=== PATIENT | female | born 1950 | race Caucasian/White ===

== ENCOUNTER → 2020-08-12 | Outpatient (CLI) | payer MEDICARE ==
--- NOTE | 2020-08-12 13:47 | REP ---
INDICATION: HEART FAILURE COMPARISON: None. TECHNIQUE: PA and lateral. FINDINGS: The mediastinum and cardiac silhouette are normal. The lung rader are demonstrate diffuse increased vascular and interstitial markings which are nonspecific. Cardiomegaly is appreciated. Evidence for prior sternotomy and aortic valve repair noted. IMPRESSION: Diffusely increased markings. No prior exam for comparison. Differential diagnosis includes early interstitial edema as well as chronic changes. If the patient remains symptomatic consider chest CT for further investigation. <Electronically signed by Joo Da Silva > 08/12/20 [id number]
== END ==
LOC: M WUC 10:30
PROVIDERS: ATTEND Internal Medicine Cardiovascular Disease
DX: I50.9 Heart failure, unspecified (principal)

== ENCOUNTER 2021-03-10 12:36 | Observation (INO) | payer MEDICARE ==
[~2021-03-10] VITALS: Ht 160 cm; Wt 72.5 kg
[2021-03-10] MEDS ORDERED: WARF-18 PO (12:56)
[2021-03-10] MEDS ORDERED: METO1TAB7 PO (12:56)
[2021-03-10] MEDS ORDERED: SPIR-10 (12:56)
[2021-03-10] MEDS ORDERED: TRAM37.53 (12:56)
[2021-03-10] MEDS ORDERED: ATOR80TA59 PO ×2 (12:56→16:11)
[2021-03-10] MEDS ORDERED: GABA600T4 PO (12:56)
[2021-03-10] MEDS ORDERED: TERB250T91 (12:56)
[2021-03-10] MEDS ORDERED: TOPA100T12 PO ×2 (12:56→16:28)
[2021-03-10] MEDS ORDERED: CEFD1CAP8 (12:56)
[2021-03-10] MEDS ORDERED: RAMI1CAP24 PO (12:56)
[2021-03-10] MEDS ORDERED: SERT-141 PO (12:56)
[2021-03-10] MEDS ORDERED: TORS10TA3 PO (12:56)
--- NOTE | 2021-03-10 13:48 | REPVR ---
PROCEDURE INFORMATION: Exam: CT Head Without Contrast Exam date and time: 03/10/2021 1:33 PM Age: 70 years old Clinical indication: Altered mental status/memory loss TECHNIQUE: Imaging protocol: Computed tomography of the head without contrast. Radiation optimization: All CT scans at this facility use at least one of these dose optimization techniques: automated exposure control; mA and/or kV adjustment per patient size (includes targeted exams where dose is matched to clinical indication); or iterative reconstruction. COMPARISON: No relevant prior studies available. FINDINGS: Brain: There is no acute intracranial hemorrhage or mass effect. Moderate diffuse volume loss is within the range of normal for patient age. There are small vessel ischemic changes within the periventricular and subcortical white matter, but the normal pepper-white matter delineation is maintained. Sella: There is an expanded and empty sella. Cerebral ventricles: No ventriculomegaly. Paranasal sinuses: Visualized sinuses are unremarkable. No fluid levels. Mastoid air cells: Visualized mastoid air cells are well aerated. Bones/joints: Unremarkable. No acute fracture. Soft tissues: Unremarkable. IMPRESSION: No acute hemorrhage or edema. Electronically signed by: Barbara Lamb On 03/10/2021 13:48:26 PM
[2021-03-10 14:20] LABS: BASO # 0.1 10^3/uL (0.0-0.2); BASO % 0.8 % (0.0-1.0); EOS # 0.1 10^3/uL (0.0-0.5); EOS % 2.1 % (0.0-3.0); HEMOGLOBIN 13.3 g/dl (12.0-15.5); LYMPH # 0.9 10^3/uL (1.5-5.0); LYMPH % 15.1 % (24.0-44.0); MEAN CORPUSCULAR HEMOGLOBIN 27.5 pg (27.0-33.0); MEAN CORPUSCULAR HGB CONC 30.9 g/dl (32.0-36.5); MEAN CORPUSCULAR VOLUME 88.8 fl (80.0-96.0); MONO # 0.4 10^3/uL (0.0-0.8); MONO % 6.9 % (2.0-8.0); NEUTROPHILS # 4.7 10^3/uL (1.5-8.5); NEUTROPHILS % 74.8 % (36.0-66.0); PLATELET COUNT, AUTOMATED 138 10^3/uL (150-450); RED BLOOD COUNT 4.84 10^6/uL (4.00-5.40); WHITE BLOOD COUNT 6.2 10^3/uL (4.0-10.0)
[2021-03-10 14:29] LABS: INR 4.66
[2021-03-10 14:30] LABS: PARTIAL THROMBOPLASTIN TIME 51.2 SECONDS (25.9-37.0)
[2021-03-10 14:56] LABS: ALBUMIN 3.5 GM/DL (3.2-5.2); ALT/SGPT 23 U/L (12-78); BILIRUBIN,DIRECT 0.2 MG/DL (0.0-0.2); BILIRUBIN,TOTAL 0.5 MG/DL (0.2-1.0); BLOOD UREA NITROGEN 37 MG/DL (7-18); CALCIUM LEVEL 8.5 MG/DL (8.8-10.2); CARBON DIOXIDE LEVEL 22 MEQ/L (21-32); CHLORIDE LEVEL 110 MEQ/L (98-107); CREATININE FOR GFR 1.16 MG/DL (0.55-1.30); GLOMERULAR FILTRATION RATE 49.5 (>45); GLUCOSE, FASTING 93 MG/DL (70-100); POTASSIUM SERUM 4.2 MEQ/L (3.5-5.1); SODIUM LEVEL 140 MEQ/L (136-145); THYROID STIMULATING HORMONE 0.163 uIU/ML (0.358-3.740); TOTAL PROTEIN 7.3 GM/DL (6.4-8.2)
[2021-03-10 15:01] LABS: RSV AMPLIFICATION NEGATIVE (NEGATIVE)
[2021-03-10] MEDS ORDERED: CEFD1CAP8 PO (16:11)
[2021-03-10] MEDS ORDERED: NEUR600T PO (16:28)
[2021-03-10] MEDS ORDERED: WARF4TAB52 PO (16:28)
[2021-03-10] MEDS ORDERED: ALTA1CAP3 PO (16:28)
[2021-03-10] MEDS ORDERED: TRAM37.53 PO (16:28)
[2021-03-10] MEDS ORDERED: TOPR50TA PO (16:28)
[2021-03-10] MEDS ORDERED: WARF4TAB51 PO (16:28)
[2021-03-10] MEDS ORDERED: ZOLO100T PO (16:28)
[2021-03-10] MEDS ORDERED: SPIR-10 PO (16:28)
[2021-03-10] MEDS ORDERED: VITMTA PO (16:28)
[2021-03-10] MEDS ORDERED: HOME MED LIST COMPLETE! XX SCH (16:30)
[2021-03-10] MEDS ORDERED: LORazepam 2 MG/ML VIAL IV PRN (19:00)
[2021-03-10] MEDS ORDERED: ACETAMINOPHEN TAB 650MG DOSE (2X325MG) PO PRN (19:00)
--- NOTE | 2021-03-10 19:10 | ECGEPIP ---
[facility] - ED Test Date: 2021-03-10 Pat Name: JESSE TOLEDO Department: Room: - Gender: Female Cop Examiner: tierra : 1950 Requested By: CHAR LEUNG Order Number: [id number] Reading MD: Danielle Tejeda Measurements Intervals [place] Rate: 62 P: RI: QRS: 11 QRSD: 104 T: -59 QT: 430 QTc: 436 Interpretive Statements Atrial fibrillation Minimal voltage criteria for LVH, may be normal variant ( Lex product ) ST & T wave abnormality, consider ischemia No prior Electronically Signed on 03-10-2021 19:10:05 EST by Danielle Tejeda
--- NOTE | 2021-03-10 19:42 | HPEPDOC ---
[facility] Medical History & Physical Date of Admission Mar 10, 2021 Date of Service: Mar 10, 2021 Attending Physician: ADDIE VELAZQUEZ MD History and Physical CHIEF COMPLAINT: 2 seizure like activity events lasting 20sec and then short postictal unresponsiveness all witnessed by son HISTORY OF PRESENT ILLNESS: 70 yo W with a history of AVR on warfarin, chronic Afib on toprol and warfarin, migraine headaches for which she sees Dr. Limon on topamax 150mg BID, HLD, HTN, depression, history of sarcoidosis and "thyroid problems" but recently labs were normal and she off meds, who was at her recent baseline until 2d ago when she had a sudden loss of consciousness with unresponsiveness and body jerking that appeared seizure like to her son who took her to [facility] where she had a UA that was positive without any complaints of dysuria or fever and was started on cefdnir. Their CT scanner was unfortunately down and so she never had a CT head and was discharged home with plan to follow up with her neurologist promptly but they did not have a prmpt appointment for her and then last evening she had another episode that lasted about 20 sec and had a brief unresponsive period after and confusion that last 1-2min thus his decision to bring her in today. Both she and her son deny any history of fever, chills, chest pain, palpitations, rhinorrhea, congestion, dysuria, abdominal pain, dizziness or complaints of illness in general except these two distinct episodes. In the ED, she was hemodynamically stable and afebrile and breathing comfortably. She reported a slight headache but otherwise was thirsty and hungry. She is hard of hearing but is otherwise fully oriented. I spoke with her son who lives with her and told me that she uses a cane and walker at baseline and does not have a seizure disorder history. In the ED workup included a CT head that showed an expanded empty sella without ventriculomegaly, no bleeding, masses or mass effect, WBC was 6.2, hgb 13.3, Na 138, Na 140, K 4.2, BUN 37, Cr 1.16, AST 16, ALT 23, TSH 0.63. Respiratory panel was negative. I am now adm itting her for workup of this potential seizure activity. PAST MEDICAL HISTORY: AVR HTN HLD History of sarcoidosis Chronic Afib PAST SURGICAL HISTORY: Aortic valve replacement Cholecystectomy Tubal ligation SOCIAL HISTORY: Marital status: , mother of 3, lives with youngest son in [facility] Tobacco use: Never ETOH: Never Illicit drug use: Never FAMILY HISTORY: Father: Stroke Mother: DM, Stroke, VTE, heart disease ALLERGIES: Please see below. REVIEW OF SYSTEMS: 10 point ROS was completed and grossly negative except for those two seizure like episodes noted in the HPI. HOME MEDICATIONS: Please see below. PHYSICAL EXAMINATION: VITAL SIGNS: see below GENERAL APPEARANCE: NAD, conversational, pleasant HEENT: NCAT, has central alopecia, EOMI, MMM CARDIOVASCULAR: Irregular rhythm, normal rate, has a systolic murmur and mechanical valve click LUNGS: CTAB, no wheezing, rales or rhonchi ABDOMEN: Protuberant, has central obesity, otherwise soft, normoactive sounds, nontender MUSCULOSKELETAL: Thin extremities with central obesity. 5/5 strength throughout EXTREMITIES: WWP, no LE edema NEUROLOGICAL: CN3-12 intact, 5/5 strength in both upper and lower extremities, normal gait with her cane PSYCHIATRIC: AOx3 LABORATORY DATA: Reviewed above. See below. IMAGING: Reviewed above. Please see imaging section MICROBIOLOGY: Please see below. ASSESSMENT: 70 yo W with a history of AVR on warfarin, chronic Afib on toprol and warfarin, migraine headaches for which she sees Dr. Limon on topamax 150mg BID, HLD, HTN, depression, history of sarcoidosis and "thyroid problems" but recently labs were normal and she off meds, who was at her recent baseline until 2d ago when she had 2 episodes of transient seizure like activity with brief postictal AMS who is now being admitted for potential seizure activity. PLAN: Suspected seizure like activity: -spot EEG -CT head was without acute pathology -UA, BCx, CXR -normoglycemic at this time, electrolytes are within normal limits at this time -check free T4 given low TSH -continue home topamax -PRN ativan for seizure like activity -prolactin -check syphillis EIA -will consider neuro consult after initial workup Chronic A fib: -Plan is to continue warfarin but will hold for now given supratherapeutic INR -daily INR check -continue toprol XL AVR: -Plan is to continue warfarin but will hold for now given supratherapeutic INR -daily INR check Depression: -continue sertraline Chronic pain: -continue tramadol/acetaminophen, gabapentin HTN: -continue ramipril and toprol XL HLD: -continue lipitor DVT ppx: on warfarin Code status: FULL Vital Signs Vital Signs Date Time Temp Pulse Resp B/P (MAP) Pulse Ox O2 Delivery O2 Flow Rate FiO2 03/10/21 18:15 73 130/66 (87) 98 Room Air 03/10/21 12:37 97.6 18 Laboratory Data Labs 24H Laboratory Tests 2 03/10/21 13:45: Immature Granulocyte % (Auto) 0.3, Neutrophils (%) (Auto) 74.8H, Lymphocytes (%) (Auto) 15.1L, Monocytes (%) (Auto) 6.9, Eosinophils (%) (Auto) 2.1, Basophils (%) (Auto) 0.8, Neutrophils # (Auto) 4.7, Lymphocytes # (Auto) 0.9L, Monocytes # (Auto) 0.4, Eosinophils # (Auto) 0.1, Basophils # (Auto) 0.1, Nucleated Red Blood Cells % (auto) 0.0, Prothrombin Time 44.0H, Prothromb Time International Ratio 4.66, Activated Partial Thromboplast Time 51.2H, Anion Gap 8, Glomerular Filtration Rate 49.5, Calcium Level 8.5L, Total Bilirubin 0.5, Direct Bilirubin 0.2, Aspartate Amino Transf (AST/SGOT) 16, Alanine Aminotransferase (ALT/SGPT) 23, Alkaline Phosphatase 129H, Total Protein 7.3, Albumin 3.5, Albumin/Globulin Ratio 0.9L, Thyroid Stimulating Hormone (TSH) 0.163L, Coronavirus (COVID- 19)(PCR) NEGATIVE, Influenza Type A (RT-PCR) NEGATIVE, Influenza Type B (RT-PCR) NEGATIVE, Respiratory Syncytial Virus (PCR) NEGATIVE 03/10/21 13:46: CBC/BMP Laboratory Tests 03/10/21 13:45 Home Medications Scheduled Atorvastatin Calcium (Atorvastatin Calcium) 80 Mg Tablet, 80 MG PO DAILY Cefdinir (Cefdinir) 300 Mg Capsule, 300 MG PO BID 7 DAY SUPPLY Gabapentin (Neurontin) 600 Mg Tablet, 600 MG PO TID Metoprolol Succinate (Toprol Xl) 50 Mg Tab.er.24h, 50 MG PO DAILY Multivitamins (Thera M Plus Tablet) 1 Each Tablet, 1 TAB PO DAILY Ramipril (Altace) 5 Mg Capsule, 5 MG PO DAILY Sertraline Hcl (Zoloft) 100 Mg Tablet, 100 MG PO BID Spironolactone (Spironolactone) 25 Mg Tablet, 12.5 MG PO DAILY Topiramate (Topamax) 100 Mg Tablet, 150 MG PO BID Tramadol HCl/Acetaminophen (Tramadol-Acetaminophn 37.5-325) 1 Each Tablet, 1 TAB PO TID Warfarin Sodium (Warfarin Sodium) 1 Mg Tablet, 1 MG PO DAILY TAKE WITH 2MG = TOTAL 5MG Warfarin Sodium (Warfarin Sodium) 2 Mg Tablet, 4 MG PO DAILY TAKE WITH 1MG = TOTAL 5MG Allergies Coded Allergies: No Known Allergies (Unverified , 03/10/21) A-FIB/CHADSVASC A-FIB History Current/History of A-Fib/PAF?: Yes Current PO Anticoag Therapy: Yes Treatment Treatment ordered: Warfarin ADDIE VELAZQUEZ MD Mar 10, 2021 19:42
[2021-03-10] MEDS: ULTRACET TAB PO SCH (21:00)
[2021-03-10] MEDS: TOPIRAMATE (TopAMAX) 25 MG TAB PO SCH (21:00)
[2021-03-10] MEDS: SERTRALINE 100 MG TAB PO SCH (21:00)
[2021-03-10] MEDS: GABAPENTIN 300 MG CAP PO SCH (21:00)
[2021-03-10] MEDS: TOPIRAMATE (TopAMAX) 100 MG TAB PO SCH (21:00)
[2021-03-10 22:45] LABS: RHEUMATOID FACTOR QUANT < 10.0 IU/ML (<15.0)
--- NOTE | 2021-03-11 04:39 | REP ---
INDICATION: seizure like activity, no other focal findings COMPARISON: 08/12/2020 TECHNIQUE: AP and lateral. FINDINGS: The mediastinum and cardiac silhouette are stable. Cardiomegaly with prior sternotomy and aortic valve repair noted.. The lung rader demonstrate chronic interstitial changes without acute consolidation, effusion, or pneumothorax. The skeletal structures are intact and normal. IMPRESSION: No acute cardiopulmonary process. <Electronically signed by Joo Da Silva > 03/11/21 [id number]
[2021-03-11 04:40] LABS: HEMOGLOBIN 11.9 g/dl (12.0-15.5); MEAN CORPUSCULAR HEMOGLOBIN 27.5 pg (27.0-33.0); MEAN CORPUSCULAR HGB CONC 31.3 g/dl (32.0-36.5); PLATELET COUNT, AUTOMATED 126 10^3/uL (150-450); RED BLOOD COUNT 4.32 10^6/uL (4.00-5.40); WHITE BLOOD COUNT 6.3 10^3/uL (4.0-10.0)
--- OUTSIDE RECORDS SUMMARY | 2021-03-11 04:44 | CCD | Continuity of Care Document ---
Author Migdalia Fontana M.D. Organization Unknown Address [address] [place] [id number] Phone [phone] Care Team Providers Care Medical Pathology Teacher Name Role Phone Alina Monroe N.P. AUTM [phone] Problems Description No Information Available Social History Type Date Description Comments Sex Unknown Allergies and adverse reactions Description No Information Available Medications Active Medications SIG Qnty Indications Ordering Provide r Date Topamax 100mg Tablets 1 and 1/2 tabs by mouth twice a day 90tabs Crys Limon M.D. 08/02/2020 Immunizations Description No Information Available Vital Signs Description No Information Available Results Test Acquired Date Facility Test Result H/L Range Note Laboratory test finding 08/06/2020 [facility] Tracie W/Reflex If Positive Negative Negative 1 CBC W/Diff 08/06/2020 [facility] WBC 5.1 K/mm3 4.0-10.0 RBC 4.38 M/mm3 4.00-5.50 HGB 12.2 gm/dL 12.0-16.0 HCT 38.1 % 36.0-48.8 MCV 87.0 fl 80-96 MCH 27.9 pg 27.0-31.0 MCHC 32.0 g/dL 32.0-36.0 RDW 15.9 % High 10.0-14.5 PLT 172 K/mm3 172-450 MPV 9.1 fl 9.0-13.0 GR% 80.5 % High 50-80.0 Ig% 0.2 % 0.0-0.2 Ly% 11.8 % Low 25.0-50.0 Mo% 4.7 % 2.0-10.0 Eo% 1.8 % 0-5.0 Ba% 1.0 % 0.0-2.0 GR# 4.1 K/mm3 2.0-8.00 Ig# 0.0 K/mm3 0.0-0.2 Ly# 0.6 K/mm3 Low 1.0-5.0 Mo# 0.2 K/mm3 0.10-1.20 Eo# 0.1 K/mm3 0.0-0.5 Ba# 0.1 K/mm3 0.0-0.2 Laboratory test finding 08/06/2020 [facility] Rheumatoid Factor Screen NEGATIVE Negative TSH 0.364 uIU/mL 0.360-3.740 Complete Metabolic Profile 08/06/2020 [facility] l Glu 125 mg/dL High 74-106 BUN 39 mg/dL High 7-18 Cre 1.69 mg/dL High 0.6-1.0 Na 142 mmol/L 136-145 K 4.2 mmol/L 3.5-5.1 CL 105 mmol/L 98-107 Co2 24 mmol/L 21-32 CA 8.9 mg/dL 8.5-10.1 Gap 13.0 mmol/L High 5-12 GFR 30 mL/min 2 Ast 22 U/L 15-37 Alt 23 U/L 12-78 Alk 72 U/L 46-116 Tbili 0.5 mg/dL 0.2-1.0 TP 7.8 g/dL 6.4-8.2 Alb 4.0 gm/dL 3.4-5.0 Laboratory test finding 08/06/2020 [facility] Vitamin D, 25-Hydroxy 30.1 ng/mL 30.0-100.0 3 Erythrocyte Sedimentation Rate 40 mm/hr High 0-30 1 Performed at: RN - [facility] [address] [id number] Undergraduate Internship: Tawanna Alston MD, Phone: [phone] 2 GFR IS CALCULATED IN mL/min/ 1.73m2 NORMAL FUNCTION: >90 MILDLY DECREASED: 60-89 MILDY TO MODERATELY DECREASED: 45-59 MODERATELY TO SEVERELY DECREASED: 30-44 SEVERELY DECREASED: 15-29 RENAL FAILURE: <15 3 Vitamin D deficiency has bee n defined by the Center of Medicine and an Endocrine Society practice guideline as a level of serum 25-OH vitamin D less than 20 ng/mL (1,2). The Endocrine Society went on to further define vitamin D insufficiency as a level between 21 and 29 ng/mL (2). 1. IOM (Center of Medicine). 2010. Di etary reference intakes for calcium and D. [place]: The National Academies Press. 2. Margarita THORNTON, Joe GONZALEZ, Peyton jeong WOODRUFF, et al. Evaluation, treatment, and prevention of vitamin D deficiency: an Endocrine Society clinical practice guideline. JCEM. 2010; 96(7):1911-30. Performed at: RN - [facility] [address] [id number] Undergraduate Internship: Tawanna Alston MD, Phone: [phone] Procedures Date Code Description Status 01/28/2021 07968 Office/Outpatient Established Mo d MDM 30-39 Min Completed 10/07/2020 43339 Office/Outpatient Established Mo d MDM 30-39 Min Completed 09/17/2020 20290 MRI Brain W/O Contrast Completed 09/17/2020 52938 MRI Brain W/O Contrast Completed 09/17/2020 51958 Magnetic Resonance Angiography N kee W/O Contrast Materials Completed 09/17/2020 24271 Magnetic Resonance Angiography N kee W/O Contrast Materials Completed 09/17/2020 91264 Magnetic Resonance Angiogtaphy H ead W/O Contrast Material(S) Completed 09/17/2020 68845 Magnetic Resonance Angiogtaphy H ead W/O Contrast Material(S) Completed 08/09/2020 64761 Nerve Conduction 9-10 Studies Co mpleted 08/09/2020 02926 Needle Electromyography Complete , Five Or More Muscles Studied Completed 08/09/2020 17334 Needle Electromyography Complete , Five Or More Muscles Studied Completed 08/06/2020 13015 Sympathetic Skin Responses Compl eted 08/06/2020 01930 Test Autonomic Nervous System, C ardiovagal Innervation Completed 08/06/2020 73725 Artery Study Extremity Mult Leve ls Bilateral Completed Medical Devices Description No Information Available Encounters Type Date Location Provider Dx Diagnosis Office Visit 01/28/2021 10:30a Main office - Louisa Limon M.D. R55 Syncope and collapse G56.03 Carpal tunnel syndrome, bila teral upper limbs R26.2 Difficulty in walking, not e lsewhere classified M54.59 Other low back pain G43.809 Other migraine, not intracta ble, without status migrainosus M54.2 Cervicalgia Office Visit 10/07/2020 10:00a Main office - [place] Crys Limon M.D. G56.01 Carpal tunnel syndrome, right upper limb G56.02 Carpal tunnel syndrome, left upper limb G56.22 Lesion of ulnar nerve, left upper limb G43.809 Other migraine, not intracta ble, without status migrainosus M54.2 Cervicalgia R26.9 Unspecified abnormalities of gait and mobility R55 Syncope and collapse R42 Dizziness and giddiness M54.5 Low back pain R41.3 Other amnesia Assessments Date Code Description Provider 01/28/2021 R55 Syncope and collapse Crys estes M.D. 01/28/2021 G56.03 Carpal tunnel syndrome, bilatera l upper limbs Crys Limon M.D. 01/28/2021 R26.2 Difficulty in walking, not elsew here classified Crys Braxton, M.DEnma 01/28/2021 M54.59 Other low back pain Crys BraxtonDeny azar.DEnma 01/28/2021 G43.809 Other migraine, not intractable, without status migrainosus Crys Braxton, M.DEnma 01/28/2021 M54.2 Cervicalgia Crys Braxton, M. DEnma 10/07/2020 G56.01 Carpal tunnel syndrome, right up per limb Crys Braxton, M.DEnma 10/07/2020 G56.02 Carpal tunnel syndrome, left upp er limb Crys Braxton, M.DEnma 10/07/2020 G56.22 Lesion of ulnar nerve, left uppe r limb Crys Braxton, M.DEnma 10/07/2020 G43.809 Other migraine, not intractable, without status migrainosus Crys Braxton, M.DEnma 10/07/2020 M54.2 Cervicalgia Crys BraxtonTi azar DEnma 10/07/2020 R26.9 Unspecified abnormalities of gai t and mobility Crys Limon M.D. 10/07/2020 R55 Syncope and collapse Crys estes M.D. 10/07/2020 R42 Dizziness and giddiness Crys dean M.D. 10/07/2020 M54.5 Low back pain Ti Davey 10/07/2020 R41.3 Other amnesia Ti Davey 09/17/2020 R42 Dizziness and giddiness Bryan Dahl M.D. 09/17/2020 R42 Dizziness and giddiness MRI 09/17/2020 G43.809 Other migraine, not intractable, without status migrainosus Bryan Limon M.D. 09/17/2020 G43.809 Other migraine, not intractable, without status migrainosus MRI 08/09/2020 M62.838 Other muscle spasm Deny Shukla 08/09/2020 R20.2 Paresthesia of skin Rachel Rahman M.D. 08/09/2020 G56.01 Carpal tunnel syndrome, right up per limb Rachel Rahman M.D. 08/09/2020 G56.02 Carpal tunnel syndrome, left upp er limb Rachel Rahman M.D. 08/06/2020 G60.8 Other hereditary and idiopathic neuropathies Crys Limon M.D. 08/06/2020 G60.8 Other hereditary and idiopathic neuropathies Ans/VS 08/06/2020 I95.1 Orthostatic hypotension Crys dean M.D. 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 at Main office - [place] Functional Status Description No Information Available Mental Status Description No Information Available Referrals Refer to Reason for Referral Status Appt Date Created
--- OUTSIDE RECORDS SUMMARY | 2021-03-11 04:44 | CCD | Continuity of Care Document ---
Author Author [facility] Address [address] [place] [address] Phone Care Team Providers Care Manager Behavioral Name Role Phone MARYANNE BERGMAN PCP Chief Complaint and Reason for Visit Reason for Visit SHAKING Health Concerns Health Concerns may be documented in an alternate section. Allergies, Adverse Reactions, Alerts No allergy information available. Social History Assigned Sex Female Problems No problem information available. Medications No medication information available. Immunizations No Immunization Information Available Medical Equipment No Medical Equipment Information available Procedures Procedure Date Performed Status MAMMO DIAG UNI WITH CAD January 31, 2021 completed BRAIN W/O CONTRAST March 07, 2021 active Relevant Diagnostic Tests and/or Laboratory Data Laboratory Results Test Date/Time Result Interpretation Reference Range Result Comment Performing Site White Blood Count March 07, 2021 4:15p m 5.9 4.0-10.0 [facility], [address] [place] [address] Red Blood Count March 07, 2021 4:15pm 4.67 4.00-5.50 [facility], [address] [place] [address] 19684 Hemoglobin March 07, 2021 4:15pm 13.0 12.0-16.0 [facility], [address] [place] [address] Hematocrit March 07, 2021 4:15pm 40.1 36.0-48.8 [facility], [address] [place] [address] 13743 Mean Corpuscular Volume March 4:15pm 85.9 80-96 [facility], [address] [facility] [address] Mean Corpuscular Hemoglobin March 07, 2021 4:15pm 27.8 27.0-31.0 [facility], 4 [facility] [address] Mean Corpuscular Hgb Concent Diff De cember 2020 4:15pm 32.4 32.0-36.0 [facility], [address] [facility] [address] Red Cell Distribution Width March 07, 2021 4:15pm 15.7 10.0-14.5 [facility], 4 [facility] [address] Platelet Count March 07, 2021 4:15pm 130 172-450 [facility], 4 [facility] [address] Mean Platelet Volume March 07 021 4:15pm 10.0 9.0-13.0 [facility], 4 [facility] [address] Granulocytes % (Auto) March 07, 2021 4:15pm 82.2 50-80.0 [facility], 4 [facility] [address] Immature Granulocytes % March 4:15pm 0.2 0.0-0.2 [facility], 4 [facility] [address] Lymphocytes % March 07, 2021 4:15pm 11.1 25.0-50.0 [facility], 4 [facility] [address] Monocytes % March 07, 2021 4:15pm 4.8 2.0-10.0 [facility], 4 [facility] [address] Eosinophils % March 07, 2021 4:15pm 1.2 0-5.0 [facility], 4 [facility] [address] Basophils % March 07, 2021 4:15pm 0.5 0.0-2.0 [facility], 4 [facility] [address] Granulocytes # March 07, 2021 4:15pm 4.8 2.0-8.00 [facility], 4 [facility] [address] Immature Granulocytes # March 4:15pm 0.0 0.0-0.2 [facility], 4 [facility] [address] Lymphocytes # March 07, 2021 4:15pm 0.7 1.0-5.0 [facility], 4 [facility] [address] Monocytes # March 07, 2021 4:15pm 0.3 0.10-1.20 [facility], 4 [facility] [address] Eosinophils # March 07, 2021 4:15pm 0.1 0.0-0.5 [facility], 4 [facility] [address] Basophils # March 07, 2021 4:15pm 0.0 0.0-0.2 [facility], 4 [facility] [address] Prothrombin Time March 07, 2021 4:15pm 33.4 9.1-11.3 [facility], 4 [facility] [address] INR International Normalized Ratio D ecember 2020 4:15pm 3.39 0.87-1.06 [facility], 4 [facility] [address] Partial Thromboplastin Time - Pedro Pablo D ecember 2020 4:15pm 38.3 21.3-29.7 [facility], 4 [facility] [address] Urine Color March 07, 2021 4:30pm [facility] Lab, 4 [facility] [address] Urine Appearance March 07, 2021 4:30pm CLOUDY [facility], 4 [facility] [address] Urine Glucose March 07, 2021 4:30pm NEGATIVE NEGATIVE [facility], 4 [facility] [address]472 Urine Bilirubin March 07, 2021 4:30pm NEGATIVE NEGATIVE [facility], 4 [facility] [address] Urine Ketones March 07, 2021 4:30pm NEGATIVE NEGATIVE [facility], 4 [facility] [address] Specific [place] March 07, 2021 4:30pm 1.020 1.005-1.030 [facility], 4 [facility] 84[address] Urine Blood March 07, 2021 4:30pm NEGATIVE NEGATIVE [facility], 4 [facility] [address] Urine pH March 07, 2021 4:30pm 5.0 5.0-9.0 [facility], 4 [facility] 19[address] Urine Protein March 07, 2021 4:30pm NEGATIVE NEGATIVE [facility], 4 [facility] [address] Urine Urobilinogen March 07 4:30pm NORMAL(0.2-1) 0-1 [facility], 4 [facility] [address] Urine Nitrite March 07, 2021 4:30pm POSITIVE NEGATIVE [facility], 4 [facility] [address] Urine Leukocyte Esterase March 4:30pm 1+(SMALL) NEGATIVE [facility] [address] Urine Microscopic RBC March 07, 2021 4:30pm 0-2 0-3 [facility], 4 [facility] [address] Urine Microscopic WBC March 07, 2021 4:30pm 5-10 0-5 [facility], 4 [facility] 387[address] Urine Epithelial Cells March 07, 2021 4:30pm 1+ 0 [facility], 4 [facility] [address] Urine Bacteria March 07, 2021 4:30pm 4+ NONE SEEN URINE CULTUR E ADDED [facility], 4 [facility] 86677 URINE CULTURE SENT TO REF LAB [facility] Main Lab, 4 [facility] [address] Glucose Level March 07, 2021 4:15pm 125 74-106 [facility], 4 [facility] [address] Blood Urea Nitrogen March 07 4:15pm 37 7-18 [facility], 4 [facility] [address] Creatinine March 07, 2021 4:15pm 1.16 0.55-1.02 [facility], 4 [facility] [address] Sodium Level March 07, 2021 4:15pm 141 136-145 [facility], 4 [facility] [address] Potassium Level March 07, 2021 4:15pm 4.4 3.5-5.1 [facility], 4 [facility] [address] Chloride Level March 07, 2021 4:15pm 105 98-107 [facility], 4 [facility] [address]951 Carbon Dioxide Level March 07 4:15pm 26 21-32 [facility], 4 [facility] [address] Calcium Level March 07, 2021 4:15pm 8.6 8.5-10.1 [facility], 4 [facility] [address] Anion Gap March 07, 2021 4:15pm 10.0 5-12 [facility], 4 [facility] [address] Estimated GFR (MDRD) March 07 4:15pm 46 GFR IS CALCULATED IN mL/min/1.73m2 NORMAL FUNCTION: >90MILDLY DECREASED: 60-89MILDY TO MODERATELY DECREASED: 45-59 MODERATELY TO SEVERELY DECREASED: 30-44SEVERELY DECREASED: 15-29RENAL FAILURE: <15 [facility], [address] [place] [id number] Aspartate Amino Transf (AST/SGOT) De cember 2020 4:15pm 14 15-37 [facility], 4 [facility] [address] Alanine Aminotransferase (ALT/SGPT) March 07, 2021 4:15pm 27 14-59 [facility], 4 [facility] [address] Alkaline Phosphatase March 07 4:15pm 125 46-116 [facility], [address] [place] [address] Total Bilirubin March 07, 2021 4:15pm 0.5 0.2-1.0 [facility], 4 [facility] [address] Total Protein March 07, 2021 4:15pm 7.7 6.4-8.2 [facility], 4 [facility] [address] Albumin March 07, 2021 4:15pm 3.8 3.4-5.0 [facility], 4 [facility] [address] Lipase March 07, 2021 4:15pm 263 73-393 [facility], 4 [facility] [address] Phosphorus Level December 13 5:02am 4.0 2.5-4.9 [facility], 4 [facility] [address] Urine Amphetamine Screen March 4:30pm NEGATIVE <1000 ng/mL [facility], 4 [facility] [address] Urine Cocaine Screen March 07 4:30pm NEGATIVE <300 ng/mL [facility], 4 [facility] [address] Urine Marijuana (THC) Screen r 2020 4:30pm NEGATIVE <50 ng/mL [facility], 4 [facility] [address] Urine Benzodiazepines Screen Decembe r 2020 4:30pm NEGATIVE <300 ng/mL [facility], 4 [facility] [address] Urine Tricyclic Antidepressants Dece mb2020 4:30pm NEGATIVE <1000 ng/mL IF A NEGATIVE RESULT IS OBTAINED AND ING ESTION OF TRICYCLICANTIDEPRESSANTS IS SUSPECTED, A SERUM SAMPLE SHOULD BEOBTAINED AND TESTED USING AN APPROPRIATE METHOD. [facility], 4 [facility] [address] Urine Barbiturates Screen March 072020 4:30pm NEGATIVE <300 ng/mL [facility], 4 [facility] [address] Methylenedioxymethamphetamine (MDMA March 07, 2021 4:30pm NEGATIVE <500 ng/mL [facility], 4 [facility] [address] Urine Opiates Screen March 07 4:30pm NEGATIVE <300 ng/mL [facility], 4 [facility] [address] Urine Phencyclidine (PCP) Prelim Dec emb2020 4:30pm NEGATIVE <25 ng/mL [facility], 4 [facility] [address] Oxycodone Screen March 07, 2021 4:30pm NEGATIVE <100 ng/mL [facility], 4 [facility] [address] Propoxyphene Screen March 07 4:30pm NEGATIVE <300 ng/mL THESE TESTS ARE PERFORMED USING AN IMMUNOASSAY FOR THEQUALITATIVE DETERMINATION OF THE PRESENCE OF THE MAJORMETABOLITES OF DRUGS OF ABUSE. THESE TESTS ARE ONLY ASCREENING AND NOT CONFIRMATORY. CLINICAL CONSIDERATION ANDPROFESSIONAL JUDGMENT MUST BE APPLIED TO ANY DRUG OF ABUSETEST RESULT. [facility], 4 [facility] [address] B-Type Natriuretic Peptide December 13, 2020 5:02am 2090 0-125 [facility], 4 [facility] [address] Diagnostic Imaging Reports Report Dictated Date/Time Dictated By Status PS360 TEMPLATE February 01, 2021 4:48am JOSIAH SAUCEDO Patient Name: JESSE TOLEDO Unit#: [id number] Rad#: [id number] : 54 Status: IQRA Hughes MD: MARYANNE TURCIOS Room/Bed Sex: Ivette Dramatic Teacher: Fernanda Silva Date: 01/31/21 Report #: [id number] Signed - MAMMO DIAG UNI WITH CAD ORIGINAL REPORT DATE OF EXAMINATION: 01/31/2021 15:16 EDT MAMMO DIAG UNI WITH CAD HISTORY: Follow-up Based on the personal and family history information your patient supplied at the time of imaging, her lifetime risk of breast cancer estimated date by the Tyrer-Cuzick model is 6.3%. If anything changes in the personal and/or family history this percentage could increase or decrease. Currently, NCCN and ACS recommended adjunctive breast MRI screening starting at age 30 for women with a > 20-25% lifetime risk of developing breast cancer. Comparison is made to prior study dated 07/13/2020. 2-D left digital mammogram in the CC and MLO planes were performed with supplemental 3-D tomosynthesis of left breast. The images were analyzed through the latest version of the Perfect Escapes computer aided diagnosis system. The patient states that her last clinical breast examination was not provided. Craniocaudal and oblique lateral views of the left breast were obtained. (B) There are scattered areas of fibroglandular density.. There is no dominant mass, suspicious clustered calcification, or non surgical architectural distortion. IMPRESSION: Previously noted calcifications are unchanged. Final assessment of breast composition BIRAD classification (B) There are scattered areas of fibroglandular density. BIRAD 2 - Benign Findings, Routine Yearly Mammographic Follow-up recommended. 10-15% of cancers are not identified by mammography. This usually occurs when the mass is of the same radiographic density as the surrounding breast tissue, emphasizing the importance of breast self examination (BSE) and physical examination. A normal mammogram should not delay biopsy if a suspicious mass or abnormal findings are present upon physical examination. Electronically signed in PS360 by: Josiah Saucedo M.D. 02/01/2021 9:49 EDT Vital Signs No vital signs result information available. Insurance Providers Guarantor JESSE TOLEDO Address [address] [place] [address] Contact Info. Home Phone: Payer Policy Id Coverage Id Subscriber's Name Subscriber Id Effective Date Expiration Date [employer] MEDICARE [id number] JESSE TOLEDO Encounters Encounter Location(s) Ar rival/Admit Date Discharge/Depart Date Provider(s) Departed [facility] March 07, 2021 1:35pm March 07, 2021 6:00pm JUAN RAMON CARMONA [facility], [facility] March 02, 2021 9:18am MARYANNE TURCIOS [facility] February 16, 2021 7:34am MARYANNE TURCIOS Registered Physician/Provider Office Visit [facility] February 14, 2021 5:24am RAYMOND JUAREZ [facility], [facility] January 31, 2021 9:38am MARYANNE TURCIOS Registered Physician/Provider Office Visit [facility] January 19, 2021 7:00am MARYANNE TURCIOS [facility], [facility] January 14, 2021 5:27am MARYANNE TURCIOS [facility], [facility] January 05, 2021 7:26am ME KATRINA TURCIOS [facility] December 31, 2020 5:02am ME KATRINA TURCIOS A [facility] December 24, 2020 6:15am MARYANNE TURCIOS [facility] December 13, 2020 4:57am MARYANNE TURCIOS [facility] December 13, 2020 4:56am DESI NUNEZ [facility] December 08, 2020 6:18am MARYANNE TURCIOS Registered Physician/Provider Office Visit [facility] December 08, 2020 3:00am MARYANNE TURCIOS Functional Status No Functional Status information available Mental Status No Mental Status Information Available Assessments No Assessments Information Available Goals Goals may be documented in an alternate section.
--- OUTSIDE RECORDS SUMMARY | 2021-03-11 04:44 | CCD ---
Author Author [facility] Organization [facility] Address Unknown Phone Unavailable Care Team Providers Care Field Map Editor Name Role Phone Rush Love Unavailable PROBLEMS ALLERGIES No Known Allergies ENCOUNTERS from 1950 to 2021-02-14 IMMUNIZATIONS No Information SOCIAL HISTORY REASON FOR REFERRAL No Information VITAL SIGNS MEDICATIONS PROCEDURES No Information RESULTS No Results REASON FOR VISIT MEDICAL (GENERAL) HISTORY Goals Section Health Concerns MEDICAL EQUIPMENT No Information MENTAL STATUS FUNCTIONAL STATUS ASSESSMENTS PLAN OF TREATMENT Insurance Providers
--- OUTSIDE RECORDS SUMMARY | 2021-03-11 04:44 | CCD | Continuity of Care Document ---
Author Author Migdalia LIMON M.D. Organization Unknown Address [address] [place] [address] Phone [phone] Care Team Providers Care Construction Field Engineer Name Role Phone Alina Monroe N.P. AUTM [phone] Problems Description No Information Available Social History Type Date Description Comments Sex Unknown Allergies and adverse reactions Description No Information Available Medications Active Medications SIG Qnty Indications Ordering Provide r Date Topamax 100mg Tablets 1 and 1/2 tabs by mouth twice a day 90tabs Crys Limon M.D. 08/02/2020 Immunizations Description No Information Available Vital Signs Description No Information Available Results Description No Information Available Procedures Date Code Description Status 01/28/2021 11550 Office/Outpatient Established Mo d MDM 30-39 Min Completed 10/07/2020 67760 Office/Outpatient Established Mo d MDM 30-39 Min Completed 09/17/2020 34749 MRI Brain W/O Contrast Completed 09/17/2020 80279 MRI Brain W/O Contrast Completed 09/17/2020 31757 Magnetic Resonance Angiography N kee W/O Contrast Materials Completed 09/17/2020 03833 Magnetic Resonance Angiography N kee W/O Contrast Materials Completed 09/17/2020 84502 Magnetic Resonance Angiogtaphy H ead W/O Contrast Material(S) Completed 09/17/2020 82224 Magnetic Resonance Angiogtaphy H ead W/O Contrast Material(S) Completed Medical Devices Description No Information Available Encounters Type Date Location Provider Dx Diagnosis Office Visit 01/28/2021 10:30a Main office - [place] Crys Limon M.D. R55 Syncope and collapse G56.03 Carpal tunnel syndrome, bila teral upper limbs R26.2 Difficulty in walking, not e lsewhere classified M54.59 Other low back pain G43.809 Other migraine, not intracta ble, without status migrainosus M54.2 Cervicalgia Office Visit 10/07/2020 10:00a Main office - [place] Crys Limon M.D. G56.01 Carpal tunnel syndrome, [...] tunnel syndrome, bilatera l upper limbs Crys Braxton, M.DEnma 01/28/2021 R26.2 Difficulty in walking, not elsew here classified Crys Braxton, M.DEnma 01/28/2021 M54.59 Other low back pain Crys Braxton , M.DEnma 01/28/2021 G43.809 Other migraine, not intractable, without [...] Crys Braxton, M.DEnma 10/07/2020 M54.2 Cervicalgia Crys Braxton, M. DEnma 10/07/2020 R26.9 Unspecified abnormalities of gai t and mobility Crys BraxtonTere 10/07/2020 R55 Syncope and collapse Crys estes [...] migraine, not intractable, without status migrainosus MRI Plan of Treatment Future Appointment(s):* 07/01/2021 11:00 am - Crys Limon M.D. at Main office - [place] Functional Status Description No Information Available Mental Status Description No Information Available Referrals Refer to Reason for Referral Status Appt Date Created
--- OUTSIDE RECORDS SUMMARY | 2021-03-11 04:44 | CCD ---
Author Author [facility] Organization [facility] Address Unknown Phone Unavailable Care Team Providers Care Fashion Buying Internship Name Role Phone Alina Monroe Unavailable PROBLEMS Type Condition ICD9-CM Code SFJ16-FA Code Onset Dates Condition S tatus W/U Status Risk SNOMED Code Notes Problem Atrial fibrillation, unspecified type I48.91 Ac tive confirmed 05985000 Problem Hyperlipidemia, unspecified hyperlipidemia type E7 8.5 Active confirmed 74087372 Problem Anxiety with depression F41.8 Active confirmed 178445726 Problem Type 2 diabetes mellitus wit hout complication, unspecified whether bed bug exterminator insulin use E11.9 Active confirmed 649037814 Problem Hypertension, unspecified type I10 Active confir med 61818575 Problem Chronic anticoagulation Z79.01 Active confirmed 338353394 Problem Overactive thyroid gland E05.90 Active confirmed 07897724 Problem Bilateral hearing loss, unspecified hearing loss type H91.93 Active confirmed 17077804 Problem Postmenopausal bleeding N95.0 Active confirmed 08413992 Problem [place]-Walker grade 2 cystocele N81.10 Active confir med 873312471 Problem Abnormal finding on breast imaging R92.8 Activ e confirmed 163848918 Problem Migraine without aura and without status migrain osus, not intractable G43.009 Active confirmed 478497790 Problem Abnormal mammogram R92.8 Active confirmed 1 20921735 Problem Sarcoidosis D86.9 Active confirmed 33922287 Problem 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 Active confirmed 402293035968664 Problem LELE (stress urinary incontinence, female) N39.3 Active confirmed 13663706 Problem 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 Active confirmed 78312354 Problem Hyperthyroidism E05.90 Active confirmed 3448 6009 ALLERGIES No Known Allergies ENCOUNTERS from 1950 to 2021-02-28 Encounter Location Date Provider Diagnosis [address] [address] Jan, Alina Monroe Acute bilateral low back lex n without sciatica M54.5 IMMUNIZATIONS No Information SOCIAL HISTORY Tobacco Use: Social History Observation Description Date Details (start date - stop date) Never Smoker Sex Assigned At : Social History Observation Description Sex Assigned At Unknown Tobacco Use/Smoking Question Answer Notes Are you a never smoker REASON FOR REFERRAL No Information VITAL SIGNS No information MEDICATIONS Medication SIG (Take, Route, Frequency, Duration) Notes Start Da te End Date Status Atorvastatin Calcium 80 MG 1 tablet Orally Once a day for 90 day(s) Active Warfarin Sodium 2.5 MG 1 tablet Orally Once a day for 30 day(s) Mar, Active Topiramate 100 MG 1 tablet Orally twice a day Active Ramipril 5 MG 1 capsule Orally Once a day for 90 day(s) Active traMADol-Acetaminophen 37.5-325 MG 1 tablets as needed Orally three times a day and PRN for 30 days Jan, Active Zoloft 100 MG 1 tablet Orally twice a day for 90 days Active Spironolactone 25 MG 1 tablet Orally for 30 day(s) Active Magnesium 500 MG 1 tablet with a meal Orally Once a day for 90 d ay(s) Jul, Active Gabapentin 600 MG 1 tablet Orally three times a day for 90 days Active Voltaren 1 % as directed Externally twice per day as needed Jul, Active Metoprolol Succinate ER 50 MG TAKE ONE TABLET BY MOUTH EVERY DAY for 90 Active Warfarin Sodium 2 MG TAKE TWO TABLETS BY MOUTH ONCE DAILY for 90 Active Glucosamine Chondroitin Complx 500-250 MG 2 tabs Orally daily fo r 90 days Jul, Active PROCEDURES No Information RESULTS No Results REASON FOR VISIT refill MEDICAL (GENERAL) HISTORY Type Description Date Medical History type 2 diabetic Medical History depression/anxiety Medical History overactive thyroid Medical History migraine headaches Medical History osteoarthritis Medical History atrial fibrillation Medical History heart murmur Medical History sarcoidosis Surgical History cholecystectomy Surgical History heart surgery - artificial valve (aorti c) 2000 Surgical History tubal ligation Surgical History umbilical hernia repair Surgical History two liver biopsies - . Surgical History lung biopsy - . Surgical History right oopherectomy (large cysts) Surgical History right cataract Hospitalization History Surgical Needs Goals Section No Information Health Concerns No Information MEDICAL EQUIPMENT No Information MENTAL STATUS No Information FUNCTIONAL STATUS No Information ASSESSMENTS Encounter Date Diagnosis Assessment Notes Treatment Notes Treatm ent Clinical Notes Jan, Acute bilateral low back pain without sciatica ( ICD-10 - M54.5) PLAN OF TREATMENT Medication Medication Name Sig Start Date Stop Date traMADol-Acetaminophen 37.5-325 MG 1 tablets as needed Orally three times a day and PRN for 30 days Jan, Next Appt Details Provider Name:Rush Love, 2021-05-23 11:30:00 AM, [address] [place] [address], [phone], Provider Name:Alina Monroe, 01:30:00 PM, [address] [place] [address], [phone], Insurance Providers Payer Name Payer Address Payer Phone Insured Name Patient Relati onship to Insured Coverage Start Date Coverage End Date [facility] [address] [facility] [id number] Migdalia Hairston self
--- OUTSIDE RECORDS SUMMARY | 2021-03-11 04:44 | CCD ---
Author Author [facility] Organization [facility] Address Unknown Phone Unavailable Care Team Providers Care Translator And Interpreter Name Role Phone Alina Monroe Unavailable PROBLEMS Type Condition ICD9-CM Code ZQR26-CU Code Onset Dates Condition S tatus W/U Status Risk SNOMED Code Notes Problem Atrial fibrillation, unspecified type I48.91 Ac tive confirmed 00050421 Problem Hyperlipidemia, unspecified hyperlipidemia type E7 8.5 Active confirmed 48792819 Problem Anxiety with depression F41.8 Active confirmed 876149732 Problem Type 2 diabetes mellitus wit hout complication, unspecified whether extermination inspector insulin use E11.9 Active confirmed 789415171 Problem Hypertension, unspecified type I10 Active confir med 06295144 Problem Chronic anticoagulation Z79.01 Active confirmed 802979802 Problem Overactive thyroid gland E05.90 Active confirmed 84516443 Problem Bilateral hearing loss, unspecified hearing loss type H91.93 Active confirmed 87906609 Problem Postmenopausal bleeding N95.0 Active confirmed 88253362 Problem [place]-Walker grade 2 cystocele N81.10 Active confir med 406611772 Problem Abnormal finding on breast imaging R92.8 Activ e confirmed 096929998 Problem Migraine without aura and without status migrain osus, not intractable G43.009 Active confirmed 680588356 Problem Abnormal mammogram R92.8 Active confirmed 1 77500540 Problem Sarcoidosis D86.9 Active confirmed 37573881 Problem 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 Active confirmed 672498576056343 Problem LELE (stress urinary incontinence, female) N39.3 Active confirmed 91471629 Problem 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 Active confirmed 17286460 Problem Hyperthyroidism E05.90 Active confirmed 3448 6009 ALLERGIES No Known Allergies ENCOUNTERS from 1950 to 2021-02-16 Encounter Location Date Provider Diagnosis [address] [address] Jan, Alina Monroe IMMUNIZATIONS No Information SOCIAL HISTORY Tobacco Use: [...] a day and PRN for 30 days Dec, Active Zoloft 100 MG 1 tablet Orally [...] Information RESULTS No Results REASON FOR VISIT INR MEDICAL (GENERAL) HISTORY Type Description Date Medical [...] repair Surgical History two liver biopsies - [facility] Surgical History lung biopsy - [facility] Surgical History right oopherectomy (large cysts) Surgical History right cataract Hospitalization History Surgical Needs Goals Section No Information Health Concerns No Information MEDICAL EQUIPMENT No Information MENTAL STATUS No Information FUNCTIONAL STATUS No Information ASSESSMENTS No Information PLAN OF TREATMENT Next Appt Details Provider Name:Rush Love, 2021-05-23 11:30:00 AM, [address] [place], [address], Provider Name:Alina Monroe, 01:30:00 PM, [address] [place] [address], [phone], Insurance Providers Payer Name Payer Address Payer Phone Insured Name Patient Relati onship to Insured Coverage Start Date Coverage End Date [facility] [address] [address] [facility] [phone] Migdalia Hairston self
--- OUTSIDE RECORDS SUMMARY | 2021-03-11 04:45 | CCD | Continuity of Care Document ---
Author Author Migdalia DOMÍNGUEZ PA Organization Unknown Address [address] [place] [address] [place] [address] Phone [phone] Care Team Providers Care Steel Plate Printer Name Role Phone Alina Monroe MANUFACTURING ADVISOR AUTM [phone] Cameron Rodas MD AUTM [phone] Problems Active Problems Provider Date Atrial fibrillation Tanmay Timmons MD Onset: 08/11/2020 Electrocardiogram abnormal Tanmay Timmons MD Onset: 2020 Aortic valve disorder Tanmay Timmons MD Onset: 08/11/2020 Chronic congestive heart failure Tanmay Timmons MD Onset: 08/11/2020 Benign hypertensive heart disease with congestive card iac failure Tanmay Timmons MD Onset: 08/11/2020 Chronic diastolic heart failure Tanmay Timmons MD Onset: 0 09/09/2020 Permanent atrial fibrillation Tanmay Timmons MD Onset: 12/2020 Mitral valve disorder Tanmay Timmons MD Onset: 09/09/2020 Social History Type Date Description Comments Sex Unknown ETOH Use Occasionally consumes alcohol Tobacco Use Start: Unknown Patient has never smoked Long-st anding secondhand smoke exposure Smoking Status Reviewed: 08/11/20 Patient has never smoked Long -standing secondhand smoke exposure Exercise Type/Frequency Walks 3 times a week Exercise Type/Frequency Does housework daily Exercise Limitations Shortness Of Breath Allergies and adverse reactions Description No Known Drug Allergies Medications Active Medications SIG Qnty Indications Ordering Provide r Date Torsemide 20mg Tablets 1/2 tablet by mouth every day I50.32 Tanmay Timmons MD 09/09/2020 Spironolactone 25mg Tablets 1/2 by mouth every day 45tabs I50.32 Tanmay Timmons MD 09/09/2020 Topiramate 100mg Tablets 1 by mouth twice daily Unknown 08/10/2020 Sertraline HCL 100mg Tablets 2 by mouth every day Unknown 08/10/2020 Metoprolol Succinate ER 50mg Tablets ER 24HR 1 by mouth every day Unknown 021 Ramipril 5mg Capsules 1 by mouth every night at bedtime Unknown 08/10/2020 Warfarin Sodium 2.5mg Tablets 1 by mouth daily Unknown 08/10/2020 Warfarin Sodium 1mg Tablets 1-2 tab by mouth daily as directed Unknown 08/11/19 21 Atorvastatin Calcium 80mg Tablets 1 by mouth every night at bedtime Unknown 01/2021 Gabapentin 600mg Tablets 1 by mouth three times a day Unknown 08/10/2020 Tramadol HCL ER 100mg Caps ER 24HR 1 by mouth three times a day, mdd=3 Unknown 0 08/10/2020 History Medications Fenofibrate 160mg Tablets 1 by mouth every day R94.31 Unknown 08/10/2020 - 03/2021 Torsemide 20mg Tablets 1 by mouth once a day I50.32 Unknown 08/10/2020 - 12/2020 Immunizations Description No Information Available Vital Signs Date Vital Result Comment 01/27/2021 2:22pm Weight 156.00 lb Home Weight 152lb home weight Height 63 inches 5'3" BMI (Body Mass Index) 27.6 kg/m2 BP Systolic Sitting 118 mmHg Ra, medium cuff BP Diastolic Sitting 74 mmHg Ra, medium cuff 10/18/2020 9:00am Weight 157.00 lb Home Weight 161lb home weight Height 63 inches 5'3" BMI (Body Mass Index) 27.8 kg/m2 Heart Rate 78 /min irregular Respiratory Rate 16 /min BP Systolic Sitting 118 mmHg Medium cuff, Ra BP Diastolic Sitting 60 mmHg Medium cuff, Ra BP Systolic Lying Down 118 mmHg BP Diastolic Lying Down 60 mmHg Results Test Acquired Date Facility Test Result H/L Range Note CBC W/Diff 12/13/2020 [place] [address] [phone] WBC 6.8 K/mm3 4.0-10.0 RBC 4.86 M/mm3 4.00-5.50 HGB 12.8 gm/dL 12.0-16.0 HCT 40.4 % 36.0-48.8 MCV 83.1 fl 80-96 MCH 26.3 pg Low 27.0-31.0 MCHC 31.7 g/dL Low 32.0-36.0 RDW 15.9 % High 10.0-14.5 PLT 239 K/mm3 172-450 MPV 9.6 fl 9.0-13.0 GR% 78.0 % 50-80.0 Ig% 0.1 % 0.0-0.2 Ly% 13.1 % Low 25.0-50.0 Mo% 6.3 % 2.0-10.0 Eo% 2.1 % 0-5.0 Ba% 0.4 % 0.0-2.0 GR# 5.3 K/mm3 2.0-8.00 Ig# 0.0 K/mm3 0.0-0.2 Ly# 0.9 K/mm3 Low 1.0-5.0 Mo# 0.4 K/mm3 0.10-1.20 Eo# 0.1 K/mm3 0.0-0.5 Ba# 0.0 K/mm3 0.0-0.2 Renal Profile 12/13/2020 [place] [address] [phone] Glu 112 mg/dL High 74-106 BUN 25 mg/dL High 7-18 Cre 1.00 mg/dL 0.6-1.0 Na 138 mmol/L 136-145 K 4.2 mmol/L 3.5-5.1 CL 104 mmol/L 98-107 Co2 22 mmol/L 21-32 CA 8.9 mg/dL 8.5-10.1 GFR 55 mL/min 1 Alb 3.6 gm/dL 3.4-5.0 Phos 4.0 mg/dL 2.5-4.9 Laboratory test finding 12/13/2020 [place] [address] [phone] B-Type Natriuretic Peptide 2091 pg/mL High 0-125 Renal Profile 09/17/2020 [place] [address] [phone] Glu 84 mg/dL 74-106 BUN 25 mg/dL High 7-18 Cre 1.09 mg/dL High 0.6-1.0 Na 138 mmol/L 136-145 K 3.9 mmol/L 3.5-5.1 CL 104 mmol/L 98-107 Co2 23 mmol/L 21-32 CA 8.6 mg/dL 8.5-10.1 GFR 50 mL/min 2 Alb 3.9 gm/dL 3.4-5.0 Phos 4.8 mg/dL 2.5-4.9 Laboratory test finding 09/17/2020 [place] [address] [phone] B-Type Natriuretic Peptide 2302 pg/mL 0-125 3 Renal Profile 08/13/2020 [place], [place] [address]37 [phone] Glu 99 mg/dL 74-106 BUN 38 mg/dL High 7-18 Cre 1.38 mg/dL High 0.6-1.0 Na 138 mmol/L 136-145 K 3.9 mmol/L 3.5-5.1 CL 103 mmol/L 98-107 Co2 21 mmol/L 21-32 CA 8.7 mg/dL 8.5-10.1 GFR 38 mL/min 4 Alb 3.9 gm/dL 3.4-5.0 Phos 3.9 mg/dL 2.5-4.9 Laboratory test finding 08/13/2020 [place] [address] [phone] B-Type Natriuretic Peptide 2075 pg/mL 0-125 1 GFR IS CALCULATED IN mL/min/ 1.73m2 NORMAL FUNCTION: >90 MILDLY DECREASED: 60-89 MILDY TO MODERATELY DECREASED: 45-59 MODERATELY TO SEVERELY DECREASED: 30-44 SEVERELY DECREASED: 15-29 RENAL FAILURE: <15 2 GFR IS CALCULATED IN mL/min/ 1.73m2 NORMAL FUNCTION: >90 MILDLY DECREASED: 60-89 MILDY TO MODERATELY DECREASED: 45-59 MODERATELY TO SEVERELY DECREASED: 30-44 SEVERELY DECREASED: 15-29 RENAL FAILURE: <15 3 Results called to MEHREEN on 09/17/20-1124 by LAWANDA. 4 GFR IS CALCULATED IN mL/min/ 1.73m2 NORMAL FUNCTION: >90 MILDLY DECREASED: 60-89 MILDY TO MODERATELY DECREASED: 45-59 MODERATELY TO SEVERELY DECREASED: 30-44 SEVERELY DECREASED: 15-29 RENAL FAILURE: <15 Procedures Date Code Description Status 01/27/2021 76545 Office/Outpatient Established Lo w MDM 20-29 Min Completed 10/18/2020 92253 Office/Outpatient Established Mo d MDM 30-39 Min Completed 10/18/2020 54986 ECG 12-Lead Completed 09/09/2020 54616 Office/Outpatient Established Mo d MDM 30-39 Min Completed 09/07/2020 42170 Treadmill/Pharmacological Monito ring Completed 09/07/2020 44255 Myocardial Perfusion Spect Multi ple Completed 08/23/2020 05995 Echocardiogram 2-D Doppler Color Completed 08/11/2020 83008 Office/Outpatient New High MDM 6 0-74 Minutes Completed 08/11/2020 58456 ECG 12-Lead Completed Medical Devices Description No Information Available Encounters Type Date Location Provider Dx Diagnosis Office Visit 01/27/2021 2:15p Main Office KENYATTA Arellano I50 .32 Chronic diastolic (congestive) heart failure Office Visit 10/18/2020 8:45a Main Office Tanmay Timmons MD I50.32 Chronic diastolic (congestive) heart failure I48.21 Permanent atrial fibrillatio n R94.31 Abnormal electrocardiogram [ ECG] [EKG] I11.0 Hypertensive heart disease w ith heart failure I35.8 Other nonrheumatic aortic va lve disorders I34.8 Other nonrheumatic mitral va lve disorders Office Visit 09/09/2020 10:00a Main Office Tanmay Timmons MD I50.32 Chronic diastolic (congestive) heart failure I48.21 Permanent atrial fibrillatio n R94.31 Abnormal electrocardiogram [ ECG] [EKG] I11.0 Hypertensive heart disease w ith heart failure I35.8 Other nonrheumatic aortic va lve disorders I34.8 Other nonrheumatic mitral va lve disorders Office Visit 08/11/2020 2:00p Main Office Tanmay Timmons MD I50.9 Heart failure, unspecified I48.91 Unspecified atrial fibrillat ion R94.31 Abnormal electrocardiogram [ ECG] [EKG] I11.0 Hypertensive heart disease w ith heart failure I35.8 Other nonrheumatic aortic va lve disorders Assessments Date Code Description Provider 01/27/2021 I50.32 Chronic diastolic (congestive) h eart failure KENYATTA Arellano 10/18/2020 I50.32 Chronic diastolic (congestive) h eart failure Tanmay Timmons MD 10/18/2020 I48.21 Permanent atrial fibrillation Alberto Timmons MD 10/18/2020 R94.31 Abnormal electrocardiogram [ECG] [EKG] Tanmay Timmons MD 10/18/2020 I11.0 Hypertensive heart disease with heart failure Tanmay Timmons MD 10/18/2020 I35.8 Other nonrheumatic aortic valve disorders Tanmay Timmons MD 10/18/2020 I34.8 Other nonrheumatic mitral valve disorders Tanmay Timmons MD 09/09/2020 I50.32 Chronic diastolic (congestive) h eart failure Tanmay Timmons MD 09/09/2020 I48.21 Permanent atrial fibrillation Alberto Timmons MD 09/09/2020 R94.31 Abnormal electrocardiogram [ECG] [EKG] Tanmay Timmons MD 09/09/2020 I11.0 Hypertensive heart disease with heart failure Tanmay Timmons MD 09/09/2020 I35.8 Other nonrheumatic aortic valve disorders Tanmay Timmons MD 09/09/2020 I34.8 Other nonrheumatic mitral valve disorders Tanmay Timmons MD 09/07/2020 I50.9 Heart failure, unspecified Stres s Nuclear/Reg Treadmill 09/07/2020 R94.31 Abnormal electrocardiogram [ECG] [EKG] Stress Nuclear/Reg Treadmill 08/23/2020 I50.9 Heart failure, unspecified ECHO 08/23/2020 I48.91 Unspecified atrial fibrillation ECHO 08/23/2020 I11.0 Hypertensive heart disease with heart failure ECHO 08/23/2020 I35.8 Other nonrheumatic aortic valve disorders ECHO 08/23/2020 Z95.4 Presence of other heart-valve re placement ECHO 08/11/2020 I50.9 Heart failure, unspecified Tanmay Timmons MD 08/11/2020 I48.91 Unspecified atrial fibrillation Tanmay Timmons MD 08/11/2020 R94.31 Abnormal electrocardiogram [ECG] [EKG] Tanmay Timmons MD 08/11/2020 I11.0 Hypertensive heart disease with heart failure Tanmay Timmons MD 08/11/2020 I35.8 Other nonrheumatic aortic valve disorders Tanmay Timmons MD Plan of Treatment Future Appointment(s):* 07/28/2021 1:30 pm - KENYATTA Arellano at Main Office 01/27/2021 - KENYATTA Arellano* I50.32 Chronic diastolic (congestive) heart failure* Recommendations:* Continue spironolactone, torsemide, and metoprolol at the current dosages Please alert our office with a weight gain of more than 3 pounds, onset of shortness of breath, or lower extremity edema * All * Follow up:* Follow up in 6 months Functional Status Functional Condition Comment Date Status Independent with all ADL's Activ e Mental Status Description No Information Available Referrals Refer to Reason for Referral Status Appt Date Tanmay Timmons MD [facility] AUTH EMR-EXPIRES 10/15/20. [place] Created [id number] [address] [id number] [phone]
--- OUTSIDE RECORDS SUMMARY | 2021-03-11 04:45 | CCD | Continuity of Care Document ---
Author Author Migdalia DOMÍNGUEZ PA Organization Unknown Address [address] [place] [address] [place] [address] Phone [phone] Care Team Providers Care Tour Agent Name Role Phone Alina Monroe TRAIN ENGINEER AUTM [phone] Cameron Rodas MD AUTM [phone] Problems Active Problems Provider Date Atrial fibrillation [...] 5'3" BMI (Body Mass Index) 27.6 kg/m2 10/18/2020 9:00am Weight 157.00 lb Home Weight [...] Result H/L Range Note CBC W/Diff 12/13/2020 [place] [address] [phone] WBC 6.8 K/mm3 4.0-10.0 RBC 4.86 M/mm3 [...] Ba# 0.0 K/mm3 0.0-0.2 Renal Profile 12/13/2020 [place], [place] [address] [phone] Glu 112 mg/dL High 74-106 BUN 25 mg/dL High 7-18 Cre 1.00 mg/dL 0.6-1.0 Na 138 mmol/L 136-145 K 4.2 mmol/L 3.5-5.1 CL 104 mmol/L 98-107 Co2 22 mmol/L 21-32 CA 8.9 mg/dL 8.5-10.1 GFR 55 mL/min 1 Alb 3.6 gm/dL 3.4-5.0 Phos 4.0 mg/dL 2.5-4.9 Laboratory test finding 12/13/2020 [place], [place] [id number] [phone] B-Type Natriuretic Peptide 2091 pg/mL High 0-125 Renal Profile 09/17/2020 [place], [place] [address]324371 [phone] Glu 84 mg/dL 74-106 BUN 25 mg/dL High 7-18 Cre 1.09 mg/dL High 0.6-1.0 Na 138 mmol/L 136-145 K 3.9 mmol/L 3.5-5.1 CL 104 mmol/L 98-107 Co2 23 mmol/L 21-32 CA 8.6 mg/dL 8.5-10.1 GFR 50 mL/min 2 Alb 3.9 gm/dL 3.4-5.0 Phos 4.8 mg/dL 2.5-4.9 Laboratory test finding 09/17/2020 [place] [address] [phone] B-Type Natriuretic Peptide 2302 pg/mL 0-125 3 Renal Profile 08/13/2020 [place], [place] 0880237 [phone] Glu 99 mg/dL 74-106 BUN 38 mg/dL High 7-18 Cre 1.38 mg/dL High 0.6-1.0 Na 138 mmol/L 136-145 K 3.9 mmol/L 3.5-5.1 CL 103 mmol/L 98-107 Co2 21 mmol/L 21-32 CA 8.7 mg/dL 8.5-10.1 GFR 38 mL/min 4 Alb 3.9 gm/dL 3.4-5.0 Phos 3.9 mg/dL 2.5-4.9 Laboratory test finding 08/13/2020 [place] [address] [phone] B-Type Natriuretic Peptide 2075 pg/mL 0-125 1 [...] FAILURE: <15 3 Results called to MEHREEN [phone] on 09/17/20 by LAWANDA. 4 GFR IS CALCULATED IN mL/min/ 1.73m2 NORMAL FUNCTION: >90 MILDLY DECREASED: 60-89 MILDY TO MODERATELY DECREASED: 45-59 MODERATELY TO SEVERELY DECREASED: 30-44 SEVERELY DECREASED: 15-29 RENAL FAILURE: <15 Procedures Date Code Description Status 01/27/2021 33888 Office/Outpatient Established Lo w MDM 20-29 Min Completed 10/18/2020 63931 Office/Outpatient Established Mo d MDM 30-39 Min Completed 10/18/2020 22627 ECG 12-Lead Completed 09/09/2020 76888 Office/Outpatient Established Mo d MDM 30-39 Min Completed 09/07/2020 79590 Treadmill/Pharmacological Monito ring Completed 09/07/2020 40032 Myocardial Perfusion Spect Multi ple Completed 08/23/2020 20019 Echocardiogram 2-D Doppler Color Completed 08/11/2020 70303 Office/Outpatient New High MDM 6 0-74 Minutes Completed 08/11/2020 45515 ECG 12-Lead Completed Medical Devices Description No [...] MD 08/11/2020 I48.91 Unspecified atrial fibrillation Tanmay Timmosn MD 08/11/2020 R94.31 Abnormal electrocardiogram [ECG] [EKG] [...] Referral Status Appt Date Tanmay Timmons MD [facility] AUTH EMR-EXPIRES 10/15/20. [place] Created [id number] [address] [id number] [phone]
--- OUTSIDE RECORDS SUMMARY | 2021-03-11 04:45 | CCD ---
Continuity of Care Document (CCD) Created on: 01/28/2021 Migdalia Hairston External Reference #: [id number] : [id number] Sex: Female Author Migdalia Fontana M.D. Organization Unknown Address [address] [place] [address] Phone [phone] Care Team Providers Care Adobe Flex Developer Name Role Phone Alina Monroe N.P. AUTM [phone] Problems Description No Information Available Social History [...] H/L Range Note Laboratory test finding 08/06/2020 [facility] Tracie W/Reflex If Positive Negative Negative 1 CBC W/Diff 08/06/2020 [facility] WBC 5.1 K/mm3 4.0-10.0 RBC 4.38 M/mm3 [...] 0.1 K/mm3 0.0-0.2 Laboratory test finding 08/06/2020 [facility] Rheumatoid Factor Screen NEGATIVE Negative TSH 0.364 uIU/mL 0.360-3.740 Complete Metabolic Profile 08/06/2020 [facility] l Glu 125 mg/dL High 74-106 BUN [...] 4.0 gm/dL 3.4-5.0 Laboratory test finding 08/06/2020 [facility] Vitamin D, 25-Hydroxy 30.1 ng/mL 30.0-100.0 3 Erythrocyte Sedimentation Rate 40 mm/hr High 0-30 1 Performed at: RN - [facility] [address] [id number] Farm Owner Operator: Tawanna Alston MD, Phone: [phone] 2 GFR IS CALCULATED IN mL/min/ 1.73m2 NORMAL FUNCTION: >90 MILDLY DECREASED: 60-89 MILDY TO MODERATELY DECREASED: 45-59 MODERATELY TO SEVERELY DECREASED: 30-44 SEVERELY DECREASED: 15-29 RENAL FAILURE: <15 3 Vitamin D deficiency has bee n defined by the [place] [employer] and an Endocrine Society practice guideline as a level of serum 25-OH vitamin D less than 20 ng/mL (1,2). The Endocrine Society went on to further define vitamin D insufficiency as a level between 21 and 29 ng/mL (2). 1. IOM ([place] [employer]). 2010. Di etary reference intakes for calcium and D. [place]: The National Academies Press. 2. Margarita THORNTON, Joe GONZALEZ, Peyton jeong WOODRUFF, et al. Evaluation, treatment, and prevention of vitamin D deficiency: an Endocrine Society clinical practice guideline. JCEM. 2010; 96(7):1911-30. Performed at: RN - [facility] [address] [id number] Farm Owner Operator: Tawanna Alston MD, Phone: [phone] Procedures Date Code Description Status 10/07/2020 29606 Office/Outpatient Established Mo d MDM 30-39 Min Completed 09/17/2020 76432 MRI Brain W/O Contrast Completed 09/17/2020 13385 MRI Brain W/O Contrast Completed 09/17/2020 17310 Magnetic Resonance Angiography N kee W/O Contrast Materials Completed 09/17/2020 65109 Magnetic Resonance Angiography N kee W/O Contrast Materials Completed 09/17/2020 98869 Magnetic Resonance Angiogtaphy H ead W/O Contrast Material(S) Completed 09/17/2020 03314 Magnetic Resonance Angiogtaphy H ead W/O Contrast Material(S) Completed 08/09/2020 40401 Nerve Conduction 9-10 Studies Co mpleted 08/09/2020 72519 Needle Electromyography Complete , Five Or More Muscles Studied Completed 08/09/2020 98077 Needle Electromyography Complete , Five Or More Muscles Studied Completed 08/06/2020 51024 Sympathetic Skin Responses Compl eted 08/06/2020 39853 Test Autonomic Nervous System, C ardiovagal Innervation Completed 08/06/2020 73850 Artery Study Extremity Mult Leve ls Bilateral Completed 08/02/2020 68114 Office/Outpatient New Moderate M DM 45-59 Minutes Completed Medical Devices Description No Information Available Encounters Type Date Location Provider Dx Diagnosis Office Visit 10/07/2020 10:00a Main office - Louisa Limon M.D. G56.01 Carpal tunnel syndrome, right upper limb G56.02 Carpal tunnel syndrome, left upper limb G56.22 Lesion of ulnar nerve, left upper limb G43.809 Other migraine, not intracta ble, without status migrainosus M54.2 Cervicalgia R26.9 Unspecified abnormalities of gait and mobility R55 Syncope and collapse R42 Dizziness and giddiness M54.5 Low back pain R41.3 Other amnesia Office Visit 08/02/2020 1:30p Main office - Fluker Crys Limon M.D. R42 Dizziness and giddiness G43.809 Other migraine, not intracta ble, without status migrainosus M62.838 Other muscle spasm R20.2 Paresthesia of skin I95.1 Orthostatic hypotension H53.8 Other visual disturbances Assessments Date Code Description Provider 10/07/2020 G56.01 Carpal tunnel syndrome, right up per limb Crys Braxton, Deny.DEnma 10/07/2020 G56.02 Carpal tunnel syndrome, left upp er limb Crys Braxton, M.DEnma 10/07/2020 G56.22 Lesion of ulnar nerve, left uppe r limb Crys Braxton, M.DEnma 10/07/2020 G43.809 Other migraine, not intractable, without status migrainosus Crys Braxton, M.DEnma 10/07/2020 M54.2 Cervicalgia Crys Braxton, M. DEnma 10/07/2020 R26.9 Unspecified abnormalities of gai t and mobility Crys Braxton, M.DEnma 10/07/2020 R55 Syncope and collapse Crys Latkervin fTere 10/07/2020 R42 Dizziness and giddiness Crys L jermaineTi azarDEnma 10/07/2020 M54.5 Low back pain Crys Braxton, M. DEnma 10/07/2020 R41.3 Other amnesia Ti Davey 09/17/2020 [...] extremities with rest pain, other extremity Ans/VS 08/02/2020 R42 Dizziness and giddiness Crys dean M.D. 08/02/2020 G43.809 Other migraine, not intractable, without status migrainosus Crys Limon M.D. 08/02/2020 M62.838 Other muscle spasm Crys Limon M.D. 08/02/2020 R20.2 Paresthesia of skin Crys Limon M.D. 08/02/2020 I95.1 Orthostatic hypotension Crys dean M.D. 08/02/2020 H53.8 Other visual disturbances Crys Limon M.D. Plan of Treatment No Information Available Functional Status Description No Information Available Mental Status Description No Information Available Referrals Refer to Reason for Referral Status Appt Date Created
--- OUTSIDE RECORDS SUMMARY | 2021-03-11 04:45 | CCD ---
Author Author [facility] Organization [facility] Address Unknown Phone Unavailable Care Team Providers Care Convalescent Sitter Name Role Phone Alina Monroe Unavailable PROBLEMS Type Condition ICD9-CM Code [id number] Code Onset Dates Condition S tatus W/U Status Risk SNOMED Code Notes Problem Atrial fibrillation, unspecified type I48.91 Ac tive confirmed 62394073 Problem Hyperlipidemia, unspecified hyperlipidemia type E7 8.5 Active confirmed 76511054 Problem Anxiety with depression F41.8 Active confirmed 833303540 Problem Type 2 diabetes mellitus wit hout complication, unspecified whether intermediate frame tender insulin use E11.9 Active confirmed 558441599 Problem Hypertension, unspecified type I10 Active confir med 63598142 Problem Chronic anticoagulation Z79.01 Active confirmed 851711473 Problem Overactive thyroid gland E05.90 Active confirmed 61081326 Problem Bilateral hearing loss, unspecified hearing loss type H91.93 Active confirmed 51146950 Problem Postmenopausal bleeding N95.0 Active confirmed 18179195 Problem [place]-Walker grade 2 cystocele N81.10 Active confir med 514804977 Problem Abnormal finding on breast imaging R92.8 Activ e confirmed 225703741 Problem Migraine without aura and without status migrain osus, not intractable G43.009 Active confirmed 967032998 Problem Abnormal mammogram R92.8 Active confirmed 1 90946686 Problem Sarcoidosis D86.9 Active confirmed 50653150 Problem 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 Active confirmed 069840400249110 Problem LELE (stress urinary incontinence, female) N39.3 Active confirmed 22343667 Problem 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 Active confirmed 85940522 Problem Hyperthyroidism E05.90 Active confirmed 3448 6009 ALLERGIES No Known Allergies ENCOUNTERS from 1950 to 2020-12-15 Encounter Location Date Provider Diagnosis [address] [address] Dec, Alina Monroe Acute bilateral low back lex n without sciatica M54.5 IMMUNIZATIONS Vaccine Route Administration Date Status Ketorolac IM Intramuscular September 02, 2020 Administered Ketorolac IM Intramuscular September 02, 2020 Administered SOCIAL HISTORY Tobacco Use: Social History Observation Description Date Details (start date - stop date) Never Smoker Sex Assigned At : Social History Observation Description Sex Assigned At Unknown Tobacco Use/Smoking Question Answer Notes Are you a never smoker REASON FOR REFERRAL No Information VITAL SIGNS No information MEDICATIONS Medication SIG (Take, Route, Frequency, Duration) Notes Start Da te End Date Status Warfarin Sodium 2 MG 2 tablets Orally Once a day for 90 days July, Active Voltaren 1 % as directed Externally twice per day as needed Jul, Active Atorvastatin Calcium 80 MG 1 tablet Orally Once a day for 90 day(s) Active Warfarin Sodium 2.5 MG 1 tablet Orally Once a day for 30 day(s) Mar, Active Magnesium 500 MG 1 tablet with a meal Orally Once a day for 90 d ay(s) Jul, Active Metoprolol Succinate ER 50 MG TAKE ONE TABLET BY MOUTH EVERY DAY for 90 Active Topiramate 100 MG 1 tablet Orally twice a day Active Zoloft 100 MG 1 tablet Orally twice a day for 90 days Active traMADol-Acetaminophen 37.5-325 MG 1 tablets as needed Orally three times a day and PRN for 30 days Dec, Active Ramipril 5 MG 1 capsule Orally Once a day for 90 day(s) Active Gabapentin 600 MG 1 tablet Orally three times a day for 90 days Active Glucosamine Chondroitin Complx 500-250 MG 2 tabs Orally daily fo r 90 days Jul, Active Spironolactone 25 MG 1 tablet Orally for 30 day(s) Active PROCEDURES No Information RESULTS No Results [...] Notes Treatment Notes Treatm ent Clinical Notes Dec, Acute bilateral low back pain without sciatica ( ICD-10 - M54.5) PLAN OF TREATMENT Medication Medication Name Sig Start Date Stop Date Gabapentin 600 MG 1 tablet Orally three times a day for 90 days Metoprolol Succinate ER 50 MG TAKE ONE TABLET BY MOUTH EVERY DAY for 90 traMADol-Acetaminophen 37.5-325 MG 1 tablets as needed Orally three times a day and PRN for 30 days Dec, Next Appt Details Provider Name:Rush Love, 2021-02-14 10:30:00 AM, [address] [place] [address], [phone], Provider Name:Alina Monroe, 01:30:00 PM, [address] [place] [address], [phone], Insurance Providers Payer Name Payer Address Payer Phone Insured Name Patient Relati onship to Insured Coverage Start Date Coverage End Date [facility] [id number] [facility] [id number] Migdalia Hairston self
--- OUTSIDE RECORDS SUMMARY | 2021-03-11 04:45 | CCD ---
Author Author [facility] Organization [facility] Address Unknown Phone Unavailable Care Team Providers Care Manager Labor Relations Name Role Phone Alina Monroe Unavailable PROBLEMS Type Condition ICD9-CM Code [id number] Code Onset Dates Condition S tatus W/U Status Risk SNOMED Code Notes Problem Atrial fibrillation, unspecified type I48.91 Ac tive confirmed 10929962 Problem Hyperlipidemia, unspecified hyperlipidemia type E7 8.5 Active confirmed 72194872 Problem Anxiety with depression F41.8 Active confirmed 865490482 Problem Type 2 diabetes mellitus wit hout complication, unspecified whether intermodal dispatcher insulin use E11.9 Active confirmed 805784937 Problem Hypertension, unspecified type I10 Active confir med 11729237 Problem Chronic anticoagulation Z79.01 Active confirmed 266813783 Problem Overactive thyroid gland E05.90 Active confirmed 80392771 Problem Bilateral hearing loss, unspecified hearing loss type H91.93 Active confirmed 74765414 Problem Postmenopausal bleeding N95.0 Active confirmed 34573522 Problem [place]-Walker grade 2 cystocele N81.10 Active confir med 495819824 Problem Abnormal finding on breast imaging R92.8 Activ e confirmed 802917675 Problem Migraine without aura and without status migrain osus, not intractable G43.009 Active confirmed 881093400 Problem Abnormal mammogram R92.8 Active confirmed 1 89703039 Problem Sarcoidosis D86.9 Active confirmed 13817909 Problem 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 Active confirmed 859746553268657 Problem LELE (stress urinary incontinence, female) N39.3 Active confirmed 89739727 Problem 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 Active confirmed 47947631 Problem Hyperthyroidism E05.90 Active confirmed 3448 6009 ALLERGIES No Known Allergies ENCOUNTERS from 1950 to 2020-12-13 Encounter Location [place] [address] 13 Dec, 2020 Alina Monroe IMMUNIZATIONS Vaccine Route Administration Date Status Ketorolac [...] Notes Start Da te End Date Status traMADol-Acetaminophen 37.5-325 MG 1 tablets as needed Orally three times a day and PRN for 30 days Active Voltaren 1 % as directed Externally twice per day as needed Jul, Active Atorvastatin Calcium 80 MG 1 tablet Orally Once a day for 90 day(s) Active Warfarin Sodium 2.5 MG 1 tablet Orally Once a day for 30 day(s) Mar, Active Magnesium 500 MG 1 tablet with a meal Orally Once a day for 90 d ay(s) Jul, Active Topiramate 100 MG 1 tablet Orally twice a day Active Warfarin Sodium 2 MG 2 tablets Orally Once a day for 90 days July, Active Zoloft 100 MG 1 tablet Orally twice a day for 90 days Active Gabapentin 600 MG 1 tablet Orally three times a day for 90 days Active Ramipril 5 MG 1 capsule Orally Once a day for 90 day(s) Active Metoprolol Succinate ER 50 MG TAKE ONE TABLET BY MOUTH EVERY DAY for 90 Active Glucosamine Chondroitin Complx 500-250 [...] repair Surgical History two liver biopsies - Surgical History lung biopsy - . Surgical History right oopherectomy (large cysts) Surgical History right cataract Hospitalization History Surgical Needs Goals Section No Information Health Concerns No Information MEDICAL EQUIPMENT No Information MENTAL STATUS No Information FUNCTIONAL STATUS No Information ASSESSMENTS No Information PLAN OF TREATMENT Medication Medication Name Sig Start Date Stop Date Gabapentin 600 MG 1 tablet Orally three times a day for 90 days Metoprolol Succinate ER 50 MG TAKE ONE TABLET BY MOUTH EVERY DAY for 90 Next Appt Details Provider Name:Rush Love, 2021-02-14 10:30:00 AM, [address] [place] [address], [phone], Provider Name:Alina Mabel, 01:30:00 PM, [address] [place] [address], [phone], Insurance Providers Payer Name Payer Address Payer Phone Insured Name Patient Relati onship to Insured Coverage Start Date Coverage End Date [facility] [address] [facility] [id number] Migdalia Hairston self
--- OUTSIDE RECORDS SUMMARY | 2021-03-11 04:45 | CCD ---
Author Author [facility] Organization [facility] Address Unknown Phone Unavailable Care Team Providers Care Workers' Compensation Mediator Name Role Phone Alina Monroe Unavailable PROBLEMS Type Condition ICD9-CM Code [id number] Code Onset Dates Condition S tatus W/U Status Risk SNOMED Code Notes Problem Atrial fibrillation, unspecified type I48.91 Ac tive confirmed 93946509 Problem Hyperlipidemia, unspecified hyperlipidemia type E7 8.5 Active confirmed 82425538 Problem Anxiety with depression F41.8 Active confirmed 756063630 Problem Type 2 diabetes mellitus wit hout complication, unspecified whether terminal supervisor insulin use E11.9 Active confirmed 907398444 Problem Hypertension, unspecified type I10 Active confir med 93958233 Problem Chronic anticoagulation Z79.01 Active confirmed 658636593 Problem Overactive thyroid gland E05.90 Active confirmed 06514325 Problem Bilateral hearing loss, unspecified hearing loss type H91.93 Active confirmed 23468181 Problem Postmenopausal bleeding N95.0 Active confirmed 19794514 Problem [place]-Walker grade 2 cystocele N81.10 Active confir med 054381154 Problem Abnormal finding on breast imaging R92.8 Activ e confirmed 785001341 Problem Migraine without aura and without status migrain osus, not intractable G43.009 Active confirmed 794640191 Problem Abnormal mammogram R92.8 Active confirmed 1 88888694 Problem Sarcoidosis D86.9 Active confirmed 13845573 Problem 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 Active confirmed 984564192240724 Problem LELE (stress urinary incontinence, female) N39.3 Active confirmed 73003637 Problem 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 Active confirmed 88311014 Problem Hyperthyroidism E05.90 Active confirmed 3448 6009 ALLERGIES No Known Allergies ENCOUNTERS from 1950 to 2021-01-19 Encounter Location Date Provider Diagnosis [address] [address] Dec, Alina Monroe Acute bilateral low back [...] and PRN for 30 days Dec, Active Glucosamine Chondroitin Complx 500-250 MG 2 [...] day and PRN for 30 days Dec, Metoprolol Succinate ER 50 MG TAKE ONE TABLET BY MOUTH EVERY DAY for 90 Gabapentin 600 MG 1 tablet Orally three times a day for 90 days Next Appt Details Provider Name:Rush Love, 2021-02-14 10:30:00 AM, [address] [place] [address], [phone], Provider Name:Alina Monroe, 01:30:00 PM, [address] [place] [address], [phone], Insurance Providers Payer Name Payer Address Payer Phone Insured Name Patient Relati onship to Insured Coverage Start Date Coverage End Date [facility] [id number] [facility] [phone] Migdalia Hairston self
--- OUTSIDE RECORDS SUMMARY | 2021-03-11 04:45 | CCD ---
Author Author [facility] Organization [facility] Address Unknown Phone Unavailable Care Team Providers Care Splicing Technician Name Role Phone Alina Monroe Unavailable PROBLEMS Type Condition ICD9-CM Code [id number] Code Onset Dates Condition S tatus W/U Status Risk SNOMED Code Notes Problem Atrial fibrillation, unspecified type I48.91 Ac tive confirmed 49168019 Problem Hyperlipidemia, unspecified hyperlipidemia type E7 8.5 Active confirmed 41051927 Problem Anxiety with depression F41.8 Active confirmed 781282887 Problem Type 2 diabetes mellitus wit hout complication, unspecified whether intermediate teacher insulin use E11.9 Active confirmed 621707796 Problem Hypertension, unspecified type I10 Active confir med 21068654 Problem Chronic anticoagulation Z79.01 Active confirmed 012516272 Problem Overactive thyroid gland E05.90 Active confirmed 62824090 Problem Bilateral hearing loss, unspecified hearing loss type H91.93 Active confirmed 23087500 Problem Postmenopausal bleeding N95.0 Active confirmed 09762516 Problem [place]-Walker grade 2 cystocele N81.10 Active confir med 129773282 Problem Abnormal finding on breast imaging R92.8 Activ e confirmed 097686195 Problem Migraine without aura and without status migrain osus, not intractable G43.009 Active confirmed 173415332 Problem Abnormal mammogram R92.8 Active confirmed 1 08961830 Problem Sarcoidosis D86.9 Active confirmed 11907353 Problem 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 [...] days Dec, Next Appt Details Provider Name:Rush Lundi, 2021-02-14 10:30:00 AM, [address] [place] [address], [phone], Provider Name:Alina Mabel, 01:30:00 PM, [address] [place] [address], [phone], Insurance Providers Payer Name Payer Address Payer Phone Insured Name Patient Relati onship to Insured Coverage Start Date Coverage End Date [facility] [address] [address] [facility] [phone] Migdalia Hairston self
--- OUTSIDE RECORDS SUMMARY | 2021-03-11 04:47 | CCD ---
Author Author [facility] Organization [facility] Address Unknown Phone Unavailable Care Team Providers Care Molding Manager Name Role Phone Grisel MONSIVAIS MD Unavailable Unavailable Grisel MONSIVAIS MD Unavailable Unavailable Grisel MONSIVAIS MD Unavailable Unavailable Grisel MONSIVAIS MD Unavailable Unavailable Grisel MONSIVAIS MD Unavailable Unavailable Grisel MONSIVAIS MD Unavailable Unavailable Grisel MONSIVAIS MD Unavailable Unavailable Grisel MONSIVAIS MD Unavailable Unavailable Grisel MONSIVAIS MD Unavailable Unavailable Grisel MONSIVAIS MD Unavailable Unavailable Grisel MONSIVAIS MD Unavailable Unavailable Grisel MONSIVAIS MD Unavailable Unavailable Grisel MONSIVAIS MD Unavailable Unavailable ARASTUGrisel MD Unavailable Unavailable ARASTUGrisel MD Unavailable Unavailable ARASTUGrisel MD Unavailable Unavailable ARASTUGrisel MD Unavailable Unavailable ARASTU, Grisel CHATMAN MD Unavailable Unavailable ARASTUGrisel MD Unavailable Unavailable ARASTUGrisel MD Unavailable Unavailable ARASTUGrisel MD Unavailable Unavailable ARASTU, Grisel CHATMAN MD Unavailable Unavailable ARASTUGrisel MD Unavailable Unavailable ARASTUGrisel MD Unavailable Unavailable ARASTUGrisel MD Unavailable Unavailable ARASTUGrisel MD Unavailable Unavailable ARASTUGrisel MD Unavailable Unavailable ARASTU, Grisel CHATMAN MD Unavailable Unavailable ARASTUGrisel MD Unavailable Unavailable ARASTU, Grisel CHATMAN MD Unavailable Unavailable ARASTUGrisel MD Unavailable Unavailable ARASTUGrisel MD Unavailable Unavailable ARASTUGrisel MD Unavailable Unavailable ARASTUGrisel MD Unavailable Unavailable ARASTUGrisel MD Unavailable Unavailable ARASTUGrisel MD Unavailable Unavailable ARASTUGrisel MD Unavailable Unavailable ARASTUGrisel MD Unavailable Unavailable ARASTUGrisel MD Unavailable Unavailable ARASTUGrisel MD Unavailable Unavailable ARASTUGrisel MD Unavailable Unavailable ARASTUGrisel MD Unavailable Unavailable ARASTUGrisel MD Unavailable Unavailable ARASTUGrisel MD Unavailable Unavailable ARASTUGrisel MD Unavailable Unavailable ARASTUGrisel MD Unavailable Unavailable ARASTUGrisel MD Unavailable Unavailable ARASTUGrisel MD Unavailable Unavailable ARASTUGrisel MD Unavailable Unavailable ARASTUGrisel MD [facility]available [facility] Unavailable Unavailable Hortensia NUNEZ MD Unavailable Unavailable Hortensia NUNEZ MD Unavailable Unavailable Hortensia NUNEZ MD Unavailable Unavailable Hortensia NUNEZ MD Unavailable Unavailable Hortensia NUNEZ MD Unavailable Unavailable Hortensia NUNEZ MD Unavailable Unavailable Hortensia NUNEZ MD Unavailable Unavailable Hortensia NUNEZ MD Unavailable Unavailable Hortensia NUNEZ MD Unavailable Unavailable Hortensia NUNEZ MD Unavailable Unavailable NUNEZHortensia Silverman MD Unavailable Unavailable NUNEZHortensia MD Unavailable Unavailable NUNEZ E DESI RUSHING Unavailable Unavailable NUNEZ E DESI RUSHING Unavailable Unavailable NUNEZ E DESI RUSHING Unavailable Unavailable NUNEZ E DESI RUSHING Unavailable Unavailable NUNEZ E DESI RUSHING Unavailable Unavailable NUNEZ E DESI RUSHING Unavailable Unavailable NUNEZ E DESI RUSHING Unavailable Unavailable NUNEZ E DESI RUSHING Unavailable Unavailable NUNEZ E DESI RUSHING Unavailable Unavailable NUNEZ E DESI RUSHING Unavailable Unavailable NUNEZ E DESI RUSHING Unavailable Unavailable NUNEZ E DESI RUSHING Unavailable Unavailable NUNEZ E DESI RUSHING Unavailable Unavailable NUNEZ E DESI RUSHING Unavailable Unavailable NUNEZ E DESI RUSHING Unavailable Unavailable NUNEZ E DESI RUSHING Unavailable Unavailable NUNEZ E DESI RUSHING Unavailable Unavailable NUNEZ E DESI RUSHING Unavailable Unavailable NUNEZ E DESI RUSHING Unavailable Unavailable NUNEZ E DESI RUSHING Unavailable Unavailable NUNEZ E DESI RUSHING Unavailable Unavailable NUNEZ E DESI RUSHING Unavailable Unavailable NUNEZ E DESI RUSHING Unavailable Unavailable NUNEZ E DESI RUSHING Unavailable Unavailable NUNEZ E DESI RUSHING Unavailable Unavailable NUNEZ E DESI RUSHING Unavailable Unavailable NUNEZ E DESI RUSHING Unavailable Unavailable NUNEZ E DESI RUSHING Unavailable Unavailable NUNEZ E DESI RUSHING Unavailable Unavailable NUNEZ E DESI RUSHING Unavailable Unavailable NUNEZHortensia Silverman MD Unavailable Unavailable NUNEZ E DESI RUSHING Unavailable Unavailable NUNEZ E DESI RUSHING Unavailable Unavailable NUNEZ E DESI RUSHING Unavailable Unavailable NUNEZ E DSEI RUSHING Unavailable Unavailable NUNEZ E DESI RUSHING Unavailable Unavailable NUNEZ E DESI RUSHING Unavailable Unavailable NUNEZ E DESI RUSHING Unavailable Unavailable NUNEZ E EDSI RUSHING Unavailable Unavailable NUNEZ E DESI RUSHING Unavailable Unavailable NUNEZ E DESI RUSHING Unavailable Unavailable NUNEZ E DESI RUSHING Unavailable Unavailable NUNEZ E DESI RUSHING Unavailable Unavailable PETROFF, PARAM PA Unavailable Unavailable PETROFF, APRAM PA Unavailable Unavailable PETROFF, PARAM PA Unavailable Unavailable PETROFF, PARAM PA Unavailable Unavailable PETROFF, PARAM PA Unavailable Unavailable PETROFF, PARAM PA Unavailable Unavailable PETROFF, PARAM PA Unavailable Unavailable PETROFF, PARAM PA Unavailable Unavailable Yadira Muñiz MD Unavailable Unavailable Yadira Muñiz MD Unavailable Unavailable Yadira Muñiz MD Unavailable Unavailable Yadira Muñiz MD Unavailable Unavailable Yadira Muñiz MD Unavailable Unavailable Yadira Muñiz MD Unavailable Unavailable Yadira Muñiz MD Unavailable Unavailable Yadira Muñiz MD Unavailable Unavailable Yadira Muñiz MD Unavailable Unavailable AzYadira pinto Winifredrigo RUSHING Unavailable Unavailable AzYadira pinto Winifredrigo RUSHING Unavailable Unavailable AzYadira pinto Winifredrigo RUSHING Unavailable Unavailable Yadira Muñiz Winifredrigo RUSHING Unavailable Unavailable Yadira Muñiz Winifredrigo RUSHING Unavailable Unavailable VELHerrera BARTON MD Unavailable Unavailable Herrera CROWDER MD Unavailable Unavailable VELHerrera DICKSON MD Unavailable Unavailable VELHerrera DICKSON MD Unavailable Unavailable Herrera CROWDER MD Unavailable Unavailable Herrera CROWDER MD Unavailable Unavailable Herrera CROWDER MD Unavailable Unavailable Herrera CROWDER MD Unavailable Unavailable Herrera CROWDER MD Unavailable Unavailable Herrera CROWDER MD Unavailable Unavailable Herrera CROWDER MD Unavailable Unavailable Herrera CROWDER MD Unavailable Unavailable Herrera CROWDER MD Unavailable Unavailable Herrera CROWDER MD Unavailable Unavailable Herrera CROWDER MD Unavailable Unavailable Herrera CROWDER MD Unavailable Unavailable Herrera CROWDER MD Unavailable Unavailable Herrera CROWDER MD Unavailable Unavailable Herrera CROWDER MD Unavailable Unavailable Herrera CROWDER MD Unavailable Unavailable Herrera CROWDER MD Unavailable Unavailable Herrera CROWDER MD Unavailable Unavailable Herrera CROWDER MD Unavailable Unavailable Herrera CROWDER MD Unavailable Unavailable Herrera CROWDER MD Unavailable Unavailable Herrera CROWDER MD Unavailable Unavailable Herrera CROWDER MD Unavailable Unavailable Herrera CROWDER MD Unavailable Unavailable Herrera CROWDER MD Unavailable Unavailable Herrera CROWDER MD Unavailable Unavailable Herrera CROWDER MD Unavailable Unavailable Herrera CROWDER MD Unavailable Unavailable Herrera CROWDER MD Unavailable Unavailable Herrera CROWDER MD Unavailable Unavailable Herrera CROWDER MD Unavailable Unavailable Herrera CROWDER MD Unavailable Unavailable Herrera CROWDER MD Unavailable Unavailable Herrera CROWDER MD Unavailable Unavailable Herrera CROWDER MD Unavailable Unavailable Herrera CROWDER MD Unavailable Unavailable Herrera CROWDER MD Unavailable Unavailable Herrera CROWDER MD Unavailable Unavailable VELHerrera DICKSON MD Unavailable Unavailable VELHerrera DICKSON MD Unavailable Unavailable VELHerrera DICKSON MD Unavailable Unavailable VELHerrera DICKSON MD Unavailable Unavailable Herrera CROWDER MD Unavailable Unavailable Herrera CROWDER MD Unavailable Unavailable VEL, S ONEYDA MD Unavailable Unavailable VEL, S ONEYDA MD Unavailable Unavailable VEL, S ONEYDA MD Unavailable Unavailable VEL, S ONEYDA MD Unavailable Unavailable VEL, S ONEYDA MD Unavailable Unavailable VEL, S ONEYDA MD Unavailable Unavailable VEL, S ONEYDA MD Unavailable Unavailable VEL, S ONEYDA MD Unavailable Unavailable VEL, S ONEYDA MD Unavailable Unavailable VEL, S ONEYDA MD Unavailable Unavailable VEL, S ONEYDA MD Unavailable Unavailable VEL, S ONEYDA MD Unavailable Unavailable VEL, S ONEYDA MD Unavailable Unavailable VEL, S ONEYDA MD Unavailable Unavailable VEL, S ONEYDA MD Unavailable Unavailable VEL, S ONEYDA MD Unavailable Unavailable VEL, S ONEYDA MD Unavailable Unavailable DEMARCO, SEE RUVALCABA MD Unavailable Unavailable DEMARCO, SEE RUVALCABA MD Unavailable Unavailable DEMARCO, SEE RUVALCABA MD Unavailable Unavailable DEMARCO, SEE RUVALCABA MD Unavailable Unavailable DEMARCO, SEE RUVALCABA MD Unavailable Unavailable DEMARCO, SEE RUVALCABA MD Unavailable Unavailable DEMARCO, SEE RUVALCABA MD Unavailable Unavailable DEMARCO, SEE RUVALCABA MD Unavailable Unavailable DEMARCO, SEE RUVALCABA MD Unavailable Unavailable DEMARCO, SEE RUVALCABA MD Unavailable Unavailable DEMARCO, SEE RUVALCABA MD Unavailable Unavailable DEMARCO, SEE RUVALCABA MD Unavailable Unavailable DEMARCO, SEE RUVALCABA MD Unavailable Unavailable DEMARCO, SEE RUVALCABA MD Unavailable Unavailable DEMARCO, SEE RUVALCABA MD Unavailable Unavailable DEMARCO, SEE RUVALCABA MD Unavailable Unavailable DEMARCO, SEE RUVALCABA MD Unavailable Unavailable DEMARCO, SEE RUVALCABA MD Unavailable Unavailable DEMARCO, SEE RUVALCABA MD Unavailable Unavailable DEMARCO, SEE RUVALCABA MD Unavailable Unavailable DEMARCO, SEE RUVALCABA MD Unavailable Unavailable DEMARCO, SEE RUVALCABA MD Unavailable Unavailable DEMARCO, SEE RUVALCABA MD Unavailable Unavailable DEMARCO, SEE RUVALCABA MD Unavailable Unavailable DEMARCO, SEE RUVALCABA MD Unavailable Unavailable DEMARCO, SEE RUVALCABA MD Unavailable Unavailable DEMARCO, SEE RUVALCABA MD Unavailable Unavailable DEMARCO, SEE RUVALCABA MD Unavailable Unavailable DEMARCO, SEE RUVALCABA MD Unavailable Unavailable DEMARCO, SEE RUVALCABA MD Unavailable Unavailable DEMARCO, SEE RUVALCABA MD Unavailable Unavailable DEMARCO, SEE RUVALCABA MD Unavailable Unavailable DEMARCO, SEE RUVALCABA MD Unavailable Unavailable DEMARCO, SEE RUVALCABA MD Unavailable Unavailable DEMARCO, SEE RUVALCABA MD Unavailable Unavailable DEMARCO, SEE RUVALCABA MD Unavailable Unavailable DEMARCO, SEE RUVALCABA MD Unavailable Unavailable DEMARCO, SEE RUVALCABA MD Unavailable Unavailable DEMARCO, SEE RUVALCABA MD Unavailable Unavailable DEMARCO, SEE RUVALCABA MD Unavailable Unavailable DEMARCO, SEE RUVALCABA MD Unavailable Unavailable DEMARCO, SEE RUVALCABA MD Unavailable Unavailable DEMARCO, SEE RUVALCABA MD Unavailable Unavailable DEMARCO, SEE RUVALCABA MD Unavailable Unavailable DEMARCO, SEE RUVALCABA MD Unavailable Unavailable DEMARCO, SEE RUVALCABA MD Unavailable Unavailable DEMARCO, SEE RUVALCABA MD Unavailable Unavailable DEMARCO, SEE RUVALCABA MD Unavailable Unavailable DEMARCO, SEE RUVALCABA MD Unavailable Unavailable DEMARCO, SEE RUVALCABA MD Unavailable Unavailable DEMARCO, SEE RUVALCABA MD Unavailable Unavailable DEMARCO, SEE RUVALCABA MD Unavailable Unavailable DEMARCO, SEE RUVALCABA MD Unavailable Unavailable DEMARCO, SEE RUVALCABA MD Unavailable Unavailable DEMARCO, SEE RUVALCABA MD Unavailable Unavailable DEMARCO, SEE RUVALCABA MD Unavailable Unavailable DEMARCO, SEE RUVALCABA MD Unavailable Unavailable DEMARCO, SEE RUVALCABA MD Unavailable Unavailable DEMARCO, SEE RUVALCABA MD Unavailable Unavailable CANDELARIA, J ERASMO DO Unavailable Unavailable CANDELARIA, J ERASMO DO Unavailable Unavailable CANDELARIA, J ERASMO DO Unavailable Unavailable CANDELARIA, J ERASMO DO Unavailable Unavailable CANDELARIA, J ERASMO DO Unavailable Unavailable CANDELARIA, J ERASMO DO Unavailable Unavailable CANDELARIA, J ERASMO DO Unavailable Unavailable CANDELARIA, J ERASMO DO Unavailable Unavailable CANDELARIA, J ERASMO DO Unavailable Unavailable CANDELARIA, J ERASMO DO Unavailable Unavailable CANDELARIA, J ERASMO DO Unavailable Unavailable CANDELARIA, J ERASMO DO Unavailable Unavailable CANDELARIA, J ERASMO DO Unavailable Unavailable CANDELARIA, J ERASMO DO Unavailable Unavailable CANDELARIA, J ERASMO DO Unavailable Unavailable CANDELARIA, J ERASMO DO Unavailable Unavailable CANDELARIA, J ERASMO DO Unavailable Unavailable CANDELARIA, J ERASMO DO Unavailable Unavailable CANDELARIA, J ERASMO DO Unavailable Unavailable CANDELARIA, J ERASMO DO Unavailable Unavailable CANDELARIA, J ERASMO DO Unavailable Unavailable CANDELARIA, J ERASMO DO Unavailable Unavailable CANDELARIA, J ERASMO DO Unavailable Unavailable CANDELARIA, J ERASMO DO Unavailable Unavailable CANDELARIA, J ERASMO DO Unavailable Unavailable CANDELARIA, J ERASMO DO Unavailable Unavailable CANDELARIA, J ERASMO DO Unavailable Unavailable SCHNEIDER SR, ONEYDA PARDO MD Unavailable Unavailable SCHNEIDER SR, ONEYDA PARDO MD Unavailable Unavailable SCHNEIDER SR, ONEYDA PARDO MD Unavailable Unavailable SCHNEIDER SR, ONEYDA PARDO MD Unavailable Unavailable SCHNEIDER SR, ONEYDA PARDO MD Unavailable Unavailable SCHNEIDER SR, ONEYDA PARDO MD Unavailable Unavailable SCHNEIDER SR, ONEYDA PARDO MD Unavailable Unavailable SCHNEIDER SR, ONEYDA PARDO MD Unavailable Unavailable SCHNEIDER SR, ONEYDA PARDO MD Unavailable Unavailable SCHNEIDER SR, ONEYDA PARDO MD Unavailable Unavailable SCHNEIDER SR, ONEYDA PARDO MD Unavailable Unavailable SCHNEIDER SR, ONEYDA PARDO MD Unavailable Unavailable SCHNEIDER SR, ONEYDA PARDO MD Unavailable Unavailable SCHNEIDER SR, ONEYDA PARDO MD Unavailable Unavailable SCHNEIDER SR, ONEYDA PARDO MD Unavailable Unavailable SCHNEIDER SR, ONEYDA PARDO MD Unavailable Unavailable SCHNEIDER SR, ONEYDA PARDO MD Unavailable Unavailable SCHNEIDER SR, ONEYDA PARDO MD Unavailable Unavailable SCHNEIDER SR, ONEYDA PARDO MD Unavailable Unavailable SCHNEIDER SR, ONEYDA PARDO MD Unavailable Unavailable SCHNEIDER SR, ONEYDA PARDO MD Unavailable Unavailable SCHNEIDER SR, ONEYDA PARDO MD Unavailable Unavailable SCHNEIDER SR, ONEYDA PARDO MD Unavailable Unavailable SCHNEIDER SR, ONEYDA PARDO MD Unavailable Unavailable SCHNEIDER SR, ONEYDA PARDO MD Unavailable Unavailable SCHNEIDER SR, ONEYDA PARDO MD Unavailable Unavailable SCHNEIDER SR, ONEYDA PARDO MD Unavailable Unavailable SCHNEIDER SR, ONEYDA PARDO MD Unavailable Unavailable SCHNEIDER SR, ONEYDA PARDO MD Unavailable Unavailable SCHNEIDER SR, ONEYDA PARDO MD Unavailable Unavailable SCHNEIDER SR, ONEYDA PARDO MD Unavailable Unavailable SCHNEIDER SR, ONEYDA PARDO MD Unavailable Unavailable SCHNEIDER SR, ONEYDA PARDO MD Unavailable Unavailable SCHNEIDER SR, ONEYDA PARDO MD Unavailable Unavailable SCHNEIDER SR, ONEYDA PARDO MD Unavailable Unavailable SCHNEIDER SR, ONEYDA PARDO MD Unavailable Unavailable SCHNEIDER SR, ONEYDA PARDO MD Unavailable Unavailable SCHNEIDER SR, ONEYDA PARDO MD Unavailable Unavailable SCHNEIDER SR, ONEYDA PARDO MD Unavailable Unavailable SCHNEIDER SR, ONEYDA PARDO MD Unavailable Unavailable SCHNEIDER SR, ONEYDA PARDO MD Unavailable Unavailable SCHNEIDER SR, ONEYDA PARDO MD Unavailable Unavailable SCHNEIDER SR, ONEYDA PARDO MD Unavailable Unavailable SCHNEIDER SR, ONEYDA PARDO MD Unavailable Unavailable SCHNEIDER SR, ONEYDA PARDO MD Unavailable Unavailable SCHNEIDER SR, ONEYDA PARDO MD Unavailable Unavailable SCHNEIDER SR, ONEYDA PARDO MD Unavailable Unavailable SCHNEIDER SR, ONEYDA PARDO MD Unavailable Unavailable SCHNEIDER SR, ONEYDA PARDO MD Unavailable Unavailable SCHNEIDER SR, ONEYDA PARDO MD Unavailable Unavailable SCHNEIDER SR, ONEYDA PARDO MD Unavailable Unavailable SCHNEIDER SR, ONEYDA PARDO MD Unavailable Unavailable SCHNEIDER SR, ONEYDA PARDO MD Unavailable Unavailable SCHNEIDER SR, ONEYDA PARDO MD Unavailable Unavailable SCHNEIDER SR, ONEYDA PARDO MD Unavailable Unavailable SCHNEIDER SR, ONEYDA PARDO MD Unavailable Unavailable SYMENOW, G CHRISTOPHER PA Unavailable Unavailable SYMENOW, G CHRISTOPHER PA Unavailable Unavailable SYMENOW, G CHRISTOPHER PA Unavailable Unavailable SYMENOW, G CHRISTOPHER PA Unavailable Unavailable SYMENOW, G CHRISTOPHER PA Unavailable Unavailable SYMENOW, G CHRISTOPHER PA Unavailable Unavailable SYMENOW, G CHRISTOPHER PA Unavailable Unavailable SYMENOW, G CHRISTOPHER PA Unavailable Unavailable SYMENOW, G CHRISTOPHER PA Unavailable Unavailable SYMENOW, G CHRISTOPHER PA Unavailable Unavailable SYMENOW, G CHRISTOPHER PA Unavailable Unavailable SYMENOW, G CHRISTOPHER PA Unavailable Unavailable SYMENOW, G CHRISTOPHER PA Unavailable Unavailable SYMENOW, G CHRISTOPHER PA Unavailable Unavailable SYMENOW, G CHRISTOPHER PA Unavailable Unavailable SYMENOW, G CHRISTOPHER PA Unavailable Unavailable Herrera CROWDER MD Unavailable Unavailable Herrera CROWDER MD Unavailable Unavailable Herrera CROWDER MD Unavailable Unavailable Herrera CROWDER MD Unavailable Unavailable Herrera CROWDER MD Unavailable Unavailable Herrera CROWDER MD Unavailable Unavailable Herrera CROWDER MD Unavailable Unavailable Herrera CROWDER MD Unavailable Unavailable Herrera CROWDER MD Unavailable Unavailable Herrera CROWDER MD Unavailable Unavailable Herrera CROWDER MD Unavailable Unavailable Herrera CROWDER MD Unavailable Unavailable Herrera CROWDER MD Unavailable Unavailable Herrera CROWDER MD Unavailable Unavailable Herrera CROWDER MD Unavailable Unavailable Herrera CROWDER MD Unavailable Unavailable Herrera CROWDER MD Unavailable Unavailable Herrera CROWDER MD Unavailable Unavailable Herrera CROWDER MD Unavailable Unavailable Herrera CROWDER MD Unavailable Unavailable Herrera CROWDER MD Unavailable Unavailable Herrera CROWDER MD Unavailable Unavailable Herrera CROWDER MD Unavailable Unavailable Herrera CROWDER MD Unavailable Unavailable Herrera CROWDER MD Unavailable Unavailable Herrera CROWDER MD Unavailable Unavailable Herrera CROWDER MD Unavailable Unavailable Herrera CROWDER MD Unavailable Unavailable Herrera CROWDER MD Unavailable Unavailable Herrera CROWDER MD Unavailable Unavailable Herrera CROWDER MD Unavailable Unavailable Herrera CROWDER MD Unavailable Unavailable Herrera CROWDER MD Unavailable Unavailable Herrera CROWDER MD Unavailable Unavailable Herrera CROWDER MD Unavailable Unavailable Herrera CROWDER MD Unavailable Unavailable Herrera CROWDER MD Unavailable Unavailable Herrera CROWDER MD Unavailable Unavailable Herrera CROWDER MD Unavailable Unavailable Herrera CROWDER MD Unavailable Unavailable Herrera CROWDER MD Unavailable Unavailable Herrera CROWDER MD Unavailable Unavailable Herrera CROWDER MD Unavailable Unavailable Herrera CROWDER MD Unavailable Unavailable Herrera CROWDER MD Unavailable Unavailable Herrera CROWDER MD Unavailable Unavailable Herrera CROWDER MD Unavailable Unavailable Herrera CROWDER MD Unavailable Unavailable Herrera CROWDER MD Unavailable Unavailable Herrera CROWDER MD Unavailable Unavailable Herrera CROWDER MD Unavailable Unavailable Herrera CROWDER MD Unavailable Unavailable Herrera CROWDER MD Unavailable Unavailable Herrera CROWDER MD Unavailable Unavailable Herrera CROWDER MD Unavailable Unavailable Herrera CROWDER MD Unavailable Unavailable Herrera CROWDER MD Unavailable Unavailable Herrera CROWDER MD Unavailable Unavailable Herrera CROWDER MD Unavailable Unavailable Herrera CROWDER MD Unavailable Unavailable Herrera CROWDER MD Unavailable Unavailable Herrera CROWDER MD Unavailable Unavailable Herrera CROWDER MD Unavailable Unavailable Herrera CROWDER MD Unavailable Unavailable Herrera CROWDER MD Unavailable Unavailable Harjit, M Alina PA-C Unavailable Unavailable Harjit, M Alina PA-C Unavailable Unavailable Harjit, M Alina PA-C Unavailable Unavailable Harjit, M Alina PA-C Unavailable Unavailable Harjit, M Alina PA-C Unavailable Unavailable Harjit, M Alina PA-C Unavailable Unavailable Harjit, M Alina PA-C Unavailable Unavailable Harjit, M Alina PA-C Unavailable Unavailable Harjit, M Alina PA-C Unavailable Unavailable Harjit, M Alina PA-C Unavailable Unavailable Harjit, M Alina PA-C Unavailable Unavailable Harjit, M Alina PA-C Unavailable Unavailable Harjit, M Alina PA-C Unavailable Unavailable Harjit, M Alina PA-C Unavailable Unavailable Harjit, M Alina PA-C Unavailable Unavailable Harjit, M Alina PA-C Unavailable Unavailable Harjit, M Alina PA-C Unavailable Unavailable Harjit, M Alina PA-C Unavailable Unavailable Harjit, M Alina PA-C Unavailable Unavailable Harjit, M Alina PA-C Unavailable Unavailable Harjit, M Alina PA-C Unavailable Unavailable Harjit, M Alina PA-C Unavailable Unavailable Harjit, M Alina PA-C Unavailable Unavailable Harjit, M Alina PA-C Unavailable Unavailable Harjit, M Alina PA-C Unavailable Unavailable Harjit, M Alina PA-C Unavailable Unavailable Harjit, M Alina PA-C Unavailable Unavailable Harjit, M Alina PA-C Unavailable Unavailable Harjit, M Alina PA-C Unavailable Unavailable Harjit, M Alina PA-C Unavailable Unavailable Harjit, M Alina PA-C Unavailable Unavailable Harjit, M Alina PA-C Unavailable Unavailable Harjit, M Alina PA-C Unavailable Unavailable Harjit, M Alina PA-C Unavailable Unavailable Harjit, M Alina PA-C Unavailable Unavailable Harjit, M Alina PA-C Unavailable Unavailable Harjit, M Alina PA-C Unavailable Unavailable Harjit, M Alina PA-C Unavailable Unavailable Lundi, Rush DPM Unavailable Unavailable Lundi, Rush DPM Unavailable Unavailable Lundi, Rush DPM Unavailable Unavailable Lundi, Rush DPM Unavailable Unavailable Lundi, Rush DPM Unavailable Unavailable Lundi, Rush DPM Unavailable Unavailable Lundi, Rush DPM Unavailable Unavailable Lundi, Rush DPM Unavailable Unavailable Lundi, Rush DPM Unavailable Unavailable Lundi, Rush DPM Unavailable Unavailable Lundi, Rush DPM Unavailable Unavailable Lundi, Rush DPM Unavailable Unavailable Lundi, Rush DPM Unavailable Unavailable Lundi, Rush DPM Unavailable Unavailable Lundi, Rush DPM Unavailable Unavailable Lundi, Rush DPM Unavailable Unavailable Lundi, Rush DPM Unavailable Unavailable Lundi, Rush DPM Unavailable Unavailable Lundi, Rush DPM Unavailable Unavailable Lundi, Rush DPM Unavailable Unavailable Lundi, Rush DPM Unavailable Unavailable Lundi, Rush DPM Unavailable Unavailable Lundi, Rush DPM Unavailable Unavailable Lundi, Rush DPM Unavailable Unavailable Lundi, Rush DPM Unavailable Unavailable KERLINE NAPIER PA Unavailable Unavailable KERLINE NAPIER PA Unavailable Unavailable KERLINE NAPIER PA Unavailable Unavailable KERLINE NAPIER PA Unavailable Unavailable KARTHIKEYAN, KERLINE ZOFIA PA Unavailable Unavailable KARTHIKEYAN, KERLINE ZOFIA PA Unavailable Unavailable KARTHIKEYAN, KERLINE ZOFIA PA Unavailable Unavailable KARTHIKEYAN, KERLINE ZOFIA PA Unavailable Unavailable KARTHIKEAYN, KERLINE ZOFIA PA Unavailable Unavailable KARTHIKEYAN, KERLINE ZOFIA PA Unavailable Unavailable KARTHKIEYAN, KERLINE ZOFIA PA Unavailable Unavailable KARTHIKEYAN, KERLINE ZOFIA PA Unavailable Unavailable KARTHIKEYAN, KERLINE ZOFIA PA Unavailable Unavailable KARTHIKEYAN, KERLINE ZOFIA PA Unavailable Unavailable KARTHIKEYAN, KERLINE ZOFIA PA Unavailable Unavailable KARTHIKEYAN, KERLINE ZOFIA PA Unavailable Unavailable KRATHIKEYAN, KERLINE ZOFIA PA Unavailable Unavailable KARTHIKEYAN, KERLINE ZOFIA PA Unavailable Unavailable KARTHIKEYAN, KERLINE ZOFIA PA Unavailable Unavailable KARTHIKEYAN, KERLINE ZOFIA PA Unavailable Unavailable KARTHIKEYAN, KERLINE ZOFIA PA Unavailable Unavailable KARTHIKEYAN, KERLINE ZOFIA PA Unavailable Unavailable Sintia, Reghua W Gianna FUR TANNER-C Unavailable Unavailabl e Sintia, Reghua W Gianna FUR TANNER-C Unavailable Unavailabl e Sintia, Reginagrisel W Gianna FUR TANNER-C Unavailable Unavailabl e Sintia, Reginagrisel W Gianna FUR TANNER-C Unavailable Unavailabl e Sintia, Regina W Gianna FUR TANNER-C Unavailable Unavailabl e Sintia, Regliza W Gianna FUR TANNER-C Unavailable Unavailabl e Sintia, Reginagrisel W Gianna FUR TANNER-C Unavailable Unavailabl e Sintia, Reginagrisel W Gianna FUR TANNER-C Unavailable Unavailabl e Sintia, Reginagrisel W Gianna FUR TANNER-C Unavailable Unavailabl e Sintia, Regina W Gianna FUR TANNER-C Unavailable Unavailabl e Sintia, Reghua W Gianna FUR TANNER-C Unavailable Unavailabl e Sintia, Regina W Gianna FUR TANNER-C Unavailable Unavailabl e Sintia, Reglizagrisel W Gianna FUR TANNER-C Unavailable Unavailabl e Sintia, Reghua W Gianna FUR TANNER-C Unavailable Unavailabl e Sintia, Reghua W Gianna FUR TANNER-C Unavailable Unavailabl e Sintia, Reginagrisel W Gianna FUR TANNER-C Unavailable Unavailabl e Sintia, Reginah W Gianna FUR TANNER-C Unavailable Unavailabl e Sintia, Reginah W Gianna FUR TANNER-C Unavailable Unavailabl e Sintia, Reginah W Gianna FUR TANNER-C Unavailable Unavailabl e Sintia, Reginah W Gianna FUR TANNER-C Unavailable Unavailabl e Sintia, Reginah W Gianna FUR TANNER-C Unavailable Unavailabl e Sintia, Reginah W Gianna FUR TANNER-C Unavailable Unavailabl e Sintia, Reginah W Gianna FUR TANNER-C Unavailable Unavailabl e Sintia, Reginah W Gianna FUR TANNER-C Unavailable Unavailabl e Sintia, Reginah W Gianna FUR TANNER-C Unavailable Unavailabl e Sintia, Reginah W Gianna FUR TANNER-C Unavailable Unavailabl e Sintia, Reginah W Gianna FUR TANNER-C Unavailable Unavailabl e Sintia, Reginah W Gianna FUR TANNER-C Unavailable Unavailabl e Sintia, Reginah W Gianna FUR TANNER-C Unavailable Unavailabl e Sintia, Reginah W Gianna FUR TANNER-C Unavailable Unavailabl e Sintia, Reginah W Gianna FUR TANNER-C Unavailable Unavailabl e Sintia, Reginah W Gianna FUR TANNER-C Unavailable Unavailabl e OBINNA, RAY PA Unavailable Unavailable OBINNA, RAY PA Unavailable Unavailable OBINNA, RAY PA Unavailable Unavailable OBINNA, RAY PA Unavailable Unavailable OBINNA, RAY PA Unavailable Unavailable OBINNA, RAY PA Unavailable Unavailable OBINNA, RAY PA Unavailable Unavailable OBINNA, RAY PA Unavailable Unavailable OBINNA, RAY PA Unavailable Unavailable OBINNA, RAY PA Unavailable Unavailable OBINNA, RAY PA Unavailable Unavailable OBINNA, RAY PA Unavailable Unavailable OBINNA, RAY PA Unavailable Unavailable OBINNA, RAY PA Unavailable Unavailable OBINNA, RAY PA Unavailable Unavailable Flakita Hampton DO Unavailable Unavailable Flakita Hampton DO Unavailable Unavailable Flakita Hampton DO Unavailable Unavailable Flakita Hampton DO Unavailable Unavailable Falkita Hampton DO Unavailable Unavailable Flakita Hampton DO Unavailable Unavailable Flakita Hampton DO Unavailable Unavailable Flakita Hampton DO Unavailable Unavailable Flakita Hampton DO Unavailable Unavailable Flakita Hampton DO Unavailable Unavailable Flakita Hamptonon DO Unavailable Unavailable Hampton, B Huey DO Unavailable Unavailable Hampton, B Huey DO Unavailable Unavailable Flakita Hampton Huey DO Unavailable Unavailable Flakita Hampton Huey DO Unavailable Unavailable Flakita Hampton Huey DO Unavailable Unavailable ISIDRA, M DMITRY PA Unavailable Unavailable ISIDRA, M DMITRY PA Unavailable Unavailable ISIDRA, M DMITRY PA Unavailable Unavailable ISIDRA, M DMITRY PA Unavailable Unavailable ISIDRA, M DMITRY PA Unavailable Unavailable ISIDRA, M DMITRY PA Unavailable Unavailable ISIDRA, M DMITRY PA Unavailable Unavailable ISIDRA, M DMITRY PA Unavailable Unavailable ISIDRA, M DMITRY PA Unavailable Unavailable ISIDRA, M DMITRY PA Unavailable Unavailable ISIDRA, M DMITRY PA Unavailable Unavailable ISIDRA, M DMITRY PA Unavailable Unavailable ISIDRA, M DMITRY PA Unavailable Unavailable ISIDRA, M DMITRY PA Unavailable Unavailable ISIDRA, M DMITRY PA Unavailable Unavailable ISIDRA, M DMITRY PA Unavailable Unavailable ISIDRA, M DMITRY PA Unavailable Unavailable ISIDRA, M DMITRY PA Unavailable Unavailable ISIDRA, M DMITRY PA Unavailable Unavailable ISIDRA, M DMITRY PA Unavailable Unavailable ISIDRA, M DMITRY PA Unavailable Unavailable ISIDRA, M DMITRY PA Unavailable Unavailable ISIDRA, M DMITRY PA Unavailable Unavailable ISIDRA, M DMITRY PA Unavailable Unavailable KERLINE LUCERO MD Unavailable Unavailable KERLINE LUCERO MD Unavailable Unavailable KERLINE LUCERO MD Unavailable Unavailable KERLINE LUCERO MD Unavailable Unavailable KERLINE LUCERO MD Unavailable Unavailable KERLINE LUCERO MD Unavailable Unavailable KERLINE LUCERO MD Unavailable Unavailable KERLINE LUCERO MD Unavailable Unavailable KERLINE LUCERO MD Unavailable Unavailable KERLINE LUCERO MD Unavailable Unavailable KERLINE LUCERO MD Unavailable Unavailable KERLINE LUCERO MD Unavailable Unavailable KERLINE LUCERO MD Unavailable Unavailable KERLINE LUCERO MD Unavailable Unavailable KERLINE LUCERO MD Unavailable Unavailable KERLINE LUCERO MD Unavailable Unavailable KERLINE LUCERO MD Unavailable Unavailable KERLINE LUCERO MD Unavailable Unavailable KERLINE LUCERO MD Unavailable Unavailable KERLINE LUCERO MD Unavailable Unavailable KERLINE LUCERO MD Unavailable Unavailable KERLINE LUCERO MD Unavailable Unavailable KERLINE LUCERO MD Unavailable Unavailable KERLINE LUCERO MD Unavailable Unavailable KERLINE LUCERO MD Unavailable Unavailable KERLINE LUCERO MD Unavailable Unavailable KERLINE LUCERO MD Unavailable Unavailable KERLINE LUCERO MD Unavailable Unavailable KERLINE LUCERO MD Unavailable Unavailable KERLINE LUCERO MD Unavailable Unavailable KERLINE LUCERO MD Unavailable Unavailable KERLINE LUCERO MD Unavailable Unavailable KERLINE LUCERO MD Unavailable Unavailable KERLINE LUCERO MD Unavailable Unavailable KERLINE LUCERO MD Unavailable Unavailable KERLINE LUCERO MD Unavailable Unavailable KERLINE LUCERO MD Unavailable Unavailable KERLINE LUCERO MD Unavailable Unavailable KERLINE LUCERO MD Unavailable Unavailable KERLINE LUCERO MD Unavailable Unavailable KERLINE LUCERO MD Unavailable Unavailable KERLINE LUCERO MD Unavailable Unavailable KERLINE LUCERO MD Unavailable Unavailable KERLINE LUCERO MD Unavailable Unavailable KERLINE LUCERO MD Unavailable Unavailable KERLINE LUCERO MD Unavailable Unavailable KERLINE LUCERO MD Unavailable Unavailable KERLINE LUCERO MD Unavailable Unavailable KERLINE LUCERO MD Unavailable Unavailable KERLINE LUCERO MD Unavailable Unavailable KERLINE LUCERO MD Unavailable Unavailable JACKIE, BRIA MD Unavailable Unavailable JACKIE, BRIA MD Unavailable Unavailable JACKIE, BRIA MD Unavailable Unavailable JACKIE, BRIA MD Unavailable Unavailable JACKIE, BRIA MD Unavailable Unavailable JACKIE, BRIA MD Unavailable Unavailable JACKIE, BRIA MD Unavailable Unavailable JACKIE, BRIA MD Unavailable Unavailable JACKIE, BRIA MD Unavailable Unavailable JACKIE, BRIA MD Unavailable Unavailable JACKIE, BRIA MD Unavailable Unavailable JACKIE, BRIA MD Unavailable Unavailable JACKIE, BRIA MD Unavailable Unavailable JACKIE, BRIA MD Unavailable Unavailable JACKIE, BRIA MD Unavailable Unavailable JACKIE, BRIA MD Unavailable Unavailable JACKIE, BRIA MD Unavailable Unavailable JACKIE, BRIA MD Unavailable Unavailable JACKIE, BRIA MD Unavailable Unavailable JACKIE, BRIA MD Unavailable Unavailable JACKIE, BRIA MD Unavailable Unavailable JACKIE, BRIA MD Unavailable Unavailable JACKIE, BRIA MD Unavailable Unavailable JACKIE, BRIA MD Unavailable Unavailable JACKIE, BRIA MD Unavailable Unavailable JACKIE, BRIA MD Unavailable Unavailable JACKIE, BRIA MD Unavailable Unavailable JACKIE, BRIA MD Unavailable Unavailable JACKIE, BRIA MD Unavailable Unavailable JACKIE, BRIA MD Unavailable Unavailable JACKIE, BRIA MD Unavailable Unavailable JACKIE, BRIA MD Unavailable Unavailable JACKIE, BRIA MD Unavailable Unavailable JACKIE, BRIA MD Unavailable Unavailable JACKIE, BRIA MD Unavailable Unavailable JACKIE, BRIA MD Unavailable Unavailable JACKIE, BRIA MD Unavailable Unavailable JACKIE, BRIA MD Unavailable Unavailable JACKIE, BRIA MD Unavailable Unavailable JACKIE, BRIA MD Unavailable Unavailable JACKIE, BRIA MD Unavailable Unavailable JACKIE, BRIA MD Unavailable Unavailable JACKIE, BRIA MD Unavailable Unavailable SANG, L MALOU PA Unavailable Unavailable SANG, L MALOU PA Unavailable Unavailable SANG, L MALOU PA Unavailable Unavailable SANG, L MALOU PA Unavailable Unavailable SANG, L MALOU PA Unavailable Unavailable SANG, L MALOU PA Unavailable Unavailable SANG, L MALOU PA Unavailable Unavailable SANG, L MALOU PA Unavailable Unavailable SANG, L MALOU PA Unavailable Unavailable SANG, L MALOU PA Unavailable Unavailable SANG, L MALOU PA Unavailable Unavailable SANG, L MALOU PA Unavailable Unavailable SANG, L MALOU PA Unavailable Unavailable SANG, L MALOU PA Unavailable Unavailable SANG, L MALOU PA Unavailable Unavailable SANG, L MALOU PA Unavailable Unavailable SHEMAR, L RAFAEL PA Unavailable Unavailable SHEMAR, L RAFAEL PA Unavailable Unavailable SHEMAR, L RAFAEL PA Unavailable Unavailable SHEMAR, L RAFAEL PA Unavailable Unavailable SHEMAR, L RAFAEL PA Unavailable Unavailable SHEMAR, L RAFAEL PA Unavailable Unavailable SHEMAR, L RAFAEL PA Unavailable Unavailable SHEMAR, L RAFAEL PA Unavailable Unavailable SHEMAR, L RAFAEL PA Unavailable Unavailable SHEMAR, L RAFAEL PA Unavailable Unavailable SHEMAR, L RAFAEL PA Unavailable Unavailable SHEMAR, L RAFAEL PA Unavailable Unavailable SHEMAR, L RAFAEL PA Unavailable Unavailable SHEMAR, L RAFAEL PA Unavailable Unavailable SHEMAR, L RAFAEL PA Unavailable Unavailable SHEMAR, L RAFAEL PA Unavailable Unavailable SHEMAR, L RAFAEL PA Unavailable Unavailable SHEMAR, L RAFAEL PA Unavailable Unavailable SHEMAR, L RAFAEL PA Unavailable Unavailable SHEMAR, L RAFAEL PA Unavailable Unavailable SHEMAR, L RAFAEL PA Unavailable Unavailable SHEMAR, L RAFAEL PA Unavailable Unavailable SHEMAR, L RAFAEL PA Unavailable Unavailable Mabel, A Alina FUR TANNER Unavailable Unavailable Mabel, A Alina FUR TANNER Unavailable Unavailable Mabel, A Alina FUR TANNER Unavailable Unavailable Mabel, A Alina FUR TANNER Unavailable Unavailable Mabel, A Alina FUR TANNER Unavailable Unavailable Mabel, A Alina FUR TANNER Unavailable Unavailable Mabel, A Alina FUR TANNER Unavailable Unavailable Mabel, A Alina FUR TANNER Unavailable Unavailable Mabel, A Alina FUR TANNER Unavailable Unavailable Mabel, A Alina FUR TANNER Unavailable Unavailable Mabel, A Alina FUR TANNER Unavailable Unavailable Mabel, A Alina FUR TANNER Unavailable Unavailable Mabel, A Alina FUR TANNER Unavailable Unavailable Mabel, A Alina FUR TANNER Unavailable Unavailable Mabel, A Alina FUR TANNER Unavailable Unavailable Mabel, A Alina FUR TANNER Unavailable Unavailable Mabel, A Alina FUR TANNER Unavailable Unavailable Mabel, A Alina FUR TANNER Unavailable Unavailable Mabel, A Alina FUR TANNER Unavailable Unavailable Mabel, A Alina FUR TANNER Unavailable Unavailable Mabel, A Alina FUR TANNER Unavailable Unavailable Mabel, A Alina FUR TANNER Unavailable Unavailable Mabel, A Alina FUR TANNER Unavailable Unavailable Mabel, A Alina FUR TANNER Unavailable Unavailable Mabel, A Alina FUR TANNER Unavailable Unavailable Mabel, A Alina FUR TANNER Unavailable Unavailable Mabel, A Alina FUR TANNER Unavailable Unavailable Mabel, A Alina FUR TANNER Unavailable Unavailable Mabel, A Alina FUR TANNER Unavailable Unavailable Mabel, A Alina FUR TANNER Unavailable Unavailable Mabel, A Alina FUR TANNER Unavailable Unavailable Mabel, A Alina FUR TANNER Unavailable Unavailable Mabel, A Alina FUR TANNER Unavailable Unavailable Mabel, A Alina FUR TANNER Unavailable Unavailable Mabel, A Alina FUR TANNER Unavailable Unavailable Mabel, A Alina FUR TANNER Unavailable Unavailable Mabel, A Alina FUR TANNER Unavailable Unavailable Mabel, A Alina FUR TANNER Unavailable Unavailable Mabel, A Alina FUR TANNER Unavailable Unavailable Mabel, A Alina FUR TANNER Unavailable Unavailable Mabel, A Alina FUR TANNER Unavailable Unavailable Mabel, A Alina FUR TANNER Unavailable Unavailable Mabel, A Alina FUR TANNER Unavailable Unavailable Mabel, A Alina FUR TANNER Unavailable Unavailable Mabel, A Alina FUR TANNER Unavailable Unavailable Mabel, A Alina FUR TANNER Unavailable Unavailable Mabel, A Alina FUR TANNER Unavailable Unavailable Mabel, A Alina FUR TANNER Unavailable Unavailable Mabel, A Alina FUR TANNER Unavailable Unavailable Mabel, A Alina FUR TANNER Unavailable Unavailable Mabel, A Alina FUR TANNER Unavailable Unavailable Mabel, A Alina FUR TANNER Unavailable Unavailable Mabel, A Alina FUR TANNER Unavailable Unavailable Mabel, A Alina FUR TANNER Unavailable Unavailable Mabel, A Alina FUR TANNER Unavailable Unavailable Mabel, A Alina FUR TANNER Unavailable Unavailable Re-disclosure Warning The records that you are about to access may contain information from federally-assisted alcohol or drug abuse programs. If such information is present, then the following federally mandated warning applies: This information has been disclosed to you from records protected by federal confidentiality rules (42 CFR part 2). The federal rules prohibit you from making any further disclosure of this information unless further disclosure is expressly permitted by the written consent of the person to whom it pertains or as otherwise permitted by 42 CFR part 2. A general authorization for the release of medical or other information is NOT sufficient for this purpose. The Federal rules restrict any use of the information to criminally investigate or prosecute any alcohol or drug abuse patient.The records that you are about to access may contain highly sensitive health information, the redisclosure of which is protected by Article 27-F of the [facility] Public Health law. If you continue you may have access to information: Regarding HIV / AIDS; Provided by facilities licensed or operated by the [facility] Office of Mental Health; or Provided by the [facility] Office for People With Developmental Disabilities. If such information is present, then the following [facility] mandated warning applies: This information has been disclosed to you from confidential records which are protected by state law. State law prohibits you from making any further disclosure of this information without the specific written consent of the person to whom it pertains, or as otherwise permitted by law. Any unauthorized further disclosure in violation of state law may result in a fine or fpc sentence or both. A general authorization for the release of medical or other information is NOT sufficient authorization for further disc losure. Allergies and Adverse Reactions Type Description Substance Reaction Status Data Source(s ) Propensity to adverse reactions NO KNOWN ALLERGIES NO KNOWN ALLERGIES [facility] Family History Family Member Name Family Member Gender Family Member Status Date o f Status Description Data Source(s) Unknown Female Problem [facility] ([facility]) Encounters Encounter Providers Location Date Indications Data Source(s ) Outpatient Attender: JUAN RAMON Hernández: [facility] [id number] 03/07/2021 08:30:00 PM [facility] Emergency Attender: JUAN RAMON [place] PAAttender: Huey Tian: Alina Lombardi PA-C EMERGENCY ROOM-EMERGENCY ROOM 03/07/2021 08:26:[address] - 03/07/2021 08:26:00 PM [facility] Patient discharged. Outpatient Attender: Alina Collins: Alina Lombardi PA-C EMERGENCY ROOM-LAB 03/02/2021 02:18:00 PM EST - 03/02/2021 02:18:00 PM [facility] Outpatient [facility] 02/28/2021 12:00:00 AM EST eCW1 ([facility]) Outpatient Attender: Alina Collins: Alina Lombardi PA-C EMERGENCY ROOM-LAB 02/16/2021 12:34:00 PM EST - 02/16/2021 12:34:00 PM [facility] Outpatient [facility] 02/16/2021 12:00:00 AM EST eCW1 ([facility]) Outpatient Attender: Rush Love DPM 02/14/2021 10:24:00 AM [facility] Outpatient [facility] 02/14/2021 12:00:00 AM EST eCW1 ([facility]) Outpatient Attender: Alina Monroe FNPReferrer: Alina Lombardi PA-C EMERGENCY ROOM-MAMMO 01/31/2021 02:38:00 PM EDT - 01/31/2021 02:38:00 PM EDT [facility] Outpatient Attender: BRIA MEJIA MD Main office - [facility] 01/28/2021 10:30:00 AM EDT [facility] ([facility]) Outpatient Attender: MALOU YOU Main Office 01/27/2021 0 2:15:00 PM EDT [facility] ([facility]) [facility]patient Referrer[facility] 10:00:34 AM EDT - 07/18/2019 11:59:00 PM EDT [facility] em Patient discharged. Outpatient Attender: Alina LEUNG 01/19/2021 12:00 :00 PM EDT [facility] Outpatient [facility] 01/19/2021 12:00:00 AM EDT eCW1 ([facility]) Outpatient Attender: Alina Monroe FNPReferrer: Alina Lombardi PA-C EMERGENCY ROOM-LAB 01/14/2021 10:27:00 AM EDT - 01/14/2021 10:27:00 AM EDT [facility] Outpatient Attender: Alina Monroe FNPReferrer: Alian Lombardi PA-C EMERGENCY ROOM-LAB 01/05/2021 12:26:00 PM EDT - 01/05/2021 12:26:00 PM EDT [facility] Outpatient Attender: Alina DELGADOPReferrer: Alina Lombardi PA-C EMERGENCY ROOM-LAB 12/31/2020 10:02:00 AM EDT - 12/31/2020 10:02:00 AM EDT [facility] Outpatient Attender: Alina Monroe FNPReferrer: Alina Lombardi PA-C EMERGENCY ROOM-LAB 12/24/2020 11:15:00 AM EDT - 12/24/2020 11:15:00 AM EDT [facility] Outpatient [facility] 12/24/2020 12:00:00 AM EDT eCW1 ([facility]) Outpatient [facility] 12/15/2020 12:00:00 AM EDT eCW1 ([facility]) Outpatient Attender: Alina Monroe FNPReferrer: Alina Lombardi PA-C EMERGENCY ROOM-LAB 12/13/2020 09:57:00 AM EDT - 12/13/2020 09:57:00 AM EDT [facility] Outpatient Attender: DESI Kang: Trace Lombardi PA-C EMERGENCY ROOM-LABOTHPROV 12/13/2020 09:56:00 AM EDT - 12/13/2020 09:56:00 AM EDT [facility] Outpatient [facility] 12/13/2020 12:00:00 AM EDT eCW ([facility]) Outpatient Attender: Alina Monroe FNPReferrer: Alina Lombardi PA-C EMERGENCY ROOM-LAB 12/08/2020 11:18:00 AM EDT - 12/08/2020 11:18:00 AM EDT [facility] Outpatient Attender: Alina LEUNG 12/08/2020 08:00 :00 AM EDT [facility] Outpatient [facility] 12/08/2020 12:00:00 AM EDT eCW1 ([facility]) Outpatient [facility] 11/30/2020 12:00:00 AM EDT eCW1 ([facility]) Outpatient Attender: DMITRY Hernández: Rekha Lombardi PA-C EMERGENCY ROOM-LAB 11/26/2020 09:12:00 AM EDT - 11/26/2020 09:12:00 AM EDT [facility] Outpatient Attender: DMITRY YOU 11/18/2020 03:37:00 PM EDT [facility] Outpatient [facility] 11/18/2020 12:00:00 AM EDT eCW1 ([facility]) Outpatient Attender: Alina Monroe FNPReferrer: Alina Lombardi PA-C EMERGENCY ROOM-LAB 11/15/2020 11:52:00 AM EDT - 11/15/2020 11:52:00 AM EDT [facility] Outpatient [facility] 11/15/2020 12:00:00 AM EDT eCW1 ([facility]) Outpatient Attender: Alina LEUNG 11/03/2020 11:20 :00 AM EDT [facility] Outpatient Attender: Alina Monroe FNPReferrer: Alina Lombardi PA-C EMERGENCY ROOM-LAB 11/03/2020 10:51:00 AM EDT - 11/03/2020 10:51:00 AM EDT [facility] Outpatient [facility] 11/03/2020 12:00:00 AM EDT eCW1 ([facility]) Outpatient [facility] 11/03/2020 12:00:00 AM EDT eCW1 ([facility]) Outpatient Attender: Rush Love DPM 11/01/2020 10:09:00 AM EDT [facility] Outpatient [facility] 11/01/2020 12:00:00 AM EDT eCW1 ([facility]) Outpatient [facility] 10/26/2020 12:00:00 AM EDT eCW1 ([facility]) Outpatient Attender: Alina Monroe FNPReferrer: Alina Lombardi PA-C EMERGENCY ROOM-LAB 10/22/2020 01:11:00 PM EDT - 10/22/2020 01:11:00 PM EDT [facility] Outpatient Attender: DESI NUNEZ MD Main Office 10/18/2020 08:45:00 AM EDT [facility] ([facility]) Outpatient [facility] 10/12/2020 12:00:00 AM EDT eCW1 ([facility]) Outpatient Attender: Alina Monroe FNPReferrer: Alina Lombardi PA-C EMERGENCY ROOM-LAB 10/08/2020 09:16:00 AM EDT - 10/08/2020 09:16:00 AM EDT [facility] Outpatient Attender: BRIA MEJIA MD Main office - [facility] 10/07/2020 10:00:00 AM EDT [facility] ([facility] ) Outpatient Attender: Alina LEUNG 10/07/2020 09:52 :00 AM EDT [facility] Admission cancelled. Disregard status an d admitted date. Outpatient [facility] 10/07/2020 12:00:00 AM EDT eCW1 ([facility]) Outpatient Attender: Alina LEUNG 10/05/2020 08:00 :00 AM EDT [facility] Outpatient [facility] 10/05/2020 12:00:00 AM EDT eCW1 ([facility]) Outpatient Attender: Gianna LEUNG-Camila 04/2020 03:12:00 PM EDT - 10/29/2020 05:20:00 PM EDT [facility] Patient discharged. Outpatient Attender: Alina Monroe FNPReferrer: Alina Lombardi PA-C EMERGENCY ROOM-LAB 09/30/2020 11:31:00 AM EDT - 09/30/2020 11:31:00 AM EDT [facility] Outpatient [facility] 09/30/2020 12:00:00 AM EDT eCW1 ([facility]) Outpatient Attender: Gianna LEUNG-C 09:42:00 AM EDT - 09/29/2020 03:12:00 PM EDT [facility] Patient discharged. Outpatient [facility] 09/20/2020 12:00:00 AM EDT eCW1 ([facility]) Outpatient Attender: DESI ODONNELLeferrer: Trace Lombardi PA-C EMERGENCY ROOM-LABOTHPROV 09/17/2020 10:12:00 AM EDT - 09/17/2020 10:12:00 AM EDT [facility] Outpatient Attender: Alina Monroe FNPReferrer: Alina Lombardi PA-C EMERGENCY ROOM-LAB 09/17/2020 10:09:00 AM EDT - 09/17/2020 10:09:00 AM EDT [facility] Outpatient [facility] 09/13/2020 12:00:00 AM EDT eCW1 ([facility]) Outpatient Attender: Alina Monroe FNPReferrer: Alina Lombardi PA-C EMERGENCY ROOM-LAB 09/10/2020 11:45:00 AM EDT - 09/10/2020 11:45:00 AM EDT [facility] Outpatient Attender: DESI NUNEZ MD Main Office 09/09/2020 10:00:00 AM EDT PB ([facility]) Outpatient Attender: CHAR SCHNEIDER SR 09/06/2020 08:00:00 AM EDT [facility] Outpatient [facility] 09/06/2020 12:00:00 AM EDT eCW1 ([facility]) Outpatient Attender: Gianna Patricio FUR TANNER-CReferrer: Alina YOU-C 09/02/2020 10:14:00 AM EDT - 09/02/2020 10:14:00 AM EDT [facility] Outpatient Attender: Alina Monroe FNPReferrer: Alina Lombardi PA-C EMERGENCY ROOM-LAB 09/02/2020 09:49:00 AM EDT - 09/02/2020 09:49:00 AM EDT [facility] Outpatient [facility] 09/02/2020 12:00:00 AM EDT eCW1 ([facility]) Outpatient [facility] 09/02/2020 12:00:00 AM EDT eCW1 ([facility]) Outpatient [facility] 08/31/2020 12:00:00 AM EDT eCW1 ([facility]) Outpatient [facility] 08/25/2020 12:00:00 AM EDT eCW1 ([facility]) Outpatient Attender: Alina Monroe FNPReferrer: Alina Harjit PA-C EMERGENCY ROOM-LAB 08/20/2020 10:45:00 AM EDT - 08/20/2020 10:45:00 AM EDT [facility] Outpatient [facility] 08/19/2020 12:00:00 AM EDT eCW1 ([facility]) Outpatient Attender: Rush Love DPM 08/16/2020 09:58:00 AM EDT [facility] Outpatient [facility] 08/16/2020 12:00:00 AM EDT eCW1 ([facility]) Outpatient [facility] 08/16/2020 12:00:00 AM EDT eCW1 ([facility]) Outpatient Attender: Alina Monroe FNPReferrer: Alina Lombardi PA-C EMERGENCY ROOM-LAB 08/13/2020 10:06:00 AM EDT - 08/13/2020 10:06:00 AM EDT [facility] Outpatient Attender: DESI Dasilvaerrer: Trace Lombardi PA-C EMERGENCY ROOM-LABOTHPROV 08/13/2020 10:04:00 AM EDT - 08/13/2020 10:04:00 AM EDT [facility] Outpatient Attender: Alina Lombardi PA-C 08/12/2020 12:00 :00 PM EDT [facility] OFFICE OUTPATIENT NEW 60 MINUTES Attender: DESI NUNEZ MD Main Office 08/11/2020 02:00:00 PM EDT [facility] ([facility]) Outpatient [facility] 08/10/2020 12:00:00 AM EDT eCW1 ([facility]) Outpatient Attender: Alina Monroe FNPReferrer: Alina Lombardi PA-C EMERGENCY ROOM-LAB 08/06/2020 11:41:00 AM EDT - 08/06/2020 11:41:00 AM EDT [facility] Outpatient Attender: BRIA MEIJA MDReferrer: Trace HUC EMERGENCY ROOM-LABOTHPROV 08/06/2020 11:35:00 AM EDT - 08/06/2020 11:35:00 AM EDT [facility] Outpatient [facility] 08/03/2020 12:00:00 AM EDT eCW1 ([facility]) Outpatient Attender: BRIA MEJIA MD Main office - [facility] 08/02/2020 01:30:00 PM EDT [facility] ([facility] ) Outpatient [facility] 08/02/2020 12:00:00 AM EDT eCW1 ([facility]) Outpatient Attender: Alina HUCReferrer: Alina Lombardi PA-C EMERGENCY ROOM-LAB 07/30/2020 11:34:00 AM EDT - 07/30/2020 11:34:00 AM EDT [facility] Outpatient Attender: Alina Monroe FNPReferrer: Alina Lombardi PA-C EMERGENCY ROOM-LAB 07/22/2020 10:28:00 AM EDT - 07/22/2020 10:28:00 AM EDT [facility] Outpatient [facility] 07/22/2020 12:00:00 AM EDT eCW1 ([facility]) Outpatient [facility] 07/22/2020 12:00:00 AM EDT eCW1 ([facility]) Outpatient [facility] 07/21/2020 12:00:00 AM EDT eCW1 ([facility]) Outpatient Attender: Alina Monroe FNPReferrer: Alina Lombardi PA-C 07/20/2020 02:00:00 PM EDT - 07/20/2020 02:00:00 PM EDT [facility] Outpatient [facility] 07/16/2020 12:00:00 AM EDT eCW1 ([facility]) Outpatient Attender: ONEYDA CROWDER MDConsultant: [facility] [id number] 07/15/2020 03:18:00 PM EDT [facility] Outpatient Attender: ONEYDA CROWDER MDReferrer: Me vasiliy Lombardi PA-C EMERGENCY ROOM-LABOTHPROV 07/15/2020 03:11:00 PM EDT - 07/15/2020 03:11:00 PM EDT [facility] Outpatient Attender: Alina Monroe FNPReferrer: Alina Lombardi PA-C EMERGENCY ROOM-LAB 07/15/2020 03:09:00 PM EDT - 07/15/2020 03:09:00 PM EDT [facility] 07/14/2020 12:00:00 AM EDT eCW1 ([facility]) Outpatient Attender: Alina Monroe FNPReferrer: Alina Lombardi PA-C 07/13/2020 01:00:00 PM EDT - 07/13/2020 01:00:00 PM EDT [facility] Outpatient Attender: Alina Lombardi PA-C 07/13/2020 11:26 :00 AM EDT [facility] Outpatient [facility] 07/13/2020 12:00:00 AM EDT eCW1 ([facility]) Outpatient Attender: Alina LEUNG 07/08/2020 11:45 :00 AM EDT [facility] Outpatient [facility] 07/08/2020 12:00:00 AM EDT eCW1 ([facility]) Outpatient [facility] 07/08/2020 12:00:00 AM EDT eCW1 ([facility]) Outpatient Attender: Alina Monroe FNPReferrer: Alina YOU-C EMERGENCY ROOM-LAB 07/05/2020 11:25:00 AM EDT - 07/05/2020 11:25:00 AM EDT [facility] 07/05/2020 12:00:00 AM EDT eCW1 ([facility]) Outpatient Attender: Alina Monroe FNPReferrer: Alina Lombardi PA-C EMERGENCY ROOM-LAB 07/02/2020 10:50:00 AM EDT - 07/02/2020 10:50:00 AM EDT [facility] 07/02/2020 12:00:00 AM EDT eCW1 ([facility]) Outpatient [facility] 06/28/2020 12:00:00 AM EDT eCW1 ([facility]) Outpatient Attender: Alina Monroe FNPReferrer: Alina YOU-C EMERGENCY ROOM-LAB 06/25/2020 11:12:00 AM EDT - 06/25/2020 11:12:00 AM EDT [facility] Outpatient [facility] 06/21/2020 12:00:00 AM EDT eCW1 ([facility]) Emergency Attender: PARAM Reeveser: Alina Saenz ra, PA-C 06/20/2020 04:49:00 PM EDT - 06/20/2020 05:17:00 PM EDT [facility] pital Patient discharged. Outpatient Attender: Alina DELGADOPReferrer: Alina Lombardi PA-C EMERGENCY ROOM-LAB 06/18/2020 09:41:00 AM EDT - 06/18/2020 09:41:00 AM EDT [facility] Outpatient Attender: Alina Lombardi PA-C 06/14/2020 12:00 :00 AM EDT [facility] Admission cancelled. Disregard status an d admitted date. Outpatient [facility] 06/14/2020 12:00:00 AM EDT eCW1 ([facility]) Outpatient [facility] 06/11/2020 12:00:00 AM EST eCW1 ([facility]) Outpatient Attender: Alina DELGADOPReferrer: Alina Lombardi PA-C EMERGENCY ROOM-LAB 06/10/2020 12:02:00 PM EST - 06/10/2020 12:02:00 PM EST [facility] Outpatient [facility] 06/10/2020 12:00:00 AM EST eCW1 ([facility]) Outpatient [facility] 06/08/2020 12:00:00 AM EST eCW1 ([facility]) Outpatient [facility] 06/07/2020 12:00:00 AM EST eCW1 ([facility]) Outpatient Attender: ONEYDA Kang: Alina johns PA-C 05/20/2020 12:30:00 PM [facility] Outpatient Attender: Alina Lombardi PA-C 05/20/2020 08:00 :00 AM [facility] Outpatient [facility] 05/20/2020 12:00:00 AM EST eCW1 ([facility]) Outpatient Attender: Alina Rothferrer: Alina Lombardi PA-C EMERGENCY ROOM-LAB 05/19/2020 09:51:00 AM EST - 05/19/2020 09:51:00 AM [facility] Outpatient [facility] 05/19/2020 12:00:00 AM EST eCW1 ([facility]) Outpatient Attender: ONEYDA Dasilvaerrer: Me vasiliy Lombardi PA-C EMERGENCY ROOM-LABOTHPROV 05/14/2020 11:32:00 AM EST - 05/14/2020 11:32:00 AM [facility] Outpatient Attender: ERASMO Tian: Trace Lombardi PA-C EMERGENCY ROOM-CLNSPECGYN 05/13/2020 08:56:00 AM EST - 05/13/2020 08:56:00 AM [facility] Outpatient [facility] 05/13/2020 12:00:00 AM EST eCW1 ([facility]) Attender: Winifred Muñiz MD 2E-GC 05/12/2020 03:23:10 P M [facility] Outpatient Attender: Alina Monroe FNPReferrer: Alina Lombardi PA-C EMERGENCY ROOM-LAB 05/11/2020 12:19:00 PM EST - 05/11/2020 12:19:00 PM [facility] Outpatient [facility] 05/11/2020 12:00:00 AM EST eCW1 ([facility]) Outpatient [facility] 05/04/2020 12:00:00 AM EST eCW1 ([facility]) Outpatient Attender: Rush Love DPM 05/03/2020 01:59:00 PM [facility] Outpatient [facility] 05/03/2020 12:00:00 AM EST eCW1 ([facility]) Outpatient Attender: Alina Monroe FNPReferrer: Alina Lombardi PA-C EMERGENCY ROOM-LAB 04/27/2020 11:24:00 AM EST - 04/27/2020 11:24:00 AM [facility] Outpatient Attender: Alina Lombardi PA-C 04/27/2020 08:00 :00 AM [facility] Admission cancelled. Disregard status an d admitted date. Outpatient [facility] 04/27/2020 12:00:00 AM EST eCW1 ([facility]) OUTPATIENT Attender: JORDON Pearson- 04/23/2020 09:18: 18 AM EST [facility] Outpatient Attender: ERASMO Mcarthurerrer: Alina Saenz ra, PA-C 04/21/2020 08:30:00 AM [facility] Outpatient Attender: ERASMO GAONA DO 04/15/2020 01:00:00 P M [facility] Outpatient [facility] 04/15/2020 12:00:00 AM EST eCW1 ([facility]) Outpatient Attender: Alina Monroe FNPReferrer: Alina Lombardi PA-C EMERGENCY ROOM-RIVCLI 04/14/2020 10:14:00 AM EST - 04/14/2020 10:14:00 AM [facility] Outpatient [facility] 04/14/2020 12:00:00 AM EST eCW1 ([facility]) Outpatient [facility] 04/14/2020 12:00:00 AM EST eCW1 ([facility]) [facility]. 04/08/2020 12:40:23 PM [facility] CLINIC Attender: COMPA GASTELUMES-SDBEnma 04/07/2020 12:00: 00 AM [facility] Outpatient Attender: Alina Monroe FNPReferrer: Alina Lombardi PA-C EMERGENCY ROOM-LAB 04/01/2020 10:05:00 AM EST - 04/01/2020 10:05:00 AM [facility] Outpatient [facility] 04/01/2020 12:00:00 AM EST eCW1 ([facility]) Outpatient [facility] 04/01/2020 12:00:00 AM EST eCW1 ([facility]) Outpatient [facility] 04/01/2020 12:00:00 AM EST eCW1 ([facility]) Outpatient Attender: CHAR SCHNEIDER SRReferrer: Rekha Lombardi PA-C EMERGENCY ROOM-LAB 03/24/2020 09:16:00 AM EST - 03/24/2020 09:16:00 AM [facility] Outpatient Attender: Alina Lombardi PA-C 03/23/2020 04:00 :00 PM [facility] Outpatient [facility] 03/23/2020 12:00:00 AM EST eCW1 ([facility]) Outpatient Attender: CHAR SCHNEIDER SRReferrer: VETO SCHNEIDER SR EMERGENCY ROOM-LAB 03/19/2020 10:16:00 AM EST - 03/19/2020 10:16:00 AM [facility] Outpatient [facility] 03/19/2020 12:00:00 AM EST eCW1 ([facility]) Outpatient Attender: CHAR SCHNEIDER SRReferrer: VETO SCNHEIDER SR EMERGENCY ROOM-LAB 03/11/2020 11:00:00 AM EST - 03/11/2020 11:00:00 AM [facility] 03/11/2020 12:00:00 AM EST eCW1 ([facility]) Outpatient Attender: CHAR SCHNEIDER SRReferrer: VETO SCHNEIDER SR EMERGENCY ROOM-LAB 03/03/2020 11:35:00 AM EST - 03/03/2020 11:35:00 AM [facility] 03/03/2020 12:00:00 AM EST eCW1 ([facility]) Outpatient Attender: CHAR SCHNEIDER SRReferrer: VETO SCHNEIDER SR EMERGENCY ROOM-LAB 02/19/2020 12:25:00 PM EST - 02/19/2020 12:25:00 PM [facility] Outpatient [facility] 02/19/2020 12:00:00 AM EST eCW1 ([facility]) Outpatient Attender: Alina Browntenautumn: CHAR RAUSCH SR 02/16/2020 08:00:00 AM [facility] 02/13/2020 12:00:00 AM EST eCW1 ([facility]) Outpatient Attender: CHAR SCHNEIDER SRReferrer: VETO SCHNEIDER SR EMERGENCY ROOM-LAB 02/12/2020 10:11:00 AM EST - 02/12/2020 10:11:00 AM [facility] 02/06/2020 12:00:00 AM EST eCW1 ([facility]) Outpatient Attender: CHAR SCHNEIDER SRReferrer: VETO SCHNEIDER SR EMERGENCY ROOM-LAB 02/05/2020 10:27:00 AM EST - 02/05/2020 10:27:00 AM [facility] Attender: JORDON BARDALES 02/02/2020 06:51: 07 PM EST [facility] Outpatient Attender: CHAR SCHNEIDER SRReferrer: VETO SCHNEIDER SR EMERGENCY ROOM-LAB 01/28/2020 12:32:00 PM EDT - 01/28/2020 12:32:00 PM EDT [facility] Outpatient [facility] 01/28/2020 12:00:00 AM EDT eCW1 ([facility]) OUTPATIENT Attender: JORDON BARDALES 01/23/2020 02:26: 01 PM EDT [facility] Outpatient Attender: CHAR SCHNEIDER SR 01/22/2020 12:01:00 AM [facility] Outpatient Attender: CHAR SCHNEIDER SRReferrer: VETO SCHNEIDER SR EMERGENCY ROOM-LAB 01/20/2020 11:32:00 AM EDT - 01/20/2020 11:32:00 AM [facility] Outpatient [facility] 01/20/2020 12:00:00 AM EDT eCW1 ([facility]) Attender: JORDON BARDALES 01/14/2020 02:25: 34 PM EDT [facility] OUTPATIENT JEFFY 01/09/2020 02:19:36 PM EDT [facility] Outpatient Attender: CHAR SCHNEIDER SR 12/30/2019 12:01:00 AM [facility] Outpatient Attender: Alina Laoferrer: CHAR SCHNEIDER SR EMERGENCY ROOM-LAB 12/05/2019 08:54:00 AM EDT - 12/05/2019 08:54:00 AM [facility] Outpatient Attender: CHAR SCHNEIDER SRReferrer: VETO SCHNEIDER SR EMERGENCY ROOM-LAB 12/03/2019 02:21:00 PM EDT - 12/03/2019 02:21:00 PM [facility] Outpatient Attender: CHAR SCHNEIDER SRReferrer: VETO SCHNEIDER SR EMERGENCY ROOM-LAB 11/27/2019 09:57:00 AM EDT - 11/27/2019 09:57:00 AM [facility] Outpatient Attender: CHAR SCHNEIDER SRReferrer: VETO SCHNEIDER EMERGENCY ROOM-LAB 11/20/2019 11:29:00 AM EDT - 11/20/2019 11:29:00 AM [facility] Outpatient Attender: CHAR SCHNEIDER SR 11/17/2019 12:01:00 AM [facility] Outpatient Attender: CHAR SCHNEIDER SRReferrer: VETO SCHNEIDER EMERGENCY ROOM-LAB 11/13/2019 10:43:00 AM EDT - 11/13/2019 10:43:00 AM [facility] Outpatient Attender: CAHR SCHNEIDER SRReferrer: VETO SCHNEIDER EMERGENCY ROOM-LAB 11/05/2019 09:19:00 AM EDT - 11/05/2019 09:19:00 AM [facility] Outpatient Attender: CHAR SCHNEIDER SRReferrer: VETO SCHNEIDER EMERGENCY ROOM-LAB 10/28/2019 01:21:00 PM EDT - 10/28/2019 01:21:00 PM [facility] Outpatient Attender: CHAR SCHNEIDER SRReferrer: VETO SCHNEIDER EMERGENCY ROOM-LAB 10/21/2019 09:39:00 AM EDT - 10/21/2019 09:39:00 AM [facility] Outpatient Attender: CHAR SCHNEIDER SRReferrer: VETO SCHNEIDER SR EMERGENCY ROOM-LAB 10/14/2019 10:37:00 AM EDT - 10/14/2019 10:37:00 AM [facility] Outpatient Attender: CHAR SCHNEIDER SR 10/07/2019 12:01:00 AM [facility] Outpatient Attender: CHAR SCHNEIDER SRReferrer: VETO SCHNEIDER SR EMERGENCY ROOM-LAB 10/06/2019 08:41:00 AM EDT - 10/06/2019 08:41:00 AM [facility] Outpatient Attender: CHAR SCHNEIDER SR 09/30 02:19:00 PM EDT - 10/30/2019 09:55:00 AM [facility] Patient discharged. Outpatient Attender: CHAR SCHNEIDER SRReferrer: VETO SCHNEIDER EMERGENCY ROOM-LAB 09/24/2019 01:07:00 PM EDT - 09/24/2019 01:07:00 PM [facility] Outpatient Attender: CHAR SCHNEIDER SRReferrer: VETO SCHNEIDER EMERGENCY ROOM-LAB 09/16/2019 10:47:00 AM EDT - 09/16/2019 10:47:00 AM [facility] Outpatient Attender: CHAR SCHNEIDER SRReferrer: CHAR Bazan SR 09/10/2019 10:30:00 AM [facility] Outpatient Attender: CHAR SCHNEIDER SR 09/10/2019 09:51:00 AM [facility] Outpatient Attender: CHAR SCHNEIDER SRReferrer: VETO SCHNEIDER EMERGENCY ROOM-LAB 09/09/2019 10:42:00 AM EDT - 09/09/2019 10:42:00 AM [facility] Outpatient Attender: CHAR SCHNEIDER SR 09/02/2019 10:56:00 AM [facility] Outpatient Attender: JORDON DEMARCO MDReferrer: Victoriano SCHNEIDER EMERGENCY ROOM-LABOTHPROV 09/01/2019 09:41:00 AM EDT - 09/01/2019 09:41:00 AM [facility] Outpatient Attender: CHAR SCHNEIDER SR 08/27 10:31:00 AM EDT - 09/30/2019 02:19:00 PM [facility] Patient discharged. Outpatient Attender: CHAR SCHNEIDER 08/26/2019 11:27:00 AM [facility] Outpatient Attender: JORDON DEMARCO MDReferrer: Shiraz LUCERO MD EMERGENCY ROOM-LABOTHPROV 08/26/2019 08:38:00 AM EDT - 08/26/2019 08:38:00 AM [facility] Emergency Attender: RAFAEL CUADRAeferrer: GRIFFIN LUCERO MD EMERGENCY ROOM-ER 08/23/2019 09:27:00 AM EDT - 08/23/2019 12:32:00 PM [facility] Patient discharged. Outpatient Attender: JORDON DEMARCO MDReferrer: Shiraz LUCERO MD EMERGENCY ROOM-LABOTHPROV 08/20/2019 08:59:00 AM EDT - 08/20/2019 08:59:00 AM [facility] Outpatient Attender: JORDON DEMARCO MDReferrer: Shiraz LUCERO MD EMERGENCY ROOM-LABOTHPROV 08/13/2019 01:06:00 PM EDT - 08/13/2019 01:06:00 PM [facility] Outpatient Attender: JORDON DEMARCO MDReferrer: Shiraz LUCERO MD EMERGENCY ROOM-LABOTHPROV 08/04/2019 09:12:00 AM EDT - 08/04/2019 09:12:00 AM [facility] Outpatient Attender: JORDON DEMARCO MDReferrer: Shiraz LUCERO MD EMERGENCY ROOM-LABOTHPROV 07/30/2019 11:16:00 AM EDT - 07/30/2019 11:16:00 AM [facility] Outpatient Attender: ZOFIA CUADRAeferrer: Shiraz LUCERO MD EMERGENCY ROOM-LAB 07/21/2019 11:30:00 AM EDT - 07/21/2019 11:30:00 AM [facility] Emergency Attender: ZOFIA NAPIER PAReferrer: Shiraz LUCERO MD EMERGENCY ROOM-ER 07/18/2019 12:20:00 PM EDT - 07/18/2019 01:18:00 PM [facility] Patient discharged. Outpatient Attender: JORDON DEMARCO MDReferrer: Shiraz LUCERO MD EMERGENCY ROOM-LABOTHPROV 07/18/2019 11:51:00 AM EDT - 07/18/2019 11:51:00 AM [facility] Outpatient Attender: RAY Miguelerrer: FATUMA LUCERO MD EMERGENCY ROOM-LAB 06/23/2019 10:07:00 AM EDT - 06/23/2019 10:07:00 AM [facility] Emergency Attender: RAY Hernández: FATUMA LUCERO MD EMERGENCY ROOM-ER 06/22/2019 08:42:00 AM EDT - 06/22/2019 10:56:00 AM [facility] Patient discharged. Immunizations Vaccine Date Status Description Data Source(s) 09/02/2020 11:11:00 AM EDT completed e CW1 ([facility]) 09/02/2020 11:11:00 AM EDT completed e CW1 ([facility]) 09/02/2020 11:11:00 AM EDT completed e CW1 ([facility]) 09/02/2020 11:11:00 AM EDT completed e CW1 ([facility]) 09/02/2020 11:11:00 AM EDT completed e CW1 ([facility]) 09/02/2020 11:11:00 AM EDT completed e CW1 ([facility]) 09/02/2020 11:11:00 AM EDT completed e CW1 ([facility]) 09/02/2020 11:11:00 AM EDT completed e CW1 ([facility]) 09/02/2020 11:11:00 AM EDT completed e CW1 ([facility]) 09/02/2020 11:11:00 AM EDT completed e CW1 ([facility]) 09/02/2020 11:11:00 AM EDT completed e CW1 ([facility]) 09/02/2020 11:11:00 AM EDT completed e CW1 ([facility]) 09/02/2020 11:11:00 AM EDT completed e CW1 ([facility]) 09/02/2020 11:11:00 AM EDT completed e CW1 ([facility]) 09/02/2020 11:11:00 AM EDT completed e CW1 ([facility]) 09/02/2020 11:11:00 AM EDT completed e CW1 ([facility]) 09/02/2020 11:11:00 AM EDT completed e CW1 ([facility]) 09/02/2020 11:11:00 AM EDT completed e CW1 ([facility]) 09/02/2020 11:11:00 AM EDT completed e CW1 ([facility]) 09/02/2020 11:11:00 AM EDT completed e CW1 ([facility]) 09/02/2020 11:11:00 AM EDT completed e CW1 ([facility]) 09/02/2020 11:10:00 AM EDT completed e CW1 ([facility]) 09/02/2020 11:10:00 AM EDT completed e CW1 ([facility]) 09/02/2020 11:10:00 AM EDT completed e CW1 ([facility]) 09/02/2020 11:10:00 AM EDT completed e CW1 ([facility]) 09/02/2020 11:10:00 AM EDT completed e CW1 ([facility]) 09/02/2020 11:10:00 AM EDT completed e CW1 ([facility]) 09/02/2020 11:10:00 AM EDT completed e CW1 ([facility]) 09/02/2020 11:10:00 AM EDT completed e CW1 ([facility]) 09/02/2020 11:10:00 AM EDT completed e CW1 ([facility]) 09/02/2020 11:10:00 AM EDT completed e CW1 ([facility]) 09/02/2020 11:10:00 AM EDT completed e CW1 ([facility]) 09/02/2020 11:10:00 AM EDT completed e CW1 ([facility]) 09/02/2020 11:10:00 AM EDT completed e CW1 ([facility]) 09/02/2020 11:10:00 AM EDT completed e CW1 ([facility]) 09/02/2020 11:10:00 AM EDT completed e CW1 ([facility]) 09/02/2020 11:10:00 AM EDT completed e CW1 ([facility]) 09/02/2020 11:10:00 AM EDT completed e CW1 ([facility]) 09/02/2020 11:10:00 AM EDT completed e CW1 ([facility]) 09/02/2020 11:10:00 AM EDT completed e CW1 ([facility]) 09/02/2020 11:10:00 AM EDT completed e CW1 ([facility]) 09/02/2020 11:10:00 AM EDT completed e CW1 ([facility]) Medications Medication Brand Name Start Date Product Form Dose Route Admi nistrative Instructions Pharmacy Instructions Status Indications Reaction Description Data Source(s) Acetaminophen 325 MG / tramadol hydrochl oride 37.5 MG Oral Tablet traMADol- Acetaminophen 37.5-325 MG traMADol-Acetaminophen 37.5-325 MG 02/28/2021 12:00:00 AM EST 1.0 {tablets_as_needed} active traMADol-Acetaminophen 37.5- 325 MG eCW1 ([facility]) Acetaminophen 325 MG / tramadol hydrochl oride 37.5 MG Oral Tablet traMADol- Acetaminophen 37.5-325 MG traMADol-Acetaminophen 37.5-325 MG 01/19/2021 12:00:00 AM EDT 1.0 {tablets_as_needed} active eCW1 ([facility]) Acetaminophen 325 MG / tramadol hydrochl oride 37.5 MG Oral Tablet traMADol- Acetaminophen 37.5-325 MG traMADol-Acetaminophen 37.5-325 MG 01/19/2021 12:00:00 AM EDT 1.0 {tablets_as_needed} active traMADol-Acetaminophen 37.5- 325 MG eCW1 ([facility]) Acetaminophen 325 MG / tramadol hydrochl oride 37.5 MG Oral Tablet traMADol- Acetaminophen 37.5-325 MG traMADol-Acetaminophen 37.5-325 MG 01/19/2021 12:00:00 AM EDT 1.0 {tablets_as_needed} active traMADol-Acetaminophen 37.5- 325 MG eCW1 ([facility]) Acetaminophen 325 MG / tramadol hydrochl oride 37.5 MG Oral Tablet traMADol- Acetaminophen 37.5-325 MG traMADol-Acetaminophen 37.5-325 MG 12/15/2020 12:00:00 AM EDT 1.0 {tablets_as_needed} active traMADol-Acetaminophen 37.5- 325 MG eCW1 ([facility]) Acetaminophen 325 MG / tramadol hydrochl oride 37.5 MG Oral Tablet traMADol- Acetaminophen 37.5-325 MG traMADol-Acetaminophen 37.5-325 MG 12/15/2020 12:00:00 AM EDT 1.0 {tablets_as_needed} active traMADol-Acetaminophen 37.5- 325 MG eCW1 ([facility]) Spironolactone 25 MG Oral Tablet Spironolactone 09/09/2020 12:00:00 A M EDT ORAL active [facility] ([facility]) torsemide 20 MG Oral Tablet Torsemide 09/09/2020 12:00:00 AM EDT ORAL active MEDENT ([facility]) physical therapy eval and tx - UNK 09/02/2020 12:00:00 AM EDT active physical therapy eval and tx - eCW1 ([facility]) physical therapy eval and tx - UNK 09/02/2020 12:00:00 AM EDT active physical therapy eval and tx - eCW1 ([facility]) physical therapy eval and tx - UNK 09/02/2020 12:00:00 AM EDT active physical therapy eval and tx - eCW1 ([facility]) physical therapy eval and tx - UNK 09/02/2020 12:00:00 AM EDT active physical therapy eval and tx - eCW1 ([facility]) physical therapy eval and tx - UNK 09/02/2020 12:00:00 AM EDT active physical therapy eval and tx - eCW1 ([facility]) physical therapy eval and tx - UNK 09/02/2020 12:00:00 AM EDT active physical therapy eval and tx - eCW1 ([facility]) physical therapy eval and tx - UNK 09/02/2020 12:00:00 AM EDT active physical therapy eval and tx - eCW1 ([facility]) physical therapy eval and tx - UNK 09/02/2020 12:00:00 AM EDT active physical therapy eval and tx - eCW1 ([facility]) physical therapy eval and tx - UNK 09/02/2020 12:00:00 AM EDT active physical therapy eval and tx - eCW1 ([facility]) physical therapy eval and tx - UNK 09/02/2020 12:00:00 AM EDT active physical therapy eval and tx - eCW1 ([facility]) physical therapy eval and tx - UNK 09/02/2020 12:00:00 AM EDT active physical therapy eval and tx - eCW1 ([facility]) physical therapy eval and tx - UNK 09/02/2020 12:00:00 AM EDT active physical therapy eval and tx - eCW1 ([facility]) physical therapy eval and tx - UNK 09/02/2020 12:00:00 AM EDT active physical therapy eval and tx - eCW1 ([facility]) physical therapy eval and tx - UNK 09/02/2020 12:00:00 AM EDT active physical therapy eval and tx - eCW1 ([facility]) Fluconazole 150 MG Oral Tablet [Diflucan] Diflucan 150 MG Di flucan 150 MG 08/19/2020 12:00:00 AM EDT 1.0 {tablet} active Diflucan 150 MG eCW1 ([facility]) Fluconazole 150 MG Oral Tablet [Diflucan] Diflucan 150 MG Di flucan 150 MG 08/19/2020 12:00:00 AM EDT 1.0 {tablet} active Diflucan 150 MG eCW1 ([facility]) Fluconazole 150 MG Oral Tablet [Diflucan] Diflucan 150 MG Di flucan 150 MG 08/19/2020 12:00:00 AM EDT 1.0 {tablet} active Diflucan 150 MG eCW1 ([facility]) Fluconazole 150 MG Oral Tablet [Diflucan] Diflucan 150 MG Di flucan 150 MG 08/19/2020 12:00:00 AM EDT 1.0 {tablet} active Diflucan 150 MG eCW1 ([facility]) Fluconazole 150 MG Oral Tablet [Diflucan] Diflucan 150 MG Di flucan 150 MG 08/19/2020 12:00:00 AM EDT 1.0 {tablet} active eCW1 ([facility]) Fluconazole 150 MG Oral Tablet [Diflucan] Diflucan 150 MG Di flucan 150 MG 08/19/2020 12:00:00 AM EDT 1.0 {tablet} active Diflucan 150 MG eCW1 ([facility]) Fluconazole 150 MG Oral Tablet [Diflucan] Diflucan 150 MG Di flucan 150 MG 08/19/2020 12:00:00 AM EDT 1.0 {tablet} active Diflucan 150 MG eCW1 ([facility]) Fluconazole 150 MG Oral Tablet [Diflucan] Diflucan 150 MG Di flucan 150 MG 08/19/2020 12:00:00 AM EDT 1.0 {tablet} active Diflucan 150 MG eCW1 ([facility]) Fluconazole 150 MG Oral Tablet [Diflucan] Diflucan 150 MG Di flucan 150 MG 08/19/2020 12:00:00 AM EDT 1.0 {tablet} active Diflucan 150 MG eCW1 ([facility]) Fluconazole 150 MG Oral Tablet [Diflucan] Diflucan 150 MG Di flucan 150 MG 08/19/2020 12:00:00 AM EDT 1.0 {tablet} active eCW1 ([facility]) Fluconazole 150 MG Oral Tablet [Diflucan] Diflucan 150 MG Di flucan 150 MG 08/19/2020 12:00:00 AM EDT 1.0 {tablet} active Diflucan 150 MG eCW1 ([facility]) Fluconazole 150 MG Oral Tablet [Diflucan] Diflucan 150 MG Di flucan 150 MG 08/19/2020 12:00:00 AM EDT 1.0 {tablet} active Diflucan 150 MG eCW1 ([facility]) Fluconazole 150 MG Oral Tablet [Diflucan] Diflucan 150 MG Di flucan 150 MG 08/19/2020 12:00:00 AM EDT 1.0 {tablet} active Diflucan 150 MG eCW1 ([facility]) Fluconazole 150 MG Oral Tablet [Diflucan] Diflucan 150 MG Di flucan 150 MG 08/19/2020 12:00:00 AM EDT 1.0 {tablet} active Diflucan 150 MG eCW1 ([facility]) Fluconazole 150 MG Oral Tablet [Diflucan] Diflucan 150 MG Di flucan 150 MG 08/19/2020 12:00:00 AM EDT 1.0 {tablet} active Diflucan 150 MG eCW1 ([facility]) Fluconazole 150 MG Oral Tablet [Diflucan] Diflucan 150 MG Di flucan 150 MG 08/19/2020 12:00:00 AM EDT 1.0 {tablet} active Diflucan 150 MG eCW1 ([facility]) Fluconazole 150 MG Oral Tablet [Diflucan] Diflucan 150 MG Di flucan 150 MG 08/19/2020 12:00:00 AM EDT 1.0 {tablet} active Diflucan 150 MG eCW1 ([facility]) terbinafine 250 MG Oral Tablet Terbinafine HCl 250 MG Terbin afine HCl 250 MG 08/16/2020 12:00:00 AM EDT 1.0 {tablet} active Terbinafine HCl 250 MG eCW1 ([facility]) terbinafine 250 MG Oral Tablet Terbinafine HCl 250 MG Terbin afine HCl 250 MG 08/16/2020 12:00:00 AM EDT 1.0 {tablet} active eCW1 ([facility]) terbinafine 250 MG Oral Tablet Terbinafine HCl 250 MG Terbin afine HCl 250 MG 08/16/2020 12:00:00 AM EDT 1.0 {tablet} active Terbinafine HCl 250 MG eCW1 ([facility]) terbinafine 250 MG Oral Tablet Terbinafine HCl 250 MG Terbin afine HCl 250 MG 08/16/2020 12:00:00 AM EDT 1.0 {tablet} active Terbinafine HCl 250 MG eCW1 ([facility]) terbinafine 250 MG Oral Tablet Terbinafine HCl 250 MG Terbin afine HCl 250 MG 08/16/2020 12:00:00 AM EDT 1.0 {tablet} active Terbinafine HCl 250 MG eCW1 ([facility]) terbinafine 250 MG Oral Tablet Terbinafine HCl 250 MG Terbin afine HCl 250 MG 08/16/2020 12:00:00 AM EDT 1.0 {tablet} active Terbinafine HCl 250 MG eCW1 ([facility]) terbinafine 250 MG Oral Tablet Terbinafine HCl 250 MG Terbin afine HCl 250 MG 08/16/2020 12:00:00 AM EDT 1.0 {tablet} active eCW1 ([facility]) terbinafine 250 MG Oral Tablet Terbinafine HCl 250 MG Terbin afine HCl 250 MG 08/16/2020 12:00:00 AM EDT 1.0 {tablet} active Terbinafine HCl 250 MG eCW1 ([facility]) terbinafine 250 MG Oral Tablet Terbinafine HCl 250 MG Terbin afine HCl 250 MG 08/16/2020 12:00:00 AM EDT 1.0 {tablet} active Terbinafine HCl 250 MG eCW1 ([facility]) terbinafine 250 MG Oral Tablet Terbinafine HCl 250 MG Terbin afine HCl 250 MG 08/16/2020 12:00:00 AM EDT 1.0 {tablet} active Terbinafine HCl 250 MG eCW1 ([facility]) terbinafine 250 MG Oral Tablet Terbinafine HCl 250 MG Terbin afine HCl 250 MG 08/16/2020 12:00:00 AM EDT 1.0 {tablet} active Terbinafine HCl 250 MG eCW1 ([facility]) terbinafine 250 MG Oral Tablet Terbinafine HCl 250 MG Terbin afine HCl 250 MG 08/16/2020 12:00:00 AM EDT 1.0 {tablet} active Terbinafine HCl 250 MG eCW1 ([facility]) terbinafine 250 MG Oral Tablet Terbinafine HCl 250 MG Terbin afine HCl 250 MG 08/16/2020 12:00:00 AM EDT 1.0 {tablet} active Terbinafine HCl 250 MG eCW1 ([facility]) terbinafine 250 MG Oral Tablet Terbinafine HCl 250 MG Terbin afine HCl 250 MG 08/16/2020 12:00:00 AM EDT 1.0 {tablet} active Terbinafine HCl 250 MG eCW1 ([facility]) terbinafine 250 MG Oral Tablet Terbinafine HCl 250 MG Terbin afine HCl 250 MG 08/16/2020 12:00:00 AM EDT 1.0 {tablet} active Terbinafine HCl 250 MG eCW1 ([facility]) terbinafine 250 MG Oral Tablet Terbinafine HCl 250 MG Terbin afine HCl 250 MG 08/16/2020 12:00:00 AM EDT 1.0 {tablet} active Terbinafine HCl 250 MG eCW1 ([facility]) terbinafine 250 MG Oral Tablet Terbinafine HCl 250 MG Terbin afine HCl 250 MG 08/16/2020 12:00:00 AM EDT 1.0 {tablet} active Terbinafine HCl 250 MG eCW1 ([facility]) terbinafine 250 MG Oral Tablet Terbinafine HCl 250 MG Terbin afine HCl 250 MG 08/16/2020 12:00:00 AM EDT 1.0 {tablet} active Terbinafine HCl 250 MG eCW1 ([facility]) terbinafine 250 MG Oral Tablet Terbinafine HCl 250 MG Terbin afine HCl 250 MG 08/16/2020 12:00:00 AM EDT 1.0 {tablet} active Terbinafine HCl 250 MG eCW1 ([facility]) 24 HR metoprolol succinate 50 MG Extended Release Oral Tablet Metoprolol Succinate ER 08/10/2020 12:00:00 AM EDT ORAL active MEDENT ([facility]) torsemide 20 MG Oral Tablet Torsemide 08/10/2020 12:00:00 AM EDT ORAL completed [facility] ([facility]) Warfarin Sodium 2.5 MG Oral Tablet Warfarin Sodium 08/10/2020 12:00 :00 AM EDT ORAL active [facility] ([facility]) Ramipril 5 MG Oral Capsule Ramipril 08/10/2020 12:00:00 AM EDT ORAL active [facility] ([facility]) topiramate 100 MG Oral Tablet Topiramate 08/10/2020 12:00:00 AM EDT ORAL active [facility] ([facility]) Fenofibrate 160 MG Oral Tablet Fenofibrate 08/10/2020 12:00:00 AM EDT ORAL completed [facility] ([facility]) Sertraline 100 MG Oral Tablet Sertraline HCL 08/10/2020 12:00:00 AM E DT ORAL active [facility] ([facility]) Warfarin Sodium 1 MG Oral Tablet Warfarin Sodium 08/10/2020 12:00:00 AM EDT ORAL active [facility] ([facility]) gabapentin 600 MG Oral Tablet Gabapentin 08/10/2020 12:00:00 AM EDT ORAL active [facility] ([facility]) atorvastatin 80 MG Oral Tablet Atorvastatin Calcium 08/10/2020 1 2:00:00 AM EDT ORAL active MEDENT ( [facility]) 24 HR tramadol hydrochloride 100 MG Extended Release O ral Capsule Tramadol HCL ER 08/10/2020 12:00:00 AM EDT ORAL active MEDENT ([facility]) Warfarin Sodium 2 MG Oral Tablet Warfarin Sodium 2 MG 2020 12:00:00 AM EDT 2.0 {tablets} active Warfarin S odium 2 MG eCW1 ([facility]) Warfarin Sodium 2 MG Oral Tablet Warfarin Sodium 2 MG 2020 12:00:00 AM EDT 2.0 {tablets} active Warfarin S odium 2 MG eCW1 ([facility]) Warfarin Sodium 2 MG Oral Tablet Warfarin Sodium 2 MG 2020 12:00:00 AM EDT 2.0 {tablets} active Warfarin S odium 2 MG eCW1 ([facility]) Warfarin Sodium 2 MG Oral Tablet Warfarin Sodium 2 MG 2020 12:00:00 AM EDT 2.0 {tablets} active eCW 1 ([facility]) Warfarin Sodium 2 MG Oral Tablet Warfarin Sodium 2 MG 2020 12:00:00 AM EDT 2.0 {tablets} active Warfarin S odium 2 MG eCW1 ([facility]) Warfarin Sodium 2 MG Oral Tablet Warfarin Sodium 2 MG 2020 12:00:00 AM EDT 2.0 {tablets} active Warfarin S odium 2 MG eCW1 ([facility]) Warfarin Sodium 2 MG Oral Tablet Warfarin Sodium 2 MG 2020 12:00:00 AM EDT 2.0 {tablets} active Warfarin S odium 2 MG eCW1 ([facility]) Warfarin Sodium 2 MG Oral Tablet Warfarin Sodium 2 MG 2020 12:00:00 AM EDT 2.0 {tablets} active Warfarin S odium 2 MG eCW1 ([facility]) Warfarin Sodium 2 MG Oral Tablet Warfarin Sodium 2 MG 2020 12:00:00 AM EDT 2.0 {tablets} active Warfarin S odium 2 MG eCW1 ([facility]) Warfarin Sodium 2 MG Oral Tablet Warfarin Sodium 2 MG 2020 12:00:00 AM EDT 2.0 {tablets} active Warfarin S odium 2 MG eCW1 ([facility]) Warfarin Sodium 2 MG Oral Tablet Warfarin Sodium 2 MG 2020 12:00:00 AM EDT 2.0 {tablets} active Warfarin S odium 2 MG eCW1 ([facility]) Warfarin Sodium 2 MG Oral Tablet Warfarin Sodium 2 MG 2020 12:00:00 AM EDT 2.0 {tablets} active Warfarin S odium 2 MG eCW1 ([facility]) Warfarin Sodium 2 MG Oral Tablet Warfarin Sodium 2 MG 2020 12:00:00 AM EDT 2.0 {tablets} active Warfarin S odium 2 MG eCW1 ([facility]) Warfarin Sodium 2 MG Oral Tablet Warfarin Sodium 2 MG 2020 12:00:00 AM EDT 2.0 {tablets} active Warfarin S odium 2 MG eCW1 ([facility]) Warfarin Sodium 2 MG Oral Tablet Warfarin Sodium 2 MG 2020 12:00:00 AM EDT 2.0 {tablets} active eCW 1 ([facility]) Warfarin Sodium 2 MG Oral Tablet Warfarin Sodium 2 MG 2020 12:00:00 AM EDT 2.0 {tablets} active Warfarin S odium 2 MG eCW1 ([facility]) Warfarin Sodium 2 MG Oral Tablet Warfarin Sodium 2 MG 2020 12:00:00 AM EDT 2.0 {tablets} active Warfarin S odium 2 MG eCW1 ([facility]) Warfarin Sodium 2 MG Oral Tablet Warfarin Sodium 2 MG 05/04/ 2021 12:00:00 AM EDT 2.0 {tablets} active Warfarin S odium 2 MG eCW1 ([facility]) Warfarin Sodium 2 MG Oral Tablet Warfarin Sodium 2 MG 2020 12:00:00 AM EDT 2.0 {tablets} active Warfarin S odium 2 MG eCW1 ([facility]) Warfarin Sodium 2 MG Oral Tablet Warfarin Sodium 2 MG 2020 12:00:00 AM EDT 2.0 {tablets} active Warfarin S odium 2 MG eCW1 ([facility]) Warfarin Sodium 2 MG Oral Tablet Warfarin Sodium 2 MG 2020 12:00:00 AM EDT 2.0 {tablets} active Warfarin S odium 2 MG eCW1 ([facility]) Warfarin Sodium 2 MG Oral Tablet Warfarin Sodium 2 MG 2020 12:00:00 AM EDT 2.0 {tablets} active Warfarin S odium 2 MG eCW1 ([facility]) Warfarin Sodium 2 MG Oral Tablet Warfarin Sodium 2 MG 2020 12:00:00 AM EDT 2.0 {tablets} active Warfarin S odium 2 MG eCW1 ([facility]) Warfarin Sodium 2 MG Oral Tablet Warfarin Sodium 2 MG 2020 12:00:00 AM EDT 2.0 {tablets} active Warfarin S odium 2 MG eCW1 ([facility]) Warfarin Sodium 2 MG Oral Tablet Warfarin Sodium 2 MG 2020 12:00:00 AM EDT 2.0 {tablets} active Warfarin S odium 2 MG eCW1 ([facility]) Warfarin Sodium 2 MG Oral Tablet Warfarin Sodium 2 MG 2020 12:00:00 AM EDT 2.0 {tablets} active Warfarin S odium 2 MG eCW1 ([facility]) Warfarin Sodium 2 MG Oral Tablet Warfarin Sodium 2 MG 2020 12:00:00 AM EDT 2.0 {tablets} active Warfarin S odium 2 MG eCW1 ([facility]) Warfarin Sodium 2 MG Oral Tablet Warfarin Sodium 2 MG 2020 12:00:00 AM EDT 2.0 {tablets} active Warfarin S odium 2 MG eCW1 ([facility]) Warfarin Sodium 2 MG Oral Tablet Warfarin Sodium 2 MG 2020 12:00:00 AM EDT 2.0 {tablets} active Warfarin S odium 2 MG eCW1 ([facility]) topiramate 100 MG Oral Tablet [Topamax] Topamax 08/02/2020 12:00:0 0 AM EDT ORAL active MEDENT ([facility]) Glucosamine Chondroitin Complx 500-250 MG Glucosamine Chondroitin Complx 500-250 MG 07/08/2020 12:00:00 AM EDT active Glucosamine Chondroitin Complx 500-250 MG eCW1 ([facility]) Diclofenac Sodium 0.01 MG/MG Topical Gel [Voltaren] Voltaren 1 % Voltaren 1 % 07/08/2020 12:00:00 AM EDT active Voltaren 1 % eCW1 ([facility]) Glucosamine Chondroitin Complx 500-250 MG Glucosamine Chondroitin Complx 500-250 MG 07/08/2020 12:00:00 AM EDT active Glucosamine Chondroitin Complx 500-250 MG eCW1 ([facility]) Magnesium 500 MG Magnesium 500 MG 07/08/2020 12:00:00 AM EDT 1.0 {tablet_with_a_meal} active Magnesium 5 00 MG eCW1 ([facility]) Magnesium 500 MG Magnesium 500 MG 07/08/2020 12:00:00 AM EDT 1.0 {tablet_with_a_meal} active eCW 1 ([facility]) Voltaren 1 % UNK 07/08/2020 12:00:00 AM EDT activ e Voltaren 1 % eCW1 ([facility]) Diclofenac Sodium 0.01 MG/MG Topical Gel [Voltaren] Voltaren 1 % Voltaren 1 % 07/08/2020 12:00:00 AM EDT active Voltaren 1 % eCW1 ([facility]) Magnesium 500 MG Magnesium 500 MG 07/08/2020 12:00:00 AM EDT 1.0 {tablet_with_a_meal} active Magnesium 5 00 MG eCW1 ([facility]) Magnesium 500 MG Magnesium 500 MG 07/08/2020 12:00:00 AM EDT 1.0 {tablet_with_a_meal} active Magnesium 5 00 MG eCW1 ([facility]) Diclofenac Sodium 0.01 MG/MG Topical Gel [Voltaren] Voltaren 1 % Voltaren 1 % 07/08/2020 12:00:00 AM EDT active Voltaren 1 % eCW1 ([facility]) Glucosamine Chondroitin Complx 500-250 MG Glucosamine Chondroitin Complx 500-250 MG 07/08/2020 12:00:00 AM EDT active Glucosamine Chondroitin Complx 500-250 MG eCW1 ([facility]) Magnesium 500 MG Magnesium 500 MG 07/08/2020 12:00:00 AM EDT 1.0 {tablet_with_a_meal} active Magnesium 5 00 MG eCW1 ([facility]) Diclofenac Sodium 0.01 MG/MG Topical Gel [Voltaren] Voltaren 1 % Voltaren 1 % 07/08/2020 12:00:00 AM EDT active Voltaren 1 % eCW1 ([facility]) Diclofenac Sodium 0.01 MG/MG Topical Gel [Voltaren] Voltaren 1 % Voltaren 1 % 07/08/2020 12:00:00 AM EDT active Voltaren 1 % eCW1 ([facility]) Glucosamine Chondroitin Complx 500-250 MG Glucosamine Chondroitin Complx 500-250 MG 07/08/2020 12:00:00 AM EDT active Glucosamine Chondroitin Complx 500-250 MG [facility] Glucosamine Chondroitin Complx 500-250 MG Glucosamine Chondroitin Complx 500-250 MG 07/08/2020 12:00:00 AM EDT active Glucosamine Chondroitin Complx 500-250 MG [facility] Diclofenac Sodium 0.01 MG/MG Topical Gel [Voltaren] Voltaren 1 % Voltaren 1 % 07/08/2020 12:00:00 AM EDT active Voltaren 1 % eCW1 ([facility]) Glucosamine Chondroitin Complx 500-250 MG Glucosamine Chondroitin Complx 500-250 MG 07/08/2020 12:00:00 AM EDT active Glucosamine Chondroitin Complx 500-250 MG eCW1 ([facility]) Glucosamine Chondroitin Complx 500-250 MG Glucosamine Chondroitin Complx 500-250 MG 07/08/2020 12:00:00 AM EDT active eCW1 ([facility]) Glucosamine Chondroitin Complx 500-250 MG Glucosamine Chondroitin Complx 500-250 MG 07/08/2020 12:00:00 AM EDT active Glucosamine Chondroitin Complx 500-250 MG [facility]CW1 [facility] Magnesium 500 MG Magnesium 500 MG 07/08/2020 12:00:00 AM EDT 1.0 {tablet_with_a_meal} active Magnesium 5 00 MG eCW1 ([facility]) Magnesium 500 MG Magnesium 500 MG 07/08/2020 12:00:00 AM EDT 1.0 {tablet_with_a_meal} active Magnesium 5 00 MG eCW1 ([facility]) Glucosamine Chondroitin Complx 500-250 MG Glucosamine Chondroitin Complx 500-250 MG 07/08/2020 12:00:00 AM EDT active Glucosamine Chondroitin Complx 500-250 MG eCW1 ([facility]) Diclofenac Sodium 0.01 MG/MG Topical Gel [Voltaren] Voltaren 1 % Voltaren 1 % 07/08/2020 12:00:00 AM EDT active Voltaren 1 % eCW1 ([facility]) Diclofenac Sodium 0.01 MG/MG Topical Gel [Voltaren] Voltaren 1 % Voltaren 1 % 07/08/2020 12:00:00 AM EDT active Voltaren 1 % eCW1 ([facility]) Glucosamine Chondroitin Complx 500-250 MG Glucosamine Chondroitin Complx 500-250 MG 07/08/2020 12:00:00 AM EDT active Glucosamine Chondroitin Complx 500-250 MG eCW1 ([facility]) Magnesium 500 MG Magnesium 500 MG 07/08/2020 12:00:00 AM EDT 1.0 {tablet_with_a_meal} active Magnesium 5 00 MG eCW1 ([facility]) Magnesium 500 MG Magnesium 500 MG 07/08/2020 12:00:00 AM EDT 1.0 {tablet_with_a_meal} active Magnesium 5 00 MG eCW1 ([facility]) Magnesium 500 MG Magnesium 500 MG 07/08/2020 12:00:00 AM EDT 1.0 {tablet_with_a_meal} active Magnesium 5 00 MG eCW1 ([facility]) Diclofenac Sodium 0.01 MG/MG Topical Gel [Voltaren] Voltaren 1 % Voltaren 1 % 07/08/2020 12:00:00 AM EDT active Voltaren 1 % eCW1 ([facility]) Voltaren 1 % UNK 07/08/2020 12:00:00 AM EDT activ e Voltaren 1 % eCW1 ([facility]) Glucosamine Chondroitin Complx 500-250 MG Glucosamine Chondroitin Complx 500-250 MG 07/08/2020 12:00:00 AM EDT active Glucosamine Chondroitin Complx 500-250 MG [facility]CW1 [facility] Voltaren 1 % UNK 07/08/2020 12:00:00 AM EDT activ e Voltaren 1 % eCW1 ([facility]) Magnesium 500 MG Magnesium 500 MG 07/08/2020 12:00:00 AM EDT 1.0 {tablet_with_a_meal} active Magnesium 5 00 MG eCW1 ([facility]) Magnesium 500 MG Magnesium 500 MG 07/08/2020 12:00:00 AM EDT 1.0 {tablet_with_a_meal} active Magnesium 5 00 MG eCW1 ([facility]) Magnesium 500 MG Magnesium 500 MG 07/08/2020 12:00:00 AM EDT 1.0 {tablet_with_a_meal} active Magnesium 5 00 MG eCW1 ([facility]) Glucosamine Chondroitin Complx 500-250 MG Glucosamine Chondroitin Complx 500-250 MG 07/08/2020 12:00:00 AM EDT active Glucosamine Chondroitin Complx 500-250 MG eCW1 ([facility]) Glucosamine Chondroitin Complx 500-250 MG Glucosamine Chondroitin Complx 500-250 MG 07/08/2020 12:00:00 AM EDT active Glucosamine Chondroitin Complx 500-250 MG [facility]CW1 [facility] Magnesium 500 MG Magnesium 500 MG 07/08/2020 12:00:00 AM EDT 1.0 {tablet_with_a_meal} active Magnesium 5 00 MG eCW1 ([facility]) Magnesium 500 MG Magnesium 500 MG 07/08/2020 12:00:00 AM EDT 1.0 {tablet_with_a_meal} active Magnesium 5 00 MG eCW1 ([facility]) Glucosamine Chondroitin Complx 500-250 MG Glucosamine Chondroitin Complx 500-250 MG 07/08/2020 12:00:00 AM EDT active Glucosamine Chondroitin Complx 500-250 MG eCW1 ([facility]) Magnesium 500 MG Magnesium 500 MG 07/08/2020 12:00:00 AM EDT 1.0 {tablet_with_a_meal} active Magnesium 5 00 MG eCW1 ([facility]) Glucosamine Chondroitin Complx 500-250 MG Glucosamine Chondroitin Complx 500-250 MG 07/08/2020 12:00:00 AM EDT active Glucosamine Chondroitin Complx 500-250 MG eCW1 ([facility]) Glucosamine Chondroitin Complx 500-250 MG Glucosamine Chondroitin Complx 500-250 MG 07/08/2020 12:00:00 AM EDT active Glucosamine Chondroitin Complx 500-250 MG eCW1 ([facility]) Magnesium 500 MG Magnesium 500 MG 07/08/2020 12:00:00 AM EDT 1.0 {tablet_with_a_meal} active Magnesium 5 00 MG eCW1 ([facility]) Glucosamine Chondroitin Complx 500-250 MG Glucosamine Chondroitin Complx 500-250 MG 07/08/2020 12:00:00 AM EDT active Glucosamine Chondroitin Complx 500-250 MG eCW1 ([facility]) Diclofenac Sodium 0.01 MG/MG Topical Gel [Voltaren] Voltaren 1 % Voltaren 1 % 07/08/2020 12:00:00 AM EDT active Voltaren 1 % eCW1 ([facility]) Diclofenac Sodium 0.01 MG/MG Topical Gel [Voltaren] Voltaren 1 % Voltaren 1 % 07/08/2020 12:00:00 AM EDT active Voltaren 1 % eCW1 ([facility]) Glucosamine Chondroitin Complx 500-250 MG Glucosamine Chondroitin Complx 500-250 MG 07/08/2020 12:00:00 AM EDT active Glucosamine Chondroitin Complx 500-250 MG [facility]CW1 [facility] Voltaren 1 % UNK 07/08/2020 12:00:00 AM EDT activ e Voltaren 1 % eCW1 ([facility]) Magnesium 500 MG Magnesium 500 MG 07/08/2020 12:00:00 AM EDT 1.0 {tablet_with_a_meal} active Magnesium 5 00 MG eCW1 ([facility]) Magnesium 500 MG Magnesium 500 MG 07/08/2020 12:00:00 AM EDT 1.0 {tablet_with_a_meal} active Magnesium 5 00 MG eCW1 ([facility]) Diclofenac Sodium 0.01 MG/MG Topical Gel [Voltaren] Voltaren 1 % Voltaren 1 % 07/08/2020 12:00:00 AM EDT active Voltaren 1 % eCW1 ([facility]) Glucosamine Chondroitin Complx 500-250 MG Glucosamine Chondroitin Complx 500-250 MG 07/08/2020 12:00:00 AM EDT active eCW1 ([facility]) Magnesium 500 MG Magnesium 500 MG 07/08/2020 12:00:00 AM EDT 1.0 {tablet_with_a_meal} active Magnesium 5 00 MG eCW1 ([facility]) Magnesium 500 MG Magnesium 500 MG 07/08/2020 12:00:00 AM EDT 1.0 {tablet_with_a_meal} active Magnesium 5 00 MG eCW1 ([facility]) Diclofenac Sodium 0.01 MG/MG Topical Gel [Voltaren] Voltaren 1 % Voltaren 1 % 07/08/2020 12:00:00 AM EDT active Voltaren 1 % eCW1 ([facility]) Glucosamine Chondroitin Complx 500-250 MG Glucosamine Chondroitin Complx 500-250 MG 07/08/2020 12:00:00 AM EDT active Glucosamine Chondroitin Complx 500-250 MG eCW1 ([facility]) Glucosamine Chondroitin Complx 500-250 MG Glucosamine Chondroitin Complx 500-250 MG 07/08/2020 12:00:00 AM EDT active Glucosamine Chondroitin Complx 500-250 MG eCW1 ([facility]) Diclofenac Sodium 0.01 MG/MG Topical Gel [Voltaren] Voltaren 1 % Voltaren 1 % 07/08/2020 12:00:00 AM EDT active Voltaren 1 % eCW1 ([facility]) Magnesium 500 MG Magnesium 500 MG 07/08/2020 12:00:00 AM EDT 1.0 {tablet_with_a_meal} active Magnesium 5 00 MG eCW1 ([facility]) Magnesium 500 MG Magnesium 500 MG 07/08/2020 12:00:00 AM EDT 1.0 {tablet_with_a_meal} active Magnesium 5 00 MG eCW1 ([facility]) Glucosamine Chondroitin Complx 500-250 MG Glucosamine Chondroitin Complx 500-250 MG 07/08/2020 12:00:00 AM EDT active Glucosamine Chondroitin Complx 500-250 MG eCW1 ([facility]) Glucosamine Chondroitin Complx 500-250 MG Glucosamine Chondroitin Complx 500-250 MG 07/08/2020 12:00:00 AM EDT active eCW1 ([facility]) Diclofenac Sodium 0.01 MG/MG Topical Gel [Voltaren] Voltaren 1 % Voltaren 1 % 07/08/2020 12:00:00 AM EDT active Voltaren 1 % eCW1 ([facility]) Magnesium 500 MG Magnesium 500 MG 07/08/2020 12:00:00 AM EDT 1.0 {tablet_with_a_meal} active Magnesium 5 00 MG eCW1 ([facility]) Magnesium 500 MG Magnesium 500 MG 07/08/2020 12:00:00 AM EDT 1.0 {tablet_with_a_meal} active Magnesium 5 00 MG eCW1 ([facility]) Glucosamine Chondroitin Complx 500-250 MG Glucosamine Chondroitin Complx 500-250 MG 07/08/2020 12:00:00 AM EDT active Glucosamine Chondroitin Complx 500-250 MG eCW1 ([facility]) Diclofenac Sodium 0.01 MG/MG Topical Gel [Voltaren] Voltaren 1 % Voltaren 1 % 07/08/2020 12:00:00 AM EDT active Voltaren 1 % eCW1 ([facility]) Glucosamine Chondroitin Complx 500-250 MG Glucosamine Chondroitin Complx 500-250 MG 07/08/2020 12:00:00 AM EDT active Glucosamine Chondroitin Complx 500-250 MG eCW1 ([facility]) Diclofenac Sodium 0.01 MG/MG Topical Gel [Voltaren] Voltaren 1 % Voltaren 1 % 07/08/2020 12:00:00 AM EDT active Voltaren 1 % eCW1 ([facility]) Diclofenac Sodium 0.01 MG/MG Topical Gel [Voltaren] Voltaren 1 % Voltaren 1 % 07/08/2020 12:00:00 AM EDT active Voltaren 1 % eCW1 ([facility]) Magnesium 500 MG Magnesium 500 MG 07/08/2020 12:00:00 AM EDT 1.0 {tablet_with_a_meal} active eCW 1 ([facility]) Magnesium 500 MG Magnesium 500 MG 07/08/2020 12:00:00 AM EDT 1.0 {tablet_with_a_meal} active Magnesium 5 00 MG eCW1 ([facility]) Magnesium 500 MG Magnesium 500 MG 07/08/2020 12:00:00 AM EDT 1.0 {tablet_with_a_meal} active Magnesium 5 00 MG eCW1 ([facility]) Glucosamine Chondroitin Complx 500-250 MG Glucosamine Chondroitin Complx 500-250 MG 07/08/2020 12:00:00 AM EDT active Glucosamine Chondroitin Complx 500-250 MG eCW1 ([facility]) Diclofenac Sodium 0.01 MG/MG Topical Gel [Voltaren] Voltaren 1 % Voltaren 1 % 07/08/2020 12:00:00 AM EDT active eCW1 ([facility]) Magnesium 500 MG Magnesium 500 MG 07/08/2020 12:00:00 AM EDT 1.0 {tablet_with_a_meal} active Magnesium 5 00 MG eCW1 ([facility]) Diclofenac Sodium 0.01 MG/MG Topical Gel [Voltaren] Voltaren 1 % Voltaren 1 % 07/08/2020 12:00:00 AM EDT active eCW1 ([facility]) Voltaren 1 % UNK 07/08/2020 12:00:00 AM EDT activ e Voltaren 1 % eCW1 ([facility]) Diclofenac Sodium 0.01 MG/MG Topical Gel [Voltaren] Voltaren 1 % Voltaren 1 % 07/08/2020 12:00:00 AM EDT active Voltaren 1 % eCW1 ([facility]) Diclofenac Sodium 0.01 MG/MG Topical Gel [Voltaren] Voltaren 1 % Voltaren 1 % 07/08/2020 12:00:00 AM EDT active Voltaren 1 % eCW1 ([facility]) Glucosamine Chondroitin Complx 500-250 MG Glucosamine Chondroitin Complx 500-250 MG 07/08/2020 12:00:00 AM EDT active Glucosamine Chondroitin Complx 500-250 MG eCW1 ([facility]) Diclofenac Sodium 0.01 MG/MG Topical Gel [Voltaren] Voltaren 1 % Voltaren 1 % 07/08/2020 12:00:00 AM EDT active Voltaren 1 % eCW1 ([facility]) Diclofenac Sodium 0.01 MG/MG Topical Gel [Voltaren] Voltaren 1 % Voltaren 1 % 07/08/2020 12:00:00 AM EDT active Voltaren 1 % eCW1 ([facility]) Magnesium 500 MG Magnesium 500 MG 07/08/2020 12:00:00 AM EDT 1.0 {tablet_with_a_meal} active Magnesium 5 00 MG eCW1 ([facility]) Glucosamine Chondroitin Complx 500-250 MG Glucosamine Chondroitin Complx 500-250 MG 07/08/2020 12:00:00 AM EDT active Glucosamine Chondroitin Complx 500-250 MG eCW1 ([facility]) Diclofenac Sodium 0.01 MG/MG Topical Gel [Voltaren] Voltaren 1 % Voltaren 1 % 07/08/2020 12:00:00 AM EDT active Voltaren 1 % eCW1 ([facility]) Diclofenac Sodium 0.01 MG/MG Topical Gel [Voltaren] Voltaren 1 % Voltaren 1 % 07/08/2020 12:00:00 AM EDT active Voltaren 1 % eCW1 ([facility]) Magnesium 500 MG Magnesium 500 MG 07/08/2020 12:00:00 AM EDT 1.0 {tablet_with_a_meal} active Magnesium 5 00 MG eCW1 ([facility]) Diclofenac Sodium 0.01 MG/MG Topical Gel [Voltaren] Voltaren 1 % Voltaren 1 % 07/08/2020 12:00:00 AM EDT active Voltaren 1 % eCW1 ([facility]) Glucosamine Chondroitin Complx 500-250 MG Glucosamine Chondroitin Complx 500-250 MG 07/08/2020 12:00:00 AM EDT active Glucosamine Chondroitin Complx 500-250 MG eCW1 ([facility]) Glucosamine Chondroitin Complx 500-250 MG Glucosamine Chondroitin Complx 500-250 MG 07/08/2020 12:00:00 AM EDT active Glucosamine Chondroitin Complx 500-250 MG eCW1 ([facility]) Magnesium 500 MG Magnesium 500 MG 07/08/2020 12:00:00 AM EDT 1.0 {tablet_with_a_meal} active Magnesium 5 00 MG eCW1 ([facility]) Glucosamine Chondroitin Complx 500-250 MG Glucosamine Chondroitin Complx 500-250 MG 07/08/2020 12:00:00 AM EDT active Glucosamine Chondroitin Complx 500-250 MG eCW1 ([facility]) Glucosamine Chondroitin Complx 500-250 MG Glucosamine Chondroitin Complx 500-250 MG 07/08/2020 12:00:00 AM EDT active Glucosamine Chondroitin Complx 500-250 MG eCW1 ([facility]) Glucosamine Chondroitin Complx 500-250 MG Glucosamine Chondroitin Complx 500-250 MG 07/08/2020 12:00:00 AM EDT active Glucosamine Chondroitin Complx 500-250 MG [facility] Diclofenac Sodium 0.01 MG/MG Topical Gel [Voltaren] Voltaren 1 % Voltaren 1 % 07/08/2020 12:00:00 AM EDT active Voltaren 1 % eCW1 ([facility]) Magnesium 500 MG Magnesium 500 MG 07/08/2020 12:00:00 AM EDT 1.0 {tablet_with_a_meal} active Magnesium 5 00 MG eCW1 ([facility]) Magnesium 500 MG Magnesium 500 MG 07/08/2020 12:00:00 AM EDT 1.0 {tablet_with_a_meal} active Magnesium 5 00 MG eCW1 ([facility]) Glucosamine Chondroitin Complx 500-250 MG Glucosamine Chondroitin Complx 500-250 MG 07/08/2020 12:00:00 AM EDT active Glucosamine Chondroitin Complx 500-250 MG [facility]CW1 [facility] Magnesium 500 MG Magnesium 500 MG 07/08/2020 12:00:00 AM EDT 1.0 {tablet_with_a_meal} active Magnesium 5 00 MG eCW1 ([facility]) Diclofenac Sodium 0.01 MG/MG Topical Gel [Voltaren] Voltaren 1 % Voltaren 1 % 07/08/2020 12:00:00 AM EDT active Voltaren 1 % eCW1 ([facility]) Diclofenac Sodium 0.01 MG/MG Topical Gel [Voltaren] Voltaren 1 % Voltaren 1 % 07/08/2020 12:00:00 AM EDT active Voltaren 1 % eCW1 ([facility]) Diclofenac Sodium 0.01 MG/MG Topical Gel [Voltaren] Voltaren 1 % Voltaren 1 % 07/08/2020 12:00:00 AM EDT active Voltaren 1 % eCW1 ([facility]) Glucosamine Chondroitin Complx 500-250 MG Glucosamine Chondroitin Complx 500-250 MG 07/08/2020 12:00:00 AM EDT active Glucosamine Chondroitin Complx 500-250 MG eCW1 ([facility]) Magnesium 500 MG Magnesium 500 MG 07/08/2020 12:00:00 AM EDT 1.0 {tablet_with_a_meal} active Magnesium 5 00 MG eCW1 ([facility]) Glucosamine Chondroitin Complx 500-250 MG Glucosamine Chondroitin Complx 500-250 MG 07/08/2020 12:00:00 AM EDT active Glucosamine Chondroitin Complx 500-250 MG eCW1 ([facility]) Magnesium 500 MG Magnesium 500 MG 07/08/2020 12:00:00 AM EDT 1.0 {tablet_with_a_meal} active Magnesium 5 00 MG eCW1 ([facility]) Diclofenac Sodium 0.01 MG/MG Topical Gel [Voltaren] Voltaren 1 % Voltaren 1 % 07/08/2020 12:00:00 AM EDT active eCW1 ([facility]) Magnesium 500 MG Magnesium 500 MG 07/08/2020 12:00:00 AM EDT 1.0 {tablet_with_a_meal} active eCW 1 ([facility]) Glucosamine Chondroitin Complx 500-250 MG Glucosamine Chondroitin Complx 500-250 MG 07/08/2020 12:00:00 AM EDT active Glucosamine Chondroitin Complx 500-250 MG eCW1 ([facility]) Diclofenac Sodium 0.01 MG/MG Topical Gel [Voltaren] Voltaren 1 % Voltaren 1 % 07/08/2020 12:00:00 AM EDT active Voltaren 1 % eCW1 ([facility]) Glucosamine Chondroitin Complx 500-250 MG Glucosamine Chondroitin Complx 500-250 MG 07/08/2020 12:00:00 AM EDT active Glucosamine Chondroitin Complx 500-250 MG eCW1 ([facility]) Diclofenac Sodium 0.01 MG/MG Topical Gel [Voltaren] Voltaren 1 % Voltaren 1 % 07/08/2020 12:00:00 AM EDT active Voltaren 1 % eCW1 ([facility]) Glucosamine Chondroitin Complx 500-250 MG Glucosamine Chondroitin Complx 500-250 MG 07/08/2020 12:00:00 AM EDT active Glucosamine Chondroitin Complx 500-250 MG eCW1 ([facility]) Magnesium 500 MG Magnesium 500 MG 07/08/2020 12:00:00 AM EDT 1.0 {tablet_with_a_meal} active Magnesium 5 00 MG eCW1 ([facility]) Glucosamine Chondroitin Complx 500-250 MG Glucosamine Chondroitin Complx 500-250 MG 07/08/2020 12:00:00 AM EDT active Glucosamine Chondroitin Complx 500-250 MG eCW1 ([facility]) Diclofenac Sodium 0.01 MG/MG Topical Gel [Voltaren] Voltaren 1 % Voltaren 1 % 07/08/2020 12:00:00 AM EDT active Voltaren 1 % eCW1 ([facility]) Magnesium 500 MG Magnesium 500 MG 07/08/2020 12:00:00 AM EDT 1.0 {tablet_with_a_meal} active Magnesium 5 00 MG eCW1 ([facility]) Warfarin Sodium 2.5 MG Oral Tablet Warfarin Sodium 2.5 MG 12:00:00 AM EST 1.0 {tablet} active Warfarin So dium 2.5 MG eCW1 ([facility]) Warfarin Sodium 2.5 MG Oral Tablet Warfarin Sodium 2.5 MG 12:00:00 AM EST 1.0 {tablet} active Warfarin So dium 2.5 MG eCW1 ([facility]) Warfarin Sodium 1 MG Oral Tablet Warfarin Sodium 1 MG 2019 12:00:00 AM EST 1.0 {tablet} active Warfarin So dium 1 MG eCW1 ([facility]) Warfarin Sodium 2.5 MG Oral Tablet Warfarin Sodium 2.5 MG 12:00:00 AM EST 1.0 {tablet} active Warfarin So dium 2.5 MG eCW1 ([facility]) Warfarin Sodium 2.5 MG Oral Tablet Warfarin Sodium 2.5 MG 12:00:00 AM EST 1.0 {tablet} active Warfarin So dium 2.5 MG eCW1 ([facility]) Warfarin Sodium 1 MG Oral Tablet Warfarin Sodium 1 MG 2019 12:00:00 AM EST 1.0 {tablet} active Warfarin So dium 1 MG eCW1 ([facility]) Warfarin Sodium 2.5 MG Oral Tablet Warfarin Sodium 2.5 MG 12:00:00 AM EST 1.0 {tablet} active Warfarin So dium 2.5 MG eCW1 ([facility]) Warfarin Sodium 2.5 MG Oral Tablet Warfarin Sodium 2.5 MG 12:00:00 AM EST 1.0 {tablet} active Warfarin So dium 2.5 MG eCW1 ([facility]) Warfarin Sodium 2.5 MG Oral Tablet Warfarin Sodium 2.5 MG 12:00:00 AM EST 1.0 {tablet} active Warfarin So dium 2.5 MG eCW1 ([facility]) Warfarin Sodium 1 MG Oral Tablet Warfarin Sodium 1 MG 2019 12:00:00 AM EST 1.0 {tablet} active Warfarin So dium 1 MG eCW1 ([facility]) Warfarin Sodium 2.5 MG Oral Tablet Warfarin Sodium 2.5 MG 12:00:00 AM EST 1.0 {tablet} active Warfarin So dium 2.5 MG eCW1 ([facility]) Warfarin Sodium 2.5 MG Oral Tablet Warfarin Sodium 2.5 MG 12:00:00 AM EST 1.0 {tablet} active Warfarin So dium 2.5 MG eCW1 ([facility]) Warfarin Sodium 2.5 MG Oral Tablet Warfarin Sodium 2.5 MG 12:00:00 AM EST 1.0 {tablet} active Warfarin So dium 2.5 MG eCW1 ([facility]) Warfarin Sodium 2.5 MG Oral Tablet Warfarin Sodium 2.5 MG 12:00:00 AM EST 1.0 {tablet} active Warfarin So dium 2.5 MG eCW1 ([facility]) Warfarin Sodium 1 MG Oral Tablet Warfarin Sodium 1 MG 2019 12:00:00 AM EST 1.0 {tablet} active Warfarin So dium 1 MG eCW1 ([facility]) Warfarin Sodium 1 MG Oral Tablet Warfarin Sodium 1 MG 2019 12:00:00 AM EST 1.0 {tablet} active Warfarin So dium 1 MG eCW1 ([facility]) Warfarin Sodium 2 MG Oral Tablet Warfarin Sodium 2 MG 2019 12:00:00 AM EST 2.0 {tablets} active Warfarin S odium 2 MG eCW1 ([facility]) Warfarin Sodium 1 MG Oral Tablet Warfarin Sodium 1 MG 2019 12:00:00 AM EST 1.0 {tablet} active Warfarin So dium 1 MG eCW1 ([facility]) Warfarin Sodium 1 MG Oral Tablet Warfarin Sodium 1 MG 2019 12:00:00 AM EST 1.0 {tablet} active Warfarin So dium 1 MG eCW1 ([facility]) Warfarin Sodium 2.5 MG Oral Tablet Warfarin Sodium 2.5 MG 12:00:00 AM EST 1.0 {tablet} active Warfarin So dium 2.5 MG eCW1 ([facility]) Warfarin Sodium 1 MG Oral Tablet Warfarin Sodium 1 MG 2019 12:00:00 AM EST 1.0 {tablet} active Warfarin So dium 1 MG eCW1 ([facility]) Warfarin Sodium 1 MG Oral Tablet Warfarin Sodium 1 MG 2019 12:00:00 AM EST 1.0 {tablet} active Warfarin So dium 1 MG eCW1 ([facility]) Warfarin Sodium 2.5 MG Oral Tablet Warfarin Sodium 2.5 MG 12:00:00 AM EST 1.0 {tablet} active Warfarin So dium 2.5 MG eCW1 ([facility]) Warfarin Sodium 2.5 MG Oral Tablet Warfarin Sodium 2.5 MG 12:00:00 AM EST 1.0 {tablet} active Warfarin So dium 2.5 MG eCW1 ([facility]) Warfarin Sodium 1 MG Oral Tablet Warfarin Sodium 1 MG 2019 12:00:00 AM EST 1.0 {tablet} active Warfarin So dium 1 MG eCW1 ([facility]) coumadin 1mg UNK 04/01/2020 12:00:00 AM EST activ e coumadin 1mg eCW1 ([facility]) Warfarin Sodium 2 MG Oral Tablet Warfarin Sodium 2 MG 2019 12:00:00 AM EST 2.0 {tablets} active Warfarin S odium 2 MG eCW1 ([facility]) Warfarin Sodium 1 MG Oral Tablet Warfarin Sodium 1 MG 2019 12:00:00 AM EST 1.0 {tablet} active Warfarin So dium 1 MG eCW1 ([facility]) Warfarin Sodium 1 MG Oral Tablet Warfarin Sodium 1 MG 2019 12:00:00 AM EST 1.0 {tablet} active Warfarin So dium 1 MG eCW1 ([facility]) Warfarin Sodium 2.5 MG Oral Tablet Warfarin Sodium 2.5 MG 12:00:00 AM EST 1.0 {tablet} active Warfarin So dium 2.5 MG eCW1 ([facility]) Warfarin Sodium 1 MG Oral Tablet Warfarin Sodium 1 MG 2019 12:00:00 AM EST 1.0 {tablet} active Warfarin So dium 1 MG eCW1 ([facility]) Warfarin Sodium 1 MG Oral Tablet Warfarin Sodium 1 MG 2019 12:00:00 AM EST 1.0 {tablet} active Warfarin So dium 1 MG eCW1 ([facility]) Warfarin Sodium 2.5 MG Oral Tablet Warfarin Sodium 2.5 MG 12:00:00 AM EST 1.0 {tablet} active Warfarin So dium 2.5 MG eCW1 ([facility]) Warfarin Sodium 1 MG Oral Tablet Warfarin Sodium 1 MG 2019 12:00:00 AM EST 1.0 {tablet} active Warfarin So dium 1 MG eCW1 ([facility]) Warfarin Sodium 2.5 MG Oral Tablet Warfarin Sodium 2.5 MG 12:00:00 AM EST 1.0 {tablet} active Warfarin So dium 2.5 MG eCW1 ([facility]) Warfarin Sodium 2.5 MG Oral Tablet Warfarin Sodium 2.5 MG 12:00:00 AM EST 1.0 {tablet} active Warfarin So dium 2.5 MG eCW1 ([facility]) Warfarin Sodium 2.5 MG Oral Tablet Warfarin Sodium 2.5 MG 12:00:00 AM EST 1.0 {tablet} active eCW1 ([facility]) Warfarin Sodium 1 MG Oral Tablet Warfarin Sodium 1 MG 2019 12:00:00 AM EST 1.0 {tablet} active Warfarin So dium 1 MG eCW1 ([facility]) Warfarin Sodium 1 MG Oral Tablet Warfarin Sodium 1 MG 2019 12:00:00 AM EST 1.0 {tablet} active Warfarin So dium 1 MG eCW1 ([facility]) Warfarin Sodium 1 MG Oral Tablet Warfarin Sodium 1 MG 2019 12:00:00 AM EST 1.0 {tablet} active Warfarin So dium 1 MG eCW1 ([facility]) Warfarin Sodium 2.5 MG Oral Tablet Warfarin Sodium 2.5 MG 12:00:00 AM EST 1.0 {tablet} active Warfarin So dium 2.5 MG eCW1 ([facility]) Warfarin Sodium 2.5 MG Oral Tablet Warfarin Sodium 2.5 MG 12:00:00 AM EST 1.0 {tablet} active Warfarin So dium 2.5 MG eCW1 ([facility]) Warfarin Sodium 1 MG Oral Tablet Warfarin Sodium 1 MG 2019 12:00:00 AM EST 1.0 {tablet} active Warfarin So dium 1 MG eCW1 ([facility]) Warfarin Sodium 2.5 MG Oral Tablet Warfarin Sodium 2.5 MG 12:00:00 AM EST 1.0 {tablet} active Warfarin So dium 2.5 MG eCW1 ([facility]) Warfarin Sodium 2.5 MG Oral Tablet Warfarin Sodium 2.5 MG 12:00:00 AM EST 1.0 {tablet} active Warfarin So dium 2.5 MG eCW1 ([facility]) Warfarin Sodium 1 MG Oral Tablet Warfarin Sodium 1 MG 2019 12:00:00 AM EST 1.0 {tablet} active Warfarin So dium 1 MG eCW1 ([facility]) Warfarin Sodium 2.5 MG Oral Tablet Warfarin Sodium 2.5 MG 12:00:00 AM EST 1.0 {tablet} active Warfarin So dium 2.5 MG eCW1 ([facility]) Warfarin Sodium 2.5 MG Oral Tablet Warfarin Sodium 2.5 MG 12:00:00 AM EST 1.0 {tablet} active Warfarin So dium 2.5 MG eCW1 ([facility]) Warfarin Sodium 2.5 MG Oral Tablet Warfarin Sodium 2.5 MG 12:00:00 AM EST 1.0 {tablet} active Warfarin So dium 2.5 MG eCW1 ([facility]) Warfarin Sodium 2.5 MG Oral Tablet Warfarin Sodium 2.5 MG 12:00:00 AM EST 1.0 {tablet} active Warfarin So dium 2.5 MG eCW1 ([facility]) Warfarin Sodium 1 MG Oral Tablet Warfarin Sodium 1 MG 2019 12:00:00 AM EST 1.0 {tablet} active Warfarin So dium 1 MG eCW1 ([facility]) Warfarin Sodium 2.5 MG Oral Tablet Warfarin Sodium 2.5 MG 12:00:00 AM EST 1.0 {tablet} active Warfarin So dium 2.5 MG eCW1 ([facility]) Warfarin Sodium 2.5 MG Oral Tablet Warfarin Sodium 2.5 MG 12:00:00 AM EST 1.0 {tablet} active Warfarin So dium 2.5 MG eCW1 ([facility]) Warfarin Sodium 2.5 MG Oral Tablet Warfarin Sodium 2.5 MG 12:00:00 AM EST 1.0 {tablet} active Warfarin So dium 2.5 MG eCW1 ([facility]) Warfarin Sodium 2.5 MG Oral Tablet Warfarin Sodium 2.5 MG 12:00:00 AM EST 1.0 {tablet} active Warfarin So dium 2.5 MG eCW1 ([facility]) Warfarin Sodium 1 MG Oral Tablet Warfarin Sodium 1 MG 2019 12:00:00 AM EST 1.0 {tablet} active Warfarin So dium 1 MG eCW1 ([facility]) Warfarin Sodium 1 MG Oral Tablet Warfarin Sodium 1 MG 2019 12:00:00 AM EST 1.0 {tablet} active eCW1 ([facility]) Warfarin Sodium 2.5 MG Oral Tablet Warfarin Sodium 2.5 MG 12:00:00 AM EST 1.0 {tablet} active Warfarin So dium 2.5 MG eCW1 ([facility]) Warfarin Sodium 2.5 MG Oral Tablet Warfarin Sodium 2.5 MG 12:00:00 AM EST 1.0 {tablet} active Warfarin So dium 2.5 MG eCW1 ([facility]) Warfarin Sodium 2.5 MG Oral Tablet Warfarin Sodium 2.5 MG 12:00:00 AM EST 1.0 {tablet} active Warfarin So dium 2.5 MG eCW1 ([facility]) Warfarin Sodium 1 MG Oral Tablet Warfarin Sodium 1 MG 2019 12:00:00 AM EST 1.0 {tablet} active Warfarin So dium 1 MG eCW1 ([facility]) Warfarin Sodium 2.5 MG Oral Tablet Warfarin Sodium 2.5 MG 12:00:00 AM EST 1.0 {tablet} active Warfarin So dium 2.5 MG eCW1 ([facility]) Warfarin Sodium 1 MG Oral Tablet Warfarin Sodium 1 MG 2019 12:00:00 AM EST 1.0 {tablet} active Warfarin So dium 1 MG eCW1 ([facility]) Warfarin Sodium 2.5 MG Oral Tablet Warfarin Sodium 2.5 MG 12:00:00 AM EST 1.0 {tablet} active Warfarin So dium 2.5 MG eCW1 ([facility]) Warfarin Sodium 1 MG Oral Tablet Warfarin Sodium 1 MG 2019 12:00:00 AM EST 1.0 {tablet} active Warfarin So dium 1 MG eCW1 ([facility]) Warfarin Sodium 1 MG Oral Tablet Warfarin Sodium 1 MG 2019 12:00:00 AM EST 1.0 {tablet} active Warfarin So dium 1 MG eCW1 ([facility]) Warfarin Sodium 2.5 MG Oral Tablet Warfarin Sodium 2.5 MG 12:00:00 AM EST 1.0 {tablet} active Warfarin So dium 2.5 MG eCW1 ([facility]) Warfarin Sodium 2.5 MG Oral Tablet Warfarin Sodium 2.5 MG 12:00:00 AM EST 1.0 {tablet} active eCW1 ([facility]) Warfarin Sodium 2.5 MG Oral Tablet Warfarin Sodium 2.5 MG 12:00:00 AM EST 1.0 {tablet} active Warfarin So dium 2.5 MG eCW1 ([facility]) Warfarin Sodium 1 MG Oral Tablet Warfarin Sodium 1 MG 2019 12:00:00 AM EST 1.0 {tablet} active Warfarin So dium 1 MG eCW1 ([facility]) Warfarin Sodium 2.5 MG Oral Tablet Warfarin Sodium 2.5 MG 12:00:00 AM EST 1.0 {tablet} active Warfarin So dium 2.5 MG eCW1 ([facility]) Warfarin Sodium 1 MG Oral Tablet Warfarin Sodium 1 MG 2019 12:00:00 AM EST 1.0 {tablet} active Warfarin So dium 1 MG eCW1 ([facility]) Warfarin Sodium 1 MG Oral Tablet Warfarin Sodium 1 MG 2019 12:00:00 AM EST 1.0 {tablet} active Warfarin So dium 1 MG eCW1 ([facility]) Warfarin Sodium 1 MG Oral Tablet Warfarin Sodium 1 MG 2019 12:00:00 AM EST 1.0 {tablet} active eCW1 ([facility]) Warfarin Sodium 1 MG Oral Tablet Warfarin Sodium 1 MG 2019 12:00:00 AM EST 1.0 {tablet} active Warfarin So dium 1 MG eCW1 ([facility]) Warfarin Sodium 2.5 MG Oral Tablet Warfarin Sodium 2.5 MG 12:00:00 AM EST 1.0 {tablet} active Warfarin So dium 2.5 MG eCW1 ([facility]) Warfarin Sodium 1 MG Oral Tablet Warfarin Sodium 1 MG 2019 12:00:00 AM EST 1.0 {tablet} active Warfarin So dium 1 MG eCW1 ([facility]) Warfarin Sodium 2.5 MG Oral Tablet Warfarin Sodium 2.5 MG 12:00:00 AM EST 1.0 {tablet} active Warfarin So dium 2.5 MG eCW1 ([facility]) Warfarin Sodium 2.5 MG Oral Tablet Warfarin Sodium 2.5 MG 12:00:00 AM EST 1.0 {tablet} active Warfarin So dium 2.5 MG eCW1 ([facility]) Warfarin Sodium 2.5 MG Oral Tablet Warfarin Sodium 2.5 MG 12:00:00 AM EST 1.0 {tablet} active Warfarin So dium 2.5 MG eCW1 ([facility]) Warfarin Sodium 2.5 MG Oral Tablet Warfarin Sodium 2.5 MG 12:00:00 AM EST 1.0 {tablet} active Warfarin So dium 2.5 MG eCW1 ([facility]) Warfarin Sodium 2.5 MG Oral Tablet Warfarin Sodium 2.5 MG 12:00:00 AM EST 1.0 {tablet} active Warfarin So dium 2.5 MG eCW1 ([facility]) Warfarin Sodium 2.5 MG Oral Tablet Warfarin Sodium 2.5 MG 12:00:00 AM EST 1.0 {tablet} active Warfarin So dium 2.5 MG eCW1 ([facility]) Warfarin Sodium 2.5 MG Oral Tablet Warfarin Sodium 2.5 MG 12:00:00 AM EST 1.0 {tablet} active Warfarin So dium 2.5 MG eCW1 ([facility]) Warfarin Sodium 2.5 MG Oral Tablet Warfarin Sodium 2.5 MG 12:00:00 AM EST 1.0 {tablet} active Warfarin So dium 2.5 MG eCW1 ([facility]) Warfarin Sodium 1 MG Oral Tablet Warfarin Sodium 1 MG 2019 12:00:00 AM EST 1.0 {tablet} active Warfarin So dium 1 MG eCW1 ([facility]) Warfarin Sodium 1 MG Oral Tablet Warfarin Sodium 1 MG 2019 12:00:00 AM EST 1.0 {tablet} active Warfarin So dium 1 MG eCW1 ([facility]) Warfarin Sodium 2.5 MG Oral Tablet Warfarin Sodium 2.5 MG 12:00:00 AM EST 1.0 {tablet} active Warfarin So dium 2.5 MG eCW1 ([facility]) Warfarin Sodium 2.5 MG Oral Tablet Warfarin Sodium 2.5 MG 12:00:00 AM EST 1.0 {tablet} active Warfarin So dium 2.5 MG eCW1 ([facility]) Warfarin Sodium 1 MG Oral Tablet Warfarin Sodium 1 MG 2019 12:00:00 AM EST 1.0 {tablet} active Warfarin So dium 1 MG eCW1 ([facility]) Warfarin Sodium 2.5 MG Oral Tablet Warfarin Sodium 2.5 MG 12:00:00 AM EST 1.0 {tablet} active Warfarin So dium 2.5 MG eCW1 ([facility]) Warfarin Sodium 2.5 MG Oral Tablet Warfarin Sodium 2.5 MG 12:00:00 AM EST 1.0 {tablet} active Warfarin So dium 2.5 MG eCW1 ([facility]) Warfarin Sodium 2.5 MG Oral Tablet Warfarin Sodium 2.5 MG 12:00:00 AM EST 1.0 {tablet} active Warfarin So dium 2.5 MG eCW1 ([facility]) Warfarin Sodium 2.5 MG Oral Tablet Warfarin Sodium 2.5 MG 12:00:00 AM EST 1.0 {tablet} active Warfarin So dium 2.5 MG [facility] [facility]) Warfarin Sodium 2.5 MG Oral Tablet Warfarin Sodium 2.5 MG 12:00:00 AM EST 1.0 {tablet} active Warfarin So dium 2.5 MG eCW1 ([facility]) coumadin 1mg UNK 04/01/2020 12:00:00 AM EST activ e coumadin 1mg eCW1 ([facility]) Warfarin Sodium 2.5 MG Oral Tablet Warfarin Sodium 2.5 MG 12:00:00 AM EST 1.0 {tablet} active Warfarin So dium 2.5 MG eCW1 ([facility]) Warfarin Sodium 2 MG Oral Tablet Warfarin Sodium 2 MG 2019 12:00:00 AM EST 2.0 {tablets} active Warfarin S odium 2 MG eCW1 ([facility]) Warfarin Sodium 2.5 MG Oral Tablet Warfarin Sodium 2.5 MG 12:00:00 AM EST 1.0 {tablet} active eCW1 ([facility]) coumadin 1mg UNK 04/01/2020 12:00:00 AM EST activ e coumadin 1mg eCW1 ([facility]) Warfarin Sodium 2.5 MG Oral Tablet Warfarin Sodium 2.5 MG 12:00:00 AM EST 1.0 {tablet} active Warfarin So dium 2.5 MG eCW1 ([facility]) Warfarin Sodium 2.5 MG Oral Tablet Warfarin Sodium 2.5 MG 12:00:00 AM EST 1.0 {tablet} active Warfarin So dium 2.5 MG eCW1 ([facility]) Warfarin Sodium 2.5 MG Oral Tablet Warfarin Sodium 2.5 MG 12:00:00 AM EST 1.0 {tablet} active Warfarin So dium 2.5 MG eCW1 ([facility]) Warfarin Sodium 2.5 MG Oral Tablet Warfarin Sodium 2.5 MG 12:00:00 AM EST 1.0 {tablet} active Warfarin So dium 2.5 MG eCW1 ([facility]) Warfarin Sodium 1 MG Oral Tablet Warfarin Sodium 1 MG 2019 12:00:00 AM EST 1.0 {tablet} active Warfarin So dium 1 MG eCW1 ([facility]) Warfarin Sodium 1 MG Oral Tablet Warfarin Sodium 1 MG 2019 12:00:00 AM EST 1.0 {tablet} active Warfarin So dium 1 MG eCW1 ([facility]) 100 mg 12/04/2019 12:00:00 AM EDT tablet 60 TAKE ONE TABLET BY MOUTH TWICE A DAY TAKE ONE TABLET BY MOUTH TWICE A DAY SOLD: 02/02/2020 [facility] 100 mg 09/05/2019 12:00:00 AM EDT tablet 60 TAKE ONE TABLET BY MOUTH TWICE A DAY TAKE ONE TABLET BY MOUTH TWICE A DAY SOLD: 02/02/2020 [facility] 600 mg 07/31/2019 12:00:00 AM EDT tablet 90 TAKE ONE TABLET BY MOUTH THREE TIMES A DAY TAKE ONE TABLET BY MOUTH THREE TIMES A DAY SOLD: 02/02/2020 [facility] Insurance Providers Payer name Policy type / Coverage type Policy ID Covered constitution party ID Covered constitution party's relationship to arthur Policy Arthur Plan Information [employer] MEDICARE PPO [id number] Patient [id number] [place]/PLN (18) [id number] 1 [id number] [employer] MEDICARE DUAL ADVANTAGE (94) [id number] [facility] Medicare Primary 0 [id number] Self 0 [facility] Medicare Primary 0 [id number] Self 0 [place] MEDICARE (93) [id number] 1 [id number] [facility]/MEDICARE/COMPLETE [id number] 1 [id number] [facility] Medicare Primary 0 [id number] Self 0 [facility] Medicare Primary 0 [id number] Self 0 [facility] Medicare Primary 0 [id number] Self 0 [facility] Medicare Primary 0 [id number] Self 0 [facility] Medicare Primary 0 [id number] Self 0 [facility] Medicare Primary 0 [id number] Self 0 [employer] Medicare Primary 0 [id number] Self 0 [employer] Medicare Primary 0 [id number] Self 0 [employer] Medicare Primary 0 [id number] Self 0 [employer] Medicare Primary 0 [id number] Self 0 [employer] Medicare Primary 0 [id number] Self 0 [employer] Medicare Primary 0 [id number] Self 0 [employer] Medicare Primary 0 [id number] Self 0 [employer] Medicare Primary 0 [id number] Self 0 [employer] Medicare Primary 0 [id number] Self 0 [facility] Medicar Commercial [id number] Self [id number] [facility] MEDICARE ROHINI [id number] Self [id number] [facility] MEDICARE ROHINI [id number] Self [id number] [facility] MEDICARE [id number] Self [id number] [facility] MEDICARE [id number] xxxxxxxxx [id number] [facility] MEDICARE [id number] Self [id number] [facility] MEDICARE [id number] [facility] [id number] Self [id number] MEDICARE MANAGED CARE GENERIC [id number] Self [id number] [facility] MEDICARE [id number] S [id number] [facility] MEDICARE [id number] Self [id number] [facility] MEDICARE [id number] Self [id number] [facility] MEDICARE [id number] S [id number] [facility] MEDICARE [id number] S [id number] [facility] MEDICARE [id number] S [id number] [facility] MEDICARE [id number] S [id number] ISAC [id number] Patient [id number] [facility] DUAL COMPLET [id number] S [id number] [place] Medicare Advantge Commercial [id number] Self [id number] [facility] MEDICARE PPO [id number] Patient [id number] [facility] MEDICARE PPO [id number] Patient [id number] [facility] MEDICARE [id number] S [id number] [place] Medicare Advantge Commercial [id number] Self [id number] [facility] HEALTH PLANS [id number] S [id number] [facility] MEDICARE [id number] S [id number] SELF PAY (1) UNAVAILABLE UNAVA ILABLE SPECIAL ACCOUNT (8) UNAVAILABLE UNAVAILABLE [facility] Medicar Commercial [id number] Self [place] Medicare Advantge Commercial [id number] Self [facility] [id number] SP [id number] [facility] Medicar Commercial [id number] Self [id number] [place] [employer]vant[employer] Commercial [id number] Self 74 [id number] ISAC [id number] PT [id number] 900 ISAC [facility] CARE [id number] PT [id number] ISAC [id number] PT [id number] ISAC 192 [id number] Problems, Conditions, and Diagnoses Code Display Name Description Problem Type Effective Dates Data Source(s) Z79.01 terminal manager (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 R92.8 Other abnormal and inconclusive findings on diagnostic imaging of breast OTH ABN AND INCONCLUSIVE FINDINGS ON DX IMAGING OF BREAST Diagnosis 01/31/2021 02:38:00 PM [facility] E11.9 Type 2 diabetes mellitus without complic ations TYPE 2 DIABETES MELLITUS WITHOUT COMPLIC Diagnosis 01/19/2021 12:00:00 PM [facility] l I48.91 Unspecified atrial fibrillation UNSPECIFIED ATRI AL FIBRILLATION Diagnosis 01/19/2021 12:00:00 PM [facility] I35.8 Other nonrheumatic aortic valve disorder s OTHER NONRHEUMATIC AORTIC VALVE DISORDER Diagnosis 12/13/2020 09:56:00 AM [facility] I48.21 PERMANENT ATRIAL FIBRILLATION PERMANENT ATRIAL FIBRILL ATION Diagnosis 12/13/2020 09:56:00 AM [facility] I50.32 Chronic diastolic (congestive) heart judy lure CHRONIC DIASTOLIC (CONGESTIVE) HEART FAILURE Diagnosis 12/13/2020 09:56:00 AM [facility] I10 Essential (primary) hypertension ESSENTIAL (PRIMARY) H YPERTENSION Diagnosis 11/26/2020 09:12:00 AM [facility] E05.90 Thyrotoxicosis, unspecified without thyr otoxic crisis or storm THYROTOXICOSIS, UNSP WITHOUT THYROTOXIC Diagnosis 11/26/2020 09:12:00 AM [facility] E78.5 Hyperlipidemia, unspecified HYPERLIPIDEMIA, UNSPECIFIE D Diagnosis 11/26/2020 09:12:00 AM [facility] F41.8 Other specified anxiety disorders OTHER SPECIFIE D ANXIETY DISORDERS Diagnosis 11/18/2020 03:37:00 PM [facility] Z00.00 Encounter for general adult medical examination without abnormal findings ENCNTR FOR GENERAL ADULT MEDICAL EXAM W/O ABNORMAL FINDINGS Diagnosis 11/18/2020 03:37:00 PM [facility] E11.40 Type 2 diabetes mellitus with diabetic n europathy, unspecified TYPE 2 DIABETES MELLITUS WITH DIABETIC NEUROPATHY, Diagnosis 11/01/2020 10:09:00 AM [facility] L60.2 Onychogryphosis ONYCHOGRYPHOSIS Diagnosis 11/01/2020 10:0 9:00 AM [facility] M54.5 Low back pain LOW BACK PAIN Diagnosis 09/30/2020 04:03:00 PM [facility] 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, lumbar region OTHER SPECIFIED INFLAMMATORY SPONDYLOPATHIES, LUMB Diagnosis 10:14:00 AM [facility] M25.78 Osteophyte, vertebrae OSTEOPHYTE, VERTEBRAE Diagnosis 09/02/2020 10:14:00 AM [facility] M47.816 Spondylosis without myelopathy or radicu lopathy, lumbar region SPONDYLOSIS W/O MYELOPATHY OR RADICULOPATHY, LUMBA Diagnosis 05/2020 10:14:00 AM [facility] M41.9 Scoliosis, unspecified SCOLIOSIS, UNSPECIFIED Diagnosi s 09/02/2020 10:14:00 AM [facility] M85.88 Other specified disorders of bone densit y and structure, other site OTH DISRD OF BONE DENSITY AND STRUCTURE, OTHER SIT Diagnosis 021 10:14:00 AM [facility] M53.3 Sacrococcygeal disorders, not elsewhere classified SACROCOCCYGEAL DISORDERS, NOT ELSEWHERE Diagnosis 09/02/2020 10:14:00 AM [facility] Reinaldo martin M79.676 Pain in unspecified toe(s) PAIN IN UNSPECIFIED TOE(S) Diagnosis 08/16/2020 09:58:00 AM [facility] L60.3 Nail dystrophy NAIL DYSTROPHY Diagnosis 08/16/2020 09:58: 00 AM [facility] R51.9 HEADACHE, UNSPECIFIED HEADACHE, UNSPECIFIED Diagnosis 08/06/2020 11:35:00 AM [facility] Z12.31 Encounter for screening mammogram for ma lignant neoplasm of breast ENCNTR SCREEN MAMMOGRAM FOR MALIGNANT NE Diagnosis 07/13/2020 01:00:00 PM [facility] Z71.2 Person consulting for explanation of exa mination or test findings PERSON CONSULTING FOR EXPLANATION OF EXAM OR TEST Diagnosis 07/08/2020 11:45: 00 AM [facility] R79.9 Abnormal finding of blood chemistry, uns pecified ABNORMAL FINDING OF BLOOD CHEMISTRY, UNSPECIFIED Diagnosis 07/08/2020 11:45:00 AM [facility] R25.1 Tremor, unspecified TREMOR, UNSPECIFIED Diagnosis 0 07/08/2020 11:45:00 AM [facility] R25.2 Cramp and spasm CRAMP AND SPASM Diagnosis 07/08/2020 11:4 5:00 AM [facility] G43.009 Migraine without aura, not intractable, without status migrainosus MIGRAINE W/O AURA, NOT INTRACTABLE, W/O STATUS BONNY Diagnosis 10/2020 11:45:00 AM [facility] Z79.899 Other terminal manager (current) drug therapy O THER AIRPORT GUIDE (CURRENT) DRUG THERAPY Diagnosis 06/20/2020 04:49:00 PM [facility] l E78.00 PURE HYPERCHOLESTEROLEMIA, UNSPECIFIED P URE HYPERCHOLESTEROLEMIA, UNSPECIFIED Diagnosis 06/20/2020 04:49:00 PM [facility] l I50.9 Heart failure, unspecified HEART FAILURE, UNSPECIFIED Diagnosis 06/20/2020 04:49:00 PM [facility] I11.0 Hypertensive heart disease with heart fa ilure HYPERTENSIVE HEART DISEASE WITH HEART FAILURE Diagnosis 06/20/2020 04:49:00 PM [facility] I25.2 Old myocardial infarction OLD MYOCARDIAL INFARCTION Di agnosis 06/20/2020 04:49:00 PM [facility] I25.10 Atherosclerotic heart diseas e of [place] coronary artery without angina pectoris ATHSCL HEART DISEASE OF [place] CORONARY ARTERY W/O Diagnosis 06/20/2020 04:49:00 PM [facility] K04.7 Periapical abscess without sinus PERIAPICAL ABSC ESS WITHOUT SINUS Diagnosis 06/20/2020 04:49:00 PM [facility] R22.0 Localized swelling, mass and lump, head LOCALIZED SWELLING, MASS AND LUMP, HEAD Diagnosis 06/20/2020 04:49:00 PM [facility] l R33.9 Retention of urine, unspecified RETENTION OF URINE, UN SPECIFIED Diagnosis 05/20/2020 12:30:00 PM [facility] N26.1 Atrophy of kidney (terminal) ATROPHY OF KIDNEY (TERMIN AL) Diagnosis 05/20/2020 12:30:00 PM [facility] R79.89 Other specified abnormal findings of blo od chemistry OTHER SPECIFIED ABNORMAL FINDINGS OF BLOOD CHEMISTRY Diagnosis 05/20/2020 12:30:00 PM [facility] N39.3 Stress incontinence (female) (male) STRESS INCON TINENCE (FEMALE) (MALE) Diagnosis 05/13/2020 08:56:00 AM [facility] N85.8 Other specified noninflammatory disorder s of uterus OTHER SPECIFIED NONINFLAMMATORY DISORDERS OF UTERU Diagnosis 05/13/2020 08:56:00 AM [facility] Z12.4 Encounter for screening for malignant ne oplasm of cervix ENCOUNTER FOR SCREENING FOR MALIGNANT NE Diagnosis 05/13/2020 08:56:00 AM [facility] Medicare Annual Wellness Visit Subsequen t Medicare Annual Wellness Visit Subsequent Diagnosis 04/23/2020 09:18:18 AM [facility] R93.89 ABNORMAL FINDINGS ON DX IMAGING OF OTH B KATHRINE STRUCT ABNORMAL FINDINGS ON DX IMAGING OF OTH BODY STRUCT Diagnosis 04/21/2020 08:30:00 AM [facility] N95.0 Postmenopausal bleeding POSTMENOPAUSAL BLEEDING Diagno sis 04/21/2020 08:30:00 AM [facility] N81.10 Cystocele, unspecified CYSTOCELE, UNSPECIFIED Diagnosi s 04/15/2020 01:00:00 PM [facility] Z97.4 Presence of external hearing-aid PRESENCE OF EXT ERNAL HEARING-AID Diagnosis 04/14/2020 10:14:00 AM [facility] D86.9 Sarcoidosis, unspecified SARCOIDOSIS, UNSPECIFIED Diag nosis 04/14/2020 10:14:00 AM [facility] H91.93 Unspecified hearing loss, bilateral UNSPECIFIED HEARING LOSS, BILATERAL Diagnosis 04/14/2020 10:14:00 AM [facility] Z79.01 [id number] Anticoagulant long-term use Problem 11/19/19 12:00:00 AM EDT eCW1 ([facility]) I34.8 Mitral valve disorder Mitral valve disorder Problem 09/09/2020 12:00:00 AM EDT MEDENT ([facility]) I48.21 Permanent atrial fibrillation Permanent atrial fibrill ation Problem 09/09/2020 12:00:00 AM EDT [facility] ([facility]) I50.32 Chronic diastolic heart failure Chronic diastolic hear t failure Problem 09/09/2020 12:00:00 AM EDT [facility] ([facility]) 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 hypertensive heart disease with congestive cardiac failure Problem 08/11/2020 12:00:00 AM EDT [facility] ([facility]) I50.9 Chronic congestive heart failure Chronic congestive he art failure Problem 08/11/2020 12:00:00 AM EDT [facility] ([facility]) I35.8 Aortic valve disorder Aortic valve disorder Problem 08/11/2020 12:00:00 AM EDT [facility] ([facility]) R94.31 Electrocardiogram abnormal Electrocardiogram abnormal Problem 08/11/2020 12:00:00 AM EDT [facility] ([facility]) I48.91 Atrial fibrillation Atrial fibrillation Problem 0 08/11/2020 12:00:00 AM EDT [facility] ([facility]) R92.8 [id number] Abnormal mammogram Problem 07/21/2020 12:00: 00 AM EDT eCW1 ([facility]) R92.8 [id number] Abnormal finding on breast imaging Proble 07/14/2020 12:00:00 AM EDT eCW1 ([facility]) E05.90 [id number] Hyperthyroidism Problem 06/10/2020 12:00:00 AM EST eCW1 (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) D86.9 [id number] Sarcoidosis Problem 04/14/2020 12:00:[address] eCW1 ([facility]) G43.009 [id number] Migraine without aur a and without status migrainosus, not intractable Problem 04/14/2020 12:00:00 AM EST eCW1 ([facility]) H91.93 [id number] Bilateral hearing loss, unspecified heari ng loss type Problem 04/14/2020 12:00:00 AM EST eCW1 ([facility]) Z79.01 [id number] Chronic anticoagulation Problem 04/14/2020 1 2:00:00 AM EST eCW1 ([facility]) Surgeries/Procedures Procedure Description Date Indications Data Source(s) OFFICE OUTPATIENT VISIT 25 MINUTES 01/28/2021 12:00:00 AM EDT MEDENT ([facility]) OFFICE OUTPATIENT VISIT 15 MINUTES 01/27/2021 12:00:00 AM EDT MED[facility] ([facility]) ECG ROUTINE ECG W/LEAST 12 LDS W/I&R 10/18/2020 12:00: 00 AM EDT [facility] ([facility]) OFFICE OUTPATIENT VISIT 25 MINUTES 10/18/2020 12:00:00 AM EDT [facility] ([facility]) OFFICE OUTPATIENT VISIT 25 MINUTES 10/07/2020 12:00:00 AM EDT [facility] ([facility] ) Magnetic Resonance Angiogtaphy Head W/O Contrast Material(S) 09/17/2020 12:00:00 AM EDT [facility] ([facility] Magnetic Resonance Angiogtaphy Head W/O Contrast Material(S) 09/17/2020 12:00:00 AM EDT [facility] ([facility] ) Magnetic Resonance Angiography Neck W/O Contrast Materials 09/17/2020 12:00:00 AM EDT [facility] ([facility] ) Magnetic Resonance Angiography Neck W/O Contrast Materials 09/17/2020 12:00:00 AM EDT [facility] ([facility] ) MRI BRAIN BRAIN STEM W/O CONTRAST MATERIAL 09/17/2020 12:00:00 AM EDT [facility] ([facility] ) MRI BRAIN BRAIN STEM W/O CONTRAST MATERIAL 09/17/2020 12:00:00 AM EDT [facility] ([facility] ) OFFICE OUTPATIENT VISIT 25 MINUTES 09/09/2020 12:00:00 AM EDT [facility] ([facility]) MYOCARDIAL SPECT MULTIPLE STUDIES 09/07/2020 12:00:00 AM EDT [facility] ([facility]) CV STRS TST XERS&/OR RX CONT ECG PHYS SI&R 09/07/2020 12:00:00 AM EDT [facility]) ECHO TTHRC R-T 2D W/WOM-MODE COMPL SPEC&COLR DOP 08/23 12:00:00 AM EDT [facility] ([facility]) ECG ROUTINE ECG W/LEAST 12 LDS W/I&R 08/11/2020 12:00: 00 AM EDT [facility] ([facility]) OFFICE OUTPATIENT NEW 60 MINUTES 08/11/2020 12:00:00 A M EDT [facility] ([facility]) Needle electromyography, each extremity, with related paraspinal areas, when performed, done with nerve conduction, amplitude and latency/velocity study; complete, five or more muscles studied, innervated by three or more nerves or four or more spinal levels (list separately in addition to the code for primary procedure). 08/09/2020 12:00:00 AM EDT MEDEN T ([facility] ) Needle electromyography, each extremity, with related paraspinal areas, when performed, done with nerve conduction, amplitude and latency/velocity study; complete, five or more muscles studied, innervated by three or more nerves or four or more spinal levels (list separately in addition to the code for primary procedure). 08/09/2020 12:00:00 AM EDT MEDEN T ([facility] ) Nerve Conduction 9-10 Studies 08/09/2020 12:00:00 AM E DT MED[facility] ([facility] ) NON-INVASIVE PHYSIOLOGIC STUDY EXTREMITY 3 LEVLS 08/06 12:00:00 AM EDT [facility] ([facility] ) TSTG ANS FUNCJ CARDIOVAGAL INNERVAJ PARASYMP 12:00:00 AM EDT [facility] ([facility] ) TESTING AUTONOMIC NERVOUS SYSTEM FUNCTION 08/06/2020 1 2:00:00 AM EDT [facility] ([facility] ) OFFICE OUTPATIENT NEW 45 MINUTES 08/02/2020 12:00:00 A M EDT [facility] ([facility] ) Duplex Scan Extracranial Arteries, Complete Bilateral Study 03/02/2020 12:00:00 AM EST [facility] ([facility]) Results ID Date Data Source [id number] 03/09/2021 03:58:00 PM EST [facility] Patient: JESSE HAIRSTON Observnaveedo n Report - [facility].VisitID: [id number] [place] [address] [phone], [facility] Date/Time: 03/07/2021 18:35 Weight:68.4 kg (S). Height/Length:63 inches (S). BMI:26.7 PAST HISTORYProblems:Coronary Artery Disease [Chronic].Atrial Fibrillation [Chronic].Congestive Heart Failure [Chronic].Depression [Chronic].Hypertension [Chronic].Parasthesia [Chronic].Hypercholesterolemia [Chronic].Diabetes Mellitus Type 2 [Chronic].Myocardial Infarction [Inactive]. Additional Surgeries:Artificial heart valve.Bronchoscopy.Cataract Surgery.Cholecystectomy.Hernia Repair.Liver biopsy.Tubal Ligation.Umbilical Hernia Repair.Valve Replacement. Medications:Topiramate Oral (Tablet 100 mg) 1 tablet, 2x a day, last dose 03/07/21.Torsemide Oral (Tablet 20 mg) 1/2 tablet, daily, last dose 03/07/21.Ultram Oral, as needed.Acetaminophen Oral, as needed.Atorvastatin Calcium Oral (Tablet 80 mg) 1 tablet, daily, last dose 03/06/21.Gabapentin Oral (Tablet 600 mg) 1 tablet, 3x a day, last dose 03/07/21.Metoprolol Succinate ER Oral (Tablet Extended Release 24 Hour 50 mg) 1 tablet, daily, last dose 03/06/21.Ramipril Oral (Capsule 5 mg) 1 capsule, daily, last dose 03/07/21.Sertraline HCl Oral (Tablet 100 mg) 1 tablet, 2x a day, last dose 03/07/21.Warfarin Sodium Oral 3.5 mg, daily, last dose 03/07/21. Allergies:No Known Drug Allergy. FAMILY HISTORYFather: Cancer, Diabetes Mellitus, Heart Disease, Hypertension, CVA - Cerebrovascular Accident. Mother: CVA - Cerebrovascular Accident. INSTRUCTIONSYour Current Medications: Your current home medications have been reviewed. CONTINUE TAKING THE FOLLOWING MEDICATIONS:Acetaminophen Oral : prn. Atorvastatin Calcium Oral : Tablet 80 mg, 1 tablet daily, Last: 03/06/21. Gabapentin Oral : Tablet 600 mg, 1 tablet 3x a day, Last: 03/07/21. Metoprolol Succinate ER Oral : Tablet Extended Release 24 Hour 50 mg, 1 tablet daily, Last: 03/06/21. Ramipril Oral : Capsule 5 mg, 1 capsule daily, Last: 03/07/21. Sertraline HCl Oral : Tablet 100 mg, 1 tablet 2x a day, Last: 03/07/21. Topiramate Oral : Tablet 100 mg, 1 tablet 2x a day, Last: 03/07/21. Torsemide Oral : Tablet 20 mg, 1/2 tablet daily, Last: 03/07/21. Ultram Oral : prn. Warfarin Sodium Oral : 3.5 mg daily, Last: 03/07/21. (Electronically signed by Patrizia Sesay 03/08/2021 02:14) Name Value Range Interpretation Code Description Data Jessie rce(s) Supporting Document(s) ID Date Data Source [id number] REFLEX 03/07/2021 09:53:00 PM EST [facility] TSYSORDER [id number] Name Value Range Interpretation Code Description Data Jessie rce(s) Supporting Document(s) URINE RBC 0-2 /hpf 0-3 [facility] URINE WBC 5-10 /hpf 0-5 H [facility] URINE EPITHELIAL CELLS 1+ /hpf 0 [facility] URINE BACTERIA 4+ NONE SEEN [facility] URINE CULTURE ADDED ID Date Data Source [id number] REFLEX 03/07/2021 09:38:00 PM EST [facility] TSYSORDER [id number] Name Value Range Interpretation Code Description Data Jessie rce(s) Supporting Document(s) URINE COLOR. YELLOW [facility] URINE APPEARANCE CLOUDY [facility] l URINE GLUCOSE (UA) NEGATIVE mg/dL NEGATIVE [facility] URINE BILIRUBIN NEGATIVE NEGATIVE [facility] URINE KETONE NEGATIVE mg/dL [facility],URINE 1.020 1.005-1.030 [facility] URINE BLOOD NEGATIVE NEGATIVE [facility] PH,URINE 5.0 5.0-9.0 [facility] URINE PROTEIN NEGATIVE mg/dL NEGATIVE [facility] jam URINE UROBILINOGEN NORMAL(0.2-1) mg/dL 0-1 [facility] URINE NITRATE POSITIVE NEGATIVE [facility] URINE LEUKOCYTE ESTERASE 1+(SMALL) NEGATIVE [facility] ID Date Data Source [id number] 03/07/2021 09:38:00 PM [facility] l TSYSORDER [id number] Name Value Range Interpretation Code Description Data Jessie rce(s) Supporting Document(s) URINE AMPHETAMINES NEGATIVE <1000 ng/mL [facility] pital COCAINE, URINE NEGATIVE <300 ng/mL [facility] THC,URINE NEGATIVE <50 ng/mL [facility] URINE BENZODIAZEPINES NEGATIVE <300 ng/mL [facility] ospital URINE,TCA NEGATIVE <1000 ng/mL [facility] IF A NEGATIVE RESULT IS OBTAINED AND ING ESTION OF TRICYCLICANTIDEPRESSANTS IS SUSPECTED, A SERUM SAMPLE SHOULD BEOBTAINED AND TESTED USING AN APPROPRIATE METHOD. URINE BARBITURATES NEGATIVE <300 ng/mL [facility] ital MDMA NEGATIVE <500 ng/mL [facility] URINE,OPIATES NEGATIVE <300 ng/mL [facility] PCP,URINE NEGATIVE <25 ng/mL [facility] OXYCODONE URINE NEGATIVE <100 ng/mL [facility] l PROPOXYPHENE NEGATIVE <300 ng/mL [facility] THESE TESTS ARE PERFORMED USING AN IMMU NOASSAY FOR THEQUALITATIVE DETERMINATION OF THE PRESENCE OF THE MAJORMETABOLITES OF DRUGS OF ABUSE. THESE TESTS ARE ONLY ASCREENING AND NOT CONFIRMATORY. CLINICAL CONSIDERATION ANDPROFESSIONAL JUDGMENT MUST BE APPLIED TO ANY DRUG OF ABUSETEST RESULT. ID Date Data Source [id number] 03/07/2021 09:51:00 PM [facility] l TSYSORDER [id number] Name Value Range Interpretation Code Description Data Jessie rce(s) Supporting Document(s) LIPASE 263 U/L 73-393 [facility] ID Date Data Source [id number] 03/07/2021 09:51:00 PM [facility] l TSYSORDER [id number] Name Value Range Interpretation Code Description Data Jessie rce(s) Supporting Document(s) GLUCOSE 125 mg/dL 74-106 H [facility] BLOOD UREA NITROGEN 37 mg/dL 7-18 H [facility] ital CREATININE 1.16 mg/dl 0.55-1.02 H [facility] SODIUM 141 mmol/L 136-145 [facility] POTASSIUM 4.4 mmol/L 3.5-5.1 [facility] CHLORIDE 105 mmol/L 98-107 [facility] CO2 26 mmol/L 21-32 [facility] CALCIUM 8.6 mg/dL 8.5-10.1 [facility] ANION GAP 10.0 mmol/L 5-12 [facility] GLOMERULAR FILTRATION RATE 46 mL/min [facility] GFR IS CALCULATED IN mL/min/1.73m2 STEPH L FUNCTION: >90MILDLY DECREASED: 60-89MILDY TO MODERATELY DECREASED: 45-59 MODERATELY TO SEVERELY DECREASED: 30-44SEVERELY DECREASED: 15-29RENAL FAILURE: <15 AST 14 U/L 15-37 L [facility] ALT 27 U/L 14-59 [facility] ALKALINE PHOSPHATASE 125 U/L 46-116 H [facility] pital TOTAL BILIRUBIN 0.5 mg/dL 0.2-1.0 [facility] TOTAL PROTEIN 7.7 g/dL 6.4-8.2 [facility] ALBUMIN 3.8 gm/dL 3.4-5.0 [facility] ID Date Data Source [id number] 03/07/2021 09:51:00 PM [facility] l TSYSORDER [id number] Name Value Range Interpretation Code Description Data Jessie rce(s) Supporting Document(s) PARTIAL THROMBOPLASTIN TIME 38.3 SECONDS 21.3-29.7 H [facility] ID Date Data Source [id number] 03/07/2021 09:51:00 PM [facility] l TSYSORDER [id number] Name Value Range Interpretation Code Description Data Jessie rce(s) Supporting Document(s) PROTHROMBIN TIME (PATIENT) 33.4 SECONDS 9.1-11.3 H [facility] INR 3.39 0.87-1.06 H [facility] ID Date Data Source [id number] 03/07/2021 09:32:00 PM [facility] l TSYSORDER [id number] Name Value Range Interpretation Code Description Data Jessie rce(s) Supporting Document(s) WHITE BLOOD COUNT 5.9 K/mm3 4.0-10.0 [facility] al RED BLOOD COUNT 4.67 M/mm3 4.00-5.50 [facility] HEMOGLOBIN 13.0 gm/dL 12.0-16.0 [facility] HEMATOCRIT 40.1 % 36.0-48.8 [facility] MEAN CELL VOLUME 85.9 fl 80-96 [facility] MEAN CORPUSCULAR HEMOGLOBIN 27.8 pg 27.0-31.0 [facility] MEAN CORPUSCULAR HGB CONC 32.4 g/dl 32.0-36.0 [facility] RED CELL DISTRIBUTION WIDTH 15.7 % 10.0-14.5 H [facility] PLATELET COUNT 130 K/mm3 172-450 L [facility] MEAN PLATELET VOLUME 10.0 fl 9.0-13.0 [facility] pital GRAN % 82.2 % 50-80.0 H [facility] IG% 0.2 % 0.0-0.2 [facility] LYMPH % 11.1 % 25.0-50.0 L [facility] MONO % 4.8 % 2.0-10.0 [facility] EOS % 1.2 % 0-5.0 [facility] BASO % 0.5 % 0.0-2.0 [facility] GRAN # 4.8 K/mm3 2.0-8.00 [facility] IG# 0.0 K/mm3 0.0-0.2 [facility] LYMPH # 0.7 K/mm3 1.0-5.0 L [facility] MONO # 0.3 K/mm3 0.10-1.20 [facility] EOS # 0.1 K/mm3 0.0-0.5 [facility] BASO # 0.0 K/mm3 0.0-0.2 [facility] ID Date Data Source [id number] 03/10/2021 11:00:00 AM [facility] Name Value Range Interpretation Code Description Data Jessie rce(s) Supporting Document(s) ORGANISM [facility] COLONY COUNT N [facility] ID Date Data Source [id number] 03/02/2021 02:49:00 PM EST [facility] Name Value Range Interpretation Code Description Data Jessie rce(s) Supporting Document(s) PROTHROMBIN TIME (PATIENT) 27.6 SECONDS 9.1-11.3 H [facility] INR 2.79 0.87-1.06 [facility] ID Date Data Source [id number] 02/16/2021 01:03:00 PM EST [facility] Name Value Range Interpretation Code Description Data Jessie rce(s) Supporting Document(s) PROTHROMBIN TIME (PATIENT) 24.0 SECONDS 9.1-11.3 H [facility] INR 2.41 0.87-1.06 [facility] ID Date Data Source [id number] 02/01/2021 09:55:00 AM EDT [facility] DATE OF EXAMINATION: 01/31/2021 15:16 EDT MAMMO DIAG UNI WITH CAD HISTORY: Follow-up Based on the personal and family history information your patient supplied atthe time of imaging, her lifetime risk of breast cancer estimated date by theTyrer-Cuzick model is 6.3%. If anything changes in the personal and/or familyhistory this percentage could increase or decrease. Currently, NCCN and ACSrecommended adjunctive breast MRI screening starting at age 30 for women with a> 20-25% lifetime risk of developing breast cancer. Comparison is made to prior study dated 07/13/2020. 2-D left digital mammogram in the CC and MLO planes were performed withsupplemental 3-D tomosynthesis of left breast. The images were analyzed through the latest version of the [employer] computer aideddiagn osis system. The patient states that her last clinical breast examination was not provided. Craniocaudal and oblique lateral views of the left breast were obtained. (B)There are scattered areas of fibroglandular density.. There is no dominant mass,suspicious clustered calcification, or non surgical architectural distortion. IMPRESSION: Previously noted calcifications are unchanged. Final assessment of breast composition BIRAD classification (B) There arescattered areas of fibroglandular density. BIRAD 2 - Benign Findings, Routine Yearly Mammographic Follow-up recommended. 10-15% of cancers are not identified by mammography. This usually occurs whenthe mass is of the same radiographic density as the surrounding breast tissue,emphasizing the importance of breast self examination (BSE) and physicalexamination. A normal mammogram should not delay biopsy if a suspicious mass orabnormal findings are present upon physical examination. Electronically signed in [id number] by: Josiah Saucedo M.D. 02/01/2021 9:49 EDT Name Value Range Interpretation Code Description Data Jessie rce(s) Supporting Document(s) ID Date Data Source [id number] 01/31/2021 03:36:00 PM [facility] Name Value Range Interpretation Code Description Data Jessie rce(s) Supporting Document(s) PROTHROMBIN TIME (PATIENT) 32.1 SECONDS 9.1-11.3 H [facility] INR 3.26 0.87-1.06 H [facility] ID Date Data Source [id number] 01/14/2021 11:10:00 AM [facility] l Name Value Range Interpretation Code Description Data Jessie rce(s) Supporting Document(s) PROTHROMBIN TIME (PATIENT) 21.5 SECONDS 9.1-11.6 H [facility] INR 2.09 0.87-1.06 H [facility] ID Date Data Source [id number] 01/05/2021 01:10:00 PM [facility] l Name Value Range Interpretation Code Description Data Jessie rce(s) Supporting Document(s) PROTHROMBIN TIME (PATIENT) 20.5 SECONDS 9.1-11.6 H [facility] INR 1.98 0.87-1.06 H [facility] ID Date Data Source [id number] 12/31/2020 10:58:00 AM [facility] Name Value Range Interpretation Code Description Data Jessie rce(s) Supporting Document(s) PROTHROMBIN TIME (PATIENT) 32.5 SECONDS 9.1-11.6 H [facility] INR 3.17 0.87-1.06 [facility] Hospital ID Date Data Source [id number] 12/24/2020 11:44:00 AM EDT [facility] l Name Value Range Interpretation Code Description Data Jessie rce(s) Supporting Document(s) PROTHROMBIN TIME (PATIENT) 35.0 SECONDS 9.1-11.6 H [facility] INR 3.41 0.87-1.06 [facility] Hospital ID Date Data Source [id number] 12/13/2020 10:02:00 AM EDT [facility] ([facility]) Name Value Range Interpretation Code Description Data Jessie rce(s) Supporting Document(s) B-Type Natriuretic Peptide 2091 pg/mL 0-125 [facility] ([facility]) ID Date Data Source [id number] 12/13/2020 10:02:00 AM EDT [facility] Name Value Range Interpretation Code Description Data Jessie rce(s) Supporting Document(s) BUN 25 mg/dL 7-18 [facility] Glu 112 mg/dL 74-106 [facility] K 4.2 mmol/L 3.5-5.1 [facility] ([facility]) Cre 1.00 mg/dL 0.6-1.0 [facility] ([facility]) Na 138 mmol/L 136-145 [facility] ([facility]) Co2 22 mmol/L 21-32 [facility] CL 104 mmol/L 98-107 [facility] ([facility]) CA 8.9 mg/dL 8.5-10.1 [facility] GFR 55 mL/min [facility] <content>GFR IS CALCULATED IN mL/min/1.73m2</content>
<content></content>
<content>NORMAL FUNCTION: >90</content>
<content>MILDLY DECREASED: 60-89</content>
<content>MILDY TO MODERATELY DECREASED: 45-59</content>
<content>MODERATELY TO SEVERELY DECREASED: 30-44</content>
<content>SEVERELY DECREASED: 15- 29</content>
<content>RENAL FAILURE: <15</content>
<content></content> Phos 4.0 mg/dL 2.5-4.9 [facility] Alb 3.6 gm/dL 3.4-5.0 [facility] ID Date Data Source [id number] 12/13/2020 10:02:00 AM EDT [facility] Name Value Range Interpretation Code Description Data Jessie rce(s) Supporting Document(s) WBC 6.8 K/mm3 4.0-10.0 [facility] RBC 4.86 M/mm3 4.00-5.50 [facility] ([facility]) MCV 83.1 fl 80-96 [facility] HGB 12.8 gm/dL 12.0-16.0 [facility] ([facility]) HCT 40.4 % 36.0-48.8 [facility] MCH 26.3 pg 27.0-31.0 [facility] RDW 15.9 % 10.0-14.5 [facility] MCHC 31.7 g/dL 32.0-36.0 [facility] MPV 9.6 fl 9.0-13.0 [facility] GR% 78.0 % 50-80.0 [facility] PLT 239 K/mm3 172-450 [facility] Mo% 6.3 % 2.0-10.0 [facility] Ly% 13.1 % 25.0-50.0 [facility] Ig% 0.1 % 0.0-0.2 [facility] Ba% 0.4 % 0.0-2.0 [facility] Eo% 2.1 % 0-5.0 [facility] GR# 5.3 K/mm3 2.0-8.00 [facility] Ig# 0.0 K/mm3 0.0-0.2 [facility] Mo# 0.4 K/mm3 0.10-1.20 [facility] Ly# 0.9 K/mm3 1.0-5.0 [facility] Ba# 0.0 K/mm3 0.0-0.2 [facility] Eo# 0.1 K/mm3 0.0-0.5 [facility] ID Date Data Source [id number] 12/13/2020 11:22:00 AM [facility] l Name Value Range Interpretation Code Description Data Jessie rce(s) Supporting Document(s) B-TYPE NATRIURETIC PEPTIDE 2091 pg/ml 0-125 H [facility] ID Date Data Source [id number] 12/13/2020 11:22:00 AM T [facility] l Name Value Range Interpretation Code Description Data Jessie rce(s) Supporting Document(s) GLUCOSE 112 mg/dL 74-106 H [facility] BLOOD UREA NITROGEN 25 mg/dL 7-18 H [facility] ital CREATININE 1.00 mg/dL 0.6-1.0 [facility] SODIUM 138 mmol/L 136-145 [facility] POTASSIUM 4.2 mmol/L 3.5-5.1 [facility] CHLORIDE 104 mmol/L 98-107 [facility] CO2 22 mmol/L 21-32 [facility] CALCIUM 8.9 mg/dL 8.5-10.1 [facility] GLOMERULAR FILTRATION RATE 55 mL/min [facility] GFR IS CALCULATED IN mL/min/1.73m2 STEPH L FUNCTION: >90MILDLY DECREASED: 60-89MILDY TO MODERATELY DECREASED: 45-59 MODERATELY TO SEVERELY DECREASED: 30-44SEVERELY DECREASED: 15-29RENAL FAILURE: <15 ALBUMIN 3.6 gm/dL 3.4-5.0 [facility] PHOSPHOROUS 4.0 mg/dL 2.5-4.9 [facility] ID Date Data Source [id number] 12/13/2020 10:49:00 AM EDT [facility] l Name Value Range Interpretation Code Description Data Jessie rce(s) Supporting Document(s) PROTHROMBIN TIME (PATIENT) 30.0 SECONDS 9.1-11.6 H [facility] INR 2.91 0.87-1.06 H [facility] ID Date Data Source [id number] 12/13/2020 10:15:00 AM EDT [facility] Name Value Range Interpretation Code Description Data Jessie rce(s) Supporting Document(s) WHITE BLOOD COUNT 6.8 K/mm3 4.0-10.0 [facility] al RED BLOOD COUNT 4.86 M/mm3 4.00-5.50 [facility] HEMOGLOBIN 12.8 gm/dL 12.0-16.0 [facility] HEMATOCRIT 40.4 % 36.0-48.8 [facility] MEAN CELL VOLUME 83.1 fl 80-96 [facility] MEAN CORPUSCULAR HEMOGLOBIN 26.3 pg 27.0-31.0 L [facility] MEAN CORPUSCULAR HGB CONC 31.7 g/dl 32.0-36.0 L [facility] RED CELL DISTRIBUTION WIDTH 15.9 % 10.0-14.5 H [facility] PLATELET COUNT 239 K/mm3 172-450 [facility] MEAN PLATELET VOLUME 9.6 fl 9.0-13.0 [facility] pital GRAN % 78.0 % 50-80.0 [facility] IG% 0.1 % 0.0-0.2 [facility] LYMPH % 13.1 % 25.0-50.0 L [facility] MONO % 6.3 % 2.0-10.0 [facility] EOS % 2.1 % 0-5.0 [facility] BASO % 0.4 % 0.0-2.0 [facility] GRAN # 5.3 K/mm3 2.0-8.00 [facility] IG# 0.0 K/mm3 0.0-0.2 [facility] LYMPH # 0.9 K/mm3 1.0-5.0 L [facility] MONO # 0.4 K/mm3 0.10-1.20 [facility] EOS # 0.1 K/mm3 0.0-0.5 [facility] BASO # 0.0 K/mm3 0.0-0.2 [facility] ID Date Data Source [id number] 12/08/2020 12:27:00 PM [facility] Name Value Range Interpretation Code Description Data Jessie rce(s) Supporting Document(s) PROTHROMBIN TIME (PATIENT) 35.2 SECONDS 9.1-11.6 H [facility] INR 3.42 0.87-1.06 H [facility] ID Date Data Source [id number] 11/26/2020 10:33:00 AM EDT [facility] l Name Value Range Interpretation Code Description Data Jessie rce(s) Supporting Document(s) CHOLESTEROL 121 mg/dL 0-200 [facility] TRIGLYCERIDES 151 mg/dL 0-150 H [facility] LDL CHOLESTEROL 59 mg/dL 0-100 [facility] HDL CHOLESTEROL 32 mg/dL 40-60 L [facility] CHOL/HDL RATIO 3.8 0.0-5.0 [facility] ID Date Data Source [id number] 11/26/2020 10:33:00 AM EDT [facility] l Name Value Range Interpretation Code Description Data Jessie rce(s) Supporting Document(s) GLUCOSE 114 mg/dL 74-106 H [facility] BLOOD UREA NITROGEN 30 mg/dL 7-18 H [facility] ital CREATININE 0.96 mg/dL 0.6-1.0 [facility] SODIUM 141 mmol/L 136-145 [facility] POTASSIUM 4.1 mmol/L 3.5-5.1 [facility] CHLORIDE 107 mmol/L 98-107 [facility] CO2 24 mmol/L 21-32 [facility] CALCIUM 8.8 mg/dL 8.5-10.1 [facility] ANION GAP 10.0 mmol/L 5-12 [facility] GLOMERULAR FILTRATION RATE 58 mL/min [facility] GFR IS CALCULATED IN mL/min/1.73m2 STEPH L FUNCTION: >90MILDLY DECREASED: 60-89MILDY TO MODERATELY DECREASED: 45-59 MODERATELY TO SEVERELY DECREASED: 30-44SEVERELY DECREASED: 15-29RENAL FAILURE: <15 AST 12 U/L 15-37 L [facility] ALT 22 U/L 12-78 [facility] ALKALINE PHOSPHATASE 159 U/L 46-116 H [facility] pital TOTAL BILIRUBIN 0.5 mg/dL 0.2-1.0 [facility] TOTAL PROTEIN 7.3 g/dl 6.4-8.2 [facility] ALBUMIN 3.7 gm/dL 3.4-5.0 [facility] ID Date Data Source [id number] 11/26/2020 10:02:00 AM [facility] l Name Value Range Interpretation Code Description Data Jessie rce(s) Supporting Document(s) FREE T4 1.0 ng/dL 0.76-1.46 [facility] ID Date Data Source [id number] 11/26/2020 10:02:00 AM [facility] Name Value Range Interpretation Code Description Data Jessie rce(s) Supporting Document(s) TSH 0.148 uIU/mL 0.358-3.[address] [facility] ID Date Data Source [id number] 11/26/2020 09:50:00 AM [facility] l Name Value Range Interpretation Code Description Data Jessie rce(s) Supporting Document(s) PROTHROMBIN TIME (PATIENT) 39.4 SECONDS 9.1-11.6 H [facility] INR 3.84 0.87-1.06 H [facility] ID Date Data Source [id number] 11/26/2020 09:48:00 AM [facility] l Name Value Range Interpretation Code Description Data Jessie rce(s) Supporting Document(s) HGBA1C 5.2 % 3.8-5.6 [facility] Diabetic > or = to 6.5%Prediabetes 5.7-6 .4%Normal <5.7 ESTIMATED AVERAGE GLUCOSE 102.5 mg/dL [facility] ID Date Data Source [id number] 11/26/2020 09:48:00 AM EDT [facility] l Name Value Range Interpretation Code Description Data Jessie rce(s) Supporting Document(s) URINE MICROALBUMIN 6.9 mg/L 1.3-20.0 [facility] URINE CREATININE 53.2 mg/dL [facility] al MICROALBUMIN/CREATININE RATIO 12 ug/mg [facility] ID Date Data Source [id number] 11/26/2020 09:33:00 AM EDT [facility] Name Value Range Interpretation Code Description Data Jessie rce(s) Supporting Document(s) WHITE BLOOD COUNT 5.6 K/mm3 4.0-10.0 [facility] al RED BLOOD COUNT 4.60 M/mm3 4.00-5.50 [facility] HEMOGLOBIN 12.4 gm/dL 12.0-16.0 [facility] HEMATOCRIT 39.4 % 36.0-48.8 [facility] MEAN CELL VOLUME 85.7 fl 80-96 [facility] MEAN CORPUSCULAR HEMOGLOBIN 27.0 pg 27.0-31.0 [facility] MEAN CORPUSCULAR HGB CONC 31.5 g/dl 32.0-36.0 L [facility] RED CELL DISTRIBUTION WIDTH 16.3 % 10.0-14.5 H [facility] PLATELET COUNT 148 K/mm3 172-450 L [facility] MEAN PLATELET VOLUME 9.8 fl 9.0-13.0 [facility] pital GRAN % 79.5 % 50-80.0 [facility] IG% 0.2 % 0.0-0.2 [facility] LYMPH % 12.1 % 25.0-50.0 L [facility] MONO % 5.9 % 2.0-10.0 [facility] EOS % 1.8 % 0-5.0 [facility] BASO % 0.5 % 0.0-2.0 [facility] GRAN # 4.5 K/mm3 2.0-8.00 [facility] IG# 0.0 K/mm3 0.0-0.2 [facility] LYMPH # 0.7 K/mm3 1.0-5.0 L [facility] MONO # 0.3 K/mm3 0.10-1.20 [facility] EOS # 0.1 K/mm3 0.0-0.5 [facility] BASO # 0.0 K/mm3 0.0-0.2 [facility] ID Date Data Source [id number] 11/15/2020 12:55:00 PM EDT [facility] Name Value Range Interpretation Code Description Data Jessie rce(s) Supporting Document(s) PROTHROMBIN TIME (PATIENT) 24.6 SECONDS 9.1-11.6 H [facility] INR 2.39 0.87-1.06 [facility] Hospital ID Date Data Source [id number] 11/03/2020 12:44:00 PM EDT [facility] l Name Value Range Interpretation Code Description Data Jsesie rce(s) Supporting Document(s) PROTHROMBIN TIME (PATIENT) 22.6 SECONDS 9.1-11.6 H [facility] INR 2.19 0.87-1.06 [facility] Hospital ID Date Data Source [id number] 10/22/2020 01:45:00 PM EDT [facility] l Name Value Range Interpretation Code Description Data Jessie rce(s) Supporting Document(s) PROTHROMBIN TIME (PATIENT) 22.2 SECONDS 9.1-11.6 H [facility] INR 2.15 0.87-1.06 [facility] Hospital ID Date Data Source [id number] 10/[facility]/2020 [facility]:57[facility] Interpretation Code Description Data Jessie rce(s) Supporting Document(s) PROTHROMBIN TIME (PATIENT) 16.7 SECONDS 9.1-11.6 H [facility] INR 1.62 0.87-1.06 [facility] Hospital ID Date Data Source [id number] 09/30/2020 12:11:00 PM EDT [facility] l Name Value Range Interpretation Code Description Data Jessie rce(s) Supporting Document(s) PROTHROMBIN TIME (PATIENT) 15.9 SECONDS 9.1-11.6 H [facility] INR 1.54 0.87-1.06 [facility] Hospital ID Date Data Source [id number] 09/17/2020 10:16:00 AM EDT [facility]) Name Value Range Interpretation Code Description Data Jessie rce(s) Supporting Document(s) B-Type Natriuretic Peptide 2302 pg/mL 0-125 [facility] ([facility]) Results called to MEHREEN [phone] on 09/17/20 by LAWANDA. ID Date Data Source [id number] 09/17/2020 10:16:00 AM EDT [facility]) Name Value Range Interpretation Code Description Data Jessie rce(s) Supporting Document(s) Glu 84 mg/dL 74-106 [facility] BUN 25 mg/dL 7-18 [facility] Na 138 mmol/L 136-145 [facility] K 3.9 mmol/L 3.5-5.1 [facility] ([facility]) Cre 1.09 mg/dL 0.6-1.0 [facility] ([facility]) CL 104 mmol/L 98-107 [facility] ([facility]) Co2 23 mmol/L 21-32 [facility] GFR 50 mL/min [facility] <content>GFR IS CALCULATED IN mL/min/1.73m2</content>
<content></content>
<content>NORMAL FUNCTION: >90</content>
<content>MILDLY DECREASED: 60-89</content>
<content>MILDY TO MODERATELY DECREASED: 45-59</content>
<content>MODERATELY TO SEVERELY DECREASED: 30-44</content>
<content>SEVERELY DECREASED: 15- 29</content>
<content>RENAL FAILURE: <15</content>
<content></content> Alb 3.9 gm/dL 3.4-5.0 [facility] CA 8.6 mg/dL 8.5-10.1 [facility] Phos 4.8 mg/dL 2.5-4.9 [facility] ID Date Data Source [id number] 09/17/2020 11:24:00 AM EDT [facility] Results called to MEHREEN [phone] on 09/17/20 Laureen. Name Value Range Interpretation Code Description Data [facility]) Supporting Document(s) B-TYPE NATRIURETIC PEPTIDE 2302 pg/ml 0-125 *H [facility] ID Date Data Source [id number] 09/17/2020 11:24:00 AM EDT [facility] Results called to MEHREEN [phone] on 09/17/20-1124 byLAWANDA. Name Value Range Interpretation Code Description Data [facility] rce(s) Supporting Document(s) GLUCOSE 84 mg/dL 74-106 [facility] BLOOD UREA NITROGEN 25 mg/dL 7-18 H [facility] ital CREATININE 1.09 mg/dL 0.6-1.0 H [facility] SODIUM 138 mmol/L 136-145 [facility] POTASSIUM 3.9 mmol/L 3.5-5.1 [facility] CHLORIDE 104 mmol/L 98-107 [facility] CO2 23 mmol/L 21-32 [facility] CALCIUM 8.6 mg/dL 8.5-10.1 [facility] GLOMERULAR FILTRATION RATE 50 mL/min [facility] GFR IS CALCULATED IN mL/min/1.73m2 STEPH L FUNCTION: >90MILDLY DECREASED: 60-89MILDY TO MODERATELY DECREASED: 45-59 MODERATELY TO SEVERELY DECREASED: 30-44SEVERELY DECREASED: 15-29RENAL FAILURE: <15 ALBUMIN 3.9 gm/dL 3.4-5.0 [facility] PHOSPHOROUS 4.8 mg/dL 2.5-4.9 [facility] ID Date Data Source [id number] 09/17/2020 10:44:00 AM [facility] Name Value Range Interpretation Code Description Data [facility] Supporting Document(s) PROTHROMBIN TIME (PATIENT) 17.2 SECONDS 9.1-11.6 H [facility] INR 1.66 0.87-1.06 H [facility] ID Date Data Source [id number] 09/10/2020 01:07:00 PM [facility] Name Value Range Interpretation Code Description Data [facility] Supporting Document(s) PROTHROMBIN TIME (PATIENT) 33.0 SECONDS 9.1-11.6 H [facility] INR 3.21 0.87-1.06 H [facility] ID Date Data Source [id number] 09/02/2020 11:55:00 AM [facility] DATE OF EXAMINATION: 09/02/2020 11:21 EDT HISTORY: Pain fall TECHNIQUE: 1 views of the sacrum coccyx were obtained. FINDINGS: Bones are moderately osteopenic. Moderate osteoarthritis is noted. There is nofracture. IMPRESSION: Moderate osteopenia. Electronically signed in PS360 by: Josiah Saucedo M.D. 09/02/2020 11:49 EDT Name Value Range Interpretation Code Description Data Jessie rce(s) Supporting Document(s) ID Date Data Source [id number] 09/02/2020 11:55:00 AM EDT [facility] DATE OF EXAMINATION: 09/02/2020 11:21 EDT HISTORY: Pain TECHNIQUE: 5 views of the lumbar spine were obtained. FINDINGS: Bones are moderately osteopenic. Moderate levoconvex scoliosis is seen. Severedegenerative changes with diminished disc height and desiccation as well asanterolateral spur formation and bilateral facet hypertrophy seen at all levels. IMPRESSION: Osteopenia scoliosis and degenerative changes as described above. Electronically signed in [id number] by: Josiah Saucedo M.D. 09/02/2020 11:49 EDT Name Value Range Interpretation Code Description Data Jessie rce(s) Supporting Document(s) ID Date Data Source [id number] 09/02/2020 10:31:00 AM EDT [facility] Name Value Range Interpretation Code Description Data Jessie rce(s) Supporting Document(s) PROTHROMBIN TIME (PATIENT) 16.3 SECONDS 9.1-11.6 H [facility] INR 1.58 0.87-1.06 H [facility] ID Date Data Source [id number] 08/20/2020 11:26:00 AM EDT [facility] Name Value Range Interpretation Code Description Data Jessie rce(s) Supporting Document(s) PROTHROMBIN TIME (PATIENT) 14.9 SECONDS 9.1-11.6 H [facility] INR 1.44 0.87-1.06 H [facility] ID Date Data Source [id number] 08/13/2020 10:19:00 AM EDT [facility] Name Value Range Interpretation Code Description Data Jessie rce(s) Supporting Document(s) B-Type Natriuretic Peptide 2075 pg/mL 0-125 [facility] ([facility]) ID Date Data Source [id number] 08/13/2020 10:19:00 AM EDT [facility] ([facility]) Name Value Range Interpretation Code Description Data Jessie rce(s) Supporting Document(s) Glu 99 mg/dL 74-106 [facility] BUN 38 mg/dL 7-18 [facility] Cre 1.38 mg/dL 0.6-1.0 [facility]) Na 138 mmol/L 136-145 [facility] K 3.9 mmol/L 3.5-5.1 [facility]) CL 103 mmol/L 98-107 [facility]) Co2 21 mmol/L 21-32 [facility] GFR 38 mL/min [facility] <content>GFR IS CALCULATED IN mL/min/1.73m2</content>
<content></content>
<content>NORMAL FUNCTION: >90</content>
<content>MILDLY DECREASED: 60-89</content>
<content>MILDY TO MODERATELY DECREASED: 45-59</content>
<content>MODERATELY TO SEVERELY DECREASED: 30-44</content>
<content>SEVERELY DECREASED: 15- 29</content>
<content>RENAL FAILURE: <15</content>
<content></content> CA 8.7 mg/dL 8.5-10.1 [facility] Alb 3.9 gm/dL 3.4-5.0 [facility] Phos 3.9 mg/dL 2.5-4.9 [facility] ID Date Data Source [id number] 08/13/2020 11:15:00 AM EDT [facility] Name Value Range Interpretation Code Description Data Jessie rce(s) Supporting Document(s) B-TYPE NATRIURETIC PEPTIDE 2075 pg/ml 0-125 *[facility] ID Date Data Source [id number] 08/13/2020 11:15:00 AM EDT [facility] Name Value Range Interpretation Code Description Data Jessie rce(s) Supporting Document(s) GLUCOSE 99 mg/dL 74-106 [facility] BLOOD UREA NITROGEN 38 mg/dL 7-18 H [facility] ital CREATININE 1.38 mg/dL 0.6-1.0 H [facility] SODIUM 138 mmol/L 136-145 [facility] POTASSIUM 3.9 mmol/L 3.5-5.1 [facility] CHLORIDE 103 mmol/L 98-107 [facility] CO2 21 mmol/L 21-32 [facility] CALCIUM 8.7 mg/dL 8.5-10.1 [facility] GLOMERULAR FILTRATION RATE 38 mL/min [facility] GFR IS CALCULATED IN mL/min/1.73m2 STEPH L FUNCTION: >90MILDLY DECREASED: 60-89MILDY TO MODERATELY DECREASED: 45-59 MODERATELY TO SEVERELY DECREASED: 30-44SEVERELY DECREASED: 15-29RENAL FAILURE: <15 ALBUMIN 3.9 gm/dL 3.4-5.0 [facility] PHOSPHOROUS 3.9 mg/dL 2.5-4.9 [facility] ID Date Data Source [id number] 08/13/2020 10:43:00 AM EDT [facility] Name Value Range Interpretation Code Description Data [facility]) Supporting Document(s) PROTHROMBIN TIME (PATIENT) 17.2 SECONDS 9.1-11.6 H [facility] INR 1.66 0.87-1.06 H [facility] ID Date Data Source [id number] 08/06/2020 12:31:00 PM EDT [facility] Results called to TRACEE o n 08/06/201239 byLAWANDA. Name Value Range Interpretation Code Description Data [facility](s) Supporting Document(s) PROTHROMBIN TIME (PATIENT) 41.2 SECONDS 9.1-11.6 H [facility] INR 4.01 0.87-1.06 *H [facility] ID Date Data Source [id number] 08/06/2020 11:43:00 AM EDT [facility] ([facility] ) Name Value Range Interpretation Code Description Data [facility](s) Supporting Document(s) Vitamin D, 25-Hydroxy 30.1 ng/mL 30.0-100.0 MED ENT ([facility], ) Vitamin D deficiency has been defined by the [place] of [employer] and an Endocrine Society practice guideline as a level of serum 25-OH vitamin D less than 20 ng/mL (1,2). The Endocrine Society went on to further define vitamin D insufficiency as a level between 21 and 29 ng/mL (2). 1. IOM ([place] of [employer]). 2010. Di etary reference intakes for calcium and D. [place]: The National Academies Press. 2. Margarita MF, Joe NC, Peyton jeong WOODRUFF, et al. Evaluation, treatment, and prevention of vitamin D deficiency: an Endocrine Society clinical practice guideline. JCEM. 2010; 96(2):1911-30. Performed at: RN - [facility] [address] [id number] Operating Room Orderly: Tawanna Alston MD, Phone: [phone] Erythrocyte sedimentation rate by 2H Westergren method 40 mm/hr 0-3 0 [facility] ([facility], ) ID Date Data Source [id number] 08/06/2020 11:43:00 AM EDT [facility] ([facility], ) Name Value Range Interpretation Code Description Data Jessie rce(s) Supporting Document(s) Glu 125 mg/dL 74-106 [facility] ([facility], ) BUN 39 mg/dL 7-18 [facility] ([facility], ) Na 142 mmol/L 136-145 [facility] ([facility], ) K 4.2 mmol/L 3.5-5.1 [facility] ([facility], ) Cre 1.69 mg/dL 0.6-1.0 [facility] ([facility] ) CL 105 mmol/L 98-107 [facility] ([facility], ) CA 8.9 mg/dL 8.5-10.1 [facility] ([facility] ) Co2 24 mmol/L 21-32 [facility] ([facility], ) Gap 13.0 mmol/L 5-12 [facility] ([facility] ) Ast 22 U/L 15-37 [facility] ([facility], ) GFR 30 mL/min [facility] ([facility], ) <content>GFR IS CALCULATED IN mL/min/1.73m2</content>
<content></content>
<content>NORMAL FUNCTION: >90</content>
<content>MILDLY DECREASED: 60-89</content>
<content>MILDY TO MODERATELY DECREASED: 45-59</content>
<content>MODERATELY TO SEVERELY DECREASED: 30-44</content>
<content>SEVERELY DECREASED: 15- 29</content>
<content>RENAL FAILURE: <15</content>
<content></content> Tbili 0.5 mg/dL 0.2-1.0 [facility] ([facility], ) Alk 72 U/L 46-116 [facility] Alt 23 U/L 12-78 [facility] ([facility]) TP 7.8 g/dL 6.4-8.2 [facility] ([facility]) Alb 4.0 gm/dL 3.4-5.0 [facility] ([facility]) ID Date Data Source [id number] 08/06/2020 11:43:00 AM EDT [facility] ([facility]) Name Value Range Interpretation Code Description Data Jessie rce(s) Supporting Document(s) Rheumatoid factor [Units/volume] in Serum or Plasma Laboratory test result [facility] ([facility]) Thyrotropin [Units/volume] in Serum or Plasma 0.364 uIU/mL 0.360-3.74 0 [facility] ([facility]) ID Date Data Source [id number] 08/06/2020 11:43:00 AM EDT [facility] ([facility]) Name Value Range Interpretation Code Description Data Jessie rce(s) Supporting Document(s) RBC 4.38 M/mm3 4.00-5.50 [facility] ([facility] ) WBC 5.1 K/mm3 4.0-10.0 [facility] ([facility]) MCV 87.0 fl 80-96 [facility] ([facility]) HGB 12.2 gm/dL 12.0-16.0 [facility] ([facility]) HCT 38.1 % 36.0-48.8 [facility] ([facility]) MCH 27.9 pg 27.0-31.0 [facility] ([facility]) RDW 15.9 % 10.0-14.5 [facility] ([facility]) MCHC 32.0 g/dL 32.0-36.0 [facility] ([facility]) PLT 172 K/mm3 172-450 [facility] ([facility]) GR% 80.5 % 50-80.0 [facility] ([facility]) MPV 9.1 fl 9.0-13.0 [facility] ([facility]) Mo% 4.7 % 2.0-10.0 [facility] ([facility]) Laboratory test finding (navigational concept) 0.2 % 0.0-0.2 [facility] ([facility]) Ly% 11.8 % 25.0-50.0 [facility] ([facility]) Eo% 1.8 % 0-5.0 [facility] ([facility]) GR# 4.1 K/mm3 2.0-8.00 [facility] ([facility]) Ba% 1.0 % 0.0-2.0 [facility] ([facility]) Mo# 0.2 K/mm3 0.10-1.20 [facility] ([facility]) Laboratory test finding (navigational concept) 0.0 K/mm3 0.0-0.2 [facility] ([facility]) Ly# 0.6 K/mm3 1.0-5.0 [facility] ([facility]) Eo# 0.1 K/mm3 0.0-0.5 [facility] ([facility]) Ba# 0.1 K/mm3 0.0-0.2 [facility] ([facility]) ID Date Data Source [id number] 08/06/2020 11:43:00 AM EDT [facility] ([facility]) Name Value Range Interpretation Code Description Data Jessie rce(s) Supporting Document(s) Nuclear IgG Ab [Units/volume] in Serum by Flow cytomet ry (FC) Laboratory test result [facility] ([facility]) Performed at: [facility] - [facility] [address] [id number] Operating Room Orderly: Tawanna Alston MD, Phone: [phone] ID Date Data Source [id number] 08/06/2020 12:54:00 PM EDT [facility] Name Value Range Interpretation Code Description Data Jessie rce(s) Supporting Document(s) ERYTHROCYTE SEDIMENTATION RATE 40 mm/hr 0-30 H [facility] ID Date Data Source [id number] 08/06/2020 12:00:00 PM EDT [facility] Name Value Range Interpretation Code Description Data Jessie rce(s) Supporting Document(s) WHITE BLOOD COUNT 5.1 K/mm3 4.0-10.0 [facility] RED [facility]LOOD COUNT 4.38 M/mm3 4.00-5.50 [facility] HEMOGLOBIN 12.2 gm/dL 12.0-16.0 [facility] HEMATOCRIT 38.1 % 36.0-48.8 [facility] MEAN CELL VOLUME 87.0 fl 80-96 [facility] MEAN CORPUSCULAR HEMOGLOBIN 27.9 pg 27.0-31.0 [facility] MEAN CORPUSCULAR HGB CONC 32.0 g/dl 32.0-36.0 [facility] RED CELL DISTRIBUTION WIDTH 15.9 % 10.0-14.5 H [facility] PLATELET COUNT 172 K/mm3 172-450 [facility] MEAN PLATELET VOLUME 9.1 fl 9.0-13.0 [facility] pital GRAN % 80.5 % 50-80.0 H [facility] IG% 0.2 % 0.0-0.2 [facility] LYMPH % 11.8 % 25.0-50.0 L [facility] MONO % 4.7 % 2.0-10.0 [facility] EOS % 1.8 % 0-5.0 [facility] BASO % 1.0 % 0.0-2.0 [facility] GRAN # 4.1 K/mm3 2.0-8.00 [facility] IG# 0.0 K/mm3 0.0-0.2 [facility] LYMPH # 0.6 K/mm3 1.0-5.0 L [facility] MONO # 0.2 K/mm3 0.10-1.20 [facility] EOS # 0.1 K/mm3 0.0-0.5 [facility] BASO # 0.1 K/mm3 0.0-0.2 [facility] ID Date Data Source [id number] 08/06/2020 12:44:00 PM EDT [facility] Name Value Range Interpretation Code Description Data Jessie rce(s) Supporting Document(s) GLUCOSE 125 mg/dL 74-106 H [facility] BLOOD UREA NITROGEN 39 mg/dL 7-18 H [facility] ital CREATININE 1.69 mg/dL 0.6-1.0 H [facility] SODIUM 142 mmol/L 136-145 [facility] POTASSIUM 4.2 mmol/L 3.5-5.1 [facility] CHLORIDE 105 mmol/L 98-107 [facility] CO2 24 mmol/L 21-32 [facility] CALCIUM 8.9 mg/dL 8.5-10.1 [facility] ANION GAP 13.0 mmol/L 5-12 H [facility] GLOMERULAR FILTRATION RATE 30 mL/min [facility] GFR IS CALCULATED IN mL/min/1.73m2 STEPH L FUNCTION: >90MILDLY DECREASED: 60-89MILDY TO MODERATELY DECREASED: 45-59 MODERATELY TO SEVERELY DECREASED: 30-44SEVERELY DECREASED: 15-29RENAL FAILURE: <15 AST 22 U/L 15-37 [facility] ALT 23 U/L 12-78 [facility] ALKALINE PHOSPHATASE 72 U/L 46-116 [facility] pital TOTAL BILIRUBIN 0.5 mg/dL 0.2-1.0 [facility] TOTAL PROTEIN 7.8 g/dl 6.4-8.2 [facility] ALBUMIN 4.0 gm/dL 3.4-5.0 [facility] ID Date Data Source [id number] 08/06/2020 12:29:00 PM EDT [facility] Name Value Range Interpretation Code Description Data Jessie rce(s) Supporting Document(s) TSH 0.364 uIU/mL 0.360-3.740 [facility] ID Date Data Source [id number] 08/06/2020 12:22:00 PM EDT [facility] l Name Value Range Interpretation Code Description Data Jessie rce(s) Supporting Document(s) RHEUMATOID FACTOR SCREEN NEGATIVE NEGATIVE [facility] ID Date Data Source [id number] 08/07/2020 02:05:00 PM EDT [facility] l Name Value Range Interpretation Code Description Data Jessie rce(s) Supporting Document(s) TAMIKA DIRECT Negative Negative [facility] Performed at: RN - [facility] [address] [place], [place] [id number] Director: Tawanna Alston MD, Phone: [phone] ID Date Data Source [id number] 08/07/2020 08:06:00 PM EDT [facility] Name Value Range Interpretation Code Description Data Jessie rce(s) Supporting Document(s) VITAMIN D, 25-HYDROXY 30.1 ng/mL 30.0-100.0 [facility] Vitamin D deficiency has been defined by the [place] of[employer]icine and an Endocrine Society practice guideline as alevel of serum 25-OH vitamin D less than 20 ng/mL (1,2).The Endocrine Society went on to further define vitamin Dinsufficiency as a level between 21 and 29 ng/mL (2).1. IOM ([place] of Medicine). 2010. Dietary reference intakes for calcium and D. [place]: The National Academies Press.2. Margarita MF, Joe NC, Madeleine WOODRUFF, et al. Evaluation, treatment, and prevention of vitamin D deficiency: an Endocrine Society clinical practice guideline. JCEM. 2010; 96(7):1911- 30.Performed at: [facility] [id number] Director: Tawanna Alston MD, Phone: [phone] ID Date Data Source [id number] 08/07/2020 02:05:00 PM EDT [facility] Name Value Range Interpretation Code Description Data Jessie rce(s) Supporting Document(s) TAMIKA Direct Negative Negative [facility] ID Date Data Source [id number] 08/07/2020 08:05:00 PM EDT [facility] Name Value Range Interpretation Code Description Data Jessie rce(s) Supporting Document(s) Vitamin D, 25-Hydroxy 30.1 ng/mL 30.0-100.0 [facility] Vitamin D deficiency has been defined by the [place] of[employer]icine and an Endocrine Society practice guideline as alevel of serum 25-OH vitamin D less than 20 ng/mL (1,2).The Endocrine Society went on to further define vitamin Dinsufficiency as a level between 21 and 29 ng/mL (2).1. IOM ([place] of [employer]). 2010. Dietary reference intakes for calcium and D. [place]: The National Academies Press.2. Margarita MF, Joe NC, Madeleine WOODRUFF, et al. Evaluation, treatment, and prevention of vitamin D deficiency: an Endocrine Society clinical practice guideline. JCEM. 2010; 96(7):1911-30. ID Date Data Source [id number] 07/30/2020 12:03:00 PM EDT [facility] Name Value Range Interpretation Code Description Data Jessie rce(s) Supporting Document(s) PROTHROMBIN TIME (PATIENT) 24.6 SECONDS 9.1-11.6 H [facility] INR 2.39 0.87-1.06 H [facility] ID Date Data Source [id number] 07/22/2020 10:58:00 AM EDT [facility] Name Value Range Interpretation Code Description Data Jessie rce(s) Supporting Document(s) PROTHROMBIN TIME (PATIENT) 23.2 SECONDS 9.1-11.6 H [facility] INR 2.25 0.87-1.06 H [facility] ID Date Data Source PROTHROMBIN TIME/INR 07/22/2020 12:00:00 AM EDT eCW1 ([facility]) Name Value Range Interpretation Code Description Data Jessie rce(s) Supporting Document(s) 2.25 0.87-1.06 INR eCW1 ([facility]) 23.2 9.1-11.6 PROTHROMBIN TIME (PATIENT ) eCW1 ([facility]) ID Date Data Source [id number] 07/21/2020 11:50:00 AM EDT [facility] DATE OF EXAMINATION: 07/20/2020 13:57 EDT MAMMO DIAG UNI NO CAD DIAGNOSTIC LEFT SIDED MAMMOGRAM Calcifications seen on the patient's screening mammogram persist and fall intothe probably benign category of findings warranting a six- month follow-upmammogram. IMPRESSION: Six-month follow-up mammogram is recommended. BIRAD 3 - Probably Benign findings, Short interval follow-up suggested. Furthermore, in patients with dense glandular tissue, supplemental imagingmodalities should be considered. 10-15% of cancers are not identified by mammography. This usually occurs whenthe mass is of the same radiographic density as the surrounding breast tissue,emphasizing the importance of breast self examination (BSE) and physicalexamination. A normal mammogram should not delay biopsy if a suspicious mass orabnormal findings are present upon physical examination. Electronically signed in [id number] by: Josiah Saucedo M.D. 07/21/2020 11:44 EDT Name Value Range Interpretation Code Description Data Jessie rce(s) Supporting Document(s) ID Date Data Source [id number] 07/16/2020 11:30:00 AM EDT [facility] DATE OF EXAMINATION: 07/13/2020 12:58 EDT MAMMO SCREEN BILAT WITH CAD HISTORY: Screening Based on the personal and family history information your patient supplied atthe time of imaging, her lifetime risk of breast cancer estimated date by theTyrer-Cuzick model is 6.3%. If anything changes in the personal and/or familyhistory this percentage could increase or decrease. Currently, NCCN and ACSrecommended adjunctive breast MRI screening starting at age 30 for women with a> 20-25% lifetime risk of developing breast cancer. Comparison is made to prior study dated none. 2-D bilateral digital mammogram in the CC and MLO planes were performed withsupplemental 3-D tomosynthesis of both breasts. The images were analyzed through the latest version of the [employer] computer aideddiag nosis system. The patient states that her last clinical breast examination was not provided. Craniocaudal and oblique lateral views of the breasts were obtained. (B) Thereare scattered areas of fibroglandular density. There are 3 clusters ofcalcifications in the upper outer aspect of left breast for which compressionmag straight lateral views is recommended. IMPRESSION: 3 clusters of microcalcifications in the upper outer aspect of left breastwarrant compression mag straight lateral views. Final assessment of breast composition BIRAD classification (B) There arescattered areas of fibroglandular density. BIRAD 0 - Incomplete, needs additional imaging evaluation 10-15% of cancers are not identified by mammography. This usually occurs whenthe mass is of the same radiographic density as the surrounding breast tissue,emphasizing the importance of breast self examination (BSE) and physicalexamination. A normal mammogram should not delay biopsy if a suspicious mass orabnormal findings are present up on physical examination. Electronically signed in [id number] by: Josiah Saucedo M.D. 07/14/2020 13:04 EDT Name Value Range Interpretation Code Description Data Jessie rce(s) Supporting Document(s) ID Date Data Source [id number] 07/18/2020 12:56:00 PM EDT [facility] Name Value Range Interpretation Code Description Data Jessie rce(s) Supporting Document(s) ORGANISM [facility] COLONY COUNT N [facility] ID Date Data Source [id number] 07/15/2020 03:51:00 PM EDT [facility] FA[facility] [phone] Name Value Range Interpretation Code Description Data Jessie rce(s) Supporting Document(s) URINE RBC 3-5 /hpf 0-3 H [facility] URINE WBC 15-20 /hpf 0-5 H [facility] URINE EPITHELIAL CELLS 1+ /hpf 0 [facility] URINE BACTERIA 3+ NONE SEEN H [facility] ID Date Data Source [id number] 07/15/2020 03:51:00 PM EDT [facility] [phone] Name Value Range Interpretation Code Description Data Jessie rce(s) Supporting Document(s) URINE COLOR. LIGHT YELLOW [facility] URINE APPEARANCE SLIGHTY CLOUDY [facility] spital URINE GLUCOSE (UA) NEGATIVE mg/dL NEGATIVE [facility] URINE BILIRUBIN NEGATIVE NEGATIVE [facility] URINE KETONE NEGATIVE mg/dL NEGATIVE [facility] SPECIFIC GRAVITY,URINE 1.010 1.005-1.030 [facility] URINE BLOOD TRACE NEGATIVE [facility] PH,URINE 5.0 5.0-9.0 [facility] URINE PROTEIN NEGATIVE mg/dL NEGATIVE [facility] URINE UROBILINOGEN NORMAL(0.2-1) mg/dL 0-1 [facility] URINE NITRATE NEGATIVE NEGATIVE [facility] URINE LEUKOCYTE ESTERASE 2+(MODERATE) NEGATIVE H [facility] ID Date Data Source [id number] 07/15/2020 04:22:00 PM EDT [facility] FA[facility] [phone] Name Value Range Interpretation Code Description Data Jessie rce(s) Supporting Document(s) URINE MICROALBUMIN 1.6 mg/L 1.3-20.0 [facility] URINE CREATININE 12.5 mg[facility]CREATININE RATIO 12 ug/mg [facility] ID Date Data Source [id number] 07/15/2020 04:21:00 PM EDT [facility] FAX [phone] Name Value Range Interpretation Code Description Data Jessie rce(s) Supporting Document(s) GLUCOSE 121 mg/dL 74-106 H [facility] BLOOD UREA NITROGEN 44 mg/dL 7-18 H [facility] ital CREATININE 1.42 mg/dL 0.6-1.0 H [facility] SODIUM 136 mmol/L 136-145 [facility] POTASSIUM 3.7 mmol/L 3.5-5.1 [facility] CHLORIDE 98 mmol/L 98-107 [facility] CO2 25 mmol/L 21-32 [facility] CALCIUM 8.9 mg/dL 8.5-10.1 [facility] ANION GAP 13.0 mmol/L 5-12 H [facility] GLOMERULAR FILTRATION RATE 37 mL/min [facility] GFR IS CALCULATED IN mL/min/1.73m2 STEPH L FUNCTION: >90MILDLY DECREASED: 60-89MILDY TO MODERATELY DECREASED: 45-59 MODERATELY TO SEVERELY DECREASED: 30-44SEVERELY DECREASED: 15-29RENAL FAILURE: <15 AST 25 U/L 15-37 [facility] ALT 25 U/L 12-78 [facility] ALKALINE PHOSPHATASE 66 U/L 46-116 [facility] pital TOTAL BILIRUBIN 0.5 mg/dL 0.2-1.0 [facility] TOTAL PROTEIN 7.7 g/dl 6.4-8.2 [facility] ALBUMIN 4.1 gm/dL 3.4-5.0 [facility] ID Date Data Source [id number] 07/15/2020 03:28:00 PM EDT [facility] FAX [phone] Name Value Range Interpretation Code Description Data Jessie rce(s) Supporting Document(s) WHITE BLOOD COUNT 6.2 K/mm3 4.0-10.0 [facility]LOOD COUNT 4.42 M/mm3 4.00-5.50 [facility] HEMOGLOBIN 12.1 gm/dL 12.0-16.0 [facility] HEMATOCRIT 37.8 % 36.0-48.8 [facility] MEAN CELL VOLUME 85.5 fl 80-96 [facility] MEAN CORPUSCULAR HEMOGLOBIN 27.4 pg 27.0-31.0 [facility] MEAN CORPUSCULAR HGB CONC 32.0 g/dl 32.0-36.0 [facility] RED CELL DISTRIBUTION WIDTH 15.4 % 10.0-14.5 H [facility] PLATELET COUNT 172 K/mm3 172-450 [facility] ID Date Data Source [id number] 07/15/2020 03:55:00 PM EDT [facility] Name Value Range Interpretation Code Description Data Jessie rce(s) Supporting Document(s) PROTHROMBIN TIME (PATIENT) 29.4 SECONDS 9.1-11.6 H [facility] INR 2.86 0.87-1.06 H [facility] ID Date Data Source [id number] 07/15/2020 07:14:00 AM EDT [facility] Name Value Range Interpretation Code Description Data Jessie rce(s) Supporting Document(s) White Blood Count 6.2 [facility] ([facility]) Hemoglobin 12.1 [facility] ([facility]) Platelets 172 [facility] Red Blood Count 4.62 [facility] Hematocrit 37.8 [facility] ([facility]) ID Date Data Source [id number] 07/15/2020 07:14:00 AM EDT [facility] ([facility] Name Value Range Interpretation Code Description Data Jessie rce(s) Supporting Document(s) Albumin [Mass/volume] in Serum or Plasma 4.1 [facility] ([facility]) Alanine aminotransferase [Enzymatic activity/volume] in Serum or Pl asma 25 [facility] ([facility]) Calcium [Mass/volume] in Serum or Plasma 8.9 [facility] ([facility]) Chloride [Moles/volume] in Serum or Plasma 96 [facility] ([facility]) Carbon dioxide, total [Moles/volume] in Serum or Plasma 25 [facility] ([facility]) Protein [Mass/volume] in Serum or Plasma 7.7 [facility] ([facility]) Potassium [Moles/volume] in Serum or Plasma 3.7 [facility] ([facility]) Alkaline phosphatase [Enzymatic activity/volume] in Serum or Plasma 6 6 [facility] ([facility]) Sodium 136 [facility] Aspartate aminotransferase [Enzymatic activity/volume] in Serum or Plasma 25 [facility] ([facility]) Urea nitrogen [Mass/volume] in Serum or Plasma 44 [facility] ([facility]) Creatinine For GFR 1.42 [facility] ([facility]) Glucose 121 [facility] ([facility]) ID Date Data Source [id number] 07/05/2020 11:52:00 AM EDT [facility] Name Value Range Interpretation Code Description Data Jessie rce(s) Supporting Document(s) PROTHROMBIN TIME (PATIENT) 18.8 SECONDS 9.1-11.6 H [facility] INR 1.82 0.87-1.06 [facility] Hospital ID Date Data Source [id number] 07/02/2020 01:06:00 PM EDT [facility] CALLED TO CHING Victoria/DONALDO Name Value Range Interpretation Code Description Data Jessie rce(s) Supporting Document(s) PROTHROMBIN TIME (PATIENT) 49.7 SECONDS 9.1-11.6 H [facility] INR 4.86 0.87-1.06 *[facility] ID Date Data Source [id number] 06/25/2020 11:57:00 AM EDT [facility] Name Value Range Interpretation Code Description Data Jessie rce(s) Supporting Document(s) PROTHROMBIN TIME (PATIENT) 35.5 SECONDS 9.1-11.6 [facility] INR 3.45 0.87-1.06 [facility] Hospital ID Date Data Source [id number] 06/20/2020 06:24:00 PM EDT [facility] Patient: JESSE HAIRSTON Observation Report - Physicians/[facility].VisitID: [id number] [place] [address] [phone], [facility] Date/Time: 06/20/2020 16:29 Weight:71.6 kg (S). Height/Length:63 inches (S). BMI:28 FAMILY HISTORYFather: Cancer, Diabetes Mellitus, Heart Disease, Hypertension, CVA - Cerebrovascular Accident. INSTRUCTIONSYour Current Medications: Your current home medications have been reviewed. CONTINUE TAKING THE FOLLOWING MEDICATIONS:Acetaminophen Oral : Last: 06/20/20 1500, prn. Atorvastatin Calcium Oral : Tablet 80 mg, 1 tablet daily, Last: 08/22/19. Fenofibrate Oral : Tablet 160 mg, 1 tablet, Last: 06/20/20. Gabapentin Oral : Tablet 600 mg, 1 tablet 3x a day, Last: 06/20/20. Metoprolol Succinate ER Oral : Tablet Extended Release 24 Hour 50 mg, 1 tablet daily, Last: 06/20/20. Ramipril Oral : Capsule 5 mg, 1 capsule daily, Last: 06/20/20. Sertraline HCl Oral : Tablet 100 mg, 1 tablet 2x a day, Last: 06/20/20. Warfarin Sodium Oral : Tablet 3 mg, 1 tablet daily, Last: 06/20/20. (Electronically signed by Param Noel P.A. 06/20/2020 18:22) Name Value Range Interpretation Code Description Data Jessie rce(s) Supporting Document(s) ID Date Data Source [id number] 06/19/2020 10:05:00 AM EDT [facility] Name Value Range Interpretation Code Description Data Jessie rce(s) Supporting Document(s) THYROID PEROXIDASE (TPO) AB 10 IU/mL 0-34 [facility] THYROGLOBULIN ANTIBODY <1.0 IU/mL 0.0-0.9 [facility] Thyroglobulin Antibody measured by Beckm an CoulterMethodologyPerformed at: RN - [facility] [place] [id number] Director: Tawanna Alston MD, Phone: [phone] ID Date Data Source [id number] 06/19/2020 10:05:00 AM EDT [facility] Name Value Range Interpretation Code Description Data Jessie rce(s) Supporting Document(s) Thyroid Peroxidase (TPO) Ab 10 IU/mL 0-34 [facility] Thyroglobulin Antibody <1.0 IU/mL 0.0-0.9 [facility] Thyroglobulin Antibody measured by [employer] an [place] Methodology ID Date Data Source [id number] 06/18/2020 10:46:00 AM EDT [facility] Name Value Range Interpretation Code Description Data Jessie rce(s) Supporting Document(s) FREE T4 1.2 ng/dL 0.76-1.46 [facility] ID Date Data Source [id number] 06/18/2020 10:26:00 AM EDT [facility] Name Value Range Interpretation Code Description Data Jessie rce(s) Supporting Document(s) PROTHROMBIN TIME (PATIENT) 20.4 SECONDS 9.1-11.6 H [facility] INR 1.97 0.87-1.06 H [facility] ID Date Data Source [id number] 06/10/2020 12:56:00 PM EST [facility] Name Value Range Interpretation Code Description Data Jessie rce(s) Supporting Document(s) TSH 0.238 uIU/mL 0.360-3.740 L [facility] ID Date Data Source [id number] 06/10/2020 12:48:00 PM EST [facility] Name Value Range Interpretation Code Description Data Jessie rce(s) Supporting Document(s) GLUCOSE 110 mg/dL 74-106 H [facility] BLOOD UREA NITROGEN 46 mg/dL 7-18 H [facility] ital CREATININE 1.42 mg/dL 0.6-1.0 H [facility] SODIUM 133 mmol/L 136-145 L [facility] POTASSIUM 4.4 mmol/L 3.5-5.1 [facility] CHLORIDE 99 mmol/L 98-107 [facility] CO2 23 mmol/L 21-32 [facility] CALCIUM 9.1 mg/dL 8.5-10.1 [facility] ANION GAP 11.0 mmol/L 5-12 [facility] GLOMERULAR FILTRATION RATE 37 mL/min [facility] GFR IS CALCULATED IN mL/min/1.73m2 STEPH L FUNCTION: >90MILDLY DECREASED: 60-89MILDY TO MODERATELY DECREASED: 45-59 MODERATELY TO SEVERELY DECREASED: 30-44SEVERELY DECREASED: 15-29RENAL FAILURE: <15 AST 24 U/L 15-37 [facility] ALT 23 U/L 12-78 [facility] ALKALINE PHOSPHATASE 70 U/L 46-116 [facility] pital TOTAL BILIRUBIN 0.8 mg/dL 0.2-1.0 [facility] TOTAL PROTEIN 8.2 g/dl 6.4-8.2 [facility] ALBUMIN 4.3 gm/dL 3.4-5.0 [facility] ID Date Data Source [id number] 06/10/2020 12:27:00 PM EST [facility] Name Value Range Interpretation Code Description Data Jessie rce(s) Supporting Document(s) PROTHROMBIN TIME (PATIENT) 18.7 SECONDS 9.1-11.6 H [facility] INR 1.81 0.87-1.06 [facility] ID Date Data Source [id number] 05/20/2020 01:23:00 PM EST [facility] DATE OF EXAMINATION: 05/20/2020 12:31 EST BLADDER ONLY HISTORY: Elevated serum creatinine Real-time ultrasound imaging was performed utilizing B-mode/pepper scale and colorDoppler imaging where applicable. FINDINGS: Distended bladder volume is 235 mL. There is a post void residual of 167 mLcorresponding to 71% of the distended bladder volume.. IMPRESSION: Post void residual 167 mL. Electronically signed in PS360 by: Josiah Saucedo M.D. 05/20/2020 13:17 EST Name Value Range Interpretation Code Description Data Jessie rce(s) Supporting Document(s) ID Date Data Source [id number] 05/20/2020 01:22:00 PM EST [facility] DATE OF EXAMINATION: 05/20/2020 12:31 EST KIDNEYS ONLY COMPARED TO:No prior HISTORY: Elevated serum creatinine Real-time ultrasound imaging was performed utilizing B-mode/pepper scale and colorDoppler imaging where applicable. FINDINGS: The right kidney measures 11.2 cm and the left kidney measures 10 cmlongitudinally. Both kidneys display normal homogeneous echo texture throughoutand show no hydronephrosis. Moderate renal parenchymal atrophy seen bilaterallywith prominence of renal sinus fat. IMPRESSION: Moderate renal atrophy bilaterally. Electronically signed in PS360 by: Josiah Saucedo M.D. 13:16 EST Name Value Range Interpretation Code Description Data Jessie rce(s) Supporting Document(s) ID Date Data Source [id number] 05/19/2020 10:15:00 AM EST [facility] Name Value Range Interpretation Code Description Data Jessie rce(s) Supporting Document(s) PROTHROMBIN TIME (PATIENT) 28.6 SECONDS 9.1-11.6 H [facility] INR 2.78 0.87-1.06 H [facility] ID Date Data Source [id number] 05/14/2020 12:02:00 PM EST [facility] Name Value Range Interpretation Code Description Data Jessie rce(s) Supporting Document(s) URINE MICROALBUMIN 3.5 mg/L 1.3-20.0 [facility] URINE CREATININE 12.5 mg/dL [facility] al MICROALBUMIN/CREATININE RATIO 28 ug/mg [facility] ID Date Data Source [id number] 05/17/2020 12:05:00 PM [facility] Specimen Comment: Source.............Cer vix;EndocervixSpecimen Comment: Dates / Results....LMP 2009Specimen Comment: No. of containers..01 ThinPrep Vial Name Value Range Interpretation Code Description Data Jessie rce(s) Supporting Document(s) REFLEX PAP Comment . [facility] The HPV DNA reflex criteria were not met with this specimenresult therefore, no HPV testing was performed.Performed at: [address] [id number] Director: Angel Rodriguez MD, Phone: [phone] DIAGNOSIS: Comment . [facility] NEGATIVE FOR INTRAEPITHELIAL LESION OR M ALIGNANCY.CELLULAR CHANGES ASSOCIATED WITH ATROPHY ARE PRESENT. SPECIMEN ADEQUACY: Comment . [facility] Satisfactory for evaluation. Endocervic al component may not bedistinguished in cases of atrophy. PERFORMED BY: Comment . [facility] Oneyda Priest, Coffee Sampler (ASCP ) . . . [facility] NOTE: Comment . [facility] The Pap smear is a screening test design ed to aid in thedetection of premalignant and malignant conditions of theuterine cervix. It is not a diagnostic procedure andshould not be used as the sole means of detecting cervicalcancer. Both false-positive and false-negative reports dooccur. HPV METHODOLOGY Comment . [facility] This liquid based ThinPrep(R) pap test w as screened withthe use of an image guided system. ID Date Data Source [id number] 05/17/2020 12:05:00 PM EST [facility] Name Value Range Interpretation Code Description Data Jessie rce(s) Supporting Document(s) IGP,rfx Aptima HPV all [facility] TESTS RESULT FLAG UNI TS REF RANGE LAB Clinician Provided Cytology Information Source.............Cervix;Endocervix Dates / Results....LMP 2008 No. of containers..01 ThinPrep VialDIAGNOSIS: 01 NEGATIVE FOR INTRAEPITHELIAL LESION OR MALIGNANCY. CELLULAR CHANGES ASSOCIATED WITH ATROPHY ARE PRESENT.Specimen adequacy: 01 Satisfactory for evaluation. Endocervical component may not be distinguished in cases of atrophy.Performed by: 01 Oneyda Priest, Coffee Sampler ([facility]). 01Note: Note 01 The Pap smear is a screening test designed to aid in the detection of premalignant and malignant conditions of the uterine cervix. It is not a diagnostic procedure and should not be used as the sole means of detecting cervical cancer. Both false-positive and false-negative reports do occur. Test Methodology: Note 01 This liquid based Thi nPrep(R) pap test was screened with the use of an image guided system.. 01 The HPV DNA reflex criteria were not met with this specimen result therefore, no HPV testing was performed. FLAG LEGEND: L-Low Normal,H-High Normal,LL-Alert Low,HH-Alert High <-Panic Low,>-Panic High,A-Abnormal,AA-Critical Abnormal Performed at:[address] [id number] Angel Rodriguez MD, ID Date Data Source [id number] 05/17/2020 04:05:00 PM EST [facility] Name Value Range Interpretation Code Description Data Jessie rce(s) Supporting Document(s) Pathology Report [facility] . 01Material submitted: .endometrium - ENDOMETRIAL BIOPSY. 01Diagnosi s:SCANT ATROPHIC ENDOMETRIUM.CI 05/17/2020 0936 Local. 01Electronically signed: .Oneyda Bland MD, Pathologist. 01Gross description: .Specimen received in formalin labeled "endometrial biopsy" is a 1.0 x 1.0x 0.3 cm aggregate of white to chong mucoid material. Filtered and totallysubmitted. (1) DE/KWI 05/14/2020 1125 Local. 01Pathologist provided ICD-10:N85.8. 01CPT .[id number] ID Date Data Source [id number] 05/11/2020 12:48:00 PM EST [facility] Name Value Range Interpretation Code Description Data Jessie rce(s) Supporting Document(s) PROTHROMBIN TIME (PATIENT) 31.8 SECONDS 9.1-11.6 H [facility] INR 3.09 0.87-1.06 H [facility] ID Date Data Source [id number] 04/27/2020 11:55:00 AM EST [facility] Name Value Range Interpretation Code Description Data Jessie rce(s) Supporting Document(s) PROTHROMBIN TIME (PATIENT) 26.9 SECONDS 9.1-11.6 H [facility] INR 2.61 0.87-1.06 [facility] ID Date Data Source [id number] 04/23/2020 02:31:14 PM [facility] Name Value Range Interpretation Code Description Data Jessie rce(s) Supporting Document(s) Progress Notes [facility] BVNDYn0hQdSLHjDc83/JPEnfLDOpj3KiZMyjXCs9PAhlHPQyG0KvEHF6sR1pHOM3MMnXSyVbPeYtKYIw lbm [file] AgICAgICAgICAgICAgICAgICAgICAgICAgICAgICAgICAgICAgICAgICAgICAgICAgICAgICAgICAgIC AgDQogICAgICAgICAgICAgICAgICAgICAgICAgICAg ICAgICAgICAgICAgICAgICAgICAgICAgICAgICAgICAgICAgICAgICAgICAgICAgICAgICAgICAgICAg ICAgICAgICAgICAgDQogICAgICAgICAgICAgICAgICAgICAgICAgICAgICAgICAgICAgICAgICAgICAg ICAgICAgICAgICAgICAgICAgICAgICAgICAgICAgIC AgICAgICAgICAgICAgICAgICAgICAgDQogICAgICAgICAgICAgICAgICAgICAgICAgICAgICAgICAgIC AgICAgICAgICAgICAgICAgICAgICAgICAgICAgICAgICAgICAgICAgICAgICAgICAgICAgICAgICAgIC AgICAgDQogICAgICAgICAgICAgICAgICAgICAgICAg ICAgICAgICAgICAgICAgICAgICAgICAgICAgICAgICAgICAgICAgICAgICAgICAgICAgICAgICAgICAg ICAgICAgICAgICAgICAgDQogICAgICAgICAgICAgICAgICAgICAgICAgICAgICAgICAgICAgICAgICAg ICAgICAgICAgICAgICAgICAgICAgICAgICAgICAgIC AgICAgICAgICAgICAgICAgICAgICAgICAgDQogICAgICAgICAgICAgICAgICAgICAgICAgICAgICAgIC AgICAgICAgICAgICAgICAgICAgICAgICAgICAgICAgICAgICAgICAgICAgICAgICAgICAgICAgICAgIC AgICAgICAgDQogICAgICAgICAgICAgICAgICAgICAg ICAgICAgICAgICAgICAgICAgICAgICAgICAgICAgICAgICAgICAgICAgICAgICAgICAgICAgICAgICAg ICAgICAgICAgICAgICAgICAgDQogICAgICAgICAgICAgICAgICAgICAgICAgICAgICAgICAgICAgICAg ICAgICAgICAgICAgICAgICAgICAgICAgICAgICAgIC AgICAgICAgICAgICAgICAgICAgICAgICAgICAgDQogICAgICAgICAgICAgICAgICAgICAgICAgICAgIC AgICAgICAgICAgICAgICAgICAgICAgICAgICAgICAgICAgICAgICAgICAgICAgICAgICAgICAgICAgIC VwMGXvPUAzWDYlODy7F5vcDYZvPAUbTB3tTEd8Vj3+ YQnQRbXtNAZ6quBthN9CHS2gn5BzHDazWRLqo0OzWGl3KX3MOESnJWjnDY2SYUxwks2NMUKjUIGuoTDY x1cyTbLmGXT7JZAnNhogGX8MEIZwJ3hflqJvHNYzXVWOVDyqGQTOEXuzHKLZMJRgRDNsDiTbYlKpPITw VVZvTEJBIKI8JSDxIgJxWODpQARsCZ9NXTFlF808dy GjOR8FEv4ITmDzPW0zwe9GQYtxBCBhIldRWrq0QNicMW7DkDBlzLV8IKKdQYCEOsKiF1fcc1EeYTimBW GPKMoqLQ4Oa8ZgqPMcMIr+Yr4HVK5xm9MjQVi3KQWfRH7idl5FABzSDxIiT2GoyAagSPZwq7tgBDVhYD 0waCDiCVU9AOKezxzdqSzeFFCRfdWrKAXpCD8QXQJ1 SALoUhVgMcNhWKNnETqrJMRDFOoFMwVkY3Orc0OzPaS8HQWaVeQmFGrfIJKwYhX2VT98vBzfDO5FGNUn IKVjCM18JAA9ELMdVs8KIt1OCvIfLG7dxq2AMBvvNVEsTkaDBsa1VCcbBL6RoZWvG5LbeDIrx2xOVlPe V6PIAFT1KXNqLx0BRXAhRyCwOFVnMRnvLE5wYXGrKW FFkHsdkzZ5NC4JAA6ypaEzKR8TKmAgHx5qXw4RJgBoW7DqI1PlWBTnGYELLNrwXT1FQSfiPW4tUT5Ne5 NXkSRgfK9eyz6YTJVcEGWzDfcrtr4OEtpqJ1U8vQzeGBFzBCspKIJURFwkNO6UFQAyASC6CVA6TxFpNI VDCdLtN50vPO2FG7Oku69wXdN1HMQbXzVvMPcoHG39 gGpdemZrlWLkzQwcKI5LNj8+NLrkntNwYmoMCngtHEAIZwDcYJASBgReEMDiJIYlRGGmQyM9LiQeYp4S TCXzAVWnCFRwOiIaIVEoBZFpIQziRMDiYVZjPcu3NUCeVQQsDF8IHzDiQJAoWOZ8RkJhVQQtLRIusa2D RIFlFDWmEBS6ApWoNZLrKDFyGOwhZRQuHGPzRXG4JN OlXKHhEB9IFfBmNHDqJKHjUFTbWZOkUFPjhs4GEBZvTMQdBHT8YtNmZTLuBNJgIWlkYRRdWDF5UeHdZQ KeNRCkNC3GCvRyEOWjLDC5VBGtWLBlZQSheg2XBFXbYNLsXoP9MdPeJKJmUMNpSKzwWVKjBJS7RFD8TD HoPZRtCP8VEvMgMJCvPBsiDAXgFCFwEGZjkz9XDPYl KCKzCdW0BfKyNPKrCEOqZQtrEKCfFBPjWNobYJJoRWHcGP3AVgJmINZdCXXcMjkrTKJaFCIkvj9CQALk OWYaKOVzSBOkLEFlDBFiAHmfBIAjLXZ2MHIoXYVuDGMpYT6VRtJoTLKnQVfqCujhMRLaNUQqgn7NZNKv WFQcRCH1FvEoDAUaFKGlEHhrFUIxUGP8CEA4GKBhRA ZgYB7EKrAvAKRwUpY9CTrrZVFsUHWiyd4YITKrGWBcAIlwSHWtBDXzZTKfGXreCLJkAPCuCLo4ZTOmWO BrQL1WTsVaJYKkNsW5OUdsQQPxBIHoma2WDJXzVKMvVnX9MNXaMBYfRIKnMMunNGJtJKOsMsH8ZEGyVZ MbJU4JGqOcTNCnKoZ2IJgrQCIsZIDvnf6SEHNzINMz CFnrSdYdZXExPDNjQEzmLJImPSC6QCEhAWRqKHMcOY7DWmUyXRYfNrFdMIFeFYHcBKLqow5VMXTkSKSm JXO9WSCcCAOjSZMjIIkuWBNdZXA0DTElZRHnEOWlIX9HUxLrSVHqNmB7KlGhYKNsCRQpcw6AFTEvMIMq MsdcCEJcRNAeSFMnYIzxBISaCRI2MvDeORDdMYLoOE 2LOnRsOKXmUur3CfogGDZpVWGtxm8PGQRgHBAfRPKgPLZyVBMzYPWdWIklRCJiGWBwPEJyAWOlQVPmEC 5FDqSvIVIuOGJ7IBChUBAhGLXxhf6KJSArZMI6JDk1AQSrWVPiUBHrDPerEEQvIZBeFeA1ORUtBKUhOW 3LIiUeGXJqZGGjHJDmNBNtVJGukf0YULRlIQZ8FbZ3 MXRgIICtDLJzEPyuUEFeEOIbSEp4IXFwQOQrTF8XTjOlNTHkJXN1NrghLXLuNCKcbl5IKBXfONU1LAJa EqIzBHXgCBYgHJulTBBwVBT2UdJ5PDLpGDFuAD4IJwQvUQVbTQQ2XKblTKEhQOAnns1BIXQnDEE2HNjq EONrNIAjGQFmQXj2xdEhpHQaCLv8FI0KA0OcfoJlHE YUYq0Sw393WMR5UHRgKc8BL4cbXe8iWCOwIDRSTh7AMJr0KfQ1KuQzUrZ5FCJ2SpCrAfJ5ErP4I1JkYS M0XIVlZYB+OTdvERp3FzYuKKUyMSwpBpD4WWXcVgeqPsBsNPg9O0RfXd0oXDAFQm7+DQpzdGFydHhyZW QUAvB2DPrcYFqdTCIKZh0X ID Date Data Source [id number] 04/21/2020 10:00:00 AM EST [facility] DATED ON EXAMINATION: 04/21/2020 8:44 EST PELVIC COMPLETE TRANS ABDOMEN HISTORY: Postmenopausal bleeding Real-time ultrasound imaging was performed utilizing B- mode/pepper scale and colorDoppler imaging where applicable. Ovaries cannot be seen on transabdominal study. Endometrial stripe is difficultto evaluate. We therefore proceeded with transvaginal ultrasound IMPRESSION: Poor visualization of deep pelvic structures on transabdominal study.. Electronically signed in PS360 by: Josiah Saucedo M.D. 04/21/2020 9:53 EST Name Value Range Interpretation Code Description Data Jessie rce(s) Supporting Document(s) ID Date Data Source [id number] 04/21/2020 10:00:00 AM EST [facility] DATED ON EXAMINATION: 04/21/2020 8:44 EST ENDOVAGINAL/TRANSVAGINAL HISTORY: Postmenopausal. Real-time ultrasound imaging was performed utilizing B- mode/pepper scale and colorDoppler imaging where applicable. Uterus measures 6 x 3 x 3.7 cm. Endometrial stripe is thickened at 7 mm with anirregular appearance. Endometrial carcinoma/hyperplasia is not excluded. D&Cis therefore recommended. There are no adnexal masses or fluid in qyrdpf-cy-uhj. IMPRESSION: Irregular appearing endometrial stripe measuring 7 mm. D&C is recommended. Nonvisualization of left ovary. Electronically signed in [id number] by: Josiah Saucedo M.D. 04/21/2020 9:54 EST Name Value Range Interpretation Code Description Data Jessie rce(s) Supporting Document(s) ID Date Data Source US PELVIC COMPLETE TRANS ABDOMEN - [id number] 04/21/2020 12:00:00 AM EST eCW1 ([facility]) Name Value Range Interpretation Code Description Data Jessie rce(s) Supporting Document(s) US PELVIC COMPLETE TRANS ABDOMEN - [id number] eCW1 ([facility]) ID Date Data Source [id number] 04/14/2020 11:32:00 AM EST MEDENT ([facility] Name Value Range Interpretation Code Description Data Jessie rce(s) Supporting Document(s) Thyroid Stimulating Hormone 0.309 ME DENT ([facility]) Free T4 1.1 MEDENT ([facility] Hemoglobin A1c/Hemoglobin.total in Blood 5.1 MEDENT ([facility]) ID Date Data Source [id number] 04/14/2020 11:32:00 AM EST [facility] Name Value Range Interpretation Code Description Data Jessie rce(s) Supporting Document(s) Albumin [Mass/volume] in Serum or Plasma 4.1 MEDENT ([facility]) Alanine aminotransferase [Enzymatic activity/volume] in Serum or Pl asma 20 MEDENT ([facility]) Carbon dioxide, total [Moles/volume] in Serum or Plasma 25 MEDENT ([facility]) Calcium [Mass/volume] in Serum or Plasma 9.1 MEDENT ([facility]) Chloride [Moles/volume] in Serum or Plasma 102 MEDENT ([facility]) Alkaline phosphatase [Enzymatic activity/volume] in Serum or Plasma 5 7 MEDENT ([facility]) Potassium [Moles/volume] in Serum or Plasma 4.4 MEDENT ([facility]) Protein [Mass/volume] in Serum or Plasma 7.8 MEDENT ([facility]) Sodium 138 MEDENT ([facility]) Urea nitrogen [Mass/volume] in Serum or Plasma 38 MEDENT ([facility]) Aspartate aminotransferase [Enzymatic activity/volume] in Serum or Plasma 22 MEDENT ([facility]) Creatinine For GFR 1.67 MEDENT ([facility]) Glucose 97 MED[facility] ([facility]) ID Date Data Source [id number] 04/14/2020 11:25:00 AM EST [facility] Name Value Range Interpretation Code Description Data Jessie rce(s) Supporting Document(s) Free T4 1.1 MEDENT ([facility] ID Date Data Source [id number] 04/14/2020 11:25:00 AM EST MEDENT ([facility]) Name Value Range Interpretation Code Description Data Jessie rce(s) Supporting Document(s) Hemoglobin A1c/Hemoglobin.total in Blood 5.1 MEDENT ([facility]) ID Date Data Source [id number] 04/14/2020 11:25:00 AM EST MEDENT ([facility]) Name Value Range Interpretation Code Description Data Jessie rce(s) Supporting Document(s) Thyroid Stimulating Hormone 0.309 ME DENT ([facility]) ID Date Data Source [id number] 04/14/2020 11:25:00 AM EST MEDENT ([facility]) Name Value Range Interpretation Code Description Data Jessie rce(s) Supporting Document(s) Albumin [Mass/volume] in Serum or Plasma 4.1 MEDENT ([facility]) Calcium [Mass/volume] in Serum or Plasma 9.1 MEDENT ([facility]) Alanine aminotransferase [Enzymatic activity/volume] in Serum or Pl asma 57 MEDENT ([facility]) Carbon dioxide, total [Moles/volume] in Serum or Plasma 25 MEDENT ([facility]) Chloride [Moles/volume] in Serum or Plasma 102 MEDENT ([facility]) Potassium [Moles/volume] in Serum or Plasma 4.4 MEDENT ([facility]) Alkaline phosphatase [Enzymatic activity/volume] in Serum or Plasma 5 7 MEDENT ([facility]) Protein [Mass/volume] in Serum or Plasma 4.1 MEDENT ([facility]) Sodium 138 MEDENT ([facility]) Aspartate aminotransferase [Enzymatic activity/volume] in Serum or Plasma 22 MEDENT ([facility]) Creatinine For GFR 1.67 MEDENT ([facility]) Glucose 97 MEDENT ([facility]) Urea nitrogen [Mass/volume] in Serum or Plasma 38 MEDENT ([facility]) ID Date Data Source [id number] 04/15/2020 10:10:00 AM EST [facility] Name Value Range Interpretation Code Description Data Jessie rce(s) Supporting Document(s) TRIIODOTHYRONINE (T3) 91 ng/dL 71-180 [facility] Performed at: RN - [facility] [address] [id number] Director: Tawanna Alston MD, Phone: [phone] ID Date Data Source [id number] 04/15/2020 10:05:00 AM EST [facility] Name Value Range Interpretation Code Description Data Jessie rce(s) Supporting Document(s) Triiodothyronine (T3) 91 ng/dL 71-180 [facility] ID Date Data Source [id number] 04/14/2020 12:06:00 PM EST [facility] Name Value Range Interpretation Code Description Data Jessie rce(s) Supporting Document(s) GLUCOSE 97 mg/dL 74-106 [facility] BLOOD UREA NITROGEN 38 mg/dL 7-18 [facility] ital CREATININE 1.67 mg/dL 0.6-1.0 H [facility] SODIUM 138 mmol/L 136-145 [facility] POTASSIUM 4.4 mmol/L 3.5-5.1 [facility] CHLORIDE 102 mmol/L 98-107 [facility] CO2 25 mmol/L 21-32 [facility] CALCIUM 9.1 mg/dL 8.5-10.1 [facility] ANION GAP 11.0 mmol/L 5-12 [facility] GLOMERULAR FILTRATION RATE 31 mL/min [facility] GFR IS CALCULATED IN mL/min/1.73m2 STEPH L FUNCTION: >90MILDLY DECREASED: 60-89MILDY TO MODERATELY DECREASED: 45-59 MODERATELY TO SEVERELY DECREASED: 30-44SEVERELY DECREASED: 15-29RENAL FAILURE: <15 AST 22 U/L 15-37 [facility] ALT 20 U/L 12-78 [facility] ALKALINE PHOSPHATASE 57 U/L 46-116 [facility] pital TOTAL BILIRUBIN 0.5 mg/dL 0.2-1.0 [facility] TOTAL PROTEIN 7.8 g/dl 6.4-8.2 [facility] ALBUMIN 4.1 gm/dL 3.4-5.0 [facility] ID Date Data Source [id number] 04/14/2020 11:58:00 AM EST [facility] Name Value Range Interpretation Code Description Data Jessie rce(s) Supporting Document(s) FREE T4 1.1 ng/dL 0.76-1.46 [facility] ID Date Data Source [id number] 04/14/2020 11:58:00 AM [facility] Name Value Range Interpretation Code Description Data Jessie rce(s) Supporting Document(s) TSH 0.309 uIU/mL 0.36-3.74 L [facility] ID Date Data Source [id number] 04/14/2020 11:54:00 AM EST [facility] Name Value Range Interpretation Code Description Data Jessie rce(s) Supporting Document(s) PROTHROMBIN TIME (PATIENT) 21.6 SECONDS 9.1-11.6 H [facility] INR 2.10 0.87-1.06 H [facility] ID Date Data Source [id number] 04/14/2020 11:35:00 AM EST [facility] Name Value Range Interpretation Code Description Data Jessie rce(s) Supporting Document(s) URINE MICROALBUMIN 2.2 mg/L 1.3-20.0 [facility] jam URINE CREATININE 25.9 mg/dL [facility] al MICROALBUMIN/CREATININE RATIO 8 ug/mg [facility] ID Date Data Source [id number] 04/14/2020 11:33:00 AM EST [facility] l Name Value Range Interpretation Code Description Data Jessie rce(s) Supporting Document(s) HGBA1C 5.1 % 3.8-5.6 [facility] Diabetic > or = to 6.5%Prediabetes 5.7-6 .4%Normal <5.7 ESTIMATED AVERAGE GLUCOSE 99.7 mg/dL [facility] ID Date Data Source TRIIODOTHYRONINE (T3) 04/14/2020 12:00:00 AM EST eCW1 ([facility]) Name Value Range Interpretation Code Description Data Jessie rce(s) Supporting Document(s) 91 71-180 TRIIODOTHYRONINE (T3) eCW 1 ([facility]) ID Date Data Source [id number] 04/14/2020 12:00:00 AM EST eCW1 ([facility]) Name Value Range Interpretation Code Description Data Jessie rce(s) Supporting Document(s) Microalbumin [Mass/volume] in Urine 8 MICROALBUMIN/CREATININE RATIO eCW1 ([facility]) 25.9 URINE CREATININE eCW1 ([facility]) 2.2 1.3-20.0 URINE MICROALBUMIN eCW1 ( [facility]) ID Date Data Source FREE T4 04/14/2020 12:00:00 AM EST eCW1 ([facility]) Name Value Range Interpretation Code Description Data Jessie rce(s) Supporting Document(s) 1.1 0.76-1.46 FREE T4 eCW1 ([facility]) ID Date Data Source [id number] 04/14/2020 12:00:00 AM EST eCW1 ([facility]) Name Value Range Interpretation Code Description Data Jessie rce(s) Supporting Document(s) Hemoglobin A1c/Hemoglobin.total in Blood 5.1 3.8-5.6 HGBA1C eCW1 ([facility]) 99.7 ESTIMATED AVERAGE GLUCOSE eCW1 ([facility]) ID Date Data Source [id number] 04/01/2020 10:34:00 AM EST [facility] Name Value Range Interpretation Code Description Data Jessie rce(s) Supporting Document(s) PROTHROMBIN TIME (PATIENT) 19.4 SECONDS 9.1-11.6 H [facility] INR 1.88 0.87-1.06 H [facility] ID Date Data Source [id number] 03/24/2020 09:50:00 AM EST [facility] Name Value Range Interpretation Code Description Data Jessie rce(s) Supporting Document(s) PROTHROMBIN TIME (PATIENT) 21.4 SECONDS 9.1-11.6 H [facility] INR 2.07 0.87-1.06 [facility] ID Date Data Source [id number] 03/19/2020 11:58:00 AM EST [facility] Name Value Range Interpretation Code Description Data Jessie rce(s) Supporting Document(s) PROTHROMBIN TIME (PATIENT) 23.5 SECONDS 9.1-11.6 H [facility] INR 2.28 0.87-1.06 [facility] ID Date Data Source [id number] 03/11/2020 11:41:00 AM EST [facility] Name Value Range Interpretation Code Description Data Jessie rce(s) Supporting Document(s) PROTHROMBIN TIME (PATIENT) 21.7 SECONDS 9.1-11.6 H [facility] INR 2.11 0.87-1.06 [facility] ID Date Data Source [id number] 03/03/2020 12:07:00 PM EST [facility] Name Value Range Interpretation Code Description Data Jessie rce(s) Supporting Document(s) PROTHROMBIN TIME (PATIENT) 25.2 SECONDS 9.1-11.6 H [facility] INR 2.44 0.87-1.06 [facility] ID Date Data Source [id number] 03/02/2020 10:16:00 AM EST MEDENT ([facility]) Name Value Range Interpretation Code Description Data Jessie rce(s) Supporting Document(s) Carotid Bilateral Laboratory test result MEDENT ([facility]) ID Date Data Source [id number] 02/19/2020 01:08:00 PM EST [facility] Name Value Range Interpretation Code Description Data Jessie rce(s) Supporting Document(s) PROTHROMBIN TIME (PATIENT) 24.0 SECONDS 9.1-11.6 H [facility] INR 2.33 0.87-1.06 [facility] Hospital ID Date Data Source [id number] 02/12/2020 10:40:00 AM EST [facility] Name Value Range Interpretation Code Description Data Jessie rce(s) Supporting Document(s) PROTHROMBIN TIME (PATIENT) 27.8 SECONDS 9.1-11.6 H [facility] INR 2.70 0.87-1.06 [facility] Hospital ID Date Data Source [id number] 02/05/2020 11:00:00 AM EST [facility] Name Value Range Interpretation Code Description Data Jessie rce(s) Supporting Document(s) PROTHROMBIN TIME (PATIENT) 29.9 SECONDS 9.1-11.6 H [facility] INR 2.91 0.87-1.06 [facility] Hospital ID Date Data Source [id number] 01/28/2020 01:05:00 PM EDT [facility] Name Value Range Interpretation Code Description Data Jessie rce(s) Supporting Document(s) PROTHROMBIN TIME (PATIENT) 20.1 SECONDS 9.2-11.6 H [facility] INR 1.97 0.87-1.06 [facility] ID Date Data Source [id number] 01/23/2020 02:26:[address] [facility] Name Value Range Interpretation Code Description Data Jessie rce(s) Supporting Document(s) Progress Notes [facility] UJVOZt5gYvVRXwDp98/JIJkfPTSvg2KvQMxmYIm7RHtwQMVtM0XuLHE5qE1wADO8BNvAMqDzEcJlPNAj lbm [file] ICAgICAgICAgICAgICAgICAgICAgICAgICAgICAgICAgICAgICAgICAgICAgICAgICAgICAgICAgICAg ICAgICAgICAgICAgICAgICAgICAgICAgICAgICANCiAgICAgICAgICAgICAgICAgICAgICAgICAgICAg ICAgICAgICAgICAgICAgICAgICAgICAgICAgICAgIC AgICAgICAgICAgICAgICAgICAgICAgICAgICAgICAgICAgICAgICANCiAgICAgICAgICAgICAgICAgIC AgICAgICAgICAgICAgICAgICAgICAgICAgICAgICAgICAgICAgICAgICAgICAgICAgICAgICAgICAgIC AgICAgICAgICAgICAgICAgICAgICANCiAgICAgICAg ICAgICAgICAgICAgICAgICAgICAgICAgICAgICAgICAgICAgICAgICAgICAgICAgICAgICAgICAgICAg ICAgICAgICAgICAgICAgICAgICAgICAgICAgICAgICANCiAgICAgICAgICAgICAgICAgICAgICAgICAg ICAgICAgICAgICAgICAgICAgICAgICAgICAgICAgIC AgICAgICAgICAgICAgICAgICAgICAgICAgICAgICAgICAgICAgICAgICANCiAgICAgICAgICAgICAgIC AgICAgICAgICAgICAgICAgICAgICAgICAgICAgICAgICAgICAgICAgICAgICAgICAgICAgICAgICAgIC AgICAgICAgICAgICAgICAgICAgICAgICANCiAgICAg ICAgICAgICAgICAgICAgICAgICAgICAgICAgICAgICAgICAgICAgICAgICAgICAgICAgICAgICAgICAg ICAgICAgICAgICAgICAgICAgICAgICAgICAgICAgICAgICANCiAgICAgICAgICAgICAgICAgICAgICAg ICAgICAgICAgICAgICAgICAgICAgICAgICAgICAgIC AgICAgICAgICAgICAgICAgICAgICAgICAgICAgICAgICAgICAgICAgICAgICANCiAgICAgICAgICAgIC AgICAgICAgICAgICAgICAgICAgICAgICAgICAgICAgICAgICAgICAgICAgICAgICAgICAgICAgICAgIC AgICAgICAgICAgICAgICAgICAgICAgICAgICANCiAg ICAgICAgICAgICAgICAgICAgICAgICAgICAgICAgICAgICAgICAgICAgICAgICAgICAgICAgICAgICAg ICAgICAgICAgICAgICAgICAgICAgICAgICAgICAgICAgICAgICANCjw/aBKbX7afnTQsqsP4C8kzMw3R Ea8BKL8jw7LsZCKuHBwhdmPjFicPOoZlHWYiUfeZAu h7GGooEK1MeNEyQ1UeI0KiCQdfYG2XRPIlVVFegHGsUVWgAZKxVoT7CRInADujZJ5LkEVxCJcpMPWvKE MtRG5XSXTnZ518yxSiLX0DEr0IMaDbSX4xxg8XMvZaCHOpLdaYMgq8YVgrRF3ZrFPhkUMvNyVhJEIVAa VcN3syg5BpWoGuYCJJISlkSN6Va5NtvCVdZYl+Pg0K CU9ay2QcSUabCkWoIP8xoh5MLBmPEoQaS5DbxQdpAFAbz5wsZSDyAS8doRExHMB7BTGfhkwmsAmzUQIE efIjHZLeLE3PCYC7HSWwKwGmHxJsFbQnYXX0ScEwDH3tGIcgNW0YEWC3EIawLQKrVJLaE0fLCtIgCTog YSUkmDqjQC6YCcGtW1ItigVsfCBpDkNjWHMQQo3+DQ qcgzFzOttFJnZ8LYJmn7HyBMb5ZN2UWGNwBEavYR9RSXMccE7jLCwaKS8CQmZeTUTmRLVUCnEsH02bzB MtARs6U7ChJaZbRFJkLiqbFFHfEOzcXuIgMMEyHpQfQNsaPL2+ID4+NIxpYL2ITNgjhhSdWXPoQy9UFQ YhCESkSE2kLWNgQPMlQ8C1eAjvYPWPNwGqR1vuzmrc AW7oQPUhN100wExuwlCxUYHsSRGlHj6HRDFzEHO3LSSnmAYzRmZdRHLGVXdkYW1DfVBoQDV3jE2dWLhc BXZvNHWbQ0fHBjMzhVliNG33lLebbrOujDUhWPc+Jd3SPY3os2ZkBTs6lgAfLJnfGIW6XBnqXDVnSPLl QIDjVGG5ALO2URPGInCbTJWnSGTfLIcjCHNyFMQfbq 9JBTIiOIKbYUZxStAiXWDlUHErUQbkTPAbVXZrUJHhXTOaSAFrRB8DYiQtUFEvWTMzFPbbUTOeQCXvbx 0ZPIBdMHZxLLvnAEVdJRRzMAGzXSmwJNOdARQmVKZnXKAuDWEzUR7IWoWlDHGnYUOqURVqJQAdBQNkcl 7SKKYgWOFvAgXzASRnXPCyBXLuDGtyVXLtKRTqSRb7 ZTMhNGEhXD8DHtVmXOLbWMH4XACpANTdHQLhgu2JJBSaYNFjXyL8UtNbTRTfNXGmIFalRJOpSVJzACS4 ZHIqUVGfSH3HZhZjGTWdICAgGtYcSOXoWDXisl6FBZEhJDUbDjR0IKBpUDQlYACwQRxlCJSnFYH4Qof1 SZUnAJLvVV4QAqRwAOFqAEX1LkktYQTuCRCzpg8YCZ LuLUDfSiV0FPGwNQXjBOHiSMziSNPrLHW7TID2LNTvKATwPY3PYzFjXZZjHNerDSMcOATzUCQnqu2UHT WcKVFsYBZ7VZLqFRNxPREgUUovMNGyVJG5IZPcHLQkWXRbDX8LYcCcTONwLfOxYgxvPXOeATUtlu0NWV AwMDAyMDMwOSAwMDAwMCBuDQowMDAwMDIwNDYxIDAw DYDiSG2ARwUcHUozGLHIAqb1RJjbV4c7URGqQT3WK0Ghp7LaEtDmEQHRQXauOA5hwuCiQTNsSg0PW1zW YcgdG9UzNzMzAls2SUKiCIR2DxszOWejT2KkXhFuEFFyTu6fZBM2YvZsQHYvVQx9NAE3RNtcWSL7XDGk GlHsKkO0WIWdPgZfZG5YVd1ZJxO2SVL6kESkGq5VUsR6HSEAWiYjXT4DNVw= ID Date Data Source [id number] 01/20/2020 12:06:00 PM EDT [facility] Name Value Range Interpretation Code Description Data Jessie rce(s) Supporting Document(s) PROTHROMBIN TIME (PATIENT) 33.1 SECONDS 9.2-11.6 H [facility] INR 3.29 0.87-1.06 H [facility] ID Date Data Source [id number] 01/19/2020 02:00:53 PM EDT [facility] Name Value Range Interpretation Code Description Data Jessie rce(s) Supporting Document(s) Telephone Encounter [facility] [id number]/LDPnnPCUtw9EtUEwqZLo2UWiyQLMxS6YuKJF2aT4nVHM9YSvBFcBiDgEwFNQ3 m [file] [id number]= ID Date Data Source [id number] 01/19/2020 01:36:21 PM EDT [facility] Name Value Range Interpretation Code Description Data Jessie rce(s) Supporting Document(s) Telephone Encounter [facility] [id number]/YIDstAFYrs5PlBLvcLPc2JMhcNFMvC4EfFDS5eA6sVXM9NXyUGjYjGbDcWXJ8 lbm [file] v4XBwfHQJ+XL4iPHz+Ky1Ho1MzylE7lcPpMNulBYy5MY0MVBJTR3MCLy== ID Date Data Source [id number] 01/19/2020 01:26:46 PM EDT [facility] Name Value Range Interpretation Code Description Data Jessie rce(s) Supporting Document(s) Telephone Encounter [facility] YECSDg5fBwRAXhSy63/DBWxaLQPxw4MiSMuoHRn9GSgaHWIrZ0TgEHA3nJ6rFFL6BMqXWmHqOgFrTTN8 lbm [file] CyQYUvRsYE2QZPm= Procedure Social History Code Duration Value Status Description Data Source(s ) Smoking 02/14/2021 12:00:00 AM EST Never Smoker completed Never S moker eCW1 ([facility]) Smoking 02/14/2021 12:00:00 AM EST Never Smoker completed Never S moker eCW1 ([facility]) Smoking 02/14/2021 12:00:00 AM EST Never Smoker completed Never S moker eCW1 ([facility]) Smoking 11/18/2020 12:00:00 AM EDT Never Smoker completed Never S moker eCW1 ([facility]) Smoking 11/18/2020 12:00:00 AM EDT Never Smoker completed Never S moker eCW1 ([facility]) Smoking 11/18/2020 12:00:00 AM EDT Never Smoker completed Never S moker eCW1 ([facility]) Smoking 11/18/2020 12:00:00 AM EDT Never Smoker completed Never S moker eCW1 ([facility]) Smoking 11/18/2020 12:00:00 AM EDT Never Smoker completed Never S moker eCW1 ([facility]) Smoking 11/18/2020 12:00:00 AM EDT Never Smoker completed Never S moker eCW1 ([facility]) Smoking 11/18/2020 12:00:00 AM EDT Never Smoker completed Never S moker eCW1 ([facility]) Smoking 11/01/2020 12:00:00 AM EDT Never Smoker completed Never S moker eCW1 ([facility]) Smoking 11/01/2020 12:00:00 AM EDT Never Smoker completed Never S moker eCW1 ([facility]) Smoking 11/01/2020 12:00:00 AM EDT Never Smoker completed Never S moker eCW1 ([facility]) Smoking 11/01/2020 12:00:00 AM EDT Never Smoker completed Never S moker eCW1 ([facility]) Smoking 08/11/2020 12:00:00 AM EDT Patient has never smoked co mpleted Patient has never smoked MEDENT ([facility]) Vital Signs ID Date Data Source UNK Name Value Range Interpretation Code Description Data Source(s) Body height 62 [in_i] 62 [in_i] eCW1 ([facility]) Body temperature 98.2 [degF] 98.2 [degF] eCW1 ( [facility]) Body mass index (BMI) [Ratio] 28.60 kg/m2 28.60 kg/m2 eCW1 ([facility]) Heart rate 79 /min 79 /min eCW1 ([facility]) Body weight 156.4 [lb_av] 156.4 [lb_av] eCW1 ([facility]) Respiratory rate 18 /min 18 /min eCW1 ([facility]) Oxygen saturation in Arterial blood by Pulse oximetry 99 % 99 % eCW1 ([facility]) Body weight 156.00 [lb_av] 156.00 [lb_av] FRANSISCA T ([facility]) Body height 63 [in_i] 63 [in_i] MEDENT ([facility]) 5'3" Body mass index (BMI) [Ratio] 27.6 kg/m2 27.6 k g/m2 MEDENT ([facility]) Systolic blood pressure--sitting 118 mm[Hg] 118 mm[Hg] MEDENT ([facility]) Ra, medium cuff Diastolic blood pressure--sitting 74 mm[Hg] 74 mm[Hg] MEDENT ([facility]) Ra, medium cuff Body height 62 [in_i] 62 [in_i] eCW1 ([facility]) Body weight 157.2 [lb_av] 157.2 [lb_av] eCW1 ([facility]) Body mass index (BMI) [Ratio] 28.75 kg/m2 28.75 kg/m2 eCW1 ([facility]) Body temperature 98.2 [degF] 98.2 [degF] eCW1 ( [facility]) Heart rate 72 /min 72 /min eCW1 ([facility]) Respiratory rate 18 /min 18 /min eCW1 ([facility]) Oxygen saturation in Arterial blood by Pulse oximetry 98 % 98 % eCW1 ([facility]) Body height 62 [in_i] 62 [in_i] eCW1 ([facility]) Body mass index (BMI) [Ratio] 29.01 kg/m2 29.01 kg/m2 eCW1 ([facility]) Heart rate 77 /min 77 /min eCW1 ([facility]) Body temperature 98 [degF] 98 [degF] eCW1 ([facility]) Respiratory rate 17 /min 17 /min eCW1 ([facility]) Oxygen saturation in Arterial blood by Pulse oximetry 98 % 98 % eCW1 ([facility]) Body weight 158.6 [lb_av] 158.6 [lb_av] eCW1 ([facility]) Body weight 157.00 [lb_av] 157.00 [lb_av] MEDEN T ([facility]) Diastolic blood pressure--supine 60 mm[Hg] 60 mm[Hg] MEDENT ([facility]) Body height 63 [in_i] 63 [in_i] MEDENT ([facility] 5'3" Body mass index (BMI) [Ratio] 27.8 kg/m2 27.8 k g/m2 MEDENT ([facility]) Heart rate 78 /min 78 /min MEDENT ([facility]) irregular Respiratory rate 16 /min 16 /min MEDENT ( [facility]) Systolic blood pressure--sitting 118 mm[Hg] 118 mm[Hg] MEDENT ([facility]) Medium cuff, Ra Diastolic blood pressure--sitting 60 mm[Hg] 60 mm[Hg] MEDENT ([facility]) Medium cuff, Ra Systolic blood pressure--supine 118 mm[Hg] 118 mm[Hg] MEDENT ([facility]) Diastolic blood pressure--supine 62 mm[Hg] 62 mm[Hg] MEDENT ([facility]) Diastolic blood pressure--sitting 58 mm[Hg] 58 mm[Hg] MEDENT ([facility]) Medium cuff, Ra Systolic blood pressure--supine 108 mm[Hg] 108 mm[Hg] MEDENT ([facility]) Body weight 164.00 [lb_av] 164.00 [lb_av] MEDEN T ([facility]) Body height 63 [in_i] 63 [in_i] [facility] 5'3" Body mass index (BMI) [Ratio] 29.0 kg/m2 29.0 k g/m2 MEDENT ([facility]) Heart rate 68 /min 68 /min MEDENT ([facility]) irregular Respiratory rate 16 /min 16 /min MEDENT ( [facility]) Systolic blood pressure--sitting 104 mm[Hg] 104 mm[Hg] MEDENT ([facility]) Medium cuff, Ra Body height 62 [in_i] 62 [in_i] eCW1 ([facility]) Body temperature 98.0 [degF] 98.0 [degF] eCW1 ( [facility]) Heart rate 88 /min 88 /min eCW1 ([facility]) Respiratory rate 18 /min 18 /min eCW1 ([place] [facility]) Oxygen saturation in Arterial blood by Pulse oximetry 99 % 99 % eCW1 ([facility]) Body height 62 [in_i] 62 [in_i] eCW1 ([facility]) Body weight 168.8 [lb_av] 168.8 [lb_av] eCW1 ([facility]) Body mass index (BMI) [Ratio] 30.87 kg/m2 30.87 kg/m2 eCW1 ([facility]) Body temperature 98.2 [degF] 98.2 [degF] eCW1 ( [facility]) Heart rate 81 /min 81 /min eCW1 ([facility]) Respiratory rate 17 /min 17 /min eCW1 ([facility]) Oxygen saturation in Arterial blood by Pulse oximetry 99 % 99 % eCW1 ([facility]) Body weight 168.00 [lb_av] 168.00 [lb_av] MEDEN T ([facility]) Systolic blood pressure--supine 102 mm[Hg] 102 mm[Hg] MEDENT ([facility]) Ra Oxygen saturation in Arterial blood by Pulse oximetry --post exerci se 98 % 98 % MEDENT ([facility]) Body height 63 [in_i] 63 [in_i] MEDENT ([facility]) 5'3" Body mass index (BMI) [Ratio] 29.8 kg/m2 29.8 k g/m2 MEDENT ([facility]) Heart rate 88 /min 88 /min MED[facility] ([facility]) irregular Respiratory rate 16 /min 16 /min MEDENT ( [facility]) Systolic blood pressure--sitting 98 mm[Hg] 98 mm[Hg] MEDENT ([facility]) Medium cuff, Ra; 96/52 LA Diastolic blood pressure--sitting 52 mm[Hg] 52 mm[Hg] MEDENT ([facility]) Medium cuff, Ra; 96/52 LA Diastolic blood pressure--supine 56 mm[Hg] 56 mm[Hg] MEDAVINASH ([facility]) Ra Oxygen saturation in Arterial blood by Pulse oximetry 99 % 99 % MEDAVINASH ([facility]) Body height 62 [in_i] 62 [in_i] eCW1 ([facility]) Body weight 166.8 [lb_av] 166.8 [lb_av] eCW1 ([facility]) Body mass index (BMI) [Ratio] 30.50 kg/m2 30.50 kg/m2 eCW1 ([facility]) Body temperature 98.2 [degF] 98.2 [degF] eCW1 ( [facility]) Heart rate 66 /min 66 /min eCW1 ([facility]) Respiratory rate 18 /min 18 /min eCW1 ([facility]) Oxygen saturation in Arterial blood by Pulse oximetry 99 % 99 % eCW1 ([facility]) Body height 62 [in_i] 62 [in_i] eCW1 ([facility]) Body weight 167.2 [lb_av] 167.2 [lb_av] eCW1 ([facility]) Body mass index (BMI) [Ratio] 30.58 kg/m2 30.58 kg/m2 eCW1 ([facility]) Heart rate 62 /min 62 /min eCW1 ([facility]) Respiratory rate 18 /min 18 /min eCW1 ([facility]) Oxygen saturation in Arterial blood by Pulse oximetry 98 % 98 % eCW1 ([facility]) Body height 62 [in_i] 62 [in_i] eCW1 ([facility]) Body temperature 98 [degF] 98 [degF] eCW1 ([facility]) Heart rate 78 /min 78 /min eCW1 ([facility]) Respiratory rate 17 /min 17 /min eCW1 ([facility]) Body weight 166.4 [lb_av] 166.4 [lb_av] eCW1 ([facility]) Body mass index (BMI) [Ratio] 30.43 kg/m2 30.43 kg/m2 eCW1 ([facility]) Oxygen saturation in Arterial blood by Pulse oximetry 98 % 98 % eCW1 ([facility]) Body height 62 [in_i] 62 [in_i] eCW1 ([facility]) Body weight 168.2 [lb_av] 168.2 [lb_av] eCW1 ([facility]) Body mass index (BMI) [Ratio] 30.76 kg/m2 30.76 kg/m2 eCW1 ([facility]) Heart rate 95 /min 95 /min eCW1 ([facility]) Respiratory rate 18 /min 18 /min eCW1 ([facility]) Oxygen saturation in Arterial blood by Pulse oximetry 100 % 100 % eCW1 ([facility]) Body height 62 [in_i] 62 [in_i] eCW1 ([facility]) Body weight 166.6 [lb_av] 166.6 [lb_av] eCW1 ([facility]) Body mass index (BMI) [Ratio] 30.47 kg/m2 30.47 kg/m2 eCW1 ([facility]) Body temperature 98.4 [degF] 98.4 [degF] eCW1 ( [facility]) Heart rate 76 /min 76 /min eCW1 ([facility]) Respiratory rate 20 /min 20 /min eCW1 ([facility]) Oxygen saturation in Arterial blood by Pulse oximetry 99 % 99 % eCW1 ([facility]) Patient Treatment Plan of Care Planned Activity Planned Date Details Description Data Source (s) Acetaminophen 325 MG / tramadol hydrochloride 37.5 MG Oral Tablet 02/28/2021 12:00:00 AM EST eCW1 ([facility]) Acetaminophen 325 MG / tramadol hydrochloride 37.5 MG Oral Tablet 01/19/2021 12:00:00 AM EDT eCW1 ([facility]) Acetaminophen 325 MG / tramadol hydrochloride 37.5 MG Oral Tablet 12/15/2020 12:00:00 AM EDT eCW1 ([facility]) Acetaminophen 325 MG / tramadol hydrochloride 37.5 MG Oral Tablet 12/15/2020 12:00:00 AM EDT eCW1 ([facility]) physical therapy eval and tx - 09/02/2020 12:00:00 AM EDT eCW1 ([facility]) physical therapy eval and tx - 09/02/2020 12:00:00 AM EDT eCW1 ([facility]) physical therapy eval and tx - 09/02/2020 12:00:00 AM EDT eCW1 ([facility]) physical therapy eval and tx - 09/02/2020 12:00:00 AM EDT eCW1 ([facility]) physical therapy eval and tx - 09/02/2020 12:00:00 AM EDT eCW1 ([facility]) physical therapy eval and tx - 09/02/2020 12:00:00 AM EDT eCW1 ([facility]) physical therapy eval and tx - 09/02/2020 12:00:00 AM EDT eCW1 ([facility]) physical therapy eval and tx - 09/02/2020 12:00:00 AM EDT eCW1 ([facility]) physical therapy eval and tx - 09/02/2020 12:00:00 AM EDT eCW1 ([facility]) physical therapy eval and tx - 09/02/2020 12:00:00 AM EDT eCW1 ([facility]) Fluconazole 150 MG Oral Tablet [Diflucan] 08/19/2020 12:00:00 AM ED T eCW1 ([facility]) Fluconazole 150 MG Oral Tablet [Diflucan] 08/19/2020 12:00:00 AM ED T eCW1 ([facility]) Fluconazole 150 MG Oral Tablet [Diflucan] 08/19/2020 12:00:00 AM ED T eCW1 ([facility]) terbinafine 250 MG Oral Tablet 08/16/2020 12:00:00 AM EDT eCW1 ([facility]) terbinafine 250 MG Oral Tablet 08/16/2020 12:00:00 AM EDT eCW1 ([facility]) terbinafine 250 MG Oral Tablet 08/16/2020 12:00:00 AM EDT eCW1 ([facility]) terbinafine 250 MG Oral Tablet 08/16/2020 12:00:00 AM EDT eCW1 ([facility]) terbinafine 250 MG Oral Tablet 08/16/2020 12:00:00 AM EDT eCW1 ([facility]) Warfarin Sodium 2 MG Oral Tablet 08/03/2020 12:00:00 AM EDT eCW1 ([facility]) Warfarin Sodium 2 MG Oral Tablet 08/03/2020 12:00:00 AM EDT eCW1 ([facility]) Warfarin Sodium 2 MG Oral Tablet 08/03/2020 12:00:00 AM EDT eCW1 ([facility]) Voltaren 1 % 07/08/2020 12:00:00 AM EDT e CW1 ([facility]) Diclofenac Sodium 0.01 MG/MG Topical Gel [Voltaren] 07/09/19 21 12:00:00 AM EDT eCW1 ([facility]) Diclofenac Sodium 0.01 MG/MG Topical Gel [Voltaren] 07/09/19 21 12:00:00 AM EDT eCW1 ([facility]) Glucosamine Chondroitin Complx 500-250 MG 07/08/2020 12:00:00 AM ED T eCW1 ([facility]) Magnesium 500 MG 07/08/2020 12:00:00 AM EDT eCW1 ([facility]) Diclofenac Sodium 0.01 MG/MG Topical Gel [Voltaren] 07/09/19 21 12:00:00 AM EDT eCW1 ([facility]) Glucosamine Chondroitin Complx 500-250 MG 07/08/2020 12:00:00 AM ED T eCW1 ([facility]) Magnesium 500 MG 07/08/2020 12:00:00 AM EDT eCW1 ([facility]) Diclofenac Sodium 0.01 MG/MG Topical Gel [Voltaren] 07/09/19 12:00:00 AM EDT eCW1 ([facility]) Glucosamine Chondroitin Complx 500-250 MG 07/08/2020 12:00:00 AM ED T eCW1 ([facility]) Magnesium 500 MG 07/08/2020 12:00:00 AM EDT eCW1 ([facility]) Glucosamine Chondroitin Complx 500-250 MG 07/08/2020 12:00:00 AM ED T eCW1 ([facility]) Diclofenac Sodium 0.01 MG/MG Topical Gel [Voltaren] 07/09/19 12:00:00 AM EDT eCW1 ([facility]) Magnesium 500 MG 07/08/2020 12:00:00 AM EDT eCW1 ([facility]) Glucosamine Chondroitin Complx 500-250 MG 07/08/2020 12:00:00 AM ED T eCW1 ([facility]) Diclofenac Sodium 0.01 MG/MG Topical Gel [Voltaren] 07/09/19 12:00:00 AM EDT eCW1 ([facility]) Magnesium 500 MG 07/08/2020 12:00:00 AM EDT eCW1 ([facility]) Glucosamine Chondroitin Complx 500-250 MG 07/08/2020 12:00:00 AM ED T eCW1 ([facility]) Diclofenac Sodium 0.01 MG/MG Topical Gel [Voltaren] 07/09/19 12:00:00 AM EDT eCW1 ([facility]) Magnesium 500 MG 07/08/2020 12:00:00 AM EDT eCW1 ([facility]) Glucosamine Chondroitin Complx 500-250 MG 07/08/2020 12:00:00 AM ED T eCW1 ([facility]) Diclofenac Sodium 0.01 MG/MG Topical Gel [Voltaren] 07/09/19 12:00:00 AM EDT eCW1 ([facility]) Magnesium 500 MG 07/08/2020 12:00:00 AM EDT eCW1 ([facility]) Glucosamine Chondroitin Complx 500-250 MG 07/08/2020 12:00:00 AM ED T eCW1 ([facility]) Diclofenac Sodium 0.01 MG/MG Topical Gel [Voltaren] 07/09/19 21 12:00:00 AM EDT eCW1 ([facility]) Diclofenac Sodium 0.01 MG/MG Topical Gel [Voltaren] 07/09/19 21 12:00:00 AM EDT eCW1 ([facility]) Magnesium 500 MG 07/08/2020 12:00:00 AM EDT eCW1 ([facility]) Glucosamine Chondroitin Complx 500-250 MG 07/08/2020 12:00:00 AM ED T eCW1 ([facility]) Diclofenac Sodium 0.01 MG/MG Topical Gel [Voltaren] 07/09/19 12:00:00 AM EDT eCW1 ([facility]) Magnesium 500 MG 07/08/2020 12:00:00 AM EDT eCW1 ([facility]) Glucosamine Chondroitin Complx 500-250 MG 07/08/2020 12:00:00 AM ED T eCW1 ([facility]) Diclofenac Sodium 0.01 MG/MG Topical Gel [Voltaren] 07/09/19 21 12:00:00 AM EDT eCW1 ([facility]) Magnesium 500 MG 07/08/2020 12:00:00 AM EDT eCW1 ([facility]) Voltaren 1 % 07/08/2020 12:00:00 AM EDT e CW1 ([facility]) Diclofenac Sodium 0.01 MG/MG Topical Gel [Voltaren] 07/09/19 21 12:00:00 AM EDT eCW1 ([facility]) Diclofenac Sodium 0.01 MG/MG Topical Gel [Voltaren] 07/09/19 21 12:00:00 AM EDT eCW1 ([facility]) Diclofenac Sodium 0.01 MG/MG Topical Gel [Voltaren] 07/09/19 21 12:00:00 AM EDT eCW1 ([facility]) Voltaren 1 % 07/08/2020 12:00:00 AM EDT e CW1 ([facility]) Voltaren 1 % 07/08/2020 12:00:00 AM EDT e CW1 ([facility]) Diclofenac Sodium 0.01 MG/MG Topical Gel [Voltaren] 07/09/19 12:00:00 AM EDT eCW1 ([facility]) Voltaren 1 % 07/08/2020 12:00:00 AM EDT e CW1 ([facility]) Magnesium 500 MG 07/08/2020 12:00:00 AM EDT eCW1 ([facility]) Glucosamine Chondroitin Complx 500-250 MG 07/08/2020 12:00:00 AM ED T eCW1 ([facility]) Warfarin Sodium 1 MG Oral Tablet 04/01/2020 12:00:00 AM EST eCW1 ([facility]) Warfarin Sodium 1 MG Oral Tablet 04/01/2020 12:00:00 AM EST eCW1 ([facility]) Warfarin Sodium 1 MG Oral Tablet 04/01/2020 12:00:00 AM EST eCW1 ([facility]) Warfarin Sodium 1 MG Oral Tablet 04/01/2020 12:00:00 AM EST eCW1 ([facility]) Warfarin Sodium 1 MG Oral Tablet 04/01/2020 12:00:00 AM EST eCW1 ([facility]) Warfarin Sodium 1 MG Oral Tablet 04/01/2020 12:00:00 AM EST eCW1 ([facility]) coumadin 1mg 04/01/2020 12:00:00 AM EST e CW1 ([facility]) Warfarin Sodium 2.5 MG Oral Tablet 04/01/2020 12:00:00 AM EST eCW1 ([facility]) Warfarin Sodium 2 MG Oral Tablet 04/01/2020 12:00:00 AM EST eCW1 ([facility]) Warfarin Sodium 1 MG Oral Tablet 04/01/2020 12:00:00 AM EST eCW1 ([facility]) coumadin 1mg 04/01/2020 12:00:00 AM EST e CW1 ([facility]) Warfarin Sodium 2.5 MG Oral Tablet 04/01/2020 12:00:00 AM EST eCW1 ([facility]) Warfarin Sodium 2 MG Oral Tablet 04/01/2020 12:00:00 AM EST eCW1 ([facility]) Warfarin Sodium 1 MG Oral Tablet 04/01/2020 12:00:00 AM EST eCW1 ([facility]) coumadin 1mg 04/01/2020 12:00:00 AM EST e CW1 ([facility]) Warfarin Sodium 2.5 MG Oral Tablet 04/01/2020 12:00:00 AM EST eCW1 ([facility]) Warfarin Sodium 2 MG Oral Tablet 04/01/2020 12:00:00 AM EST eCW1 ([facility])
[2021-03-11 04:53] LABS: INR 3.91; PROTHROMBIN TIME 38.5 SECONDS (12.7-14.5)
[2021-03-11 05:09] LABS: BLOOD UREA NITROGEN 33 MG/DL (7-18); CALCIUM LEVEL 8.9 MG/DL (8.8-10.2); CARBON DIOXIDE LEVEL 22 MEQ/L (21-32); CHLORIDE LEVEL 113 MEQ/L (98-107); CREATININE FOR GFR 0.93 MG/DL (0.55-1.30); GLOMERULAR FILTRATION RATE > 60.0 (>45); GLUCOSE, FASTING 91 MG/DL (70-100); MAGNESIUM LEVEL 2.3 MG/DL (1.8-2.4); POTASSIUM SERUM 4.1 MEQ/L (3.5-5.1); SODIUM LEVEL 140 MEQ/L (136-145)
[2021-03-11 08:00] VITALS: BP 126/67
[2021-03-11 08:21] LABS: PROLACTIN 8.7 NG/ML
[2021-03-11] MEDS ORDERED: SPIRONOLACTONE 12.5MG PER 1/2 TABLET PO SCH (09:00)
[2021-03-11] MEDS ORDERED: ramipriL 5 MG CAP PO SCH (09:00)
[2021-03-11] MEDS ORDERED: METOPROLOL SUCC (TopROL XL) 50MG **XL** TAB PO SCH (09:00)
[2021-03-11] MEDS: ATORVASTATIN 20 MG TAB PO SCH (10:24)
[2021-03-11] MEDS: SERTRALINE 100 MG TAB PO SCH ×2 (10:25→20:48)
[2021-03-11] MEDS: GABAPENTIN 300 MG CAP PO SCH ×3 (10:25→20:48)
[2021-03-11] MEDS: MULTIVITAMINS/MINERALS THERAP 1 TAB PO SCH (10:26)
[2021-03-11] MEDS: TOPIRAMATE (TopAMAX) 100 MG TAB PO SCH ×2 (10:27→20:48)
[2021-03-11] MEDS: TOPIRAMATE (TopAMAX) 25 MG TAB PO SCH ×2 (10:27→20:48)
[2021-03-11] MEDS: ULTRACET TAB PO SCH ×3 (10:37→20:49)
[2021-03-11] MEDS: METOPROLOL SUCC *XL* 25MG TAB (TopROL *XL*) PO SCH (10:47)
--- NOTE | 2021-03-11 10:51 | IPNPDOC ---
Text Note Date of Service The patient was seen on 03/11/21. NOTE SUBJECTIVE: -No acute events overnight. Denies any dizziness, no headache at this time, no chest pain, palpitations, LOC. PHYSICAL EXAMINATION: VITAL SIGNS: see below GENERAL APPEARANCE: NAD, conversational, pleasant HEENT: NCAT, has central alopecia, EOMI, MMM CARDIOVASCULAR: Irregular rhythm, normal rate, has a systolic murmur and mechanical valve click LUNGS: CTAB, no wheezing, rales or rhonchi ABDOMEN: Protuberant, has central obesity, otherwise soft, normoactive sounds, nontender MUSCULOSKELETAL: Thin extremities with central obesity. 5/5 strength throughout EXTREMITIES: WWP, no LE edema NEUROLOGICAL: CN3-12 intact, 5/5 strength in both upper and lower extremities, normal gait with her cane PSYCHIATRIC: AOx3 LABORATORY DATA: Reviewed. IMAGING: Reviewed above. Please see imaging section MICROBIOLOGY: Please see below. ASSESSMENT: 70 yo W with a history of AVR on warfarin, chronic Afib on toprol and warfarin, migraine headaches for which she sees Dr. Limon on topamax 150mg BID, HLD, HTN, depression, history of sarcoidosis and "thyroid problems" but recently labs were normal and she off meds, who was at her recent baseline until 2d ago when she had 2 episodes of transient seizure like activity with brief postictal AMS who is now being admitted for potential seizure activity. PLAN: Suspected seizure like activity: I am actually concerned about potential symptomatic hypotension. Ms. Hairston told me that she used to be >300lbs and lost a lot of weight after she was taken off chronic prednisone. She has been on ramipril and toprol for a while and it is possible that her HTN has also improved and thus is currently overtreated. The reason I worry about this is because she is normotensive here before we give anything and this morning her BP is <110 and this is before she gets any medications. I will therefore at this time reduce her toprol to 25mg from 50mg as she also has Afib and is beneficial for rate control, will hold ACEi and aldactone. -spot EEG pending -CT head was without acute pathology -UA not collected not sure why. Will ask to be collected -BCx NGTD -CXR unremarkable -normoglycemic at this time, electrolytes are within normal limits at this time -check free T4 given low TSH -continue home topamax -PRN ativan for seizure like activity -prolactin was wnl -syphillis negative -will consider neuro consult after initial workup, if persisting, will otherwise schedule for outpatient follow up with Dr. Braxton Coats fib: -Plan is to continue warfarin but will hold for now given supratherapeutic INR -daily INR check -continue toprol XL at 25mg daily with hold parameters AVR: -Plan is to continue warfarin but will hold for now given supratherapeutic INR -daily INR check Depression: -continue sertraline Chronic pain: -continue tramadol/acetaminophen, gabapentin HTN: -Hold ramipril and aldactone -reduce toprol XL from 50 to 25mg daily with hold parameters HLD: -continue lipitor DVT ppx: on warfarin Code status: FULL VS,Fishbone, I+O VS, Fishbone, I+O Laboratory Tests 03/10/21 13:45 03/11/21 04:21 Vital Signs Date Time Temp Pulse Resp B/P (MAP) Pulse Ox O2 Delivery O2 Flow Rate FiO2 03/11/21 07:00 72 03/11/21 06:00 109/57 (74) 03/11/21 03:45 98.1 16 98 Room Air ADDIE VELAZQUEZ MD Mar 11, 2021 10:51
[2021-03-11 11:47] LABS: FREE T4 1.09 NG/DL (0.76-1.46)
[2021-03-11 14:00] VITALS: BP 112/66
[2021-03-11] MEDS ORDERED: WARFARIN SOD 1MG TAB PO SCH (17:00)
[2021-03-11] MEDS ORDERED: WARFARIN SOD 4MG TAB PO SCH (17:00)
[2021-03-11 22:00] VITALS: BP 109/60
[2021-03-12 06:00] VITALS: BP 111/61
[2021-03-12 06:40] LABS: HEMATOCRIT 38.4 % (36.0-47.0); HEMOGLOBIN 12.1 g/dl (12.0-15.5); MEAN CORPUSCULAR HEMOGLOBIN 27.6 pg (27.0-33.0); MEAN CORPUSCULAR HGB CONC 31.5 g/dl (32.0-36.5); MEAN CORPUSCULAR VOLUME 87.7 fl (80.0-96.0); PLATELET COUNT, AUTOMATED 130 10^3/uL (150-450); RED BLOOD COUNT 4.38 10^6/uL (4.00-5.40); WHITE BLOOD COUNT 6.4 10^3/uL (4.0-10.0)
[2021-03-12 06:52] LABS: INR 2.06; PROTHROMBIN TIME 23.6 SECONDS (12.7-14.5)
[2021-03-12 06:59] LABS: BLOOD UREA NITROGEN 34 MG/DL (7-18); CALCIUM LEVEL 8.8 MG/DL (8.8-10.2); CARBON DIOXIDE LEVEL 18 MEQ/L (21-32); CHLORIDE LEVEL 114 MEQ/L (98-107); CREATININE FOR GFR 0.98 MG/DL (0.55-1.30); GLOMERULAR FILTRATION RATE > 60.0 (>45); GLUCOSE, FASTING 110 MG/DL (70-100); MAGNESIUM LEVEL 2.2 MG/DL (1.8-2.4); SODIUM LEVEL 140 MEQ/L (136-145)
[2021-03-12] MEDS: MULTIVITAMINS/MINERALS THERAP 1 TAB PO SCH (08:31)
[2021-03-12] MEDS: ATORVASTATIN 20 MG TAB PO SCH (08:31)
[2021-03-12] MEDS: GABAPENTIN 300 MG CAP PO SCH (08:31)
[2021-03-12 08:32] VITALS: BP 114/65
[2021-03-12] MEDS: METOPROLOL SUCC *XL* 25MG TAB (TopROL *XL*) PO SCH (08:32)
[2021-03-12] MEDS: TOPIRAMATE (TopAMAX) 25 MG TAB PO SCH (08:32)
[2021-03-12] MEDS: TOPIRAMATE (TopAMAX) 100 MG TAB PO SCH (08:32)
[2021-03-12] MEDS: SERTRALINE 100 MG TAB PO SCH (08:32)
[2021-03-12] MEDS: ULTRACET TAB PO SCH (08:33)
[2021-03-12] MEDS ORDERED: METO1TAB32 PO (08:34)
[2021-03-12] MEDS ORDERED: GABA-282 PO (08:34)
--- NOTE | 2021-03-12 08:54 | DS.PDOC ---
Discharge Summary General Date of Admission Mar 10, 2021 at 12:37 Date of Discharge 03/12/2021 Attending Physician: ADDIE VELAZQUEZ MD Discharge Summary PROCEDURES PERFORMED DURING STAY: None ADMITTING DIAGNOSES: Seizure-like activity with brief LOC DISCHARGE DIAGNOSES: Suspect iatrogenic symptomatic hypotension AVR HTN HLD History of sarcoidosis Chronic Afib COMPLICATIONS/CHIEF COMPLAINT: Seizure Activity. HISTORY OF PRESENT ILLNESS: 70 yo W with a history of AVR on warfarin, chronic Afib on toprol and warfarin, migraine headaches for which she sees Dr. Limon on topamax 150mg BID, HLD, HTN, depression, history of sarcoidosis and "thyroid problems" but recently labs were normal and she is off meds, who was at her recent baseline until 2d prior to admission when she had a sudden loss of consciousness with unresponsiveness and body jerking that appeared seizure like to her son who took her to [facility] where she had a UA that was positive without any complaints of dysuria or fever and was started on cefdnir. Their CT scanner was unfortunately down and so she never had a CT head and was discharged home with plan to follow up with her neurologist promptly but they did not have a prompt appointment for her and then the evening before presentation she had another episode that lasted about 20 sec and had a brief unresponsive period after and confusion that last 1-2min thus his decision to bring her in. Both she and her son denied any history of fever, chills, chest pain, palpitations, rhinorrhea, congestion, dysuria, abdominal pain, dizziness or complaints of illness in general except these two distinct episodes. HOSPITAL COURSE: In the ED, she was hemodynamically stable and afebrile and breathing comfortably. She reported a slight headache but otherwise was thirsty and hungry. She is hard of hearing but was otherwise fully oriented. I spoke with her son who lives with her and told me that she uses a cane and walker at baseline and does not have a seizure disorder history. In the ED workup included a CT head that showed an expanded empty sella without ventriculomegaly, no bleeding, masses or mass effect, WBC was 6.2, hgb 13.3, Na 138, Na 140, K 4.2, BUN 37, Cr 1.16, AST 16, ALT 23, TSH 0.63. Respiratory panel was negative. She was admitted for workup of this potential seizure activity. Throughout her course, I actually became concerned about potential symptomatic hypotension. Ms. Hairston told me that she used to be >300lbs and lost a lot of weight after she was taken off chronic prednisone. She has been on ramipril, aldactone and toprol for a while and it is highly likely that her HTN has also improved with this dramatic weight loss and thus is currently overtreated. The reason I worried about this is because she was normotensive here before we gave anything and her average SBP is between 100 and 110 with reduced dose of metoprolol and holding the ramipril and aldactone. I will therefore at this time prescribe her the reduced dose of toprol of 25mg from 50mg as she also has Afib and is beneficial for rate control, and will discontinue the ACEi and aldactone. With regard to possible seizure activity, I cannot with full confidence say that she did not have seizure at home, but she has not had any activity suggestive of such while in the hospital with frequent neurochecks, CT head that showed an empty sella bu t no other irena pathology, prolactin that was normal and with normal neurochecks, no seizure like activity or LOC and a normal prolactin, I had low expectation that a spot EEG would yield dividends, so I am going to discharge her home with close PCP follow up and to follow up with neurology within 2w. DISCHARGE MEDICATIONS: Please see below. ALLERGIES: Please see below. PHYSICAL EXAMINATION ON DISCHARGE: VITAL SIGNS: Please see below. GENERAL APPEARANCE: NAD, conversational, pleasant HEENT: NCAT, has central alopecia, EOMI, MMM CARDIOVASCULAR: Irregular rhythm, normal rate, has a systolic murmur and mechanical valve click LUNGS: CTAB, no wheezing, rales or rhonchi ABDOMEN: Protuberant, has central obesity, otherwise soft, normoactive sounds, nontender MUSCULOSKELETAL: Thin extremities with central obesity. 5/5 strength throughout EXTREMITIES: WWP, no LE edema NEUROLOGICAL: CN3-12 intact, 5/5 strength in both upper and lower extremities, normal gait with her cane PSYCHIATRIC: AOx3 LABORATORY DATA: Please see below. IMAGING: CT head: Brain: There is no acute intracranial hemorrhage or mass effect. Moderate diffuse volume loss is within the range of normal for patient age. There are small vessel ischemic changes within the periventricular and subcortical white matter, but the normal pepper-white matter delineation is maintained. Sella: There is an expanded and empty sella. Cerebral ventricles: No ventriculomegaly. Paranasal sinuses: Visualized sinuses are unremarkable. No fluid levels. Mastoid air cells: Visualized mastoid air cells are well aerated. Bones/joints: Unremarkable. No acute fracture. Soft tissues: Unremarkable. IMPRESSION: No acute hemorrhage or edema. CXR: No acute disease PROGNOSIS: Good ACTIVITY: As tolerated DIET: 2g sodium DISCHARGE PLAN: Home with close PCP and neurology follow up. Reduced antihypertensive therapy to 25mg toprol XL daily only, and stopped ramipril and aldactone. DISPOSITION: Home DISCHARGE INSTRUCTIONS: Home with close PCP and neurology follow up. Reduced antihypertensive therapy to 25mg toprol XL daily only, and stopped ramipril and aldactone. ITEMS TO FOLLOWUP ON ON OUTPATIENT: HTN Neuro f/u for recent seizure like activity DISCHARGE CONDITION: Stable TIME SPENT ON DISCHARGE: 48 minutes. Vital Signs/I&Os Vital Signs Date Time Temp Pulse Resp B/P (MAP) Pulse Ox O2 Delivery O2 Flow Rate FiO2 03/12/21 08:33 19 03/12/21 08:32 77 114/65 03/12/21 06:00 97.5 94 Room Air I&O- Last 24 Hours up to 6 AM 03/12/21 06:00 Intake Total 940 ml Output Total 0 ml Balance 940 ml Laboratory Data Labs 24H Laboratory Tests 2 03/12/21 05:44: Nucleated Red Blood Cells % (auto) 0.0, Prothrombin Time 23.6H, Prothromb Time International Ratio 2.06, Anion Gap 8, Glomerular Filtration Rate > 60.0, Calcium Level 8.8, Magnesium Level 2.2 CBC/BMP Laboratory Tests 03/12/21 05:44 Microbiology Microbiology 03/11/21 Blood Culture - Preliminary, Resulted No growth after 24 hours . All specim... 03/11/21 Blood Culture - Preliminary, Resulted No growth after 24 hours . All specim... Discharge Medications Scheduled Atorvastatin Calcium (Atorvastatin Calcium) 80 Mg Tablet, 80 MG PO DAILY, (Reported) Cefdinir (Cefdinir) 300 Mg Capsule, 300 MG PO BID, (Reported) 7 DAY SUPPLY Gabapentin (Gabapentin) 300 Mg Capsule, 300 MG PO TID Metoprolol Succinate (Metoprolol Succinate) 25 Mg Tab.er.24h, 25 MG PO DAILY Multivitamins (Thera M Plus Tablet) 1 Each Tablet, 1 TAB PO DAILY, (Reported) Sertraline Hcl (Zoloft) 100 Mg Tablet, 100 MG PO BID, (Reported) Topiramate (Topamax) 100 Mg Tablet, 150 MG PO BID, (Reported) Tramadol HCl/Acetaminophen (Tramadol-Acetaminophn 37.5-325) 1 Each Tablet, 1 TAB PO TID, (Reported) Warfarin Sodium (Warfarin Sodium) 1 Mg Tablet, 1 MG PO DAILY, (Reported) TAKE WITH 2MG = TOTAL 5MG Warfarin Sodium (Warfarin Sodium) 2 Mg Tablet, 4 MG PO DAILY, (Reported) TAKE WITH 1MG = TOTAL 5MG Allergies Coded Allergies: No Known Allergies (Unverified , 03/10/21) ADDIE VELAZQUEZ MD Mar 12, 2021 08:54
--- NOTE | 2021-03-12 15:02 | EEG ---
ELECTROENCEPHALOGRAM DATE: 03/11/2021 REFERRING PHYSICIAN: ADDIE VELAZQUEZ MD DIAGNOSIS: Seizure. EEG#: [id number] HISTORY: The patient is a 70-year-old woman who was admitted at [facility] due to two episodes of transient seizure-like activity with brief postictal state. This EEG was done to rule out epileptic potential. She is currently taking Coumadin, spironolactone, metoprolol, Gabapentin, topiramate, Tramadol, sertraline, etc. TECHNICAL DESCRIPTION: This digital electroencephalogram (EEG) was recorded by 21 scalp, ear, and two electrocardiogram (EKG) electrodes and was reviewed in bipolar and referential montages following reformatting in 10-20 international electrode placement system. INTERPRETATION: The patient was noted to be in awake and drowsy states during this EEG. Resting and awake background rhythm consisted of well-formed posterior dominant rhythm with anterior/posterior gradient comprising of 12 Hz alpha activity measuring 15-40 microvolts in amplitude which was symmetric and reactive to eye opening. Attenuation of posterior dominant rhythm was seen during transition to drowsiness. Stage I and II sleep were reviewed and were symmetric bilaterally. Hyperventilation was not performed. Photic stimulation remained unremarkable. EKG revealed normal sinus rhythm. No focal, lateralizing, or epileptiform abnormalities were seen. No relevant clinical activity was noted. CONCLUSION: This EEG in awake, drowsy states is within normal limits.
[2021-03-14 21:08] LABS: ANTINUCLEAR ANTIBODIES DIRECT Negative (Negative); TOPIRAMATE LEVEL 12.5 ug/mL (2.0-25.0)
== END 2021-03-12 11:21 | disposition home or self-care (01) ==
LOC: M ED 12:36 → M ED INP 12:37 → M ED 18:58 → ENRESERV 03-11 07:00 → M MSPAV 03-11 07:27
PROVIDERS: ADMIT Internal Medicine; ATTEND Internal Medicine
DX: I95.89 Other hypotension (principal); Z95.4 Presence of other heart-valve replacement; I10 Essential (primary) hypertension; E78.5 Hyperlipidemia, unspecified; Z87.898 Personal history of other specified conditions; I48.20 Chronic atrial fibrillation, unspecified; G43.909 Migraine, unspecified, not intractable, without status migrainosus; F32.9 Major depressive disorder, single episode, unspecified; R41.82 Altered mental status, unspecified; R25.8 Other abnormal involuntary movements; G89.4 Chronic pain syndrome; Z79.899 Other long term (current) drug therapy; Z79.2 Long term (current) use of antibiotics; Z79.01 Long term (current) use of anticoagulants
CPT/HCPCS: 36415; 70450; 71046; 80048; 80076; 80299; 83735; 84146; 84439; 84443; 85025; 85027; 85610; 85730; 86038; 86431; 86780; 87040; 87631; 93005; 93041; 94760; 95819; 97116; 97161; 99285; G0378

== ENCOUNTER → 2021-03-30 | Outpatient (CLI) | payer MEDICARE ==
[~2021-03-30] MED LIST: ALTA1CAP3 PO; ATOR80TA59 PO; CEFD1CAP8; CEFD1CAP8 PO; GABA-282 PO; GABA600T4 PO; METO1TAB32 PO; METO1TAB7 PO; NEUR600T PO; RAMI1CAP24 PO; SERT-141 PO; SPIR-10; SPIR-10 PO; TERB250T91; TOPA100T12 PO; TOPR50TA PO; TORS10TA3 PO; TRAM37.53; TRAM37.53 PO; VITMTA PO; WARF-18 PO; WARF4TAB51 PO; WARF4TAB52 PO; ZOLO100T PO
[2021-03-30 15:54] LABS: BASO # 0.1 10^3/uL (0.0-0.2); BASO % 0.9 % (0.0-1.0); EOS # 0.1 10^3/uL (0.0-0.5); EOS % 1.2 % (0.0-3.0); HEMOGLOBIN 13.3 g/dl (12.0-15.5); LYMPH # 0.6 10^3/uL (1.5-5.0); LYMPH % 6.9 % (24.0-44.0); MEAN CORPUSCULAR HEMOGLOBIN 27.1 pg (27.0-33.0); MEAN CORPUSCULAR HGB CONC 30.2 g/dl (32.0-36.5); MEAN CORPUSCULAR VOLUME 89.6 fl (80.0-96.0); MONO # 0.4 10^3/uL (0.0-0.8); MONO % 4.8 % (2.0-8.0); NEUTROPHILS # 6.9 10^3/uL (1.5-8.5); NEUTROPHILS % 85.8 % (36.0-66.0); PLATELET COUNT, AUTOMATED 196 10^3/uL (150-450); RED BLOOD COUNT 4.91 10^6/uL (4.00-5.40); WHITE BLOOD COUNT 8.1 10^3/uL (4.0-10.0)
[2021-03-30 16:08] LABS: INR 2.51; PROTHROMBIN TIME 27.5 SECONDS (12.7-14.5)
[2021-03-30 16:22] LABS: BLOOD UREA NITROGEN 18 MG/DL (7-18); CALCIUM LEVEL 9.3 MG/DL (8.8-10.2); CARBON DIOXIDE LEVEL 26 MEQ/L (21-32); CHLORIDE LEVEL 108 MEQ/L (98-107); CREATININE FOR GFR 0.92 MG/DL (0.55-1.30); GLOMERULAR FILTRATION RATE > 60.0 (>45); GLUCOSE, FASTING 124 MG/DL (70-100); POTASSIUM SERUM 4.1 MEQ/L (3.5-5.1); SODIUM LEVEL 141 MEQ/L (136-145)
== END ==
LOC: M LAB 14:43
PROVIDERS: ATTEND Physician Assistant
DX: I49.5 Sick sinus syndrome (principal)

== ENCOUNTER 2021-03-31 12:03 | Day surgery (SDC) | payer MEDICARE ==
[~2021-03-31] VITALS: Ht 160 cm; Wt 67.9 kg
[2021-03-31] MEDS ORDERED: ceFAZolin 2 GM/D5W 50 ML IV BAG (J0690 PER 500MG) As Ordered ONE (12:25)
[2021-03-31] MEDS ORDERED: ISOVUE-300 61% 50ML VIAL As Ordered ONE (12:36)
[2021-03-31] MEDS ORDERED: AMIODARONE HCL 360 MG/200 ML PREMIXED BAG (NEXTERONE) (J0282 PER 30MG) As Ordered ONE (12:36)
[2021-03-31] MEDS ORDERED: LIDOCAINE 1% SDV 30ML VIAL As Ordered ONE (12:36)
[2021-03-31 12:50] LABS: INR 2.41; PROTHROMBIN TIME 26.7 SECONDS (12.7-14.5)
[2021-03-31] MEDS ORDERED: ceFAZolin SOD 2 GM in IV 1 EA IV ONE (13:30)
[2021-03-31] MEDS ORDERED: ONDANSETRON 4MG/2ML VIAL As Ordered ONE (14:06)
[2021-03-31] MEDS ORDERED: fentaNYL 100 MCG/2 ML INJECTION (J3010) As Ordered ONE (14:06)
[2021-03-31] MEDS ORDERED: LIDOCAINE 2% 100MG/5ML SDV (FOR ANES.) As Ordered ONE (14:06)
[2021-03-31] MEDS ORDERED: propofoL 200 MG/20 ML VIAL As Ordered ONE (14:06)
[2021-03-31] MEDS ORDERED: MIDAZOLAM INJ 2MG/2ML VIAL (J2250 PER 1MG) As Ordered ONE (14:06)
[2021-03-31 14:15] VITALS: BP 137/86
[2021-03-31] MEDS ORDERED: traMADol 50 MG TAB PO PRN (14:30)
[2021-03-31] MEDS ORDERED: ACETAMINOPHEN TAB 650MG DOSE (2X325MG) PO PRN (14:30)
[2021-03-31] MEDS ORDERED: fentaNYL 100 MCG/2 ML INJECTION (J3010) IV PRN (14:50)
[2021-03-31] MEDS ORDERED: ONDANSETRON 4MG/2ML VIAL IV PRN (14:50)
[2021-03-31] MEDS ORDERED: LR 1,000 ML IV SCH (14:50)
--- NOTE | 2021-03-31 14:52 | REP ---
INDICATION: Post pacer implant. COMPARISON: 03/10/2021 TECHNIQUE: Portable FINDINGS: The technique utilized in obtaining the radiograph has magnified the cardiac silhouette and accentuated the interstitial markings. There is cardiomegaly accentuated by technique. The interstitial markings have diffusely increased since the prior exam. There is a haziness throughout the pulmonary vascularity. There are no patchy opacities or pleural effusions. There is a single chamber bipolar pacemaker which has been placed since the last exam. There is a prosthetic aortic valve status quo. IMPRESSION: Cardiomegaly, interstitial edema, and other findings as described above. <Electronically signed by Suleman Palumbo > 03/31/21 [id number]
[2021-03-31 15:35] VITALS: BP 134/63
--- NOTE | 2021-03-31 16:30 | RO ---
OPERATIVE NOTE DATE OF OPERATION: 03/31/2021 PROCEDURE: Implantation of single chamber permanent pacemaker. IMPLANTING NEAR EASTERN ARCHAEOLOGY LECTURER: Tanmay Timmons M.D. ANESTHESIOLOGIST: Dr. Tyrone Hoffman PREOPERATIVE DIAGNOSIS: 1. Recurrent syncope. 2. Intermittent high grade AV block. 3. Permanent atrial fibrillation. POSTOPERATIVE DIAGNOSIS: 4. Recurrent syncope. 5. Intermittent high grade AV block. 6. Permanent atrial fibrillation. TYPE OF ANESTHESIA: Monitored local anesthesia. CLINICAL SUMMARY: This 70-year-old, mother of three grown children, disabled resident of [place], [place] is well known to our cardiology practice, having hypertensive, valvular, and pulmonary heart disease complicated by abnormal EKG, currently permanent atrial fibrillation, and heart failure (diastolic). Underwent aortic valve replacement (mechanical prosthesis), 2000. Last echocardiogram, August 23, 2020 showed a normal left ventricular size and wall thickness with septal wall motion abnormality due to right ventricular pressure overload, left ventricular ejection fraction 65%. Prominently dilated left atrium and right heart chambers with normal right ventricular free wall motion but pulmonary arterial pressure 58 mmHg and dilated IVC of 2.8 cm with reduced respiratory collapse. Normal aortic dimensions with appropriate mechanical aortic valve function, moderate mitral annular calcification with mild mitral stenosis and moderately severe mitral insufficiency as well as severe tricuspid insufficiency. Pharmacological stress heart scan, September 07, 2020 showed no inducible chest pain, EKG change with persistent atrial fibrillation and occasional PVC, normal left ventricular size and wall motion, LVEF 64%, slight chest wall attenuation but no reversible perfusion defect. She has been having problems with recurrent near syncope/syncope and a 30 day event monitor has been placed at [place], [place]. March 29, 2021 at 5:14 p.m., the patient's underlying rhythm was associated with at least a 4.9 second asystolic pause. She was referred to our office March 30, 2021 in light of these abnormal findings and her current pacemaker implant was arranged. She apparently had had four falls and two episodes of syncope in the past month. She has not been having any chest pain and ultimate limitation is fatigue with some shortness of breath, is unaware of her heart action. No history suggesting thrombotic phenomenon or hemorrhagic complication on her current warfarin oral anticoagulation. On examination, she is a petite, elderly lady of medium body build. Extremely hard of hearing, wears a hearing aid. Heart rate was 86 BPM and irregular, blood pressure 124/82 sitting. Respiratory rate 16, BMI 26.9. No pallor or cyanosis. Trachea midline, jugular veins 2 cm above the sternal angle. Normal appearing chest configuration and chest expansion with no current inspiratory rales or expiratory rhonchi. Apical impulse just at the midclavicular line, fifth intercostal space. S1 and S2 were somewhat distant but normal in intensity. No audible gallop, no evidence of prosthetic valve leak. Soft abdomen with no current pedal edema. EKG: It showed underlying atrial fibrillation with controlled ventricular response averaging 86 BPM. Somewhat prominent voltages and repolarization abnormalities in keeping with left ventricular hypertrophy. Its appearance was not changed from October 18, 2020. Blood work March 30, 2021 showed a hemoglobin of 13.3 with normal white blood cell count and platelet count. PT/INR was 27.5/2.5. Electrolytes were in balance with a posterior of 4.1, BUN 18, creatinine 0.9, random glucose 124. DESCRIPTION OF PROCEDURE: Following informed consent and the patient having fasted for 12 hours, she was given Ancef 2 gm IV premedication and taken to the operating theater. Numerous skin electrodes were applied to facilitate continuous electrocardiographic monitoring. The left subclavian region was prepped and draped in the usual fashion and the skin was infiltrated with 1% Xylocaine. The left axillary vein was catheterized using a micropuncture technique. A 5 cm linear incision was made 2 cm below and parallel to the left clavicle. Dissection was carried down to the level of the pectoralis fascia and a pocket was fashioned below the level of the incision line. Caution was taken to ensure all superficial bleeding was stopped as we did not discontinue her warfarin therapy because of her old mechanical prosthetic aortic valve. A single bipolar screw-in active fixation, steroid-eluting pacing lead was then advanced to the right ventricular apex fluoroscopic and electrocardiographic control. The right ventricular lead ([employer], model number [id number]/[id number], serial number [id number]) measurements were focal and stimulation thresholds 0.6 V/0.4 ms/impedance 640 ohms. The R-wave measured 5.0 mV. This lead was secured in position with a sleeve sutured at its insertion site. It was then connected to a single-chamber pulse generator (Zrlwjn-[id number]-WIG compatible, model number [id number], serial number [id number]) and appropriate VVI pacing was documented. The generator was placed in the pocket and secured in position with a suture through the upper right-hand corner of the epoxy header. The subcutaneous tissues were approximated using a running Chromic suture and the skin was closed using josef. A dry dressing was applied and the patient was returned to the recovery room in good condition. Postoperative portable upright chest x-ray showed good lead position with no pneumothorax. Her EKG shows that underlying atrial fibrillation with controlled ventricular response with appropriate pacemaker sensing and inhibition at this time, spontaneous QRS complexes were unchanged from before showing left ventricular hypertrophy and repolarization abnormalities. She will be monitored on telemetry overnight and I will anticipate her discharge tomorrow morning. She will receive an additional three doses of Ancef 1 gm q.8h. Followup PA and a final chest x-ray and EKG will be obtained in the morning. COMPLICATIONS: No apparent complications. ESTIMATED BLOOD LOSS: Less than 5 mL. Tanmay Ospina MD, FACC
[2021-03-31] MEDS: METOPROLOL SUCC *XL* 25MG TAB (TopROL *XL*) PO SCH (17:26)
[2021-03-31] MEDS: GABAPENTIN 300 MG CAP PO SCH ×2 (17:28→20:25)
[2021-03-31 20:00] VITALS: BP 114/64
[2021-03-31] MEDS: SERTRALINE 100 MG TAB PO SCH (20:25)
[2021-03-31] MEDS: ceFAZolin SOD 1 GM in D5W MINI-BAG PLUS 50 ML IV SCH (20:26)
[2021-03-31] MEDS: TOPIRAMATE (TopAMAX) 100 MG TAB PO SCH (20:26)
[2021-03-31] MEDS ORDERED: ATORVASTATIN 20 MG TAB PO SCH (21:00)
[2021-04-01] VITALS: BP 122/59
[2021-04-01 04:00] VITALS: BP 123/59
[2021-04-01] MEDS: ceFAZolin SOD 1 GM in D5W MINI-BAG PLUS 50 ML IV SCH ×2 (04:56→12:28)
[2021-04-01 07:33] VITALS: BP 126/57
--- NOTE | 2021-04-01 08:12 | ECGEPIP ---
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
--- NOTE | 2021-04-01 08:19 | ECGEPIP ---
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
--- NOTE | 2021-04-01 08:21 | REP ---
INDICATION: Post pacemaker implant COMPARISON: None. TECHNIQUE: PA and lateral. FINDINGS: The mediastinum and cardiac silhouette are stable. Pacemaker in stable position. Prior sternotomy and aortic valve repair again noted. The lung rader demonstrate chronic changes without acute consolidation, effusion, or pneumothorax. The skeletal structures are intact and normal. IMPRESSION: No acute cardiopulmonary process. <Electronically signed by Joo Da Silva > 04/01/21 [id number]
[2021-04-01] MEDS: TOPIRAMATE (TopAMAX) 100 MG TAB PO SCH (08:58)
[2021-04-01 08:59] VITALS: BP 126/57
[2021-04-01] MEDS: SERTRALINE 100 MG TAB PO SCH (08:59)
[2021-04-01] MEDS: GABAPENTIN 300 MG CAP PO SCH (08:59)
[2021-04-01] MEDS: METOPROLOL SUCC *XL* 25MG TAB (TopROL *XL*) PO SCH (08:59)
[2021-04-01] MEDS ORDERED: FLUBLOK(EGG FREE)(QUAD)INFLUENZA VACC 0.5ML SYRINGE 18YRS & OLDER IM ONE (09:00)
[2021-04-01 12:07] VITALS: BP 124/68
--- NOTE | 2021-04-01 12:56 | IPN ---
PROGRESS NOTE DATE: 04/01/2021 SUBJECTIVE: Has been up in the room without dizziness. Has noted some only mild incisional discomfort following her pacemaker implant yesterday. Denies other complaints. OBJECTIVE: Pleasant, petite, elderly lady of medium body build. Somewhat frail and needed assistance to get up from her chair to the bed. Heart rate 88 beats per minute (BPM) and irregular, blood pressure 126/57, respiratory rate 16, oxygen saturation 98% on room air. She was afebrile. Weight 150 pounds, height 63 inches, body mass index (BMI) 26.5. No pallor or cyanosis. Trachea midline. Neck veins did not appear to be elevated. Slightly increased anterior-posterior chest diameter with normal chest expansion. Pacemaker dressing, left subclavian region. Has developed a slight hematoma related to her oral anticoagulant therapy. Some associated bruising but no discharge or bleeding. TELEMETRY: This shows primarily underlying atrial fibrillation with spontaneous atrioventricular (AV) conduction. Appropriate intermittent ventricular paced beats were documented. EKG: As mentioned above, this shows chiefly atrial fibrillation with spontaneous AV conduction with prominent precordial voltage and stream pattern, in keeping with left ventricular hypertrophy. Repolarization abnormalities have not changed from postoperative EKG yesterday. CHEST X-RAY: PA and left lateral study performed earlier today was reviewed independently and shows stable cardiomegaly with pacemaker pulse generator, left subclavian region, and single pacing lead in good position in the right ventricular apex. Sternotomy wire sutures were evident along with evidence of her mechanical prosthetic aortic valve. Thoracic aorta was slightly unfolded with some calcification of the aortic arch. Has an obvious moderate-sized hiatal hernia seen best on the lateral projection. Pulmonary vasculature appeared to be normal. Slightly hyperinflated lung rader with somewhat flattened diaphragms but no pleural effusion. Accentuated interstitial markings but no Kyle "B" lines. Osteoporosis and degenerative changes of her thoracic spine. PACEMAKER INTERROGATION AND REPROGRAMMING: [employer] compatible, model #1272, serial #[id number], was interrogated in detail today. As mentioned, her device has been functioning appropriately, and she has an excellent ventricular pacing threshold at 0.5 volts/0.4 msec. Intracardiac electrograms reveal a R-wave amplitude of 6.5 mV. Lead impedence 460 ohms. We elected to reprogram her ventricular sensitivity to 1.5 mV to ensure plenty of safety sensing margin. Estimated battery longevity 11 years. IMPRESSION/PLAN: 1, Recurrent syncope: Believed to be due to episodic high-grade AV block. At this point she denies any recurrent dizziness or faintness since her pacemaker was implanted, even with her ambulation in room. We are cautiously optimistic this problem has been solved with pacemaker implant. 2. AV block/single-chamber pacemaker in situ: As mentioned above, her pacemaker is functioning appropriately with no further bradyarrhythmia. Her current ventricular response to atrial fibrillation is controlled. Device programming as mentioned above. She has been encouraged to perform only light activities of daily living with her left arm and will be wearing her sling for an additional 24 hours in light of her small hematoma. We have also requested that she resume her Coumadin not today but tomorrow, hoping to prevent her hematoma from becoming any greater. We have encouraged her to contact us should she notice any worsening swelling or discharge. She has a followup office appointment for wound check and staple removal 04/06/2020. 3. Permanent atrial fibrillation: Has a controlled ventricular response on her present low-dose metoprolol succinate 25 mg daily. This will be continued the same. Followup PT/INR was not checked today. Small hematoma at the site of her pacemaker implant but no other bleeding complications. She has been informed to resume her usual Coumadin 5 mg daily starting tomorrow. 4. Hypertensive heart disease (benign without heart failure): Her current blood pressure is adequately controlled with a modest salt intake restriction and low-dose metoprolol therapy alone. No changes were deemed necessary. 5. 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 Recent echocardiogram last spring showed appropriate device function. Has no symptoms or signs of endocarditis. Has received Ancef antibiotic therapy prior to and three doses IV following her pacemaker implant. The patient knows she can contact us at any time should she have a problem, but we look forward to seeing her in the office early in the new year.
== END 2021-04-01 14:22 | disposition home or self-care (01) ==
LOC: M SDC 12:03 → M PCU 15:30 → M ICU 15:36 → M SDC 04-01 14:22
PROVIDERS: ATTEND Internal Medicine Cardiovascular Disease
DX: I44.1 Atrioventricular block, second degree (principal); R55 Syncope and collapse; I48.21 Permanent atrial fibrillation; I11.9 Hypertensive heart disease without heart failure; I27.20 Pulmonary hypertension, unspecified; I38 Endocarditis, valve unspecified; R94.31 Abnormal electrocardiogram [ECG] [EKG]; Z95.2 Presence of prosthetic heart valve; E78.5 Hyperlipidemia, unspecified; F32.9 Major depressive disorder, single episode, unspecified; R56.9 Unspecified convulsions; D86.9 Sarcoidosis, unspecified; Z79.899 Other long term (current) drug therapy; Z79.01 Long term (current) use of anticoagulants
CPT/HCPCS: 33207; 36415; 71045; 71046; 76000; 85610; 90682; 93005; 96365; 96376; C1786; C1898; G0008; J0690; J2250; J2405; J3010; U0002

== ENCOUNTER → 2021-06-10 | Outpatient (CLI) | payer MEDICARE ==
[~2021-06-10] MED LIST changes: -CEFD1CAP8; -CEFD1CAP8 PO; +CEFD300C41; +CEFD300C41 PO; +ISOVUE-370 76% 100ML VIAL As Ordered ONE
== END ==
LOC: M RAD 09:30
PROVIDERS: ATTEND Psychiatry & Neurology Neurology
DX: R41.82 Altered mental status, unspecified (principal)
CPT/HCPCS: 70470; Q9967

== ENCOUNTER → 2021-09-21 | Outpatient (CLI) | payer MEDICARE ==
[~2021-09-21] MED LIST changes: +DIVA250T67; -ISOVUE-370 76% 100ML VIAL As Ordered ONE; +PYRI0.4T; +TOPI100T9 PO; +TORS20TA2
== END ==
LOC: M LABSMTC 10:45
PROVIDERS: ATTEND Anesthesiology
DX: Z01.818 Encounter for other preprocedural examination (principal); Z11.52 Encounter for screening for COVID-19

== ENCOUNTER 2021-09-26 08:21 | Day surgery (SDC) | payer MEDICARE ==
[~2021-09-26] VITALS: Ht 160 cm; Wt 69.3 kg
[~2021-09-26 08:21] MED LIST changes: +LIDOCAINE 1% SDV 5ML VIAL As Ordered ONE; +LR 1,000 ML IV SCH; +TETRACAINE 0.5% OPHTH SOLN 4ML OS SCH
[2021-09-26] MEDS: PHENYLEPHRINE 2.5% OPHTH SOL 2ML OS SCH ×3 (09:10→09:53)
[2021-09-26] MEDS: FLURBIPROFEN 0.03% OPHTH SOLN 2.5 ML OS SCH ×3 (09:10→09:53)
[2021-09-26] MEDS: CYCLOPENTOLATE 1% OPHTH SOLN 2 ML BTL OS SCH ×3 (09:10→09:53)
[2021-09-26 09:34] LABS: INR 1.95; PROTHROMBIN TIME 22.6 SECONDS (12.7-14.5)
[2021-09-26] MEDS ORDERED: fentaNYL 100 MCG/2 ML INJECTION As Ordered ONE (10:37)
[2021-09-26] MEDS ORDERED: MIDAZOLAM INJ 2MG/2ML VIAL (J2250 PER 1MG) As Ordered ONE (10:37)
[2021-09-26 11:07] VITALS: BP 127/79
== END 2021-09-26 11:35 | disposition home or self-care (01) ==
LOC: M SDC 08:21
PROVIDERS: ATTEND Ophthalmology
DX: H25.12 Age-related nuclear cataract, left eye (principal); I10 Essential (primary) hypertension; E11.9 Type 2 diabetes mellitus without complications; K76.9 Liver disease, unspecified; E78.5 Hyperlipidemia, unspecified; Z79.899 Other long term (current) drug therapy; Z79.01 Long term (current) use of anticoagulants; Z79.84 Long term (current) use of oral hypoglycemic drugs; Z79.891 Long term (current) use of opiate analgesic
CPT/HCPCS: 36415; 66984; 85610; J2250; J3010; V2632